=== PATIENT | male | born 1940 | race Caucasian/White ===

== ENCOUNTER 2019-09-20 13:20 | Outpatient (CLI) | payer MEDICARE, SELFPAY ==
--- NOTE | ~2019-09-20 | XR_ITS ---
EXAMINATION: XR shoulder LT min 2V DATE: 09/20/2019 13:58 INDICATION: Left shoulder pain. TECHNIQUE: 4 views of left shoulder were obtained. COMPARISON: Left shoulder radiographs 12/14/2017 FINDINGS: There is a reverse [id number] total left shoulder arthroplasty in near-anatomic alignm ent. No acute fracture. No periprosthetic lucency to suggest loosening or infection. 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 There are old healed left rib fractures. There a re chronic calcifications in left axilla. IMPRESSION: 1. Total left shoulder arthroplasty in near-anatomic alignment. 2. 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 Reviewed, dictated and finalized at location A.
== END 2019-09-20 13:21 | disposition home or self-care (01) ==
PROVIDERS: PCP Internal Medicine
DX: M25.512 Pain in left shoulder (principal)
CPT/HCPCS: 73030

== ENCOUNTER 2019-10-21 14:47 | Outpatient (CLI) | payer MEDICARE, SELFPAY ==
--- NOTE | ~2019-10-21 | XR_ITS ---
EXAMINATION: XR femur LT min 2V DATE: 10/21/2019 15:18 INDICATION: Left femur pain TECHNIQUE: Overlapping proximal and distal, AP and lateral views of the left femur were obtained. COMPARISON: None FINDINGS: Alignment is normal. No fracture. Prominent heterotopic ossification along the anterior facet of the left greater trochanter along the distal insertion of the left gluteus minimus tendon. This likely re presents sequela of chronic at least partial tear with mild asymmetric muscular atrophy of the left g luteus medius minimus relative to the right on prior CT dated 07/27/2017. Minimal osteoarthritis at th e left hip and knee. No left knee joint effusion. Bone island at the left femoral head. Extensive vas cular calcifications along the vessels in the left thigh and proximal calf. Multiple additional calci fications projecting over the perineum which on prior CT correspond to a combination of phleboliths, vascular calcifications and penile calcifications consistent with Peyronie's disease. Soft tissues ar e otherwise unremarkable. IMPRESSION: 1. Minimal left hip and knee osteoarthritis. No left knee joint effusion or acute osseous abnormality . 2. Prominent heterotopic constipation on the anterior margin of the left greater trochanter likely se quela of chronic at least partial tear of the left gluteus in this tendon. Reviewed, dictated and finalized at location A. IMPRESSION: 1. Minimal left hip and knee osteoarthritis. No left knee joint effusion or acu te osseous abnormality. 2. Prominent heterotopic constipation on the anterior margin of the left greate r trochanter likely sequela of chronic at least partial tear of the left gluteu s in this tendon.
== END 2019-10-21 14:48 | disposition home or self-care (01) ==
LOC: CHSIMG 14:49
PROVIDERS: PCP Internal Medicine; Visit Provider Internal Medicine
DX: M79.652 Pain in left thigh (principal); M25.552 Pain in left hip
CPT/HCPCS: 73552

== ENCOUNTER 2019-11-11 11:27 | Outpatient (CLI) | payer MEDICARE, SELFPAY ==
--- NOTE | ~2019-11-11 | XR_ITS ---
EXAMINATION: XR lumbar spine 2-3V DATE: 11/11/2019 11:48 INDICATION: Low back pain TECHNIQUE: Anteroposterior and lateral views of the lumbar spine, and cone-down lateral view of the l umbosacral junction were obtained. COMPARISON: 07/10/2017 FINDINGS: There are changes of interval posterior fusion and laminectomy from L3 through L5 and anter ior fusion at L4-5. There are 8 mm of stable retrolisthesis of L3 on L4 and 7 mm of stable anterolist hesis of L4 on L5. There is mild unchanged loss of intervertebral disc space height at L3-4 and L5-S1 . There is an age-indeterminate compression fracture of L1 with approximately 10% loss of anterior ve rtebral body height. Degenerative osteophytes project from the anterior endplates of multiple vertebr al bodies. Calcified atherosclerosis is noted. IMPRESSION: 1. Age-indeterminate L1 compression fracture with 10% loss of anterior vertebral body height, new sin ce the prior examination. 2. Changes of interval anterior and posterior fusion. Reviewed, dictated and finalized at location B. IMPRESSION: 1. Age-indeterminate L1 compression fracture with 10% loss of anterior vertebra l body height, new since the prior examination. 2. Changes of interval anterior and posterior fusion.
== END 2019-11-11 11:28 | disposition home or self-care (01) ==
LOC: CHSIMG 11:29
PROVIDERS: PCP Internal Medicine; Visit Provider Internal Medicine
DX: M54.5 Low back pain (principal)
CPT/HCPCS: 72100

== ENCOUNTER 2019-12-03 12:36 | Emergency (ER) | payer MEDICARE, SELFPAY ==
--- NOTE | ~2019-12-03 | CT_ITS ---
EXAMINATION: CT thoracic lumbar wo con, CT chest wo con DATE: 12/03/2019 16:12 ( INDICATION: Low back pain and bilateral lower limb weakness post fall. Chest CT obtained for soft tis kaylin gas in the chest wall seen on evaluation of the thoracic and lumbar spine CT. TECHNIQUE: 1. Computed tomography (CT) of the thoracic and lumbar spine was performed without intravenous contra st. Automated exposure control and iterative reconstruction technique were employed. The dose-length product was 2336.90 mGy-cm. 2. CT of the chest without contrast was obtained by reformatting the imaging obtained as part of the thoracic and lumbar spine CT. COMPARISON: None FINDINGS: Thoracic spine: Mild upper thoracic kyphosis. 3 mm anterolisthesis C7 on T1 and T2 on T3. Vertebral body heights are normal. No acute fracture. There are bridging osteophytes at multiple levels throughout the mid to lo wer thoracic spine consistent with diffuse idiopathic skeletal hyperostosis (DISH). Severe disc heigh t loss at C7-T1 through T2-T3, moderate disc height loss at T4-T5 through T7-T8 and at T10-T11 with m ild disc height loss at the remaining thoracic levels. There are disc osteophyte complexes resulting in mild central canal stenosis at C6-C7 and at multiple levels throughout the thoracic spine. Moderat e to severe bilateral facet osteoarthritis throughout the thoracic spine resulting in multilevel mild or moderate neural foraminal stenosis on both the left and right. Small posteriorly layering left pl eural effusion with associated passive atelectasis in the dependent left lower lobe. Lumbar spine: L3 and L4 laminectomies. Instrumented L3-L5 posterior spinal fusion with bilateral vertical una and p edicle screw fixation. There is also discectomy and anterior spinal fusion with interbody fusion caridad ce at L4-L5. 3-4 mm retrolisthesis L3 on L4 and L3-4 millimeters anterolisthesis L4 on L5. Relatively acute appearing L1 burst fracture with 20% mid to anterior vertebral body height loss and fracture l ine extending from the anterior to the posterior wall without associated retropulsion. There is howev er an associated oblique axial fracture extending across the spinous process of T12 suggesting a hype rflexion injury. Lesion with increased density within the central aspect of the L2 vertebral body lik mary representing changes of prior a vertebroplasty the differential would include indeterminate scler otic bone lesion. Correlate with surgical history. Mild disc height loss at L3-L4 and L5-S1. Disc bu lges and ligamentum flavum hypertrophy resulting in at least moderate central canal stenosis at L1-L2 and L2-L3. Evaluation of the central canal in the more caudal lumbar spine is limited by dense metal lic streak artifact from the posterior spinal fusion instrumentation. Hypertrophic change at the mid to lower lumbar facet joints resulting in moderate neural foraminal stenosis on the left at L4-5 and on the right at L3-L4 and L5-S1. Mild neural foraminal stenosis bilaterally at L1-L2 and L2-L3. There is some subcutaneous gas in the subcutaneous tissues posterior to the thoracic and upper lumbar spin e was of indeterminate etiology. Chest: Small posteriorly layering left pleural effusion with dependent passive atelectasis in the left lower lobe. Acute displaced fracture of the left seventh, eighth and ninth ribs. There is moderate amount of soft tissue gas along the lateral and posterior left chest wall suggesting air leak resulting from an associated otherwise indiscernible left lung injury. No pneumothorax. There are few old healed an terior left rib fractures. Right lung remains clear with no pneumothorax or pleural effusion. Mild ca rdiomegaly. Atherosclerotic coronary artery calcifications. Subtle fat attenuation along the ventricu lar septum consistent with chronic myocardial infarction. Thoracic aorta is normal in caliber with no evident ac
--- NOTE | ~2019-12-03 | CT_ITS ---
EXAMINATION: CT pelvis wo con EXAM DATE: 12/03/2019 13:28 INDICATION: Fall, pelvic pain. States legs give out. TECHNIQUE: Spiral CT pelvis wo con was performed without contrast. Axial, coronal and sagittal imag es were reviewed. The dose-length product (DLP) for this examination was 545.73 mGy-cm. The exposur e was tailored according to patient size (auto mA exposure control), and iterative reconstruction ( IR) was used as additional dose reduction technique. There is no prior study for comparison. FINDINGS: There are no acute fractures identified. Small left inguinal fat-containing hernia. Smal l umbilical fat-containing hernia. There is extensive sigmoid colonic diverticulosis. There is no ad jacent inflammatory change to suggest diverticulitis. Mild prostatomegaly. No pelvic lymphadenopathy . Sacrum, sacroiliac joints, sacral arcuate lines are intact. Lower lumbar fusion with imaged porti on of hardware intact. Interbody fusion L4-5 without solid bone bridging. Some lucency surrounding th e L5 screws. Rectal vault measures 7.5 cm. IMPRESSION: 1. No acute osseous findings. 2. Fecal impaction. 3. Colonic diverticulosis. 4. Lumbar surgical changes, incomplete bone bridging at L4-5 and some lucency surrounding the L5 ped icular screws could indicate loosening. Reviewed, dictated and finalized at location B. IMPRESSION: 1. No acute osseous findings. 2. Fecal impaction. 3. Colonic diverticulosis. 4. Lumbar surgical changes, incomplete bone bridging at L4-5 and some lucency surrounding the L5 pedicular screws could indicate loosening.
--- NOTE | 2019-12-03 12:47 | ED.WEAKNESS ---
HPI - Weakness General Chief complaint: Back Pain/Injury Stated complaint: ambulance Time Seen by Provider: 12/03/19 12:47 Source: patient Mode of arrival: ambulatory Limitations: no limitations History of Present Illness HPI Narrative: 79-year-old man comes in today complaining of weakness in his legs that caused a fall today. He states that his legs give out and when he fell today he felt pain in his low back, and bilateral posterior hips. He states the low back pain is back to its usual and he now only has some mild bilateral hip pain. Patient states that he has a history of prior back surgery, spinal canal stenosis at the lumbar level, and an L1 vertebral compression fracture that was recently diagnosed. He states that over the last few weeks he has gotten progressively weak in his lower extremities and complains of some decreased sensation in his left lower extremity. He denies any urine or stool symptoms and has had no difficulty urinating, dysuria, hematuria, nausea, vomiting, cough, cold symptoms, chest pain, headaches, lightheadedness or fever. He had an MRI on November 22, 2019 which revealed severe stenosis at L1-L2 and L2-L3, PLIF at L3 through L5, and the aforementioned L1 compression fracture. Patient states he was scheduled to follow-up with a surgeon regarding his symptoms and findings. In the last few weeks, patient and his state that he having a great deal of difficulty getting around because of the weakness in his legs. He is using adult diapers because he cannot get to the bathroom, and goes only from his bed to his recliner and back. MD Complaint: focal weakness, numbness and difficulty walking Onset (ago): week(s) (2-3) Duration: constant Location: LLE and RLE Migration: none Severity: moderate Quality: numbness (LLE) Relieving factors: none Exacerbating factors: none Related Data Home Medications Medication Instructions Recorded Confirmed aspirin 325 mg tablet 325 mg PO DAILY 05/15/19 12/03/19 cilostazol 50 mg tablet 50 mg PO BID 05/15/19 12/03/19 diltiazem HCl 240 mg 240 mg PO DAILY 05/15/19 12/03/19 capsule,extended release 24 hr donepezil 5 mg tablet 5 mg PO ONCE 05/15/19 12/03/19 insulin human U-100 NPH-regulr 1 sliding scale dose SUB-Q 05/15/19 12/03/19 70-30 mix 100 unit/mL subcutaneous USEASDIRECTD susp lisinopril 40 mg tablet 40 mg PO DAILY 05/15/19 12/03/19 lovastatin 10 mg tablet 10 mg PO DAILY 05/15/19 12/03/19 tramadol 50 mg tablet 50 mg PO Q6H PRN 05/15/19 12/03/19 acetaminophen 500 mg tablet 500 mg PO Q6H PRN 05/16/19 12/03/19 ascorbic acid (vitamin C) 500 mg 500 mg PO DAILY 05/16/19 12/03/19 capsule cetirizine 10 mg tablet 5 mg PO BID tablet 05/16/19 12/03/19 cholecalciferol (vitamin D3) 50 2,000 unit PO DAILY 05/16/19 12/03/19 mcg (2,000 unit) tablet coenzyme Q10 100 mg capsule 100 mg PO DAILY 05/16/19 12/03/19 cyanocobalamin (vitamin B-12) 1,000 mcg PO DAILY 05/16/19 12/03/19 1,000 mcg capsule loteprednol etabonate 0.5 % eye 1 drop EACH EYE ONCE ml 05/16/19 12/03/19 drops,suspension multivitamin 1 tablet PO DAILY 05/16/19 12/03/19 Allergies Allergy/AdvReac Type Severity Reaction Status Date / Time No Known Allergies Allergy Verified 11/11/19 14:15 Review of Systems Constitutional: Constitutional: Denies chills and Denies fever(s) Eyes: Eyes: Denies change in vision and Denies photophobia ENT: Denies dysphagia, Denies nasal congestion and Denies sore throat Cardiovascular: Cardiovascular: Denies chest pain and Denies radiating jaw, neck or arm pain Respiratory: Respiratory: Denies cough, Denies dyspnea and Denies wheezing Gastrointestinal: Gastrointestinal: Denies abdominal pain, Denies diarrhea, Denies nausea and Denies vomiting Genitourinary: Genitourinary: Denies hematuria, Denies dysuria and Denies urinary frequency Musculoskeletal: Musculoskeletal: Reports as per HPI, Reports back pain ( As per usual), Reports arthralgias ( at hips) and Denies
[2019-12-03 13:02] VITALS: BP 160/92; PULSE 69; RESP 17; TEMP 37; O2SAT 97
[2019-12-03 13:28] LABS: Basophils Absolute Auto 0.04 K/mm3 (0.00-0.10); Basophils Percent Auto 0.6 % (0.0-1.0); Eosinophils Absolute Auto 0.57 K/mm3 (0.02-0.50); Eosinophils Percent Auto 8.1 % (1.0-6.0); Hematocrit 38.3 % (37.0-46.0); Hemoglobin 12.5 g/dL (12.4-15.3); Immature Granulocyte Absolute 0.02 K/mm3 (0.00-0.00); Immature Granulocyte Percent A 0.3 % (0.0-0.0); Lymphocytes Percent Auto 15.6 % (18.0-42.0); Mean Corpuscular HGB Conc 32.6 g/dL (32.0-36.0); Mean Corpuscular Hemoglobin 30.5 pg (27.0-31.0); Mean Corpuscular Volume 93.4 fL (78.0-102.0); Mean Platelet Volume 9.7 fl (8.7-11.0); Monocytes Absolute Auto 0.49 K/mm3 (0.10-0.90); Neutrophils Absolute Auto 4.8 K/mm3 (1.7-7.2); Neutrophils Percent Auto 68.4 % (50.0-70.0); Platelet Count Result 266 K/mm3 (150-420); Red Cell Distribution Width 13.1 % (11.6-14.4)
[2019-12-03 13:41] LABS: Alanine Aminotransferase 18 U/L (16-63); Alkaline Phosphatase 105 U/L (46-116); Anion Gap 9 mmol/L (8-16); Aspartate Amino Transferase 16 U/L (15-37); Bilirubin,Total 0.4 mg/dL (0.00-1.00); Blood Urea Nitrogen 12 mg/dL (7-18); Calcium 8.9 mg/dL (8.5-10.1); Carbon Dioxide 25 mmol/L (21-32); Chloride 105 mmol/L (98-108); Estimated Glomerular Filt Rate > 60; Glucose 137 mg/dL (70-99); Osmolality Calculated 289 mOsm/kg (285-295); Sodium 139 mmol/L (136-145); Total Protein 6.9 g/dL (6.4-8.2)
[2019-12-03 14:30] VITALS: BP 147/83; PULSE 68; O2SAT 99
--- NOTE | 2019-12-03 15:18 | PC.NURSE ---
DR BORGES CALLED FOR CONSULT ON POSSIBLE TRANSFER
--- NOTE | 2019-12-03 15:47 | PC.NURSE ---
CONSULT WITH DR BORGES - PT TO BE SEEN IN ER AT [facility] BY DR GRIFFITHS
[2019-12-03 16:09] VITALS: BP 137/77; PULSE 61; RESP 16; O2SAT 99
[2019-12-04 13:03] LABS: Glucose Point of Care 125 (65-105)
== END 2019-12-03 16:20 | disposition short-term general hospital (02) ==
PROVIDERS: Emergency Provider Emergency Medicine; PCP Internal Medicine
DX: R53.1 Weakness (principal); S32.001A Stable burst fracture of unspecified lumbar vertebra, initial encounter for closed fracture; S22.49XA Multiple fractures of ribs, unspecified side, initial encounter for closed fracture; W19.XXXA Unspecified fall, initial encounter
CPT/HCPCS: 36415; 71250; 72128; 72131; 72192; 80053; 85025; 99285

== ENCOUNTER 2020-04-26 09:21 | Emergency (ER) | payer MEDICARE, SELFPAY ==
--- NOTE | ~2020-04-26 | XR_ITS ---
XR thoracic spine 3V 04/26/2020 11:25 Indication: Back pain. Procedure: 3 views thoracic spine Comparison: CT dated 12/03/2019 Findings: There is mild thoracic kyphosis. Moderate multilevel spondylosis. There is diffuse idiopath ic skeletal hyperostosis (DISH) of the thoracic spine. 10 there is loss of disc height at multiple le vels. No acute fracture or traumatic malalignment is identified. Evaluation of C7-T1 not well seen on the lateral view due to shoulder arthroplasty. Impression: 1: No acute fracture. Reviewed, dictated and finalized at location A. [facility] CL[employer] SPECIALIST Impression: 1: No acute fracture.
--- NOTE | ~2020-04-26 | XR_ITS ---
XR lumbar spine 2-3V 04/26/2020 11:25 Indication: Low back pain status post surgery Procedure: 6 views of the lumbar spine Comparison: CT dated 12/03/2019 and lumbar spine series dated 07/10/2017 Findings: There is posterior spinal fusion with pedicle screws at T12-L5. There is a superior endplat e compression fracture of L1 with ill-definition of the superior endplate. There is lateral bone mass graft at throughout the lumbar spine. There are prosthetic disc devices at L1-2 and L4-5. There is a n IVC filter favored. There is advanced multilevel facet hypertrophy. Laminectomy changes at multiple levels. There is grade 1 spondylolisthesis at L4-5. Impression: 1: Superior endplate compression fracture of L1 with ill-definition of the superior endplate. There a re pedicle screws at this level which appear to extend outside of the vertebral cortex. These finding s may all be posttraumatic/postsurgical, although infection is not excluded. 2: Spinal fusion at T12-L1 with advanced multilevel spondylosis. Reviewed, dictated and finalized at location A. [facility] SPECIALIST MEDICAL DEVICE Impression: 1: Superior endplate compression fracture of L1 with ill-definition of the supe rior endplate. There are pedicle screws at this level which appear to extend ou tside of the vertebral cortex. These findings may all be posttraumatic/postsurg ical, although infection is not excluded. 2: Spinal fusion at T12-L1 with advanced multilevel spondylosis.
[2020-04-26 09:25] VITALS: BP 191/97; PULSE 66; RESP 16; TEMP 36.6; O2SAT 99
--- NOTE | 2020-04-26 09:33 | ED.BACK ---
HPI - Back Pain/Injury General Chief Complaint: Back Pain/Injury Stated Complaint: Ambulance Time Seen by Provider: 04/26/20 09:33 Source: patient Mode of arrival: EMS Limitations: no limitations History of Present Illness HPI Narrative: 80-year-old man with a history of chronic low back pain and back surgery in December of last year brought in today with increased pain since yesterday. Patient states it is worse with movement, coughing and taking a deep breath. He denies any falls or injuries. He has had no incontinence, pain with urination, blood in his urine, fever, vomiting, abdominal pain or cough or cold symptoms. He is currently requiring full assistance at home between his and caretakers to use a lift to move him to a sitting position from the bed. He states he is not stood for many months. He recently was discharged 04/22/20) from intensive physical therapy after he was not coping well post surgery at home. MD elicited complaint: back pain Pertinent past history: prior back pain Onset (ago): day(s) (1) Timing: constant Severity: severe Quality: sharp and aching Location: lumbar spine and thoracic spine Radiation: none Exacerbating factors: movement and coughing/sneezing Relieving factors: immobilization Related Data Home Medications Medication Instructions Recorded Confirmed diltiazem HCl 240 mg 240 mg PO DAILY 05/15/19 04/26/20 capsule,extended release 24 hr donepezil 5 mg tablet 5 mg PO ONCE 05/15/19 04/26/20 lisinopril 40 mg tablet 40 mg PO DAILY 05/15/19 04/26/20 lovastatin 10 mg tablet 10 mg PO DAILY 05/15/19 04/26/20 tramadol 50 mg tablet 50 mg PO Q6H PRN 05/15/19 04/26/20 acetaminophen 500 mg tablet 500 mg PO Q6H PRN 05/16/19 04/26/20 cholecalciferol (vitamin D3) 50 2,000 unit PO DAILY 05/16/19 04/26/20 mcg (2,000 unit) tablet cyanocobalamin (vitamin B-12) 1,000 mcg PO DAILY 05/16/19 04/26/20 1,000 mcg capsule multivitamin 1 tablet PO DAILY 05/16/19 04/26/20 apixaban [Eliquis] 5 mg PO BID 04/26/20 04/26/20 baclofen 10 mg PO TID 04/26/20 04/26/20 bisacodyl 10 mg [place] DAILY 04/26/20 04/26/20 gabapentin 300 mg PO BID 04/26/20 04/26/20 hydralazine 15 mg PO TID PRN 04/26/20 04/26/20 insulin glargine 12 unit SUBCUT HS 04/26/20 04/26/20 insulin lispro 4 unit SUBCUT AC 04/26/20 04/26/20 lidocaine HCl 1 ea MUCOUS MEMBRANE DAILY 04/26/20 04/26/20 lorazepam 0.5 mg PO BID 04/26/20 04/26/20 potassium chloride 10 meq PO DAILY 04/26/20 04/26/20 Allergies Allergy/AdvReac Type Severity Reaction Status Date / Time No Known Allergies Allergy Verified 11/11/19 14:15 Review of Systems Constitutional: Constitutional: Denies chills, Denies fever(s) and Reports weakness ( Chronic lower extremity) Eyes: Eyes: Denies change in vision and Denies photophobia ENT: Denies dysphagia, Denies nasal congestion and Denies sore throat Cardiovascular: Cardiovascular: Denies chest pain Respiratory: Respiratory: Denies cough and Denies dyspnea Gastrointestinal: Gastrointestinal: Denies abdominal pain, Denies diarrhea, Denies nausea and Denies vomiting Genitourinary: Genitourinary: Denies hematuria, Denies dysuria and Denies urinary frequency Musculoskeletal: Musculoskeletal: Reports back pain, Denies arthralgias and Denies joint swelling Integumentary/Breasts: Skin/Breast: Denies pruritus, Denies erythema and Denies rash Neurologic: Denies vertigo, Denies dizziness and Denies syncope Hematologic/Lymphatic: Hematologic/Lymphatic: Denies easy bleeding and Denies easy bruising Allergic/Immunologic: Allergic/Immunologic: Denies lip swelling and Denies throat swelling PMFSH Past Medical History Medical History (Updated 04/26/20 @ 11:56 by Norman Bertrand MD) Alzheimers disease Anemia HTN (hypertension) Low back pain Male erectile disorder Mixed hyperlipidemia Type 2 diabetes mellitus Surgical History Surgical History History of cholecystectomy Histor
[2020-04-26] MEDS: ONDANSETRON INJ 4 MG/2 ML VIAL IV PUSH (09:52)
[2020-04-26] MEDS: HYDROmorphone HCL INJ (*CRX) 2 MG/ML VIAL 0.5 MG IV PUSH (09:52)
[2020-04-26 09:56] LABS: Basophils Absolute Auto 0.04 K/mm3 (0.00-0.10); Basophils Percent Auto 0.8 % (0.0-1.0); Eosinophils Absolute Auto 0.18 K/mm3 (0.02-0.50); Eosinophils Percent Auto 3.4 % (1.0-6.0); Hematocrit 37.9 % (37.0-46.0); Hemoglobin 11.8 g/dL (12.4-15.3); Immature Granulocyte Absolute 0.02 K/mm3 (0.00-0.00); Immature Granulocyte Percent A 0.4 % (0.0-0.0); Lymphocytes Absolute Auto 1.32 K/mm3 (1.10-4.50); Lymphocytes Percent Auto 24.9 % (18.0-42.0); Mean Corpuscular HGB Conc 31.1 g/dL (32.0-36.0); Mean Corpuscular Hemoglobin 27.8 pg (27.0-31.0); Mean Corpuscular Volume 89.2 fL (78.0-102.0); Mean Platelet Volume 10.2 fl (8.7-11.0); Monocytes Absolute Auto 0.51 K/mm3 (0.10-0.90); Monocytes Percent Auto 9.6 % (2.0-11.0); Neutrophils Absolute Auto 3.2 K/mm3 (1.7-7.2); Neutrophils Percent Auto 60.9 % (50.0-70.0); Platelet Count Result 227 K/mm3 (150-420); Red Blood Count 4.25 M/mm3 (4.70-6.10); Red Cell Distribution Width 16.4 % (11.6-14.4); White Blood Count 5.3 K/mm3 (4.8-10.8)
[2020-04-26 09:57] LABS: Add Urine Microscopic? YES; Appearance Urine Clear (Clear); Bilirubin Urine Negative (Negative); Blood Urine 2+ (Negative); Color Urine Straw (Yellow); Glucose Urine UA Negative (Negative); Ketones Urine Negative (Negative); Leukocyte Esterase Ur Trace (Negative); Nitrate Urine Negative (Negative); Protein Urine Negative (Negative); Specific Grav Ur 1.015 (1.010-1.020); Urobilinogen Urine 0.2 mg/dL (0.2-1.0); pH Urine 5.5 (5.0-8.0)
[2020-04-26 10:02] LABS: Bacteria Urine Trace /hpf; Squamous Epithelial Cell Urine Rare /hpf (Few); WBC Urine 0-3 /hpf (0-3)
[2020-04-26 10:09] LABS: Alanine Aminotransferase 13 U/L (16-63); Albumin Level 2.8 g/dL (3.4-5.0); Alkaline Phosphatase 88 U/L (46-116); Anion Gap 9 mmol/L (8-16); Aspartate Amino Transferase 16 U/L (15-37); Bilirubin,Total 0.3 mg/dL (0.00-1.00); Blood Urea Nitrogen 10 mg/dL (7-18); Carbon Dioxide 26 mmol/L (21-32); Chloride 103 mmol/L (98-108); Estimated Glomerular Filt Rate > 60; Glucose 120 mg/dL (70-99); Osmolality Calculated 286 mOsm/kg (285-295); Potassium 4.1 mmol/L (3.5-5.1); Sodium 138 mmol/L (136-145); Total Protein 6.5 g/dL (6.4-8.2)
[2020-04-26 12:10] VITALS: BP 140/93
== END 2020-04-26 12:35 | disposition home or self-care (01) ==
PROVIDERS: Emergency Provider Emergency Medicine; PCP Internal Medicine
DX: S32.001S Stable burst fracture of unspecified lumbar vertebra, sequela (principal); M54.6 Pain in thoracic spine; Z79.899 Other long term (current) drug therapy; I10 Essential (primary) hypertension; E78.2 Mixed hyperlipidemia; E11.9 Type 2 diabetes mellitus without complications
CPT/HCPCS: 36415; 51701; 72072; 72100; 80053; 81001; 85025; 87086; 96374; 96375; 99283; 99284; J1170; J2405

== ENCOUNTER 2020-09-28 10:16 | Outpatient (RCR) | payer MEDICARE, SELFPAY ==
[2020-09-28 10:10] VITALS: BMI 11.0
--- NOTE | 2020-09-28 17:02 | PTOPEVAL ---
Thank you for referring Kieran Key to [facility].? The patient is scheduled to be seen for therapy? __2__x/week for 8 visits. Please review, sign, date and return this plan of care SARA. I agree with and certify that the following plan of care is medically necessary. Referring Physician Date Admitting Provider: Attending Provider: Vicente Oswald MD Referring Provider: *PT Outpatient Evaluation Start: 09/28/20 10:22 Freq: Status: Active Protocol: Document 09/28/20 10:10 SALBADOR (Rec: 09/28/20 17:02 SALBADOR [email or web address]) Therapy Assessment Status Assessment Status Assessment Status Evaluation Outpatient Past Medical History Neurological History Hx Alzheimer's Disease Yes Cardiovascular History Hx Hypercholesterolemia Yes Hx Hypertension Yes Gastrointestinal History Hx Cholecystectomy Yes Musculoskeletal History Hx Arthritis Yes Hx Back Injury Yes Hx Back Pain Yes Hx Degenerative Disk Disease Yes Hx Orthopedic Surgery Yes: BACK, SHOULDER Hematological History Hx Anemia Yes Endocrine History Hx Diabetes Yes Evaluation Information Problem Diagnosis paraplegia Onset 04/17/20 Subjective Information Pt. reports that he underwent Query Text:As Reported By Patient/ 2 back surgeries last year. Family He states that following his second surgery he noted complete lose of the use of the l.e. He attempted rehab for several months. He reports that he is no confined to a power wheelchair. He states that his helps with all ADL's and they use a wilmer lift to transfer. He reports that he would like to participate in therapy in order to improve his strength and to be able to transfer. Prior Level of Function Activity Level (Last 3 Months) Occupation retired Hand Dominance Right Activity of Daily Living Ability Dependent Indoor/Home Mobility Dependent Community Mobility Dependent Stairs Ability Not-Applicable Functional Cognition (Planning, Shopping Dependent , Taking Medications) Cooking No Cleaning No Laundry No Shopping No Driving
--- NOTE | 2020-12-15 13:00 | PTOPEVAL ---
Thank you for referring Kieran Key to [facility] [place].? The patient is scheduled to be seen for therapy? __2__x/week for 6 visits. Please review, sign, date and return this plan of care SARA. I agree with and certify that the following plan of care is medically necessary. Referring Physician Date Admitting Provider: Attending Provider: Vicente Oswald MD Referring Provider: *PT Outpatient Evaluation Start: 09/28/20 10:22 Freq: Status: Active Protocol: Document 12/15/20 11:07 [facility] (Rec: 12/15/20 12:03 [facility] [id number]) Therapy Assessment Status Assessment Status Assessment Status Re-evaluation Outpatient Past Medical History Neurological History Hx Alzheimer's Disease Yes Cardiovascular History Hx Hypercholesterolemia Yes Hx Hypertension Yes Gastrointestinal History Hx Cholecystectomy Yes Musculoskeletal History Hx Arthritis Yes Hx Back Injury Yes Hx Back Pain Yes Hx Degenerative Disk Disease Yes Hx Orthopedic Surgery Yes: BACK, SHOULDER Hematological History Hx Anemia Yes Endocrine History Hx Diabetes Yes Evaluation Information Problem Diagnosis weakness of the u.e. Onset 04/17/20 Subjective Information Pt. reports that he was Query Text:As Reported By Patient/ undergoing treatment for an Family infection in his toe. he reports that is now cleared up . He reports that he has minimal pain currently and has been using time release pain patches that have really helped reduce pain. He states that he still requires a large amount of assist from his for transfers. He states that he would like to be able to participate better in regards to daily activities and would like to improve his upper body strength. Pain Assessment Pain Scale Pain Scale Used Numeric (1 - 10) Self Report Pain Assessment Right Shoulder(s) Reported Pain Level 2 Lower Back Reported Pain Level 0 Pain Score Pain Score 2,0: Self Report Interventions Used Interventions Used By Clinicians Exercise Upper Extremity Range of Motion General Upper Extremity Range of Motion Gross Upper Extremity Range of Motion -right shoulder flexion AROM Comments 60 degrees
== END 2021-01-06 18:00 | disposition still patient (30) ==
LOC: CHSPT 10:16
PROVIDERS: PCP Internal Medicine; Visit Provider Internal Medicine
DX: G82.20 Paraplegia, unspecified (principal); R53.1 Weakness
CPT/HCPCS: 97110; 97163; 97530

== ENCOUNTER 2020-12-11 12:21 | Outpatient (CLI) | payer MEDICARE, SELFPAY ==
--- NOTE | ~2020-12-11 | US_ITS ---
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 COMPARISON: None. FINDINGS: Right and left brachial artery pressures of 137 mm Hg and 124 mm Hg, respectively, are concordant (no rmal difference <= 30 mmHg). The right ankle-brachial index (STEPHEN) is 1.46 (normal >= 0.9-1.0). The right great toe-brachial index (TBI) is 0.57 (normal >= 0.65). Arterial Doppler waveforms demonstrate brisk systolic upstrokes at lissette th the right posterior tibial and dorsalis pedis arteries. The left STEPHEN is 1.46. The left TBI is 0.62. Arterial Doppler waveforms demonstrate brisk systolic ups trokes at both the left posterior tibial and dorsalis pedis arteries. IMPRESSION: 1. 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 Reviewed, dictated and finalized at location B.
== END 2020-12-11 12:22 | disposition home or self-care (01) ==
LOC: CHSIMG 12:22
PROVIDERS: PCP Internal Medicine; Visit Provider Internal Medicine
DX: I73.9 Peripheral vascular disease, unspecified (principal)
CPT/HCPCS: 93922

== ENCOUNTER 2021-01-11 18:05 | Outpatient (RCR) | payer MEDICARE, SELFPAY ==
[2021-01-11 18:03] VITALS: BMI 11.0
--- NOTE | 2021-01-12 07:32 | PTOPEVAL ---
Thank you for referring Kieran Key to [facility].? The patient is scheduled to be seen for therapy? ____x/week for ___ weeks. Please review, sign, date and return this plan of care SARA. I agree with and certify that the following plan of care is medically necessary. Referring Physician Date Admitting Provider: Attending Provider: Vicente Oswald MD Referring Provider: *PT Outpatient Evaluation Start: 01/12/21 07:04 Freq: Status: Active Protocol: Document 01/11/21 18:03 [facility] (Rec: 01/12/21 07:30 [facility] [id number]) Therapy Assessment Status Assessment Status Assessment Status Re-evaluation Outpatient Past Medical History Neurological History Hx Alzheimer's Disease Yes Cardiovascular History Hx Hypercholesterolemia Yes Hx Hypertension Yes Gastrointestinal History Hx Cholecystectomy Yes Musculoskeletal History Hx Arthritis Yes Hx Back Injury Yes Hx Back Pain Yes Hx Degenerative Disk Disease Yes Hx Orthopedic Surgery Yes: BACK, SHOULDER Hematological History Hx Anemia Yes Endocrine History Hx Diabetes Yes Evaluation Information Problem Diagnosis weakness of the UE's Onset 04/17/20 Subjective Information patient reports he would like Query Text:As Reported By Patient/ to continue skilled PT. he Family reports he feels he is stronger in his arms and core. he reports he has noticed changing positions in his chair has become a little easier. he reports he is wanting to be able to do more for himself at home. Pain Assessment Timing of Pain Assessment Timing of Pain Assessment Assessment Pain Scale Pain Scale Used Numeric (1 - 10) Self Report Pain Assessment Lower Back Reported Pain Level 2 Left Shoulder(s) Reported Pain Level 0 Right Shoulder(s) Reported Pain Level 2 Pain Score Pain Score 2,0,2: Self Report Interventions Used Interventions Used By Clinicians Activity or ADL's,Education, Exercise Upper Extremity Range of Motion General Upper Extremity Range of Motion Gross Upper Extremity Range of Motion functional bilateral reach to Comments the lower cervical spine Scapular/ Shoulder Range of Motion Left Shoulder Flexion - Active 110 Right Shoulder Flexion - Active 105 Upper Extremity Muscle Strength Testing General Upper Extremity Strength Gross Upper Extremity Strength Comments 38.8# R toth
--- NOTE | 2021-02-11 16:22 | PTOPEVAL ---
Thank you for referring Kieran Key to [facility].? The patient is scheduled to be seen for therapy? ____x/week for ___ weeks. Please review, sign, date and return this plan of care SARA. I agree with and certify that the following plan of care is medically necessary. Referring Physician Date Admitting Provider: Attending Provider: Vicente Oswald MD Referring Provider: *PT Outpatient Evaluation Start: 01/12/21 07:04 Freq: Status: Active Protocol: Document 02/11/21 15:00 [facility] (Rec: 02/11/21 16:22 [facility] [id number]) Therapy Assessment Status Assessment Status Assessment Status Discharge Outpatient Past Medical History Neurological History Hx Alzheimer's Disease Yes Cardiovascular History Hx Hypercholesterolemia Yes Hx Hypertension Yes Gastrointestinal History Hx Cholecystectomy Yes Musculoskeletal History Hx Arthritis Yes Hx Back Injury Yes Hx Back Pain Yes Hx Degenerative Disk Disease Yes Hx Orthopedic Surgery Yes: BACK, SHOULDER Hematological History Hx Anemia Yes Endocrine History Hx Diabetes Yes Evaluation Information Problem Diagnosis weakness of the UE's Onset 04/17/20 Subjective Information patient reports he feels Query Text:As Reported By Patient/ sleepy this date. he reports Family he has minimal pain in the back and shoulders. he reports he is getting help for LE exercises at home. Pain Assessment Timing of Pain Assessment Timing of Pain Assessment Assessment Pain Scale Pain Scale Used Numeric (1 - 10) Self Report Pain Assessment Right Hip(s) Reported Pain Level 3 Lower Back Reported Pain Level 3 Left Shoulder(s) Reported Pain Level 1 Right Shoulder(s) Reported Pain Level 1 Pain Score Pain Score 3,3,1,1: Self Report Interventions Used Interventions Used By Clinicians Activity or ADL's,Education, Exercise Upper Extremity Range of Motion Scapular/ Shoulder Range of Motion Left Shoulder Flexion - Active 115 Right Shoulder Flexion - Active 110 Upper Extremity Muscle Strength Testing Scapular/Shoulder Left Shoulder Flexion Strength 3+ Fair + Shoulder Medial Rotation Strength 4 Good Shoulder Lateral Rotation Strength 3 Fair Right Shoulder Flexion Strength 3+ Fair + Shoulder Medial Rotation Strength 4 Good Shoulder Lateral Rotation Strength 3 Fair Elbow/Forearm Bilateral Elbow Flexion Strength 4+ Good + Elbow Extension Strength
== END 2021-02-11 09:10 | disposition home or self-care (01) ==
LOC: CHSPT 18:05
PROVIDERS: PCP Internal Medicine; Visit Provider Internal Medicine
DX: G82.20 Paraplegia, unspecified (principal); R53.1 Weakness
CPT/HCPCS: 97110; 97530

== ENCOUNTER 2021-07-01 10:59 | Outpatient (CLI) | payer MEDICARE, SELFPAY ==
--- NOTE | ~2021-07-01 | XR_ITS ---
XR chest 2V 07/01/2021 11:22 Indication: Chronic cough Procedure: 2 views chest Comparison: 01/18/2016 Findings: Cardy. Bibasilar infiltrates may represent atelectasis, scarring or pneumonia. There is a l eft shoulder arthroplasty. No edema, pleural effusion or pneumothorax. There are surgical changes in the lower thoracic spine, partially visualized. There is a partially calcified nodule in the left axi lla, likely a lymph node. Impression: 1: Bibasilar infiltrates may represent atelectasis/scarring or pneumonia. Reviewed, dictated and finalized at location B. Impression: 1: Bibasilar infiltrates may represent atelectasis/scarring or pneumonia.
== END 2021-07-01 11:00 | disposition home or self-care (01) ==
LOC: CHSIMG 11:02
PROVIDERS: PCP Internal Medicine; Visit Provider Internal Medicine
DX: R05.3 Chronic cough (principal)
CPT/HCPCS: 71046

== ENCOUNTER 2021-07-07 13:32 | Outpatient (CLI) | payer MEDICARE, SELFPAY ==
--- NOTE | ~2021-07-07 | CT_ITS ---
EXAMINATION: CT diagnostic chest wo con EXAM DATE: 07/07/2021 14:15 INDICATION: SOB, Abnormal CXR. TECHNIQUE: Spiral CT of the chest without contrast. Axial, coronal and sagittal images of the chest were reviewed. Coronal maximum intensity pixel images of chest reviewed. The dose-length product ( DLP) for this examination was 589.31 mGy-cm. The exposure was tailored according to patient size (au to mA exposure control), and iterative reconstruction (ASIR) was used as additional dose reduction te chnique. Comparison is made to prior examination from 11/23/2019. FINDINGS: There is left lower lobe round atelectasis, wasn't present on CT from 2019 There are no p leural or pericardial effusions. Tracheobronchial tree is patent. There is no mediastinal, hilar or axillary lymphadenopathy. There is no pneumothorax. Small amount of left ventricular endocardi al fat from prior infarction. Mild cardiomegaly. There is extensive coronary arterial calcification, arterial sclerosis. Upper abdomen is unremarkable. Left shoulder replacement. Lucency surrounding the L1 screws likely indicating loosening. Diffuse idiopathic skeletal hyperostosis. Diffuse loss of thoracic vertebral body heights. Old rib fractures. IMPRESSION: 1. Lucency surrounding the bilateral L1 pedicular screws, probably indicating loosening. 2. Left lower lobe round atelectasis. 3. 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 Dense coronary artery calcifications, consider cardio logy evaluation if not recently evaluated. Reviewed, dictated and finalized at location . IMPRESSION: 1. Lucency surrounding the bilateral L1 pedicular screws, probably indicating loosening. 2. Left lower lobe round atelectasis. 3. 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 Dense coronary artery calcifica tions, consider cardiology evaluation if not recently evaluated.
--- NOTE | 2021-07-07 14:15 | ECHO_ITS ---
Patient Info Name: Kieran Key Age: 81 years : 1940 Gender: Male Ht: 72 in Wt: 225 lbs BSA: 2.30 m2 HR: 49 bpm BP: 120 / 63 mmHg Technical Quality: Fair Exam Date: 07/07/2021 1:56 PM Exam Location: [facility] Patient Status: Outpatient Admit Date: 07/07/2021 Staff Ordering Physician: Vicente Oswald MD Diversity Intern: Diandra Larsen Attending Provider: Vicente Oswald MD Referring Physician: Darek ARIAS; Exam Type: CA echo doppler color flow Study Info Indications R06.02 - Shortness of breath Complete two-dimensional, color flow and Doppler transthoracic echocardiogram is performed. Summary 1. Complete two-dimensional, color flow and Doppler transthoracic echocardiogram is performed. 2. Left ventricular chamber dimension is normal. 3. Left ventricular systolic function is normal, estimated at 65-70%. 4. There is mildly increased left ventricular wall thickness. 5. The left ventricular diastolic function is grade I diastolic dysfunction. 6. E/e' 14 is mildly elevated. 7. There is moderate aortic valve sclerosis. 8. There is mild aortic valve stenosis with a peak velocity of 279 cm/s, mean gradient of 15 mmHg, and aortic valve area of 1.8 cm2. 9. There is trace aortic valve regurgitation. 10. No pulmonary hypertension, estimated pulmonary arterial systolic pressure is 33 mmHg. Left Ventricle E/e' 14 is mildly elevated. Left ventricular chamber dimension is normal. Left ventricular systolic function is normal, estimated at 65-70%. There is mildly increased left ventricular wall thickness. The left ventricular diastolic function is grade I diastolic dysfunction. Right Ventricle Right ventricular systolic function is normal and with normal TAPSE 3.1 cm. Right ventricular chamber dimension is normal. Left Atria Left atrial chamber dimension is normal. Right Atria Right atrial chamber dimension is normal. Aortic Valve The aortic valve is trileaflet. There is moderate aortic valve sclerosis. There is mild aortic valve stenosis with a peak velocity of 279 cm/s, mean gradient of 15 mmHg, and aortic valve area of 1.8 cm2. There is trace aortic valve regurgitation. Pulmonic Valve There is no pulmonic regurgitation. Mitral Valve There is no mitral valve stenosis. There is no mitral valve regurgitation. Tricuspid Valve There is no tricuspid valve regurgitation. No pulmonary hypertension, estimated pulmonary arterial systolic pressure is 33 mmHg. Pericardium/Pleural There is no pericardial effusion. Inferior Vena Cava Normal inferior vena cava with >50% collapse upon inspiration consistent with normal right atrial pressure, 5 mmHg. Aorta The aortic root size at the sinus of Valsalva is normal. Left Ventricular Outflow Tract Name Value Normal LVOT 2D LVOT Diameter 2.0 cm LVOT Doppler LVOT Peak Velocity 115 cm/s LVOT Peak Gradient 5 mmHg LVOT Mean Gradient 4 mmHg LVOT VTI 28 cm LVOT VTI/AV VTI Ratio 0.6 LVOT Strok
== END 2021-07-07 13:33 | disposition home or self-care (01) ==
LOC: CHSIMG 13:33
PROVIDERS: PCP Internal Medicine; Visit Provider Internal Medicine
DX: R06.02 Shortness of breath (principal); R91.8 Other nonspecific abnormal finding of lung field
CPT/HCPCS: 71250; 93306

== ENCOUNTER 2021-09-10 09:32 | Outpatient (CLI) | payer MEDICARE, SELFPAY ==
--- NOTE | 2021-09-10 | EST_ITS ---
Patient Info Name: Kieran Key Age: 81 years : 1940 Gender: Male Ht: 72 in Wt: 225 lbs BSA: 2.30 m2 HR: 50 bpm BP: 134 / 78 mmHg Heart Rhythm: Bradycardia Exam Date: 09/10/2021 11:21 AM Exam Location: [facility] Stress Patient Status: Outpatient Admit Date: 09/10/2021 Staff Ordering Physician: Mike Calhoun MD Attending Provider: Mike Calhoun MD Exercise Technologist: Yamileth Acosta, CT Nurse: MORRO ASIF Exam Type: CA stress breezy w NM Study Info Indications I25.10 - Atherosclerotic heart disease of [place] coronary artery without angina pectoris A regadenoson stress test was performed. Summary 1. Normal sinus rhythm. 2. Right bundle branch block. 3. No ST or T-wave changes noted with Lexiscan injection. 4. Occasional PVC. 5. Clinically and electrocardiographically uneventful and unremarkable Lexiscan stress test. 6. Myocardial perfusion imaging exam to be dictated by the Radiology Department. Protocol: Lexiscan Stress ECG Details Stage: REST Duration (min): 1 min : 56 sec HR (bpm): 50 SBP (mmHg): 134 DBP (mmHg): 78 Stage: REST Duration (min): 9 min : 22 sec HR (bpm): 50 SBP (mmHg): 134 DBP (mmHg): 78 Stage: STAGE 1 Duration (min): 1 min : 0 sec HR (bpm): 50 SBP (mmHg): 163 DBP (mmHg): 84 Stage: RECOVERY Duration (min): 1 min : 0 sec HR (bpm): 68 SBP (mmHg): 163 DBP (mmHg): 84 Stage: RECOVERY Duration (min): 2 min : 0 sec HR (bpm): 65 SBP (mmHg): 163 DBP (mmHg): 84 Stage: RECOVERY Duration (min): 3 min : 0 sec HR (bpm): 66 SBP (mmHg): 132 DBP (mmHg): 77 Stage: RECOVERY Duration (min): 3 min : 9 sec HR (bpm): 69 SBP (mmHg): 132 DBP (mmHg): 77 Rest HR: 50 bpm Peak HR: 69 bpm Rest Sys BP: 134 mmHg Peak Sys BP: 163 mmHg Max Pred HR: 138 bpm % Max Pred HR: 50 % Target HR: 117 bpm Max RPP: 11,247 bpm*mmHg BP Response: Normal blood pressure response Termination Reason: Completed protocol Cardiac Symptoms: None Total Time: 1 min : 0 sec Rest Vaughan BP: 78 mmHg Peak Vaughan BP: 84 mmHg Total Dose: 0.4 mg Resting ECG Normal sinus rhythm. Right bundle branch block. Stress ECG No ST or T-wave changes noted with Lexiscan injection. Arrhythmias Occasional PVC. Report Signatures
--- NOTE | ~2021-09-10 | NM_ITS ---
EXAMINATION: NM breezy stress w perfusion DATE: 09/10/2021 13:54 INDICATION: Urinary artery calcifications TECHNIQUE: Rest images were obtained following intravenous administration of 9.7 mCi Tc99m tetrofosmi n (Myoview). The patient was infused intravenously with Lexiscan (Regadenoson). Then, 29.7 mCi Tc99m tetrofosmin (Myoview) was administered intravenously, and stress images were obtained. Data was recon structed into short axis and horizontal and vertical long axis SPECT images. Gated SPECT images were also obtained. COMPARISON: None. FINDINGS: There is no definite reversible or fixed perfusion abnormality to suggest ischemia or infar ction. There is normal left ventricular chamber size, wall motion and ejection fraction. Left ventr icular ejection fraction measures >70%. IMPRESSION: 1. Normal myocardial perfusion at rest and during stress. 2. Left ventricular ejection fraction measuring >70%. Reviewed, dictated and finalized at location B.
== END 2021-09-10 09:33 | disposition home or self-care (01) ==
PROVIDERS: PCP Internal Medicine; Visit Provider Internal Medicine Cardiovascular Disease
DX: I25.10 Atherosclerotic heart disease of native coronary artery without angina pectoris (principal)
CPT/HCPCS: 78452; 93017; A9502; J0280; J2785

== ENCOUNTER 2021-09-25 10:11 | Emergency (ER) | payer MEDICARE, SELFPAY ==
--- NOTE | ~2021-09-25 | XR_ITS ---
XR chest 1V portable 09/25/2021 11:36 Indication: Cough and congestion Procedure: AP portable chest Comparison: Comparison to multiple prior studies sequentially, with oldest reviewed study dated 06/2015. Findings: Patchy bilateral infiltrates of the right mid and left lower lung, suspicious for pneumonia . Significant interval change. There is amorphous calcification in the left axilla, possibly calcifie d lymph node. There is a left shoulder arthroplasty. There are surgical changes consistent with fusio n thoracolumbar junction. No pneumothorax or edema. Impression: 1: Stable patchy bilateral airspace disease, suspicious for pneumonia. Reviewed, dictated and finalized at location A. Impression: 1: Stable patchy bilateral airspace disease, suspicious for pneumonia.
[2021-09-25 10:35] VITALS: BP 112/42; PULSE 88; RESP 20; TEMP 37.5; O2SAT 96
--- NOTE | 2021-09-25 10:41 | PC.NURSE ---
Male pt came to ED in his own motorized wheel chair where he prefers to remain, due to a previous back surgery.
[2021-09-25 11:12] LABS: Add Urine Microscopic? YES; Appearance Urine Slightly Cloudy (Clear); Bilirubin Urine Negative (Negative); Blood Urine 1+ (Negative); Color Urine Yellow (Yellow); Glucose Urine UA Negative (Negative); Ketones Urine Negative (Negative); Leukocyte Esterase Ur 3+ LEU/UL (Negative); Nitrate Urine Positive (Negative); Protein Urine 1+ (Negative); Specific Grav Ur <= 1.005 (1.010-1.020); Urobilinogen Urine 0.2 mg/dL (0.2-1.0); pH Urine 5.5 (5.0-8.0)
--- NOTE | 2021-09-25 11:13 | ED.GENADULT ---
HPI - General Adult General Chief complaint: Urogenital-Male Stated complaint: cloudy urine, elevated temp, cough, congestion Time Seen by Provider: 09/25/21 11:14 History of Present Illness HPI narrative: The patient is an 81-year-old male with history of back surgery who is wheelchair-bound. He is vaccinated against COVID-19, 2 of 2 doses plus the booster. For the last 5 months, he has had a condom cath on, which is changed daily. The Staley leg bag to which it is attached: is cleansed twice daily and the bag itself is changed monthly. The patient recently had a urinary tract infection. He was placed on Augmentin which completed 3 days ago. A new urine sample was sent for analysis at that time. He now returns with a fever of 102.5? today, treated with Tylenol by the home health nurse. Upon arrival in the ER, temperature is 99.5?. He did have chills but no diaphoresis. He did have nasal congestion and a cough productive of phlegm, and rhinorrhea but no sore throat. No chest or abdominal pain or back pain. No hematuria or dysuria or urinary urgency. No nausea vomiting. No shortness of breath. Related Data Home Medications Medication Instructions Recorded Confirmed diltiazem HCl 240 mg 240 mg PO DAILY 05/15/19 09/25/21 capsule,extended release 24 hr donepezil 5 mg tablet 10 mg PO ONCE 05/15/19 09/25/21 lovastatin 10 mg tablet 5 mg PO DAILY 05/15/19 09/25/21 tramadol 50 mg tablet 50 mg PO Q6H PRN Pain 05/15/19 09/25/21 cholecalciferol (vitamin D3) 50 2,000 unit PO DAILY 05/16/19 09/25/21 mcg (2,000 unit) tablet multivitamin 1 tablet PO DAILY 05/16/19 09/25/21 apixaban 5 mg tablet (Eliquis) 5 mg PO BID 04/26/20 09/25/21 baclofen 10 mg tablet 10 mg PO TID 04/26/20 09/25/21 bisacodyl 10 mg rectal suppository 10 mg RECTAL DAILY 04/26/20 09/25/21 hydralazine 10 mg tablet 15 mg PO TID PRN Anxiety 04/26/20 09/25/21 insulin glargine 100 unit/mL 20 unit subcut HS 04/26/20 09/25/21 subcutaneous solution insulin lispro 100 unit/mL 5 unit subcut AC 04/26/20 09/25/21 subcutaneous pen lidocaine HCl 5 % mucosal ointment 1 ea mucous membrane DAILY 04/26/20 09/25/21 lorazepam 0.5 mg tablet 0.5 mg PO BID 04/26/20 09/25/21 acetaminophen 500 mg tablet 650 mg PO Q6H PRN Fever 06/15/20 09/25/21 (Tylenol Extra Strength) cetirizine 10 mg tablet (Zyrtec) 10 mg PO DAILY PRN allergies 06/15/20 09/25/21 fentanyl 25 mcg/hr transdermal 1 patch transdermal Q72H 09/21/21 09/25/21 patch fluticasone propionate 50 1 spray intranasal DAILY 09/21/21 09/25/21 mcg/actuation nasal spray,suspension (Flonase Allergy Relief) memantine 5 mg tablet 5 mg PO QAM 09/21/21 09/25/21 cholecalciferol (vitamin D3) 50 50 mcg PO DAILY 09/25/21 09/25/21 mcg (2,000 unit) capsule (Vitamin D3) cyanocobalamin (vitamin B-12) 1,000 mcg PO DAILY 09/25/21 09/25/21 1,000 mcg tablet (Vitamin B-12) polyethylene glycol 3350 17 gram 17 g PO DAILY 09/25/21 09/25/21 oral powder packet (Miralax) sennosides 8.6 mg-docusate sodium 1 tab-cap PO BID PRN Constipation 09/25/21 09/25/21 50 mg capsule (Senna Plus) Allergies Allergy/AdvReac Type Severity Reaction Status Date / Time No Known Allergies Allergy Verified 09/21/21 15:00 Review of Systems Review of Systems: All systems reviewed & are unremarkable except as noted in HPI and below Constitutional: Constitutional: Reports no additional constitutional complaints, Denies anorexia, Denies body ache(s), Reports chills, Denies excessive sweating, Denies fatigue, Reports fever(s), Denies frequent falls, Denies headache(s), Denies malaise and Denies poor appetite Comments: Wheelchair-bound Eyes: Eyes: Reports no additional eye complaints, Denies blurry vision, Denies change in vision, Denies irritation, Denies itchy eyes and Denies photophobia ENT: Reports system reviewed and no additional complaints, except as documented, Reports Normal hearing present, Denies change in voice, Denies dysphagia, Den
[2021-09-25 11:17] LABS: Bacteria Urine 1+ /hpf; Squamous Epithelial Cell Urine Rare /hpf (Few); WBC Urine >75 /hpf (0-3)
[2021-09-25 11:28] LABS: Basophils Absolute Auto 0.01 K/mm3 (0.00-0.10); Basophils Percent Auto 0.1 % (0.0-1.0); Eosinophils Absolute Auto 0.02 K/mm3 (0.02-0.50); Eosinophils Percent Auto 0.3 % (1.0-6.0); Hematocrit 34.8 % (37.0-46.0); Hemoglobin 11.2 g/dL (12.4-15.3); Immature Granulocyte Absolute 0.05 K/mm3 (0.00-0.00); Immature Granulocyte Percent A 0.7 % (0.0-0.0); Lymphocytes Absolute Auto 0.27 K/mm3 (1.10-4.50); Mean Corpuscular HGB Conc 32.2 g/dL (32.0-36.0); Mean Corpuscular Hemoglobin 29.9 pg (27.0-31.0); Monocytes Absolute Auto 0.47 K/mm3 (0.10-0.90); Neutrophils Absolute Auto 5.9 K/mm3 (1.7-7.2); Neutrophils Percent Auto 87.9 % (50.0-70.0); Platelet Count Result 214 K/mm3 (150-420); Red Blood Count 3.74 M/mm3 (4.70-6.10); Red Cell Distribution Width 13.2 % (11.6-14.4); White Blood Count 6.7 K/mm3 (4.8-10.8)
[2021-09-25 11:46] LABS: Alanine Aminotransferase 13 U/L (16-63); Albumin Level 2.9 g/dL (3.4-5.0); Alkaline Phosphatase 89 U/L (46-116); Anion Gap 6 mmol/L (8-16); Aspartate Amino Transferase < 10 U/L (15-37); Bilirubin,Total 0.4 mg/dL (0.00-1.00); Blood Urea Nitrogen 17 mg/dL (7-18); CRP 1.8 mg/dL (0.0-0.9); Calcium 8.4 mg/dL (8.5-10.1); Carbon Dioxide 27 mmol/L (21-32); Chloride 101 mmol/L (98-108); Estimated CRCL calculation 57 ml/min; Estimated Glomerular Filt Rate > 60; Glucose 287 mg/dL (70-99); Osmolality Calculated 289 mOsm/kg (285-295); Potassium 4.1 mmol/L (3.5-5.1); Sodium 134 mmol/L (136-145); Total Protein 6.4 g/dL (6.4-8.2)
[2021-09-25] MEDS: SODIUM CHLORIDE 0.9% IV 1,000 ML 999 ML IV CONT (11:46)
[2021-09-25 11:49] LABS: Lactic Acid Reflex 1.9 mmol/L (0.4-2.0)
[2021-09-25 11:57] LABS: Influenza A QL RT-PCR Negative (Negative); Influenza B QL RT-PCR Negative (Negative); SARS-CoV-2 RNA PCR Positive (Negative)
[2021-09-25 12:27] LABS: Erythrocyte Sedimentation Rate 44 mm/hr (0-20)
[2021-09-25 13:04] VITALS: BP 120/60; PULSE 85; RESP 18; O2SAT 98
== END 2021-09-25 13:15 | disposition home or self-care (01) ==
PROVIDERS: Emergency Provider Emergency Medicine; PCP Internal Medicine
DX: U07.1 COVID-19 (principal); T83.518A Infection and inflammatory reaction due to other urinary catheter, initial encounter; I10 Essential (primary) hypertension; E78.2 Mixed hyperlipidemia; E11.9 Type 2 diabetes mellitus without complications
CPT/HCPCS: 36415; 71045; 80053; 81001; 83605; 85025; 85652; 86140; 87040; 87077; 87086; 87088; 87186; 87502; 96365; 99284; C9803; J0696; J7030; U0003; U0005

== ENCOUNTER 2021-11-18 15:37 | Emergency (ER) | payer MEDICARE, SELFPAY ==
--- NOTE | ~2021-11-18 | XR_ITS ---
XR chest 1V portable DATE: 11/18/2021 16:47 INDICATION: Cough TECHNIQUE: Portable upright AP chest on 11/2021 at 1651 hours COMPARISON: 09/25/2021 portable AP chest 12/03/2019 CT chest FINDINGS: Cardiomegaly. Left lower lobe infiltrate or atelectasis is suspected. There may be minimal infiltrate or atelectasis of the right lung base. There is minimal if any pleural effusion. No pulmonary vascular congestion or pneumothorax. Reverse left glenohumeral joint replacement. Severe osteoarthritis at the right glenoid humeral joint and right rotator cuff atrophy. Osteopenia. Old left rib fractures. Degenerative change of the thora cic spine. IMPRESSION: Cardiomegaly Left lower lobe infiltrate or atelectasis in possible minimal infiltrate or atelectasis at the right lung base Reviewed, dictated and finalized at location B. IMPRESSION: Cardiomegaly Left lower lobe infiltrate or atelectasis in possible minimal infiltrate or ate lectasis at the right lung base
[2021-11-18 15:45] VITALS: BP 121/65; PULSE 63; RESP 16; TEMP 36.6; O2SAT 96
--- NOTE | 2021-11-18 15:59 | ED.WEAKNESS ---
HPI - Weakness General Chief complaint: Weakness Stated complaint: weakness Time Seen by Provider: 11/18/21 15:59 Source: patient History of Present Illness HPI Narrative: 81-year-old male with a history of hypertension, dyslipidemia, diabetes mellitus, anxiety, peripheral vascular disease, Alzheimer's, DVT left lower extremity, JACIEL, recurrent UTI, COVID diagnosed on 09/25/2021 was noted to have bilateral lung infiltrates. He received Paxlovid. He presents to the ER with of 4 day history of -- cough -- weakness -- fever 2 days ago -- symptoms of urinary tract infection. patient is a chronic condom catheter which drains into a left leg bag Complaint: generalized weakness Onset (ago): day(s) ( started 4 days ago) Duration: constant Location: generalized Migration: none Severity: moderate Relieving factors: none Exacerbating factors: none Associated symptoms: denies other symptoms Related Data Home Medications Medication Instructions Recorded Confirmed diltiazem HCl 240 mg 240 mg PO DAILY 05/15/19 11/18/21 capsule,extended release 24 hr donepezil 5 mg tablet 10 mg PO ONCE 05/15/19 11/18/21 lovastatin 10 mg tablet 5 mg PO DAILY 05/15/19 11/18/21 tramadol 50 mg tablet 50 mg PO Q6H PRN Pain 05/15/19 11/18/21 cholecalciferol (vitamin D3) 50 2,000 unit PO DAILY 05/16/19 11/18/21 mcg (2,000 unit) tablet multivitamin 1 tablet PO DAILY 05/16/19 11/18/21 apixaban 5 mg tablet (Eliquis) 5 mg PO BID 04/26/20 11/18/21 baclofen 10 mg tablet 10 mg PO TID 04/26/20 11/18/21 hydralazine 10 mg tablet 15 mg PO TID PRN Anxiety 04/26/20 11/18/21 insulin glargine 100 unit/mL 15 unit subcut HS 04/26/20 11/18/21 subcutaneous solution insulin lispro 100 unit/mL 5 unit subcut AC 04/26/20 11/18/21 subcutaneous pen lorazepam 0.5 mg tablet 0.5 mg PO BID 04/26/20 11/18/21 acetaminophen 500 mg tablet 650 mg PO Q4H PRN Fever 06/15/20 11/18/21 (Tylenol Extra Strength) cetirizine 10 mg tablet (Zyrtec) 10 mg PO DAILY PRN allergies 06/15/20 11/18/21 fentanyl 25 mcg/hr transdermal 1 patch transdermal Q72H 09/21/21 11/18/21 patch fluticasone propionate 50 1 spray intranasal DAILY 09/21/21 11/18/21 mcg/actuation nasal spray,suspension (Flonase Allergy Relief) memantine 5 mg tablet 5 mg PO QAM 09/21/21 11/18/21 cholecalciferol (vitamin D3) 50 50 mcg PO DAILY 09/25/21 11/18/21 mcg (2,000 unit) capsule (Vitamin D3) cyanocobalamin (vitamin B-12) 1,000 mcg PO DAILY 09/25/21 11/18/21 1,000 mcg tablet (Vitamin B-12) sennosides 8.6 mg-docusate sodium 1 tab-cap PO BID PRN Constipation 09/25/21 11/18/21 50 mg capsule (Senna Plus) Allergies Allergy/AdvReac Type Severity Reaction Status Date / Time No Known Allergies Allergy Verified 11/18/21 15:56 Review of Systems Review of Systems: All systems reviewed & are unremarkable except as noted in HPI and below Constitutional: Constitutional: Reports as per HPI and Reports no additional constitutional complaints Eyes: Eyes: Reports as per HPI and Reports no additional eye complaints ENT: Reports system reviewed and no additional complaints, except as documented and Reports as per HPI Cardiovascular: Cardiovascular: Reports as per HPI and Reports no additional cardiovascular complaints Respiratory: Respiratory: Reports as per HPI, Reports no additional respiratory complaints and Reports cough Gastrointestinal: Gastrointestinal: Reports as per HPI and Reports no additional gastrointestinal complaints Genitourinary: Genitourinary: Reports no additional male genitourinary complaints, Reports as per HPI and Reports urinary frequency Musculoskeletal: Musculoskeletal: Reports no additional musculoskeletal complaints and Reports as per HPI Integumentary/Breasts: Skin/Breast: Reports system reviewed and no additional complaints, except as docu and Reports as per HPI Neurologic: Reports system reviewed and no additional complaints, except as documented and Reports as per HPI Psych
--- NOTE | 2021-11-18 16:21 | ECG_ITS ---
Measurements Intervals [place] Rate: 61 P: 22 MS: 233 QRS: -45 QRSD: 153 T: 29 QT: 453 QTc: 458 Interpretive Statements SINUS RHYTHM WITH FIRST DEGREE AV BLOCK RIGHT BUNDLE BRANCH BLOCK LEFT ANTERIOR FASCICULAR BLOCK ABNORMAL ECG COMPARED TO ECG 04/11/2019 12:33:31 FIRST DEGREE AV BLOCK NOW PRESENT Electronically Signed On 11-19-2021 15:51:49 CDT by Nestor Amado M.D.
[2021-11-18 16:45] LABS: Add Urine Microscopic? YES; Basophils Absolute Auto 0.02 K/mm3 (0.00-0.10); Basophils Percent Auto 0.4 % (0.0-1.0); Bilirubin Urine Negative (Negative); Blood Urine Negative (Negative); Color Urine Light Yellow (Yellow); Eosinophils Absolute Auto 0.08 K/mm3 (0.02-0.50); Eosinophils Percent Auto 1.7 % (1.0-6.0); Glucose Urine UA Negative (Negative); Hematocrit 33.5 % (37.0-46.0); Hemoglobin 10.6 g/dL (12.4-15.3); Immature Granulocyte Absolute 0.01 K/mm3 (0.00-0.00); Immature Granulocyte Percent A 0.2 % (0.0-0.0); Ketones Urine Negative (Negative); Leukocyte Esterase Ur 3+ (Negative); Lymphocytes Absolute Auto 0.65 K/mm3 (1.10-4.50); Lymphocytes Percent Auto 13.6 % (18.0-42.0); Mean Corpuscular HGB Conc 31.6 g/dL (32.0-36.0); Mean Corpuscular Hemoglobin 29.9 pg (27.0-31.0); Mean Corpuscular Volume 94.4 fL (78.0-102.0); Mean Platelet Volume 9.6 fl (8.7-11.0); Monocytes Absolute Auto 0.65 K/mm3 (0.10-0.90); Monocytes Percent Auto 13.6 % (2.0-11.0); Neutrophils Absolute Auto 3.4 K/mm3 (1.7-7.2); Neutrophils Percent Auto 70.5 % (50.0-70.0); Nitrate Urine Negative (Negative); Platelet Count Result 197 K/mm3 (150-420); Protein Urine Negative (Negative); Red Blood Count 3.55 M/mm3 (4.70-6.10); Red Cell Distribution Width 13.9 % (11.6-14.4); Specific Grav Ur 1.015 (1.010-1.020); Urobilinogen Urine 0.2 mg/dL (0.2-1.0); White Blood Count 4.8 K/mm3 (4.8-10.8); pH Urine 5.5 (5.0-8.0)
[2021-11-18 16:52] LABS: Appearance Urine Slightly Cloudy (Clear); Bacteria Urine Trace /hpf; RBC Urine 0-2 /hpf (0-2); Squamous Epithelial Cell Urine Few /hpf (Few); WBC Urine 31-50 /hpf (0-3)
[2021-11-18 17:00] VITALS: BP 125/62; PULSE 74; RESP 16; TEMP 36.7; O2SAT 97
[2021-11-18 17:03] LABS: Alanine Aminotransferase 21 U/L (16-63); Albumin Level 2.4 g/dL (3.4-5.0); Alkaline Phosphatase 96 U/L (46-116); Anion Gap 9 mmol/L (8-16); Aspartate Amino Transferase 13 U/L (15-37); Bilirubin,Total 0.3 mg/dL (0.00-1.00); Blood Urea Nitrogen 25 mg/dL (7-18); Calcium 8.3 mg/dL (8.5-10.1); Carbon Dioxide 26 mmol/L (21-32); Chloride 103 mmol/L (98-108); Estimated CRCL calculation 66 ml/min; Estimated Glomerular Filt Rate > 60; Glucose 290 mg/dL (70-99); Osmolality Calculated 301 mOsm/kg (285-295); Sodium 138 mmol/L (136-145); Total Protein 6.1 g/dL (6.4-8.2); Troponin I 13.5 ng/L (0.00-60.4)
== END 2021-11-18 17:52 | disposition home or self-care (01) ==
PROVIDERS: Emergency Provider Internal Medicine Critical Care Medicine; PCP Internal Medicine
DX: E11.65 Type 2 diabetes mellitus with hyperglycemia (principal); R53.1 Weakness; I10 Essential (primary) hypertension; E78.2 Mixed hyperlipidemia
CPT/HCPCS: 36415; 71045; 80053; 81001; 83605; 84145; 84484; 85025; 93005; 99284

== ENCOUNTER 2022-01-13 12:50 | Outpatient (CLI) | payer MEDICARE, SELFPAY ==
--- NOTE | ~2022-01-13 | CT_ITS ---
EXAMINATION: CT diagnostic chest wo con DATE: 01/13/2022 14:10 INDICATION: abnormal CT study,FOLLOW UP TECHNIQUE: Computed tomography (CT) of the chest was performed without intravenous contrast. Addition al 3D reconstructions utilizing coronal maximum intensity projection (MIP) were performed. Automated exposure control and iterative reconstruction technique were employed. The dose-length product was 54 0.39 mGy-cm. COMPARISON: 07/07/2021 FINDINGS: Small left pleural effusion. Unchanged dependent atelectasis/scarring in the bilateral lower lobes, l eft greater than right. There is associated architectural distortion and volume loss in the left lowe r lobe. No pneumonia, pulmonary edema, pneumothorax or right pleural effusion. Cardiomegaly. Atherosc lerotic coronary artery calcifications. Aortic valve calcification. Thoracic aorta is normal in calib er. No pathologically enlarged thoracic lymphadenopathy. Reverse left total shoulder arthroplasty. Ad vanced right glenohumeral osteoarthritis. Solidly fused bridging osteophytes throughout much of the t horacic spine, consistent with diffuse idiopathic skeletal hyperostosis (DISH). Couple old left rib f ractures one of which remains nonunited. Cholecystectomy clips at the gallbladder fossa. IMPRESSION: 1. Persistent dependent atelectasis/scarring in bilateral lower lobes including unchanged round atele ctasis with associated architectural distortion and volume loss in the left lower lobe. 2. Very small left pleural effusion. 3. Cardiomegaly with coronary artery disease. Reviewed, dictated and finalized at location A. IMPRESSION: 1. Persistent dependent atelectasis/scarring in bilateral lower lobes including unchanged round atelectasis with associated architectural distortion and volum e loss in the left lower lobe. 2. Very small left pleural effusion. 3. Cardiomegaly with coronary artery disease.
== END 2022-01-13 12:51 | disposition home or self-care (01) ==
LOC: CHSIMG 12:53
PROVIDERS: PCP Internal Medicine; Visit Provider Internal Medicine Pulmonary Disease
DX: R93.89 Abnormal findings on diagnostic imaging of other specified body structures (principal)
CPT/HCPCS: 71250

== ENCOUNTER 2022-03-27 11:32 | Emergency (ER) | payer MEDICARE, SELFPAY ==
--- NOTE | 2022-03-27 11:33 | ED.FEMALEGU ---
HPI - Female Genitourinary General Stated complaint: ambulance Time Seen by Provider: 03/27/22 11:33 Related Data Home Medications Medication Instructions Recorded Confirmed diltiazem HCl 240 mg 240 mg PO DAILY 05/15/19 11/18/21 capsule,extended release 24 hr donepezil 5 mg tablet 10 mg PO ONCE 05/15/19 11/18/21 lovastatin 10 mg tablet 5 mg PO DAILY 05/15/19 11/18/21 tramadol 50 mg tablet 50 mg PO Q6H PRN Pain 05/15/19 11/18/21 cholecalciferol (vitamin D3) 50 2,000 unit PO DAILY 05/16/19 11/18/21 mcg (2,000 unit) tablet multivitamin 1 tablet PO DAILY 05/16/19 11/18/21 apixaban 5 mg tablet (Eliquis) 5 mg PO BID 04/26/20 11/18/21 baclofen 10 mg tablet 10 mg PO TID 04/26/20 11/18/21 hydralazine 10 mg tablet 15 mg PO TID PRN Anxiety 04/26/20 11/18/21 insulin glargine 100 unit/mL 15 unit subcut HS 04/26/20 11/18/21 subcutaneous solution insulin lispro 100 unit/mL 5 unit subcut AC 04/26/20 11/18/21 subcutaneous pen lorazepam 0.5 mg tablet 0.5 mg PO BID 04/26/20 11/18/21 acetaminophen 500 mg tablet 650 mg PO Q4H PRN Fever 06/15/20 11/18/21 (Tylenol Extra Strength) cetirizine 10 mg tablet (Zyrtec) 10 mg PO DAILY PRN allergies 06/15/20 11/18/21 fentanyl 25 mcg/hr transdermal 1 patch transdermal Q72H 09/21/21 11/18/21 patch fluticasone propionate 50 1 spray intranasal DAILY 09/21/21 11/18/21 mcg/actuation nasal spray,suspension (Flonase Allergy Relief) memantine 5 mg tablet 5 mg PO QAM 09/21/21 11/18/21 cholecalciferol (vitamin D3) 50 50 mcg PO DAILY 09/25/21 11/18/21 mcg (2,000 unit) capsule (Vitamin D3) cyanocobalamin (vitamin B-12) 1,000 mcg PO DAILY 09/25/21 11/18/21 1,000 mcg tablet (Vitamin B-12) sennosides 8.6 mg-docusate sodium 1 tab-cap PO BID PRN Constipation 09/25/21 11/18/21 50 mg capsule (Senna Plus) Allergies Allergy/AdvReac Type Severity Reaction Status Date / Time No Known Allergies Allergy Verified 11/18/21 15:56 [facility] Past Medical History Medical History (Updated 12/13/21 @ 16:11 by Rolando Yousif MD) Alzheimers disease Anemia HTN (hypertension) Low back pain Male erectile disorder Mixed hyperlipidemia Type 2 diabetes mellitus Surgical History Surgical History History of cholecystectomy History of lumbar laminectomy History of shoulder surgery Social History Social History Smoking status: Never smoker Discharge Plan Discharge Prescriptions: No Action hydralazine 10 mg tablet 15 mg PO TID PRN (Reason: Anxiety) insulin glargine 100 unit/mL Solution 15 unit SUBCUT HS lorazepam 0.5 mg tablet 0.5 mg PO BID baclofen 10 mg tablet 10 mg PO TID insulin lispro 100 unit/mL insulin pen 5 unit SUBCUT AC Eliquis 5 mg tablet 5 mg PO BID cyanocobalamin (vitamin B-12) [Vitamin B-12] 1,000 mcg Tablet 1,000 mcg PO DAILY cholecalciferol (vitamin D3) [Vitamin D3] 50 mcg (2,000 unit) Capsule 50 mcg PO DAILY Senna Plus 8.6-50 mg Capsule 1 tab-cap PO BID PRN (Reason: Constipation) lovastatin 10 mg tablet 5 mg PO DAILY Rx Instructions: take in evening diltiazem HCl 240 mg capsule,extended release 24hr 240 mg PO DAILY tramadol 50 mg tablet 50 mg PO Q6H PRN (Reason: Pain) donepezil 5 mg tablet 10 mg PO ONCE multivitamin Tablet 1 tablet PO DAILY cholecalciferol (vitamin D3) 2,000 unit tablet 2,000 unit PO DAILY acetaminophen [Tylenol Extra Strength] 500 mg tablet 650 mg PO Q4H PRN (Reason: Fever) cetirizine [Zyrtec] 10 mg tablet 10 mg PO DAILY PRN (Reason: allergies) fentanyl 25 mcg/hr patch 72 hour 1 patch transdermal Q72H memantine 5 mg tablet 5 mg PO QAM fluticasone propionate [Flonase Allergy Relief] 50 mcg/actuation spray,suspension 1 spray intranasal DAILY Rx Instructions: administer into each nos
[2022-03-27 11:37] VITALS: BP 112/66; PULSE 71; RESP 20; TEMP 36.9; O2SAT 95
--- NOTE | 2022-03-27 11:38 | ED.MALEGU ---
HPI - Male Genitourinary General Chief complaint: Urogenital-Male Stated complaint: ambulance Time Seen by Provider: 03/27/22 11:33 Source: patient, EMS and RN notes reviewed Mode of arrival: EMS Limitations: no limitations History of Present Illness HPI Narrative: patient states that at 4:00 a.m. this morning he had a fever 103. He has been using Tylenol and Motrin to control his fever and when he presents today he is currently afebrile. He has also been having some weakness and sweating from his fever. He denies any nausea vomiting. He has a history of recurrent UTIs due to an external condom catheter. MD Complaint: dysuria Onset (ago): hour(s) (7) Duration: constant Location: penis Severity: moderate Quality: burning Relieving factors: none Exacerbating factors: none Context: other ( Condom catheter) Associated symptoms: Reports fever Related Data Home Medications Medication Instructions Recorded Confirmed diltiazem HCl 240 mg 240 mg PO DAILY 05/15/19 03/27/22 capsule,extended release 24 hr donepezil 5 mg tablet 10 mg PO BID 05/15/19 03/27/22 lovastatin 10 mg tablet 5 mg PO DAILY 05/15/19 03/27/22 tramadol 50 mg tablet 50 mg PO Q6H PRN Pain 05/15/19 03/27/22 cholecalciferol (vitamin D3) 50 2,000 unit PO DAILY 05/16/19 03/27/22 mcg (2,000 unit) tablet multivitamin 1 tablet PO DAILY 05/16/19 03/27/22 apixaban 5 mg tablet (Eliquis) 5 mg PO BID 04/26/20 03/27/22 baclofen 10 mg tablet 10 mg PO TID 04/26/20 03/27/22 hydralazine 10 mg tablet 15 mg PO TID PRN Anxiety 04/26/20 03/27/22 insulin glargine 100 unit/mL 30 unit subcut HS 04/26/20 03/27/22 subcutaneous solution insulin lispro 100 unit/mL 10 unit subcut AC 04/26/20 03/27/22 subcutaneous pen lorazepam 0.5 mg tablet 0.5 mg PO BID 04/26/20 03/27/22 acetaminophen 500 mg tablet 650 mg PO Q4H PRN Fever 06/15/20 03/27/22 (Tylenol Extra Strength) cetirizine 10 mg tablet (Zyrtec) 10 mg PO DAILY PRN allergies 06/15/20 03/27/22 cyanocobalamin (vitamin B-12) 1,000 mcg PO DAILY 09/25/21 03/27/22 1,000 mcg tablet (Vitamin B-12) sennosides 8.6 mg-docusate sodium 1 tab-cap PO BID PRN Constipation 09/25/21 03/27/22 50 mg capsule (Senna Plus) ascorbic acid (vitamin C) 500 mg 500 mg PO DAILY 03/27/22 03/27/22 tablet diclofenac sodium 1 % topical gel 2 g topical QID 03/27/22 03/27/22 fentanyl 12 mcg/hr transdermal 1 patch topical Q3D 03/27/22 03/27/22 patch lidocaine 5 % topical patch 1 patch topical DAILY 03/27/22 03/27/22 polyethylene glycol 3350 17 gram 17 g PO DAILY 03/27/22 03/27/22 oral powder packet (Miralax) Allergies Allergy/AdvReac Type Severity Reaction Status Date / Time No Known Allergies Allergy Verified 03/27/22 11:44 Review of Systems Review of Systems: All systems reviewed & are unremarkable except as noted in HPI and below PMFSH Past Medical History Medical History (Updated 03/27/22 @ 13:00 by Grupo Fox MD) Alzheimers disease Anemia HTN (hypertension) Low back pain Male erectile disorder Mixed hyperlipidemia Type 2 diabetes mellitus Surgical History Surgical History History of cholecystectomy History of lumbar laminectomy History of shoulder surgery Social History Social History Smoking status: Never smoker Exam Const: General: no acute distress, alert and ill appearing chronically Nutritional Appearance: obese morbidly obese Limitations: no limitations HENMT: Head: normal to inspection Ears: hearing grossly normal bilaterally and external ears normal Eyes: Conjunctivae: conjunctivae normal Pupils: Equal, round and reactive pupils present EOM: EOMs intact bilaterally Neck: Neck: normal visual inspection Resp: Effort & Inspection: normal respiratory effort Auscultation: clear to auscultation bilaterally Cardio: Rate: regular rate Rhythm: regular rhythm GI: GI Palp: Yes Soft to palpation
[2022-03-27 12:16] LABS: Basophils Absolute Auto 0.03 K/mm3 (0.00-0.10); Basophils Percent Auto 0.3 % (0.0-1.0); Eosinophils Absolute Auto 0.01 K/mm3 (0.02-0.50); Eosinophils Percent Auto 0.1 % (1.0-6.0); Hematocrit 36.4 % (37.0-46.0); Hemoglobin 11.7 g/dL (12.4-15.3); Immature Granulocyte Absolute 0.02 K/mm3 (0.00-0.00); Immature Granulocyte Percent A 0.2 % (0.0-0.0); Lymphocytes Absolute Auto 0.75 K/mm3 (1.10-4.50); Lymphocytes Percent Auto 8.5 % (18.0-42.0); Mean Corpuscular HGB Conc 32.1 g/dL (32.0-36.0); Mean Corpuscular Hemoglobin 29.8 pg (27.0-31.0); Mean Corpuscular Volume 92.9 fL (78.0-102.0); Mean Platelet Volume 10.4 fl (8.7-11.0); Monocytes Absolute Auto 0.84 K/mm3 (0.10-0.90); Monocytes Percent Auto 9.6 % (2.0-11.0); Neutrophils Absolute Auto 7.1 K/mm3 (1.7-7.2); Neutrophils Percent Auto 81.3 % (50.0-70.0); Platelet Count Result 170 K/mm3 (150-420); Red Blood Count 3.92 M/mm3 (4.70-6.10); Red Cell Distribution Width 13.6 % (11.6-14.4); White Blood Count 8.8 K/mm3 (4.8-10.8)
[2022-03-27 12:38] LABS: Add Urine Microscopic? YES; Bilirubin Urine Negative (Negative); Blood Urine 2+ (Negative); Color Urine Yellow (Yellow); Glucose Urine UA Negative (Negative); Ketones Urine Negative (Negative); Leukocyte Esterase Ur 3+ LEU/UL (Negative); Nitrate Urine Positive (Negative); Protein Urine 1+ (Negative)
[2022-03-27 12:41] LABS: Lactic Acid Reflex 1.6 mmol/L (0.4-2.0)
[2022-03-27 12:44] LABS: Alanine Aminotransferase 21 U/L (16-63); Albumin Level 2.7 g/dL (3.4-5.0); Alkaline Phosphatase 94 U/L (46-116); Anion Gap 11 mmol/L (8-16); Aspartate Amino Transferase 22 U/L (15-37); Bilirubin,Total 0.6 mg/dL (0.00-1.00); Blood Urea Nitrogen 20 mg/dL (7-18); Calcium 8.3 mg/dL (8.5-10.1); Carbon Dioxide 25 mmol/L (21-32); Chloride 104 mmol/L (98-108); Estimated CRCL calculation 61 ml/min; Estimated Glomerular Filt Rate > 60; Glucose 197 mg/dL (70-99); Osmolality Calculated 297 mOsm/kg (285-295); Potassium 4.1 mmol/L (3.5-5.1); Sodium 140 mmol/L (136-145); Total Protein 6.7 g/dL (6.4-8.2)
[2022-03-27 12:45] LABS: Appearance Urine Turbid (Clear)
[2022-03-27 12:46] LABS: Bacteria Urine 4+ /hpf; RBC Urine 21-50 /hpf (0-2); WBC Urine >75 /hpf (0-3)
[2022-03-27 12:47] LABS: CRP 13.1 mg/dL (0.0-0.9)
[2022-03-27 13:09] LABS: Influenza A QL RT-PCR Negative (Negative); Influenza B QL RT-PCR Negative (Negative); SARS-CoV-2 RNA PCR Negative (Negative)
[2022-03-27 13:21] VITALS: BP 100/54; PULSE 63; RESP 20; TEMP 37.2; O2SAT 97
--- NOTE | 2022-03-31 01:02 | PC.NURSE ---
FINAL URINE CULTURE REPORTS: GREATER THAN 100,000 CFU/ML OF ENTEROBACTER CLOACAE COMPLEX. PT WAS GIVEN RX OF CEPHALEXIN. PER SENSITIVITIES AND DR PEREIRA, NO FURTHER ACTION IS NEEDED.
== END 2022-03-27 13:43 | disposition home or self-care (01) ==
PROVIDERS: Emergency Provider Emergency Medicine; PCP Internal Medicine
DX: N39.0 Urinary tract infection, site not specified (principal); Z20.822 Contact with and (suspected) exposure to COVID-19; I10 Essential (primary) hypertension; E78.2 Mixed hyperlipidemia; E11.9 Type 2 diabetes mellitus without complications
CPT/HCPCS: 36415; 80053; 81001; 83605; 85025; 86140; 87040; 87077; 87086; 87088; 87147; 87186; 87502; 99283; U0003; U0005

== ENCOUNTER 2022-10-06 23:13 | Inpatient (IN) | payer MEDICARE, SELFPAY ==
--- NOTE | ~2022-10-06 | XR_ITS ---
Portable chest x-ray Comparison: 11/18/2021 Clinical History: Weakness, fever Findings: There is hazy left lower lobe airspace disease. There is minimal right basilar haziness. N o pleural effusion or pneumothorax. Cardiomediastinal silhouette is stable. Bones and soft tissues a re unremarkable. Impression: Bibasilar hazy airspace disease, left worse than right. Correlate for pulmonary edema versus infectio n. Reviewed, dictated and finalized at location . Impression: Bibasilar hazy airspace disease, left worse than right. Correlate for pulmonary edema versus infection.
--- NOTE | 2022-10-06 23:15 | ECG_ITS ---
Measurements Intervals [place] Rate: 59 P: 31 DE: 226 QRS: -37 QRSD: 150 T: 15 QT: 470 QTc: 468 Interpretive Statements SINUS BRADYCARDIA WITH FIRST DEGREE AV BLOCK WITH OCCASIONAL VENTRICULAR PREMATURE COMPLEXES WITH OCCASIONAL SUPRAVENTRICULAR P LEFT AXIS DEVIATION [QRS AXIS < -30] RIGHT BUNDLE BRANCH BLOCK [120+ ms QRS DURATION, UPRIGHT V1, 40+ ms S IN I/aVL/V4/V5/V6] ABNORMAL ECG COMPARED TO ECG 11/18/2021 16:29:31 NO SIGNIFICANT CHANGE Electronically Signed On 10-07-2022 8:02:28 CDT by Kieran Chacko M.D.
[2022-10-06] MEDS: SODIUM CHLORIDE 0.9% IV 1,000 ML 999 ML IV CONT (23:34)
[2022-10-06 23:36] LABS: Basophils Absolute Auto 0.04 K/mm3 (0.00-0.10); Basophils Percent Auto 0.3 % (0.0-1.0); Eosinophils Absolute Auto 0.02 K/mm3 (0.02-0.50); Eosinophils Percent Auto 0.1 % (1.0-6.0); Hematocrit 36.6 % (37.0-46.0); Hemoglobin 11.9 g/dL (12.4-15.3); Immature Granulocyte Absolute 0.08 K/mm3 (0.00-0.00); Immature Granulocyte Percent A 0.5 % (0.0-0.0); Lymphocytes Absolute Auto 0.62 K/mm3 (1.10-4.50); Lymphocytes Percent Auto 3.9 % (18.0-42.0); Mean Corpuscular HGB Conc 32.5 g/dL (32.0-36.0); Mean Corpuscular Hemoglobin 30.1 pg (27.0-31.0); Mean Corpuscular Volume 92.7 fL (78.0-102.0); Mean Platelet Volume 9.4 fl (8.7-11.0); Monocytes Absolute Auto 1.55 K/mm3 (0.10-0.90); Monocytes Percent Auto 9.7 % (2.0-11.0); Neutrophils Absolute Auto 13.6 K/mm3 (1.7-7.2); Neutrophils Percent Auto 85.5 % (50.0-70.0); Platelet Count Result 204 K/mm3 (150-420); Red Blood Count 3.95 M/mm3 (4.70-6.10); White Blood Count 15.9 K/mm3 (4.8-10.8)
[2022-10-06 23:38] VITALS: PULSE 66; RESP 24; TEMP 39.3; O2SAT 93
[2022-10-06 23:46] LABS: Appearance Urine Slightly Cloudy (Clear); Bilirubin Urine Negative (Negative); Blood Urine 1+ (Negative); Color Urine Yellow (Yellow); Glucose Urine UA Negative (Negative); Ketones Urine Negative (Negative); Leukocyte Esterase Ur 3+ LEU/UL (Negative); Nitrate Urine Positive (Negative); Protein Urine Negative (Negative); Urobilinogen Urine 0.2 mg/dL (0.2-1.0)
[2022-10-06 23:51] LABS: Add Urine Microscopic? YES; WBC Urine >75 /hpf (0-3)
[2022-10-06 23:51] LABS: Partial Thromboplastin Time 30.2 SEC (23.90-30.70); Prothrombin Time 11.4 Seconds (9.50-12.10)
[2022-10-06 23:52] LABS: Bacteria Urine 2+ /hpf
[2022-10-06 23:56] LABS: Lactic Acid Reflex 0.7 mmol/L (0.4-2.0)
[2022-10-06 23:57] VITALS: TEMP 37.7
[2022-10-06 23:57] LABS: Alanine Aminotransferase 15 U/L (16-63); Alkaline Phosphatase 99 U/L (46-116); Anion Gap 11 mmol/L (8-16); Aspartate Amino Transferase < 10 U/L (15-37); Bilirubin,Total 0.6 mg/dL (0.00-1.00); Blood Urea Nitrogen 21 mg/dL (7-18); Calcium 8.7 mg/dL (8.5-10.1); Carbon Dioxide 26 mmol/L (21-32); Chloride 101 mmol/L (98-108); Estimated CRCL calculation 74 ml/min; Estimated Glomerular Filt Rate > 60; Glucose 122 mg/dL (70-99); NT Pro B Type Natriuretic Pept 429 pg/mL (0-450); Osmolality Calculated 290 mOsm/kg (285-295); Potassium 4.2 mmol/L (3.5-5.1); Sodium 138 mmol/L (136-145); Total Protein 7.3 g/dL (6.4-8.2)
[2022-10-07] VITALS (14 sets, daily range): BP systolic 90–151; BP diastolic 48–85; PULSE 59–78; RESP 17–20; TEMP 36.4–39.1; O2SAT 92–100; BMI 31.1
--- NOTE | 2022-10-07 00:37 | ED.FEVER ---
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 Related Data Home Medications Medication Instructions Recorded Confirmed diltiazem HCl 240 mg 240 mg PO DAILY 05/15/19 03/27/22 capsule,extended release 24 hr donepezil 5 mg tablet 10 mg PO BID 05/15/19 03/27/22 lovastatin 10 mg tablet 5 mg PO DAILY 05/15/19 03/27/22 tramadol 50 mg tablet 50 mg PO Q6H PRN Pain 05/15/19 03/27/22 cholecalciferol (vitamin D3) 50 2,000 unit PO DAILY 05/16/19 03/27/22 mcg (2,000 unit) tablet multivitamin 1 tablet PO DAILY 05/16/19 03/27/22 apixaban 5 mg tablet (Eliquis) 5 mg PO BID 04/26/20 03/27/22 baclofen 10 mg tablet 10 mg PO TID 04/26/20 03/27/22 hydralazine 10 mg tablet 15 mg PO TID PRN Anxiety 04/26/20 03/27/22 insulin glargine 100 unit/mL 30 unit subcut HS 04/26/20 03/27/22 subcutaneous solution insulin lispro 100 unit/mL 10 unit subcut AC 04/26/20 03/27/22 subcutaneous pen lorazepam 0.5 mg tablet 0.5 mg PO BID 04/26/20 03/27/22 acetaminophen 500 mg tablet 650 mg PO Q4H PRN Fever 06/15/20 03/27/22 (Tylenol Extra Strength) cetirizine 10 mg tablet (Zyrtec) 10 mg PO DAILY PRN allergies 06/15/20 03/27/22 cyanocobalamin (vitamin B-12) 1,000 mcg PO DAILY 09/25/21 03/27/22 1,000 mcg tablet (Vitamin B-12) sennosides 8.6 mg-docusate sodium 1 tab-cap PO BID PRN Constipation 09/25/21 03/27/22 50 mg capsule (Senna Plus) ascorbic acid (vitamin C) 500 mg 500 mg PO DAILY 03/27/22 03/27/22 tablet diclofenac sodium 1 % topical gel 2 g topical QID 03/27/22 03/27/22 fentanyl 12 mcg/hr transdermal 1 patch topical Q3D 03/27/22 03/27/22 patch lidocaine 5 % topical patch 1 patch topical DAILY 03/27/22 03/27/22 polyethylene glycol 3350 17 gram 17 g PO DAILY 03/27/22 03/27/22 oral powder packet (Miralax) Allergies Allergy/AdvReac Type Severity Reaction Status Date / Time No Known Allergies Allergy Verified 03/27/22 11:44 Review of Systems Review of Systems: All systems reviewed & are unremarkable except as noted in HPI and below PMFSH Past Medical History Medical History (Updated 10/07/22 @ 00:58 by Kieran Gasca MD) Alzheimers disease Anemia HTN (hypertension) Low back pain Male erectile disorder Mixed hyperlipidemia Type 2 diabetes mellitus Surgical History Surgical History History of cholecystectomy History of lumbar laminectomy History of shoulder surgery Social History Social History Smoking status: Never smoker Exam Const: General: no acute distress Nutritional Appearance: well nourished Orientation/consciousness: confusion Limitations: no limitations HENMT: Head: normal to inspection Eyes: Conjunctivae: conjunctivae normal Pupils: Equal, round and reactive pupils present EOM: EOMs intact bilaterally Neck: Neck: normal visual inspection Chest: Chest palpation & inspection: normal inspection of the chest Resp: Effort & Inspection: normal respiratory effort Auscultation: diminished lung sounds Cardio: Rate: regular rate Rhythm: regular rhythm Urinary Catheter: Urinary Catheter: patent and draining and urine cloudy Back/Spine/Pelvis: Back: no CVA tenderness Skin: General skin exam: normal color Rashes: no rashes Neuro: Cranial nerves: Yes Nystagmus not present Speech: normal speech Course Vital Signs Vital signs: Vital Signs Temperature
[2022-10-07] MEDS: AZITHROMYCIN 500 MG/NS 250 ML 500 MG/250 ML BAG 250 MG IVPB (01:04)
[2022-10-07] MEDS: SODIUM CHLORIDE 0.9% IV 1,000 ML 999 ML IV CONT (01:38)
--- NOTE | 2022-10-07 02:22 | ADMGEN ---
This patient, Kieran Key, was admitted to 2nd Floor Room 207-2. Patient/family oriented to hospital policies and general routines including ID bracelet, bed and alarms, visiting hours, pain management, procedures, bathroom and other care routines, personal items, smoking policy, room service/diet, and visiting hours. Information on how to activate the Rapid Response Team has been discussed. Patient/Family are encouraged to report perceived risks to care and to ask questions if they do not understand what they are told or what they should do.
[2022-10-07] MEDS: SODIUM CHLORIDE 0.9% IV 1,000 ML 100 ML IV CONT ×2 (03:39→13:14)
[2022-10-07 05:37] LABS: Basophils Absolute Auto 0.05 K/mm3 (0.00-0.10); Basophils Percent Auto 0.3 % (0.0-1.0); Hematocrit 33.8 % (37.0-46.0); Hemoglobin 10.7 g/dL (12.4-15.3); Immature Granulocyte Absolute 0.12 K/mm3 (0.00-0.00); Immature Granulocyte Percent A 0.6 % (0.0-0.0); Lymphocytes Absolute Auto 0.66 K/mm3 (1.10-4.50); Lymphocytes Percent Auto 3.4 % (18.0-42.0); Mean Corpuscular HGB Conc 31.7 g/dL (32.0-36.0); Mean Corpuscular Hemoglobin 30.2 pg (27.0-31.0); Mean Corpuscular Volume 95.5 fL (78.0-102.0); Mean Platelet Volume 10.1 fl (8.7-11.0); Monocytes Absolute Auto 1.85 K/mm3 (0.10-0.90); Monocytes Percent Auto 9.4 % (2.0-11.0); Neutrophils Percent Auto 86.3 % (50.0-70.0); Platelet Count Result 181 K/mm3 (150-420); Red Blood Count 3.54 M/mm3 (4.70-6.10); Red Cell Distribution Width 13.9 % (11.6-14.4); White Blood Count 19.7 K/mm3 (4.8-10.8)
[2022-10-07 05:53] LABS: Alanine Aminotransferase 15 U/L (16-63); Albumin Level 2.7 g/dL (3.4-5.0); Alkaline Phosphatase 90 U/L (46-116); Anion Gap 11 mmol/L (8-16); Aspartate Amino Transferase 12 U/L (15-37); Bilirubin,Total 0.5 mg/dL (0.00-1.00); Blood Urea Nitrogen 19 mg/dL (7-18); Calcium 8.1 mg/dL (8.5-10.1); Carbon Dioxide 25 mmol/L (21-32); Chloride 104 mmol/L (98-108); Estimated CRCL calculation 81 ml/min; Estimated Glomerular Filt Rate > 60; Glucose 152 mg/dL (70-99); Osmolality Calculated 295 mOsm/kg (285-295); Sodium 140 mmol/L (136-145); Total Protein 6.5 g/dL (6.4-8.2)
[2022-10-07] MEDS: LIDOCAINE 5% PATCH 1 PATCH TOPICAL (09:29)
[2022-10-07] MEDS: DONEPEZIL HCL 5 MG TABLET 10 MG PO ×2 (10:25→17:24)
[2022-10-07] MEDS: CHOLECALCIFEROL 1,000 UNITS TABLET 2000 UNITS PO (10:25)
[2022-10-07] MEDS: ASCORBIC ACID 500 MG TABLET PO (10:26)
[2022-10-07] MEDS: LOSARTAN POTASSIUM 50 MG TABLET 100 MG PO (10:26)
[2022-10-07] MEDS: CYANOCOBALAMIN 1,000 MCG TABLET 1000 MCG PO (10:26)
[2022-10-07] MEDS: BACLOFEN 10 MG TABLET PO ×3 (10:26→17:24)
[2022-10-07] MEDS: APIXABAN 2.5 MG TABLET 5 MG BY MOUTH ×2 (10:26→17:24)
[2022-10-07] MEDS: MULTIVITAMINS THERAPEUTIC TAB (*BKC) 1 TABLET PO (10:27)
[2022-10-07] MEDS: DICLOFENAC SODIUM 1% 100 GM GEL (*BKC) 1 APPLIC TOPICAL ×3 (10:27→21:15)
[2022-10-07] MEDS: FLUTICASONE PROPIONATE 0.05% NA SPR 16 GM BTL (*BKC) 1 SPRAY NASAL (10:27)
[2022-10-07] MEDS: IPRATROPIUM NASAL SPRAY 0.06% 15 ML BOTTLE 1 SPRAY NASAL (10:27)
[2022-10-07 11:43] LABS: Glucose Point of Care 270 mg/dl (65-105)
--- NOTE | 2022-10-07 12:26 | PM.IMHP ---
H&P: HPI History of Present Illness Date/Time: 10/07/22 12:26 Chief Complaint: lethargic, febrile Narrative: this is a 82-year-old male that presents to the hospital by ambulance as his called as he has been lethargic and been having a fever patient was found to have pneumonia as well as urinary tract infection and he was hypotension. Patient also has some weakness patient has a past medical history of spinal stenosis, he has a Staley catheter, he has flaccid does not ambulate he is generally an electric wheelchair his hypertension, diabetes, peripheral artery disease, peripheral no growth at the, dyslipidemia, left more DVT was noted after his surgery patient does not ambulate. At this time we have started patient on IV azithromycin and Rocephin due to the urinary tract infection and pneumonia he was receiving breathing treatments as well as oxygen at this time and some IV fluids. Patient has left great toe was moved by nail was removed by his primary care provider he just got off antibiotics for that to ensure no infection we will do daily dressing change we will continue to monitor at this time patient has remained afebrile with no nausea vomiting and/or diarrhea. ? Review of Systems Review of Systems: shortness of breath All systems reviewed & are unremarkable except as noted in HPI and below PMFSH Past Medical History Medical History Alzheimers disease Anemia HTN (hypertension) Low back pain Male erectile disorder Mixed hyperlipidemia Type 2 diabetes mellitus Surgical History Surgical History History of cholecystectomy History of lumbar laminectomy History of shoulder surgery Social History Social History Smoking status: Never smoker Alcohol intake: never Substance use: current Substance use type: opiates and prescription drug Lack of Transportation: No Lack of Food: Never True Current Housing: I Have Housing Concerned About Future Housing: No Difficulty Paying Gas/Electric Bills: No Difficulty Paying for Meds: No Currently Unemployed: No Education: High School Diploma/GED Difficulty w/ Childcare or Family Care: No Spiritual care concerns: Yes ([place]) Comments At time as signature, I have reviewed and agree with nursing past medical, social, surgical and family history. Please see nursing chart for further information. There is no relevant family history pertinent to the presenting complaint. Meds Home Medications and Allergies Home Medications Medication Instructions Recorded Confirmed Type diltiazem HCl 240 mg 240 mg PO DAILY 05/15/19 10/07/22 History capsule,extended release 24 hr donepezil 5 mg tablet 10 mg PO BID 05/15/19 10/07/22 History lovastatin 10 mg tablet 5 mg PO HS 05/15/19 10/07/22 History tramadol 50 mg tablet 50 mg PO Q6H PRN Pain 05/15/19 10/07/22 History cholecalciferol (vitamin D3) 50 2,000 unit PO DAILY 05/16/19 10/07/22 History mcg (2,000 unit) tablet multivitamin 1 tablet PO DAILY 05/16/19 10/07/22 History apixaban 5 mg tablet (Eliquis) 5 mg PO BID 04/26/20 10/07/22 History baclofen 10 mg tablet 10 mg PO TID 04/26/20 10/07/22 History hydralazine 10 mg tablet 15 mg PO TID PRN Anxiety 04/26/20 10/07/22 History insulin glargine 100 unit/mL 30 unit subcut HS 04/26/20 10/07/22 History subcutaneous solution insulin lispro 100 unit/mL 10 unit subcut AC 04/26/20 10/07/22 History subcutaneous pen lorazepam 0.5 mg tablet 0.5 mg PO BID PRN Anxiety 04/26/20 10/07/22 History acetaminophen 500 mg tablet 650 mg PO Q4H PRN Fever Or Pain 06/15/20 10/07/22 History (Tylenol Extra Strength) cetirizine 10 mg tablet (Zyrtec) 10 mg PO DAILY PRN allergies 06/15/20 10/07/22 History losartan 100 mg tablet 100 mg PO DAILY #30 tabs 06/23/21 10/07/22 Rx cyanocobalamin (vitamin B-12) 1,0
[2022-10-07] MEDS: INSULIN HUMAN LISPRO (*BKC) 1,000 UNITS/10 ML VIAL 10 UNITS SUB-Q ×2 (13:15→17:25)
[2022-10-07 17:15] LABS: Glucose Point of Care 255 mg/dl (65-105)
[2022-10-07] MEDS: ACETAMINOPHEN 325 MG TABLET 650 MG PO (17:25)
[2022-10-07] MEDS: IPRATROPIUM 0.5 MG/ALBUTEROL SULFATE 2.5 MG AMPUL.NEB 3 ML INHALATION (19:00)
[2022-10-07] MEDS: LOVASTATIN 10 MG TABLET 5 MG PO (21:16)
[2022-10-07 21:18] LABS: Glucose Point of Care 227 mg/dl (65-105)
[2022-10-07] MEDS: INSULIN GLARGINE (*BKC) 1,000 UNITS/10 ML VIAL 30 UNITS SUB-Q (21:28)
[2022-10-08] VITALS (14 sets, daily range): BP systolic 109–121; BP diastolic 56–75; PULSE 60–70; RESP 16–20; TEMP 36.4–36.6; O2SAT 92–95
[2022-10-08] MEDS: IPRATROPIUM 0.5 MG/ALBUTEROL SULFATE 2.5 MG AMPUL.NEB 3 ML INHALATION ×4 (00:12→18:20)
[2022-10-08] MEDS: AZITHROMYCIN 500 MG/NS 250 ML 500 MG/250 ML BAG 250 MG IVPB (06:41)
[2022-10-08 07:42] LABS: Glucose Point of Care 174 mg/dl (65-105)
[2022-10-08] MEDS: INSULIN HUMAN LISPRO (*BKC) 1,000 UNITS/10 ML VIAL 10 UNITS SUB-Q ×3 (08:30→17:06)
[2022-10-08] MEDS: CHOLECALCIFEROL 1,000 UNITS TABLET 2000 UNITS PO (08:31)
[2022-10-08] MEDS: LOSARTAN POTASSIUM 50 MG TABLET 100 MG PO (08:32)
[2022-10-08] MEDS: APIXABAN 2.5 MG TABLET 5 MG BY MOUTH ×2 (08:32→17:07)
[2022-10-08] MEDS: ASCORBIC ACID 500 MG TABLET PO (08:33)
[2022-10-08] MEDS: CYANOCOBALAMIN 1,000 MCG TABLET 1000 MCG PO (08:33)
[2022-10-08] MEDS: DONEPEZIL HCL 5 MG TABLET 10 MG PO ×2 (08:33→17:07)
[2022-10-08] MEDS: DICLOFENAC SODIUM 1% 100 GM GEL (*BKC) 1 APPLIC TOPICAL ×4 (08:34→20:48)
[2022-10-08] MEDS: BACLOFEN 10 MG TABLET PO ×3 (08:34→17:08)
[2022-10-08] MEDS: MULTIVITAMINS THERAPEUTIC TAB (*BKC) 1 TABLET PO (08:34)
[2022-10-08] MEDS: FLUTICASONE PROPIONATE 0.05% NA SPR 16 GM BTL (*BKC) 1 SPRAY NASAL (08:35)
[2022-10-08] MEDS: IPRATROPIUM NASAL SPRAY 0.06% 15 ML BOTTLE 1 SPRAY NASAL (08:35)
[2022-10-08] MEDS: LIDOCAINE 5% PATCH 1 PATCH TOPICAL (08:35)
[2022-10-08 09:15] LABS: Basophils Absolute Auto 0.02 K/mm3 (0.00-0.10); Basophils Percent Auto 0.2 % (0.0-1.0); Eosinophils Absolute Auto 0.01 K/mm3 (0.02-0.50); Eosinophils Percent Auto 0.1 % (1.0-6.0); Hematocrit 31.3 % (37.0-46.0); Immature Granulocyte Absolute 0.08 K/mm3 (0.00-0.00); Immature Granulocyte Percent A 0.6 % (0.0-0.0); Lymphocytes Absolute Auto 0.92 K/mm3 (1.10-4.50); Lymphocytes Percent Auto 6.9 % (18.0-42.0); Mean Corpuscular HGB Conc 31.9 g/dL (32.0-36.0); Mean Corpuscular Hemoglobin 30.6 pg (27.0-31.0); Mean Corpuscular Volume 95.7 fL (78.0-102.0); Monocytes Absolute Auto 1.05 K/mm3 (0.10-0.90); Monocytes Percent Auto 7.9 % (2.0-11.0); Neutrophils Absolute Auto 11.2 K/mm3 (1.7-7.2); Neutrophils Percent Auto 84.3 % (50.0-70.0); Platelet Count Result 170 K/mm3 (150-420); Red Blood Count 3.27 M/mm3 (4.70-6.10); Red Cell Distribution Width 14.2 % (11.6-14.4); White Blood Count 13.3 K/mm3 (4.8-10.8)
[2022-10-08 09:31] LABS: Alanine Aminotransferase 15 U/L (16-63); Albumin Level 2.3 g/dL (3.4-5.0); Alkaline Phosphatase 85 U/L (46-116); Anion Gap 9 mmol/L (8-16); Aspartate Amino Transferase 13 U/L (15-37); Bilirubin,Total 0.2 mg/dL (0.00-1.00); Blood Urea Nitrogen 17 mg/dL (7-18); Calcium 8.1 mg/dL (8.5-10.1); Carbon Dioxide 24 mmol/L (21-32); Chloride 105 mmol/L (98-108); Estimated CRCL calculation 81 ml/min; Estimated Glomerular Filt Rate > 60; Glucose 203 mg/dL (70-99); Osmolality Calculated 293 mOsm/kg (285-295); Potassium 3.5 mmol/L (3.5-5.1); Sodium 138 mmol/L (136-145); Total Protein 6.1 g/dL (6.4-8.2)
[2022-10-08] MEDS: BACITRACIN OINTMENT 15 GM TUBE 1 APPLIC TOPICAL (10:12)
--- NOTE | 2022-10-08 10:41 | PM.IMPN ---
Progress Note: A&P Assessment and Plan (1) Pneumonia: Qualifiers: Laterality: left Lung location: lower lobe of lung Pneumonia type: due to unspecified organism Qualified Code(s): J18.9 - Pneumonia, unspecified organism Code(s): J18.9 - Pneumonia, unspecified organism Status: Acute Assessment and Plan: - Continue IV abx of Rocephin and azithromycin - Continue nebulizer treatments - Monitor labs and VS. - Sputum culture pending. - Blood cultures pending. (2) Catheter-associated urinary tract infection: Code(s): T83.511A - Infection and inflammatory reaction due to indwelling urethral catheter, initial encounter; N39.0 - Urinary tract infection, site not specified Status: Acute Assessment and Plan: - Continue IV Rocephin - Continue to monitor labs and VS. - Urine culture pending. - Chronic indwelling catheter. (3) Open toe wound: Code(s): S91.109A - Unspecified open wound of unspecified toe(s) without damage to nail, initial encounter Status: Acute Assessment and Plan: - Left great toenail removed exposing nail bed. - Clean daily with sterile saline, apply Bacitracin to the nail bed and cover with non-adherent dressing and wrap with Coban. Time Spent With Patient Time with patient: 25 - 35 minutes Subjective Date/time seen: 10/08/22 0840 Interval history: This 82 year old male patient was examined in interval assessment at the bedside this AM. He denies any new complaints and no new symptoms. His labs show interval improvement. Review of Systems Review of Systems: All systems reviewed & are unremarkable except as noted in HPI and below Exam Const: General: uncomfortable (Pt. states generally uncomfortable from the hospital bed.) HENMT: Mouth: Yes moist mucous membranes Other: W[place] Eyes: General: appearance normal, both eyes and all related structures Neck: Neck: supple and no JVD Lymphatic: lymphadenopathy not noted Resp: Effort & Inspection: normal respiratory effort Auscultation: rales bilateral in the lower lung bermudez Cardio: Rate: regular rate Rhythm: regular rhythm Heart sounds: no gallops, no murmurs and no rubs GI: Inspection: non-distended GI Palp: Yes Soft to palpation and No Tenderness to palpation present (GI) Auscultation: normal bowel sounds : Other: Chronic indwelling urinary catheter present. Urinary Catheter: Urinary Catheter: patent and draining and urine dark Skin: General skin exam: normal color, no rashes or lesions noted and no erythema Lesions: no lesions noted Rashes: no rashes noted Wounds: wounds noted (Left great toe) Left great toe size (great toe nail removed exposing nail bed.), bed pale, drainage serous, margins well defined and without odor; not malodorous, not open, no sutures, no george and without any surrounding erythema Other: Dressing change orders ordered for left great toe wound. Neuro: Speech: normal speech Sensory Exam: normal sensation Other: PT wheelchair bound. States he does not walk. Extrem: General: normal to inspection, no edema and no pedal edema Psych: Mental Status: mental status grossly normal Affect: normal affect Objective Data Vital Signs Vital Signs: Vital Signs - 24 hr 10/07/22 17:25 10/07/22 17:15 10/07/22 18:00 Temperature 102.4 F H 102.4 F H 101.2 F H Pulse Rate 64 Respiratory Rate 18 Blood Pressure 122/85 Pulse Oximetry 98 Oxygen Delivery Nasal Cannula Oxygen Flow Rate 0.5 10/07/22 18:25 10/07/22 19:00 10/07/22 19:00 Temperature 101.2 F H Pulse Rate 59 L Respiratory Rate 20 Blood Pressure Pulse Oximetry 94 94 Oxygen Delivery Nasal Cannula Oxygen Flow Rate 0.5 0.5 10/07/22 19:10 10/08/22 00:15 10/08/22 00:15 Temperature Pulse Rate 64 62 Respiratory Rate 20 20 Blood Pressure Pulse Oximetry 93 93 Oxygen Delivery Room Air Oxygen Flow Rate 10/08/22 00:27 10/08/22 00:00
[2022-10-08 11:50] LABS: Glucose Point of Care 223 mg/dl (65-105)
--- NOTE | 2022-10-08 15:10 | PC.NURSE ---
Patient changed from observation status to inpatient to continue treatment with IV antibiotics for pneumonia and UTI.
[2022-10-08 16:58] LABS: Glucose Point of Care 219 mg/dl (65-105)
--- NOTE | 2022-10-08 19:30 | PC.NURSE ---
Pt lying in bed watching TV c at bedside. Pt changed of wet saturated diaper and new condom catheter applied. Pt is A&O x3 and able to give some assistance when turning. Pt has call lezama at side and voices no c/o at this time. Pts. legs readjusted for comfort.
[2022-10-08] MEDS: LOVASTATIN 10 MG TABLET 5 MG PO (20:47)
[2022-10-08 20:49] LABS: Glucose Point of Care 213 mg/dl (65-105)
[2022-10-08] MEDS: INSULIN GLARGINE (*BKC) 1,000 UNITS/10 ML VIAL 32 UNITS SUB-Q (20:53)
--- NOTE | 2022-10-08 22:00 | PC.NURSE ---
Condom cath removed at this time as it will not stay in place, pt changed of wet saturated diaper, he is tolerating fluids well. Call lezama remains at pt. side.
[2022-10-09] MEDS: IPRATROPIUM 0.5 MG/ALBUTEROL SULFATE 2.5 MG AMPUL.NEB 3 ML INHALATION ×2 (00:30→06:07)
[2022-10-09 00:32] VITALS: PULSE 62; RESP 20; O2SAT 93
[2022-10-09 00:41] VITALS: PULSE 67; RESP 20
[2022-10-09 05:37] LABS: Basophils Absolute Auto 0.03 K/mm3 (0.00-0.10); Basophils Percent Auto 0.4 % (0.0-1.0); Eosinophils Absolute Auto 0.12 K/mm3 (0.02-0.50); Eosinophils Percent Auto 1.4 % (1.0-6.0); Hematocrit 29.4 % (37.0-46.0); Hemoglobin 9.5 g/dL (12.4-15.3); Immature Granulocyte Absolute 0.05 K/mm3 (0.00-0.00); Immature Granulocyte Percent A 0.6 % (0.0-0.0); Lymphocytes Percent Auto 11.8 % (18.0-42.0); Mean Corpuscular HGB Conc 32.3 g/dL (32.0-36.0); Mean Corpuscular Hemoglobin 30.3 pg (27.0-31.0); Mean Corpuscular Volume 93.6 fL (78.0-102.0); Mean Platelet Volume 9.7 fl (8.7-11.0); Monocytes Absolute Auto 0.88 K/mm3 (0.10-0.90); Monocytes Percent Auto 10.4 % (2.0-11.0); Neutrophils Absolute Auto 6.4 K/mm3 (1.7-7.2); Neutrophils Percent Auto 75.4 % (50.0-70.0); Platelet Count Result 168 K/mm3 (150-420); Red Blood Count 3.14 M/mm3 (4.70-6.10); Red Cell Distribution Width 14.2 % (11.6-14.4); White Blood Count 8.5 K/mm3 (4.8-10.8)
[2022-10-09 05:48] LABS: Alanine Aminotransferase 14 U/L (16-63); Albumin Level 2.1 g/dL (3.4-5.0); Alkaline Phosphatase 80 U/L (46-116); Anion Gap 9 mmol/L (8-16); Aspartate Amino Transferase < 10 U/L (15-37); Bilirubin,Total 0.2 mg/dL (0.00-1.00); Blood Urea Nitrogen 16 mg/dL (7-18); Carbon Dioxide 24 mmol/L (21-32); Chloride 106 mmol/L (98-108); Estimated CRCL calculation 93 ml/min; Estimated Glomerular Filt Rate > 60; Glucose 147 mg/dL (70-99); Osmolality Calculated 292 mOsm/kg (285-295); Potassium 3.4 mmol/L (3.5-5.1); Sodium 139 mmol/L (136-145); Total Protein 5.9 g/dL (6.4-8.2)
[2022-10-09] MEDS: AZITHROMYCIN 500 MG/NS 250 ML 500 MG/250 ML BAG 250 MG IVPB (05:57)
[2022-10-09 06:11] VITALS: PULSE 59; RESP 12; O2SAT 91
[2022-10-09 06:18] VITALS: PULSE 56; RESP 20
[2022-10-09 07:34] LABS: Glucose Point of Care 155 mg/dl (65-105)
[2022-10-09 08:00] VITALS: BP 132/69; PULSE 63; RESP 16; TEMP 36.4; O2SAT 94
[2022-10-09] MEDS: INSULIN HUMAN LISPRO (*BKC) 1,000 UNITS/10 ML VIAL 10 UNITS SUB-Q (08:41)
[2022-10-09] MEDS: BACITRACIN OINTMENT 15 GM TUBE 1 APPLIC TOPICAL (08:43)
[2022-10-09] MEDS: LIDOCAINE 5% PATCH 1 PATCH TOPICAL (08:43)
[2022-10-09] MEDS: fentaNYL (*CRX) 12 MCG PATCH TRANSDERM (08:44)
[2022-10-09] MEDS: DICLOFENAC SODIUM 1% 100 GM GEL (*BKC) 1 APPLIC TOPICAL (08:46)
[2022-10-09] MEDS: FLUTICASONE PROPIONATE 0.05% NA SPR 16 GM BTL (*BKC) 1 SPRAY NASAL (08:48)
[2022-10-09] MEDS: IPRATROPIUM NASAL SPRAY 0.06% 15 ML BOTTLE 1 SPRAY NASAL (08:48)
[2022-10-09] MEDS: CHOLECALCIFEROL 1,000 UNITS TABLET 2000 UNITS PO (08:49)
[2022-10-09] MEDS: BACLOFEN 10 MG TABLET PO (08:49)
[2022-10-09] MEDS: LOSARTAN POTASSIUM 50 MG TABLET 100 MG PO (08:49)
[2022-10-09] MEDS: APIXABAN 2.5 MG TABLET 5 MG BY MOUTH (08:50)
[2022-10-09] MEDS: DONEPEZIL HCL 5 MG TABLET 10 MG PO (08:50)
[2022-10-09] MEDS: MULTIVITAMINS THERAPEUTIC TAB (*BKC) 1 TABLET PO (08:51)
[2022-10-09] MEDS: ASCORBIC ACID 500 MG TABLET PO (08:51)
[2022-10-09] MEDS: CYANOCOBALAMIN 1,000 MCG TABLET 1000 MCG PO (08:52)
--- NOTE | 2022-10-09 09:06 | PM.DS ---
DS: Admitting Diagnosis Discharge Date 10/09/2022 Admitting Diagnosis CAP, CAUTI DS: Discharge Diagnosis Discharge Diagnosis (1) Pneumonia: Qualifiers: Laterality: left Lung location: lower lobe of lung Pneumonia type: due to unspecified organism Qualified Code(s): J18.9 - Pneumonia, unspecified organism Code(s): J18.9 - Pneumonia, unspecified organism Status: Acute Assessment and Plan: - Will discharge to home today on Levaquin to cover CAP as well as CAUTI. - Levaquin was initial dosed prior to discharge from hospital as well as Guaifenesin. - Continue nebulizer treatments while in hospital, and home meds at home. - Monitor labs and VS. - Sputum culture pending. - Blood cultures preliminarily negative. (2) Catheter-associated urinary tract infection: Code(s): T83.511A - Infection and inflammatory reaction due to indwelling urethral catheter, initial encounter; N39.0 - Urinary tract infection, site not specified Status: Acute Assessment and Plan: - Urine culture grew out >100K colonies of Pseudomonas. - Historically pt has had Pseudomonas that is sensitive to Levaquin. He is initial dosed Levaquin prior to discharge from hospital for coverage of both CAP and CAUTI. - Continue to monitor labs and VS. - Condom catheter last changed this AM. (3) Open toe wound: Code(s): S91.109A - Unspecified open wound of unspecified toe(s) without damage to nail, initial encounter Status: Acute Assessment and Plan: - Left great toenail removed exposing nail bed. - Clean daily with sterile saline, apply Bacitracin to the nail bed and cover with non-adherent dressing and wrap with Coban. - Pt. will need to continue dressing changes at home. DS: Summary Hospital Course Reason for hospitalization: CAP, CAUTI Hospital Course: This 82 year old male patient with PMH of severe spinal stenosis causing him to be non-ambulatory with use of Condom catheter, HTN, DM, PAD, HLD, and DVT presented to the ER on 10/07/2022 after he had been febrile, having increased weakness, and was also found to be hypotensive upon arrival to ER. A workup was performed and it demonstrated CAP in the bibasilar airspaces with opacities present, L>R, and a UTI. He had a marked Leukocytosis, but did not meet Sepsis criteria upon admission. He was admitted and received IV abx of Rocephin and Azithromycin as well as nebulizer treatments. His respiratory status has improved to the point he is stable on room air and he has minimal symptoms of respiratory infection, with the remaining being difficulty expectorating. His urine grew out Pseudomonas, which is also a historical UTI for this patient that had sensitivity to the Fluoroquinolones, specifically Levaquin. Pt. is therefore being discharged home with a prescription for Levaquin to cover both his CAP and his UTI. He will need to follow up with Dr. Oswald as an outpatient this week. In addition, pt. had on presentation, a wound to the left great toe where the nail had been removed by Dr. Oswald. He received daily dressing changes here with sterile saline, application of Bacitracin, and telfa with coban wrapping over it. It did not demonstrate any signs of acute infection. Today on exam, the patient denies any distress, CP, dyspnea, N/V/D, headache, dizziness or lightheadedness. Blood cultures x2 today are negative preliminarily. During his hospitalization, his Lantus dose was increased from 30 units at HS to 32 units HS and we were able to achieve an improved morning FBG. Status at Discharge Cognitive/behavioral status at discharge: At baseline Functional status at discharge: wheelchair bound (This is patient's baseline.) Overall status at discharge: patient is back to baseline Time Spent with Patient Time attestation: Total time spent providing and/or coordinating discharge services: Time spent: Greater than 30 minutes Specific discharge activities: Discharge instructions, follow up i
[2022-10-09] MEDS: levoFLOXacin TAB 500 MG, levoFLOXacin TAB 250 MG 750 MG PO (09:16)
[2022-10-09] MEDS: guaiFENesin 12 HR 600 MG TABCR PO (09:18)
--- NOTE | 2022-10-09 11:30 | PC.NURSE ---
Discharge instructions given to patient and . Both verbalized understanding. Personal belongings gathered and sent home with patient. Patient left unit in his personal w/c and left hospital grounds in privately owned vehicle.
--- NOTE | 2022-10-12 14:05 | PC.NURSE ---
Unable to contact for discharge call back.
== END 2022-10-09 11:30 | disposition home or self-care (01) | DRG 698 ==
LOC: CHSED 10-07 00:46 → CHS2ND 10-07 01:49
PROVIDERS: Nurse Practitioner Adult Health; Admitting Provider Internal Medicine; Emergency Provider Emergency Medicine; PCP Internal Medicine; Visit Provider Internal Medicine
DX: T83.511A Infection and inflammatory reaction due to indwelling urethral catheter, initial encounter (principal); J18.9 Pneumonia, unspecified organism; N39.0 Urinary tract infection, site not specified; I10 Essential (primary) hypertension; E78.2 Mixed hyperlipidemia; E11.9 Type 2 diabetes mellitus without complications; M48.00 Spinal stenosis, site unspecified; G30.9 Alzheimer's disease, unspecified; F02.80 Dementia in other diseases classified elsewhere, unspecified severity, without behavioral disturbance, psychotic disturbance, mood disturbance, and anxiety; Z79.01 Long term (current) use of anticoagulants; Z79.4 Long term (current) use of insulin; Z99.3 Dependence on wheelchair
CPT/HCPCS: 36415; 71045; 80053; 81001; 82948; 83605; 83880; 85025; 85610; 85730; 86140; 87040; 87077; 87086; 87088; 87186; 93005; 94640; 96361; 96365; 96366; 99285; A9270; G0378; J0131; J0456; J0696; J1815; J7030

== ENCOUNTER 2022-11-10 17:14 | Outpatient (CLI) | payer MEDICARE, SELFPAY ==
--- NOTE | ~2022-11-10 | XR_ITS ---
XR chest 2V 11/10/2022 18:09 Indication: Chest congestion Procedure: 2 view chest Comparison: Comparison to multiple prior studies sequentially, with oldest reviewed study dated 07/01. Findings: Cardiomegaly. Mild interstitial edema. There is a left shoulder arthroplasty. No significan t effusion. No pneumothorax. Impression: 1: Cardiomegaly with mild interstitial edema. Reviewed, dictated and finalized at location A. Impression: 1: Cardiomegaly with mild interstitial edema.
[2022-11-10 17:38] LABS: Hematocrit 36.3 % (37.0-46.0); Hemoglobin 11.7 g/dL (12.4-15.3); Mean Corpuscular HGB Conc 32.2 g/dL (32.0-36.0); Mean Corpuscular Volume 93.1 fL (78.0-102.0); Mean Platelet Volume 9.6 fl (8.7-11.0); Platelet Count Result 256 K/mm3 (150-420); Red Cell Distribution Width 13.4 % (11.6-14.4); White Blood Count 4.2 K/mm3 (4.8-10.8)
[2022-11-10 18:42] LABS: Alanine Aminotransferase 14 U/L (16-63); Albumin Level 2.9 g/dL (3.4-5.0); Alkaline Phosphatase 103 U/L (46-116); Anion Gap 9 mmol/L (8-16); Aspartate Amino Transferase < 10 U/L (15-37); Bilirubin,Total 0.3 mg/dL (0.00-1.00); Blood Urea Nitrogen 16 mg/dL (7-18); Calcium 8.5 mg/dL (8.5-10.1); Carbon Dioxide 27 mmol/L (21-32); Chloride 105 mmol/L (98-108); Estimated Glomerular Filt Rate > 60; Ferritin 171 ng/mL (26-388); Glucose 112 mg/dL (70-99); Iron 32 ug/dL (65-175); NT Pro B Type Natriuretic Pept 291 pg/mL (0-450); Osmolality Calculated 294 mOsm/kg (285-295); Potassium 4.4 mmol/L (3.5-5.1); Sodium 141 mmol/L (136-145); Total Protein 6.3 g/dL (6.4-8.2); Vitamin B12 1509 pg/mL (193-986)
== END 2022-11-10 17:15 | disposition home or self-care (01) ==
PROVIDERS: PCP Internal Medicine; Visit Provider Internal Medicine
DX: R05.9 Cough, unspecified (principal); N39.0 Urinary tract infection, site not specified; D64.9 Anemia, unspecified; R06.00 Dyspnea, unspecified; I51.7 Cardiomegaly
CPT/HCPCS: 36415; 71046; 80053; 82607; 82728; 83540; 83880; 85027

== ENCOUNTER 2022-11-11 07:45 | Outpatient (CLI) | payer MEDICARE, SELFPAY ==
[2022-11-11 07:58] LABS: Bilirubin Urine Negative (Negative); Blood Urine 1+ (Negative); Color Urine Yellow (Yellow); Glucose Urine UA Negative (Negative); Ketones Urine Negative (Negative); Leukocyte Esterase Ur 3+ (Negative); Nitrate Urine Negative (Negative); Protein Urine 2+ (Negative); Urobilinogen Urine 0.2 mg/dL (0.2-1.0)
[2022-11-11 08:06] LABS: Add Urine Microscopic? YES; Appearance Urine Cloudy (Clear); WBC Urine >100 /hpf (0-3)
[2022-11-11 08:07] LABS: Bacteria Urine Trace /hpf
== END 2022-11-11 07:46 | disposition home or self-care (01) ==
LOC: CHSLAB 07:47
PROVIDERS: PCP Internal Medicine; Visit Provider Internal Medicine
DX: R05.9 Cough, unspecified (principal); N39.0 Urinary tract infection, site not specified; D64.9 Anemia, unspecified; R06.00 Dyspnea, unspecified
CPT/HCPCS: 81001; 87077; 87086; 87088; 87186

== ENCOUNTER 2022-11-27 00:01 | Emergency (ER) | payer MEDICARE, SELFPAY ==
--- NOTE | ~2022-11-27 | CT_ITS ---
EXAMINATION:CT diagnostic chest wo con DATE: 11/27/2022 01:12 INDICATION: Shortness of breath. TECHNIQUE: Computed tomography (CT) of the chest was performed without intravenous contrast. Automate d exposure control and iterative reconstruction technique were employed. The dose-length product (DLP ) was 709.67 mGy-cm. COMPARISON: Chest CT 01/13/2022 FINDINGS: Motion artifact is noted. There is mild atelectasis in the lungs, worst in left lower lobe. There is a trace left pleural effusion. Cardiomegaly is noted. There are coronary artery calcificati ons. No pericardial effusion. There are calcifications of aortic valve. The central pulmonary arterie s are enlarged, consistent with pulmonary arterial hypertension. There are changes of cholecystectomy . Calcifications in the liver and spleen are consistent with old granulomatous disease. There are old healed left rib fractures. There is a left shoulder arthroplasty. There are bridging endplate osteop hytes at multiple levels in the spine, consistent with diffuse idiopathic skeletal hyperostosis (DISH ). There is severe cervical and thoracic spondylosis. There is chronic widening of T9-T10 disc. IMPRESSION: 1. Mild atelectasis in the lungs, worst in left lower lobe. 2. Trace left pleural effusion. 3. Cardiomegaly. Reviewed, dictated and finalized at location E.
--- NOTE | ~2022-11-27 | XR_ITS ---
EXAMINATION: XR chest 1V portable DATE: 11/27/2022 00:31 INDICATION: Shortness of breath. TECHNIQUE: A single frontal view of the chest was obtained. COMPARISON: Chest 2 views 11/10/2022, chest CT 11/27/2022 FINDINGS: There is mild atelectasis in the lungs, worst in left lower lobe. No pleural effusion or pn eumothorax. Cardiomegaly is noted. There is a left shoulder arthroplasty. Surgical clips in the right upper quadrant are likely from cholecystectomy. IMPRESSION: 1. Mild atelectasis in the lungs, worst in left lower lobe. 2. Cardiomegaly. Reviewed, dictated and finalized at location E.
--- NOTE | 2022-11-27 00:03 | ECG_ITS ---
Measurements Intervals [place] Rate: 76 P: -35 AR: 214 QRS: -50 QRSD: 146 T: 9 QT: 381 QTc: 428 Interpretive Statements SINUS RHYTHM WITH FIRST DEGREE AV BLOCK RIGHT BUNDLE BRANCH BLOCK [120+ ms QRS DURATION, UPRIGHT V1, 40+ ms S IN I/aVL/V4/V5/V6] LEFT ANTERIOR FASCICULAR BLOCK [QRS AXIS <= -45, QR IN I, RS IN II] POSSIBLE ANTEROSEPTAL MYOCARDIAL INFARCTION , OF INDETERMINATE AGE [30 ms Q WAVE IN V1- V4] ABNORMAL ECG COMPARED TO ECG 10/06/2022 23:41:56 SINUS RHYTHM NOW PRESENT LEFT ANTERIOR FASCICULAR BLOCK NOW PRESENT Electronically Signed On 11-27-2022 9:59:29 CDT by Sadiq Griffith M.D.
[2022-11-27 00:04] VITALS: BP 136/90; PULSE 77; RESP 16; TEMP 38.6; O2SAT 94
--- NOTE | 2022-11-27 00:06 | ED.FEVER ---
HPI - Fever General Chief Complaint: Fever Stated Complaint: fever Time Seen by Provider: 11/27/22 00:03 Source: patient, family and EMS Mode of arrival: EMS Limitations: clinical condition History of Present Illness HPI Narrative: patient is an 82-year-old male who is paraplegic here with a fever and chills for the past day. Patient has a known condom catheter use and frequent UTI. He currently is under treatment of 3 doses of Bactrim for a UTI at this time. Ambulance was called for fever and chills. Patient is a poor historian. MD elicited complaint: fever, malaise and weakness Pertinent past history: diabetes Onset (ago): day(s) Context: recent antibiotic use Exacerbating factors: nothing Relieving factors: nothing Associated symptoms: chills and rigors Treatments prior to arrival fever: ibuprofen Related Data Home Medications Medication Instructions Recorded Confirmed diltiazem HCl 240 mg 240 mg PO DAILY 05/15/19 10/07/22 capsule,extended release 24 hr donepezil 5 mg tablet 10 mg PO BID 05/15/19 10/07/22 lovastatin 10 mg tablet 5 mg PO HS 05/15/19 10/07/22 tramadol 50 mg tablet 50 mg PO Q6H PRN Pain 05/15/19 10/07/22 cholecalciferol (vitamin D3) 50 2,000 unit PO DAILY 05/16/19 10/07/22 mcg (2,000 unit) tablet multivitamin 1 tablet PO DAILY 05/16/19 10/07/22 apixaban 5 mg tablet (Eliquis) 5 mg PO BID 04/26/20 10/07/22 baclofen 10 mg tablet 10 mg PO TID 04/26/20 10/07/22 hydralazine 10 mg tablet 15 mg PO TID PRN Anxiety 04/26/20 10/07/22 insulin lispro 100 unit/mL 10 unit subcut AC 04/26/20 10/07/22 subcutaneous pen lorazepam 0.5 mg tablet 0.5 mg PO BID PRN Anxiety 04/26/20 10/07/22 acetaminophen 500 mg tablet 650 mg PO Q4H PRN Fever Or Pain 06/15/20 10/07/22 (Tylenol Extra Strength) cetirizine 10 mg tablet (Zyrtec) 10 mg PO DAILY PRN allergies 06/15/20 10/07/22 cyanocobalamin (vitamin B-12) 1,000 mcg PO DAILY 09/25/21 10/07/22 1,000 mcg tablet (Vitamin B-12) sennosides 8.6 mg-docusate sodium 1 tab-cap PO BID PRN Constipation 09/25/21 10/07/22 50 mg capsule (Senna Plus) ascorbic acid (vitamin C) 500 mg 500 mg PO DAILY 03/27/22 10/07/22 tablet diclofenac sodium 1 % topical gel 2 g topical QID 03/27/22 10/07/22 fentanyl 12 mcg/hr transdermal 1 patch topical Q3D 03/27/22 10/07/22 patch lidocaine 5 % topical patch 1 patch topical DAILY 03/27/22 10/07/22 polyethylene glycol 3350 17 gram 17 g PO DAILY 03/27/22 10/07/22 oral powder packet (Miralax) fluticasone propionate 50 1 spray intranasal DAILY 10/07/22 10/07/22 mcg/actuation nasal spray,suspension ipratropium bromide 42 mcg (0.06 1 spray intranasal DAILY 10/07/22 10/07/22 %) nasal spray Allergies Allergy/AdvReac Type Severity Reaction Status Date / Time No Known Allergies Allergy Verified 11/27/22 00:03 Review of Systems Review of Systems: All systems reviewed & are unremarkable except as noted in HPI and below Constitutional: Constitutional: Reports no additional constitutional complaints Eyes: Eyes: Reports no additional eye complaints ENT: Reports system reviewed and no additional complaints, except as documented Cardiovascular: Cardiovascular: Reports no additional cardiovascular complaints Respiratory: Respiratory: Reports no additional respiratory complaints Gastrointestinal: Gastrointestinal: Reports no additional gastrointestinal complaints Genitourinary: Genitourinary: Reports no additional male genitourinary complaints Musculoskeletal: Musculoskeletal: Reports no additional musculoskeletal complaints Integumentary/Breasts: Skin/Breast: Reports system reviewed and no additional complaints, except as docu Neurologic: Reports system reviewed and no additional complaints, except as documented Psychiatric: Psychiatric: Reports no additional psychiatric complaints Endocrine: Endocrine: Reports no additional endocrine complaints Hematologic/Lymphatic: Hematologic/Lymphatic: Reports no additional hematologic/lym
[2022-11-27 00:55] LABS: Basophils Absolute Auto 0.04 K/mm3 (0.00-0.10); Basophils Percent Auto 0.3 % (0.0-1.0); Hematocrit 31.3 % (37.0-46.0); Hemoglobin 10.3 g/dL (12.4-15.3); Immature Granulocyte Absolute 0.25 K/mm3 (0.00-0.00); Immature Granulocyte Percent A 1.8 % (0.0-0.0); Lymphocytes Absolute Auto 0.28 K/mm3 (1.10-4.50); Mean Corpuscular HGB Conc 32.9 g/dL (32.0-36.0); Mean Corpuscular Hemoglobin 30.1 pg (27.0-31.0); Mean Corpuscular Volume 91.5 fL (78.0-102.0); Mean Platelet Volume 9.6 fl (8.7-11.0); Monocytes Absolute Auto 0.32 K/mm3 (0.10-0.90); Monocytes Percent Auto 2.3 % (2.0-11.0); Neutrophils Absolute Auto 12.9 K/mm3 (1.7-7.2); Neutrophils Percent Auto 93.6 % (50.0-70.0); Platelet Count Result 231 K/mm3 (150-420); Red Blood Count 3.42 M/mm3 (4.70-6.10); Red Cell Distribution Width 13.6 % (11.6-14.4); White Blood Count 13.8 K/mm3 (4.8-10.8)
[2022-11-27] MEDS: PIPERACILLN/TAZ 3.375GM/NS50ML 3.375 GM/50 ML BAG IVPB (01:05)
[2022-11-27] MEDS: SODIUM CHLORIDE 0.9% IV 1,000 ML 999 ML IV CONT (01:05)
[2022-11-27 01:14] LABS: Albumin Level 2.5 g/dL (3.4-5.0); Alkaline Phosphatase 101 U/L (46-116); Anion Gap 11 mmol/L (8-16); Aspartate Amino Transferase < 10 U/L (15-37); Bilirubin,Total 0.3 mg/dL (0.00-1.00); Blood Urea Nitrogen 36 mg/dL (7-18); Calcium 8.4 mg/dL (8.5-10.1); Carbon Dioxide 24 mmol/L (21-32); Chloride 98 mmol/L (98-108); Estimated Glomerular Filt Rate 41; Glucose 208 mg/dL (70-99); Magnesium 1.6 mg/dL (1.8-2.4); NT Pro B Type Natriuretic Pept 492 pg/mL (0-450); Osmolality Calculated 290 mOsm/kg (285-295); Potassium 5.2 mmol/L (3.5-5.1); Sodium 133 mmol/L (136-145); Total Protein 6.8 g/dL (6.4-8.2); Troponin I 13.2 ng/L (0.00-60.4)
[2022-11-27 01:20] LABS: Alanine Aminotransferase < 6 U/L (16-63); Lactic Acid Reflex 2.7 mmol/L (0.4-2.0)
[2022-11-27 01:30] LABS: Bilirubin Urine Negative (Negative); Blood Urine 3+ (Negative); Color Urine Yellow (Yellow); Glucose Urine UA Negative (Negative); Ketones Urine Negative (Negative); Leukocyte Esterase Ur 3+ LEU/UL (Negative); Nitrate Urine Negative (Negative); Protein Urine Trace (Negative); Urobilinogen Urine 0.2 mg/dL (0.2-1.0)
[2022-11-27 01:36] LABS: Add Urine Microscopic? YES; Appearance Urine Turbid (Clear); Bacteria Urine 4+ /hpf; RBC Urine >100 /hpf (0-2); WBC Clumps Urine Present /hpf; WBC Urine >100 /hpf (0-3)
[2022-11-27] MEDS: VANCOMYCIN 1,000 MG/NS 250 ML 1,000 MG/250 ML BAG 250 MG IVPB (01:38)
[2022-11-27] MEDS: FUROSEMIDE INJ 20 MG/2 ML VIAL IV PUSH (02:12)
[2022-11-27 03:31] VITALS: TEMP 36.4
[2022-11-27] MEDS: MAGNESIUM SULF 2 GM/WATER 50ML 2 GM/50 ML BAG IVPB (03:31)
[2022-11-27 03:50] LABS: Reflex Lactic Acid Yes or No Add Lactic
--- NOTE | 2022-11-27 04:53 | PC.NURSE ---
Patient's requesting that we call [facility] ambulance service for transport.
[2022-11-27 05:03] LABS: Lactic Acid 2.4 mmol/L (0.4-2.0)
--- NOTE | 2022-11-27 05:29 | PC.NURSE ---
Report called to Jovanna at [facility] ambulance service called at request to patient and family.
[2022-11-27 06:09] VITALS: BP 125/73; PULSE 65; RESP 16; TEMP 36.4; O2SAT 94
--- NOTE | 2022-11-30 13:16 | PC.NURSE ---
SPOKE WITH LUIS FERNANDO SHELBY AT [facility] TO NOTIFY OF FINAL URINE CULTURE RESULTS AND PRELIMINARY BLOOD CULTURE RESULTS ALL COMING BACK WITH KLEBSIELLA PNUEMONIAE.
== END 2022-11-27 06:10 | disposition short-term general hospital (02) ==
PROVIDERS: Emergency Provider Emergency Medicine; PCP Internal Medicine
DX: N39.0 Urinary tract infection, site not specified (principal); N17.9 Acute kidney failure, unspecified; J18.9 Pneumonia, unspecified organism; G30.9 Alzheimer's disease, unspecified; F02.80 Dementia in other diseases classified elsewhere, unspecified severity, without behavioral disturbance, psychotic disturbance, mood disturbance, and anxiety; I10 Essential (primary) hypertension; E78.2 Mixed hyperlipidemia; E11.9 Type 2 diabetes mellitus without complications; Z86.718 Personal history of other venous thrombosis and embolism
CPT/HCPCS: 36415; 71045; 71250; 80053; 81001; 83605; 83735; 83880; 84484; 85025; 87040; 87077; 87086; 87088; 87147; 87186; 93005; 96365; 96367; 96375; 99285; J1940; J2543; J3370; J3475; J7030

== ENCOUNTER 2022-11-27 08:23 | Inpatient (IN) | payer MEDICARE, SELFPAY ==
[2022-11-27] VITALS (11 sets, daily range): BP systolic 93–156; BP diastolic 51–72; PULSE 51–72; RESP 12–20; TEMP 36.1–36.6; O2SAT 95–98; BMI 33.0
--- NOTE | 2022-11-27 07:00 | PC.NURSE ---
This patient, Kieran Key, was admitted to IMU Room 231-01 from [facility] at 0655. Patient/family oriented to hospital policies and general routines including ID bracelet, bed and alarms, visiting hours, pain management, procedures, bathroom and other care routines, personal items, smoking policy, room service/diet, and visiting hours. Information on how to activate the Rapid Response Team has been discussed. Patient/Family are encouraged to report perceived risks to care and to ask questions if they do not understand what they are told or what they should do.
--- NOTE | 2022-11-27 08:02 | ADMGEN ---
This patient, Kieran Key, was admitted to IMU Room 231-01. Patient/family oriented to hospital policies and general routines including ID bracelet, bed and alarms, visiting hours, pain management, procedures, bathroom and other care routines, personal items, smoking policy, room service/diet, and visiting hours. Information on how to activate the Rapid Response Team has been discussed. Patient/Family are encouraged to report perceived risks to care and to ask questions if they do not understand what they are told or what they should do.
--- NOTE | 2022-11-27 11:12 | PM.IMHP ---
H&P: HPI History of Present Illness Date/Time: 11/27/22 11:12 Chief Complaint: ?patient is an 82-year-old male who is paraplegic here with a fever and chills for the past day.? Patient has a known condom catheter use and frequent UTI.? He currently is under treatment of 3 doses of Bactrim for a UTI at this time.? Ambulance was called for fever and chills.? Patient is a poor historian. MD elicited complaint: fever, malaise and weakness Review of Systems Review of Systems: 10 POINT REVIEW SYSTEMS NEGATIVE STATED IN HPI. [facility] Past Medical History Medical History (Updated 11/27/22 @ 11:16 by Kieran Zendejas MD) Alzheimers disease Anemia HTN (hypertension) Low back pain Male erectile disorder Mixed hyperlipidemia Open toe wound Type 2 diabetes mellitus Surgical History Surgical History History of cholecystectomy History of lumbar laminectomy History of shoulder surgery Social History Social History Smoking status: Never smoker Alcohol intake: never Substance use: never Substance use type: does not use Lack of Transportation: No Lack of Food: Never True Current Housing: I Have Housing Concerned About Future Housing: No Difficulty Paying Gas/Electric Bills: No Difficulty Paying for Meds: No Currently Unemployed: No Education: High School Diploma/GED Difficulty w/ Childcare or Family Care: No Spiritual care concerns: No Meds Home Medications and Allergies Home Medications Medication Instructions Recorded Confirmed Type diltiazem HCl 240 mg 240 mg PO DAILY 05/15/19 11/27/22 History capsule,extended release 24 hr lovastatin 10 mg tablet 5 mg PO HS 05/15/19 11/27/22 History cholecalciferol (vitamin D3) 50 2,000 unit PO DAILY 05/16/19 11/27/22 History mcg (2,000 unit) tablet multivitamin 1 tablet PO DAILY 05/16/19 11/27/22 History apixaban 5 mg tablet (Eliquis) 5 mg PO BID 04/26/20 11/27/22 History baclofen 10 mg tablet 10 mg PO TID 04/26/20 11/27/22 History hydralazine 10 mg tablet 15 mg PO TID 04/26/20 11/27/22 History insulin lispro 100 unit/mL 10 unit subcut AC 04/26/20 11/27/22 History subcutaneous pen lorazepam 0.5 mg tablet 0.5 - 1 mg PO DAILY PRN Anxiety 04/26/20 11/27/22 History acetaminophen 500 mg tablet 650 mg PO Q4H PRN Fever Or Pain 06/15/20 11/27/22 History (Tylenol Extra Strength) cetirizine 10 mg tablet (Zyrtec) 10 mg PO DAILY PRN allergies 06/15/20 11/27/22 History losartan 100 mg tablet 100 mg PO DAILY #30 tabs 06/23/21 11/27/22 Rx cyanocobalamin (vitamin B-12) 1,000 mcg PO DAILY 09/25/21 11/27/22 History 1,000 mcg tablet (Vitamin B-12) sennosides 8.6 mg-docusate sodium 1 tab-cap PO DAILY Constipation 09/25/21 11/27/22 History 50 mg capsule (Senna Plus) ascorbic acid (vitamin C) 500 mg 500 mg PO DAILY 03/27/22 11/27/22 History tablet diclofenac sodium 1 % topical gel 2 g topical QID 03/27/22 11/27/22 History fentanyl 12 mcg/hr transdermal 1 patch topical Q3D 03/27/22 11/27/22 History patch lidocaine 5 % topical patch 1 patch topical DAILY 03/27/22 11/27/22 History polyethylene glycol 3350 17 gram 17 g PO DAILY 03/27/22 11/27/22 History oral powder packet (Miralax) fluticasone propionate 50 1 spray intranasal DAILY 10/07/22 11/27/22 History mcg/actuation nasal spray,suspension ipratropium bromide 42 mcg (0.06 1 spray intranasal DAILY 10/07/22 11/27/22 History %) nasal spray insulin glargine 100 unit/mL 32 unit (0.32 mL) subcut HS #10 mL 10/09/22 11/27/22 Rx subcutaneous solution (Lantus U-100 Insulin) donepezil 23 mg tablet 23 mg PO DAILY 11/27/22 11/27/22 History lorazepam 0.5 mg tablet 0.25 mg PO HS 11/27/22 11/27/22 History Allergies Allergy/AdvReac Type Severity Reaction Status Date / Time No Known Allergies Allergy Verified 11/27/22 00:03 Vital Signs Vital Signs - 24 hr 11/27
[2022-11-27] MEDS: LIDOCAINE 5% PATCH 1 PATCH TOPICAL (11:29)
[2022-11-27] MEDS: CHOLECALCIFEROL 1,000 UNITS TABLET 2000 UNITS PO (11:30)
[2022-11-27] MEDS: MEROPENEM 1 GM/NS 100 ML 1 GM/100 ML BAG IVPB ×2 (12:34→21:34)
[2022-11-27] MEDS: hydrALAZINE 5 MG TABLET 15 MG PO ×2 (13:15→17:03)
[2022-11-27] MEDS: SALINE LOCK FLUSH 10 ML IV PUSH ×2 (13:15→21:36)
[2022-11-27] MEDS: DICLOFENAC SODIUM 1% 100 GM GEL (*BKC) 1 APPLIC TOPICAL ×3 (13:15→21:35)
[2022-11-27] MEDS: BACLOFEN 10 MG TABLET PO ×2 (13:15→17:01)
[2022-11-27] MEDS: APIXABAN 5 MG TABLET PO (17:02)
[2022-11-27 17:07] LABS: Glucose Point of Care 202 mg/dl (65-105)
[2022-11-27 20:25] LABS: Glucose Point of Care 195 mg/dl (65-105)
[2022-11-27 20:27] LABS: Anion Gap 5 mmol/L (8-16); Blood Urea Nitrogen 26 mg/dL (9-20); Calcium 8.5 mg/dL (8.4-10.2); Carbon Dioxide 25 mmol/L (22-30); Chloride 104 mmol/L (98-107); Estimated CRCL calculation 70 ml/min; Estimated Glomerular Filt Rate > 60; Glucose 175 mg/dL (65-110); Potassium 4.7 mmol/L (3.4-5.0); Sodium 134 mmol/L (137-145)
[2022-11-27] MEDS: LOVASTATIN 10 MG TABLET 5 MG PO (21:35)
[2022-11-27] MEDS: LORazepam (*CRX) 0.5 MG TABLET 0.25 MG PO (21:35)
[2022-11-27] MEDS: INSULIN GLARGINE (*BKC) 100 UNITS/ML 32 UNITS SUB-Q (21:36)
[2022-11-28] VITALS (11 sets, daily range): BP systolic 103–151; BP diastolic 54–62; PULSE 52–68; RESP 16–19; TEMP 36.2–36.9; O2SAT 95–98
[2022-11-28 04:37] LABS: Basophils Percent Auto 0.2 % (0.2-1.2); Eosinophils Absolute Auto 0.1 K/mm3 (0-0.3); Eosinophils Percent Auto 0.8 % (0-4.4); Hematocrit 29.4 % (42.0-52.0); Hemoglobin 9.4 g/dL (14.0-18.0); Immature Granulocyte Absolute 0.05 K/mm3 (0.00-0.031); Immature Granulocyte Percent A 0.3 % (0-0.5); Lymphocytes Absolute Auto 0.99 K/mm3 (0.9-3.2); Lymphocytes Percent Auto 6.2 % (18.3-44.2); Mean Corpuscular Hemoglobin 29.3 pg (26-34); Mean Corpuscular Volume 91.6 fl (80-100); Mean Platelet Volume 9.8 fl (7.4-10.4); Monocytes Absolute Auto 0.9 K/mm3 (0.1-0.6); Monocytes Percent Auto 5.7 % (2.6-8.5); Neutrophils Absolute Auto 13.9 K/mm3 (1.3-6.7); Neutrophils Percent Auto 86.8 % (45.5-73.1); Platelet Count Result 218 k/mm3 (150-375); Red Blood Count 3.21 M/mm3 (4.6-6.20); Red Cell Distribution Width 13.7 % (11.5-14.5); White Blood Count 16.1 K/mm3 (4.5-10.0)
[2022-11-28 04:56] LABS: Anion Gap 1 mmol/L (8-16); Blood Urea Nitrogen 21 mg/dL (9-20); Calcium 8.4 mg/dL (8.4-10.2); Carbon Dioxide 24 mmol/L (22-30); Chloride 107 mmol/L (98-107); Estimated CRCL calculation 78 ml/min; Estimated Glomerular Filt Rate > 60; Glucose 93 mg/dL (65-110); Sodium 132 mmol/L (137-145)
[2022-11-28] MEDS: MEROPENEM 1 GM/NS 100 ML 1 GM/100 ML BAG IVPB ×3 (05:14→21:30)
[2022-11-28] MEDS: SALINE LOCK FLUSH 10 ML IV PUSH ×3 (05:14→21:30)
[2022-11-28 07:43] LABS: Glucose Point of Care 80 mg/dl (65-105)
[2022-11-28] MEDS: APIXABAN 5 MG TABLET PO ×2 (09:39→18:32)
[2022-11-28] MEDS: BACLOFEN 10 MG TABLET PO ×3 (09:39→18:32)
[2022-11-28] MEDS: CHOLECALCIFEROL 1,000 UNITS TABLET 2000 UNITS PO (09:39)
[2022-11-28] MEDS: hydrALAZINE 5 MG TABLET 15 MG PO ×3 (09:40→18:33)
[2022-11-28] MEDS: DICLOFENAC SODIUM 1% 100 GM GEL (*BKC) 1 APPLIC TOPICAL ×4 (09:40→20:43)
[2022-11-28] MEDS: MULTIVITAMINS THERAPEUTIC TAB (*BKC) 1 TABLET PO (09:40)
[2022-11-28] MEDS: dilTIAZem HCL CD 240 MG CAP.24HR PO (09:40)
[2022-11-28] MEDS: LOSARTAN POTASSIUM 100 MG TABLET PO (09:40)
[2022-11-28] MEDS: FLUTICASONE PROPIONATE 0.05% NA SPR 16 GM BTL (*BKC) 1 SPRAY NASAL (09:45)
[2022-11-28] MEDS: IPRATROPIUM NASAL SPRAY 0.06% 15 ML BOTTLE 1 SPRAY NASAL (09:46)
[2022-11-28 11:42] LABS: Glucose Point of Care 178 mg/dl (65-105)
--- NOTE | 2022-11-28 12:57 | PM.IMPN ---
Progress Note: A&P Assessment and Plan (1) Acute UTI: Code(s): N39.0 - Urinary tract infection, site not specified Status: Inactive Assessment and Plan: WITH SEPSIS PRESENT ON ADMISSION. IV MEROPENEM Wait on cultures and sensitivity (2) SUNG (acute kidney injury): Code(s): N17.9 - Acute kidney failure, unspecified Status: Inactive Assessment and Plan: Kidney function has improved. At baseline. (3) Alzheimers disease: Code(s): G30.9 - Alzheimer's disease, unspecified; F02.80 - Dementia in other diseases classified elsewhere, unspecified severity, without behavioral disturbance, psychotic disturbance, mood disturbance, and anxiety Status: Acute Assessment and Plan: CHRONIC AND STABLE (4) Hyperlipidemia: Code(s): E78.5 - Hyperlipidemia, unspecified Status: Acute Assessment and Plan: CHRONIC (5) COPD (chronic obstructive pulmonary disease): Code(s): J44.9 - Chronic obstructive pulmonary disease, unspecified Status: Acute Assessment and Plan: STABLE (6) History of DVT (deep vein thrombosis): Code(s): Z86.718 - Personal history of other venous thrombosis and embolism Status: Acute Assessment and Plan: ON ELIQUIS Subjective Date/time seen: 11/28/22 12:57 Interval history: No new complaints. Exam Narrative: Psych: appropriate mood nad affect Eyes: PERRLA Neck: Trachea midline, no new lesions Skin: no changes Lungs: CTA Cardiac: Normal S1,S2, no MGR ABD: soft, nd, nt, nbs Ext: no new lesions, no cce Vasc: Pulses intact Objective Data Vital Signs Vital Signs: Vital Signs - 24 hr 11/27/22 14:00 11/27/22 16:00 11/27/22 16:00 Temperature 97.3 F L Pulse Rate 57 L 54 L 51 L Respiratory Rate 20 Blood Pressure 128/57 L Pulse Oximetry 98 Oxygen Delivery 11/27/22 16:00 11/27/22 18:00 11/27/22 21:04 Temperature 97.4 F L Pulse Rate 66 68 Respiratory Rate 18 Blood Pressure 156/72 H Pulse Oximetry 98 Oxygen Delivery Room Air 11/27/22 20:00 11/27/22 20:00 11/27/22 22:00 Temperature Pulse Rate 64 64 72 Respiratory Rate 18 Blood Pressure Pulse Oximetry 98 Oxygen Delivery Room Air 11/27/22 23:29 11/28/22 00:00 11/28/22 00:00 Temperature 97.4 F L Pulse Rate 60 67 64 Respiratory Rate 18 18 Blood Pressure 139/54 L Pulse Oximetry 97 97 Oxygen Delivery Room Air 11/28/22 03:49 11/28/22 02:00 11/28/22 03:50 Temperature 97.4 F L Pulse Rate 59 L 56 L 56 L Respiratory Rate 18 Blood Pressure 121/61 Pulse Oximetry 96 Oxygen Delivery 11/28/22 03:50 11/28/22 06:00 11/28/22 08:00 Temperature 97.2 F L Pulse Rate 56 L 58 L 52 L Respiratory Rate 18 17 Blood Pressure 139/62 Pulse Oximetry 96 95 Oxygen Delivery Room Air 11/28/22 08:00 11/28/22 08:00 11/28/22 10:00 Temperature Pulse Rate 52 L 61 57 L Respiratory Rate 17 Blood Pressure Pulse Oximetry 95 Oxygen Delivery Room Air 11/28/22 12:02 Temperature 97.6 F Pulse Rate 68 Respiratory Rate 19 Blood Pressure 119/60 Pulse Oximetry 96 Oxygen Delivery Intake/Output Intake/Output: Intake & Output 11/25/22 11/26/22 11/27/22 11/28/22 23:59 23:59 23:59 23:59 Intake Total 1000 980 Output Total 2650 2100 Balance -2870 -1120 Meds/Results Medications: Active Medications Generic Name Dose Route Start Last Admin Trade Name Freq PRN Reason Stop Dose Admin Acetaminophen 650 mg 11/27/22 09:09 Acetaminophen 325 Mg Tablet PO Q4H PRN Fever Or Pain Apixaban 5 mg 11/27/22 17:00 11/28/22 09:39 Apixaban 5 Mg Tablet PO 5 mg BID ELVIN Administration Baclofen 10 mg 11/27/22 13:00 11/28/22 09:39 Baclofen 10 Mg Tablet PO 10 mg TID ELVIN Administration Diclofenac Sodium 1 applic 11/27/22 13:00 11/28/22 09:40 Diclofenac Sodium 1% 100 Gm Gel (*Bkc) TOPICAL 1 applic QID [facility] Administrat
[2022-11-28 20:24] LABS: Glucose Point of Care 263 mg/dl (65-105)
[2022-11-28] MEDS: LOVASTATIN 10 MG TABLET 5 MG PO (20:42)
[2022-11-28] MEDS: LORazepam (*CRX) 0.5 MG TABLET 0.25 MG PO (20:42)
[2022-11-28] MEDS: LIDOCAINE 5% PATCH 1 PATCH TOPICAL (20:42)
[2022-11-28] MEDS: INSULIN GLARGINE (*BKC) 100 UNITS/ML 32 UNITS SUB-Q (20:43)
--- NOTE | 2022-11-28 21:24 | PC.NURSE ---
This patient, Kieran Key, was transferred to [[id number] ] on 11/28/22 at 2125. Personal belongings sent with patient. Report given to [Zarina montes ]. Appropriate documentation sent with patient.
[2022-11-29] MEDS: MEROPENEM 1 GM/NS 100 ML 1 GM/100 ML BAG IVPB ×3 (05:03→21:21)
[2022-11-29] MEDS: SALINE LOCK FLUSH 10 ML IV PUSH ×3 (05:03→21:21)
[2022-11-29 06:00] VITALS: BP 162/68; PULSE 50; RESP 16; TEMP 36.2; O2SAT 98
[2022-11-29 06:14] LABS: Basophils Percent Auto 0.4 % (0.2-1.2); Eosinophils Absolute Auto 0.2 K/mm3 (0-0.3); Eosinophils Percent Auto 2.7 % (0-4.4); Hematocrit 30.1 % (42.0-52.0); Hemoglobin 9.5 g/dL (14.0-18.0); Immature Granulocyte Absolute 0.04 K/mm3 (0.00-0.031); Immature Granulocyte Percent A 0.4 % (0-0.5); Lymphocytes Absolute Auto 0.86 K/mm3 (0.9-3.2); Lymphocytes Percent Auto 9.5 % (18.3-44.2); Mean Corpuscular HGB Conc 31.6 g/dl (32-36); Mean Corpuscular Hemoglobin 29.3 pg (26-34); Mean Corpuscular Volume 92.9 fl (80-100); Mean Platelet Volume 9.8 fl (7.4-10.4); Monocytes Absolute Auto 0.7 K/mm3 (0.1-0.6); Monocytes Percent Auto 8.2 % (2.6-8.5); Neutrophils Absolute Auto 7.1 K/mm3 (1.3-6.7); Neutrophils Percent Auto 78.8 % (45.5-73.1); Platelet Count Result 235 k/mm3 (150-375); Red Blood Count 3.24 M/mm3 (4.6-6.20); Red Cell Distribution Width 13.5 % (11.5-14.5); White Blood Count 9.1 K/mm3 (4.5-10.0)
[2022-11-29 06:24] LABS: Anion Gap 4 mmol/L (8-16); Blood Urea Nitrogen 17 mg/dL (9-20); Calcium 8.3 mg/dL (8.4-10.2); Carbon Dioxide 22 mmol/L (22-30); Chloride 107 mmol/L (98-107); Estimated CRCL calculation 88 ml/min; Estimated Glomerular Filt Rate > 60; Glucose 212 mg/dL (65-110); Potassium 4.4 mmol/L (3.4-5.0); Sodium 133 mmol/L (137-145)
[2022-11-29 08:07] LABS: Glucose Point of Care 191 mg/dl (65-105)
[2022-11-29] MEDS: SENNA/DOCUSATE SODIUM TABLET 1 TAB PO (08:30)
[2022-11-29] MEDS: hydrALAZINE 5 MG TABLET 15 MG PO ×3 (08:30→21:18)
[2022-11-29] MEDS: DICLOFENAC SODIUM 1% 100 GM GEL (*BKC) 1 APPLIC TOPICAL ×4 (08:30→21:18)
[2022-11-29] MEDS: dilTIAZem HCL CD 240 MG CAP.24HR PO (08:30)
[2022-11-29] MEDS: BACLOFEN 10 MG TABLET PO ×3 (08:30→17:08)
[2022-11-29] MEDS: FLUTICASONE PROPIONATE 0.05% NA SPR 16 GM BTL (*BKC) 1 SPRAY NASAL (08:31)
[2022-11-29] MEDS: CHOLECALCIFEROL 1,000 UNITS TABLET 2000 UNITS PO (08:31)
[2022-11-29] MEDS: APIXABAN 5 MG TABLET PO ×2 (08:31→17:08)
[2022-11-29] MEDS: LOSARTAN POTASSIUM 100 MG TABLET PO (08:32)
[2022-11-29] MEDS: IPRATROPIUM NASAL SPRAY 0.06% 15 ML BOTTLE 1 SPRAY NASAL (08:32)
[2022-11-29] MEDS: MULTIVITAMINS THERAPEUTIC TAB (*BKC) 1 TABLET PO (08:33)
[2022-11-29] MEDS: fentaNYL (*CRX) 12 MCG PATCH TRANSDERM (11:10)
--- NOTE | 2022-11-29 11:12 | PM.IMPN ---
Progress Note: A&P Assessment and Plan (1) Acute UTI: Code(s): N39.0 - Urinary tract infection, site not specified Status: Inactive Assessment and Plan: WITH SEPSIS PRESENT ON ADMISSION. IV MEROPENEM Wait on cultures and sensitivity Blood cultures noted (2) SUNG (acute kidney injury): Code(s): N17.9 - Acute kidney failure, unspecified Status: Inactive Assessment and Plan: Kidney function has improved. At baseline. (3) Alzheimers disease: Code(s): G30.9 - Alzheimer's disease, unspecified; F02.80 - Dementia in other diseases classified elsewhere, unspecified severity, without behavioral disturbance, psychotic disturbance, mood disturbance, and anxiety Status: Acute Assessment and Plan: CHRONIC AND STABLE (4) Hyperlipidemia: Code(s): E78.5 - Hyperlipidemia, unspecified Status: Acute Assessment and Plan: CHRONIC (5) COPD (chronic obstructive pulmonary disease): Code(s): J44.9 - Chronic obstructive pulmonary disease, unspecified Status: Acute Assessment and Plan: STABLE (6) History of DVT (deep vein thrombosis): Code(s): Z86.718 - Personal history of other venous thrombosis and embolism Status: Acute Assessment and Plan: ON ELIQUIS Subjective Date/time seen: 11/29/22 11:12 Interval history: No new complaints Exam Narrative: Psych: appropriate mood nad affect Eyes: PERRLA Neck: Trachea midline, no new lesions Skin: no changes Lungs: CTA Cardiac: Normal S1,S2, no MGR ABD: soft, nd, nt, nbs Ext: no new lesions, no cce Vasc: Pulses intact Objective Data Vital Signs Vital Signs: Vital Signs - 24 hr 11/28/22 12:02 11/28/22 16:00 11/28/22 20:00 Temperature 97.6 F 97.5 F L Pulse Rate 68 55 L 64 Respiratory Rate 19 16 16 Blood Pressure 119/60 103/54 L Pulse Oximetry 96 97 97 Oxygen Delivery Room Air 11/28/22 21:44 11/29/22 06:00 Temperature 98.5 F 97.1 F L Pulse Rate 56 L 50 L Respiratory Rate 18 16 Blood Pressure 151/59 H 162/68 H Pulse Oximetry 98 98 Oxygen Delivery Intake/Output Intake/Output: Intake & Output 11/26/22 11/27/22 11/28/22 11/29/22 23:59 23:59 23:59 23:59 Intake Total 1000 2140 300 Output Total 2650 2500 1700 Balance -1942 -360 -1400 Meds/Results Medications: Active Medications Generic Name Dose Route Start Last Admin Trade Name Freq PRN Reason Stop Dose Admin Acetaminophen 650 mg 11/27/22 09:09 Acetaminophen 325 Mg Tablet PO Q4H PRN Fever Or Pain Apixaban 5 mg 11/27/22 17:00 11/29/22 08:31 Apixaban 5 Mg Tablet PO 5 mg BID ELVIN Administration Baclofen 10 mg 11/27/22 13:00 11/29/22 08:30 Baclofen 10 Mg Tablet PO 10 mg TID ELVIN Administration Diclofenac Sodium 1 applic 11/27/22 13:00 11/29/22 08:30 Diclofenac Sodium 1% 100 Gm Gel (*Bkc) TOPICAL 1 applic QID ELVIN Administration Diltiazem HCl 240 mg 11/27/22 10:00 11/29/22 08:30 Diltiazem Hcl Cd 240 Mg Cap.24hr PO 240 mg DAILY ELVIN Administration Fentanyl 12 mcg 11/29/22 09:00 11/29/22 11:10 Fentanyl (*Crx) 12 Mcg Patch TRANSDERM 12 mcg Q72H ELVIN Administration Fluticasone Propionate 1 spray 11/28/22 09:00 11/29/22 08:31 Fluticasone Propionate 0.05% Na Spr 16 Gm Btl (*Bkc) NASAL 1 spray DAILY ELVIN Administration Hydralazine HCl 15 mg 11/27/22 13:00 11/29/22 08:30 Hydralazine 5 Mg Tablet PO 15 mg TID ELVIN Administration Meropenem 1 gm in 100 mls @ 200 mls/hr 11/27/22 12:00 11/29/22 05:03 IVPB 200 mls/hr Q8HR ELVIN Administration Insulin Glargine 32 units 11/27/22 21:00 11/28/22 20:43 Insulin Glargine (*Bkc) 100 Units/Ml SUB-Q 32 units HS ELVIN Administration Ipratropium [place] 1 spray 11/28/22 09:00 11/29/22 08:32 Ipratropium Nasal [place] 0.06% 15 Ml Bottle NASAL 1 spray DAILY ELVIN Administration Lidocaine 1 patch 11/28/22 21:00 11/28/22 20:42 Lidocaine
[2022-11-29 11:51] LABS: Glucose Point of Care 257 mg/dl (65-105)
[2022-11-29 14:25] VITALS: BP 136/69; PULSE 49; RESP 16; TEMP 35.8; O2SAT 97
[2022-11-29 16:56] LABS: Glucose Point of Care 261 mg/dl (65-105)
[2022-11-29] MEDS: INSULIN ASPART (*BKC) 100 UNITS/ML 10 UNITS SUB-Q (17:05)
[2022-11-29 20:19] LABS: Glucose Point of Care 235 mg/dl (65-105)
[2022-11-29 20:56] VITALS: BP 138/66; PULSE 57; RESP 16; TEMP 36.4; O2SAT 97
[2022-11-29] MEDS: LOVASTATIN 10 MG TABLET 5 MG PO (21:19)
[2022-11-29] MEDS: INSULIN GLARGINE (*BKC) 100 UNITS/ML 32 UNITS SUB-Q (21:20)
[2022-11-29] MEDS: LIDOCAINE 5% PATCH 1 PATCH TOPICAL (21:20)
[2022-11-29] MEDS: LORazepam (*CRX) 0.5 MG TABLET 0.25 MG PO (21:20)
[2022-11-30 04:15] VITALS: BP 169/66; PULSE 56; RESP 16; TEMP 36.1; O2SAT 98
[2022-11-30] MEDS: MEROPENEM 1 GM/NS 100 ML 1 GM/100 ML BAG IVPB ×3 (05:25→21:46)
[2022-11-30] MEDS: SALINE LOCK FLUSH 10 ML IV PUSH ×3 (05:25→21:46)
[2022-11-30 06:05] LABS: Glucose Point of Care 155 mg/dl (65-105)
[2022-11-30] MEDS: INSULIN ASPART (*BKC) 100 UNITS/ML 10 UNITS SUB-Q ×2 (07:13→12:38)
[2022-11-30 07:53] LABS: Glucose Point of Care 160 mg/dl (65-105)
[2022-11-30] MEDS: polyethylene glycoL 3350 17 GM POWD.PACK PO (09:40)
[2022-11-30] MEDS: hydrALAZINE 5 MG TABLET 15 MG PO (09:41)
[2022-11-30] MEDS: BACLOFEN 10 MG TABLET PO ×3 (09:42→17:23)
[2022-11-30] MEDS: CHOLECALCIFEROL 1,000 UNITS TABLET 2000 UNITS PO (09:42)
[2022-11-30] MEDS: LORATADINE 10 MG TABLET PO (09:43)
[2022-11-30] MEDS: MULTIVITAMINS THERAPEUTIC TAB (*BKC) 1 TABLET PO (09:43)
[2022-11-30] MEDS: APIXABAN 5 MG TABLET PO ×2 (09:43→17:23)
[2022-11-30] MEDS: SENNA/DOCUSATE SODIUM TABLET 1 TAB PO (09:45)
[2022-11-30] MEDS: dilTIAZem HCL CD 240 MG CAP.24HR PO (09:45)
[2022-11-30] MEDS: LOSARTAN POTASSIUM 100 MG TABLET PO (09:45)
[2022-11-30] MEDS: FLUTICASONE PROPIONATE 0.05% NA SPR 16 GM BTL (*BKC) 1 SPRAY NASAL (09:47)
[2022-11-30] MEDS: IPRATROPIUM NASAL SPRAY 0.06% 15 ML BOTTLE 1 SPRAY NASAL (09:47)
[2022-11-30] MEDS: DICLOFENAC SODIUM 1% 100 GM GEL (*BKC) 1 APPLIC TOPICAL ×4 (09:48→22:02)
[2022-11-30 11:33] LABS: Glucose Point of Care 182 mg/dl (65-105)
--- NOTE | 2022-11-30 12:48 | PM.IMPN ---
Progress Note: A&P Assessment and Plan (1) Sepsis: Code(s): A41.9 - Sepsis, unspecified organism Status: Acute Assessment and Plan: Patient presents with fever and found to have SUNG, leukocytosis and elevated lactic acid level consistent with sepsis. Urinalysis consistent with UTI. Urine culture and blood cultures growing Klebsiella. Sensitivities still pending on blood cultures. Currently on meropenem. White count has normalized. No fevers. Follow up on final culture results. (2) Acute UTI: Code(s): N39.0 - Urinary tract infection, site not specified Status: Inactive Assessment and Plan: UA noted. Cultures as mentioned above. Continue IV antibiotics (3) SUNG (acute kidney injury): Code(s): N17.9 - Acute kidney failure, unspecified Status: Inactive Assessment and Plan: Patient has normal baseline renal function. Creatinine was 1.6 on admission but quickly trended down to normal with IV fluids. Acute kidney injury has resolved. (4) Alzheimers disease: Code(s): G30.9 - Alzheimer's disease, unspecified; F02.80 - Dementia in other diseases classified elsewhere, unspecified severity, without behavioral disturbance, psychotic disturbance, mood disturbance, and anxiety Status: Acute Assessment and Plan: Stable. Continue Aricept. (5) Hyperlipidemia: Code(s): E78.5 - Hyperlipidemia, unspecified Status: Acute Assessment and Plan: Chronic and stable. Continue lovastatin. (6) COPD (chronic obstructive pulmonary disease): Code(s): J44.9 - Chronic obstructive pulmonary disease, unspecified Status: Acute Assessment and Plan: No wheezing. Lungs are clear. No O2 requirement. Continue to monitor. (7) History of DVT (deep vein thrombosis): Code(s): Z86.718 - Personal history of other venous thrombosis and embolism Status: Acute Assessment and Plan: Patient Eliquis chronically. Continue the same. (8) Type 2 diabetes mellitus: Code(s): E11.9 - Type 2 diabetes mellitus without complications Status: Acute Assessment and Plan: The patient's blood glucose was reviewed on 11/30 Glucose elevated at times. Continue AccuCheks covering with sliding scale. Hypoglycemia protocol available as needed. Continue to monitor Subjective Date/time seen: 11/30/22 12:48 Interval history: 82yo male with paraplegia, dementia, DM and HTN here for fevers and chills. Assuming care. Chart reviewed. He feels tired. no CP or SOB. No n/v. Exam Narrative: AF 97.0 169/66 56 16 98% ra Gen - NARD lying semi-recumbentin bed Chest - CTA bilaterally, nml RR CV - RRR S1/S2 with 2/6 systolic murmur t/o but loudest Rt USB without radiation Abd - Soft, obese, NT Ext - trace pedal edema Psych - Nml mood and affect Skin - Warm and dry Objective Data Vital Signs Vital Signs: Vital Signs - 24 hr 11/29/22 14:25 11/29/22 20:56 11/29/22 20:00 Temperature 96.4 F L 97.5 F L Pulse Rate 49 L 57 L Respiratory Rate 16 16 Blood Pressure 136/69 138/66 Pulse Oximetry 97 97 Oxygen Delivery Room Air 11/30/22 04:15 11/30/22 09:40 Temperature 97 F L Pulse Rate 56 L Respiratory Rate 16 Blood Pressure 169/66 H Pulse Oximetry 98 Oxygen Delivery Room Air Intake/Output Intake/Output: Intake & Output 11/27/22 11/28/22 11/29/22 11/30/22 23:59 23:59 23:59 23:59 Intake Total 1000 2140 1340 960 Output Total 2650 2500 2375 1500 Balance -1650 -360 -1035 -540 Meds/Results Medications: Active Medications Generic Name Dose Route Start Last Admin Trade Name Freq PRN Reason Stop Dose Admin Acetaminophen 650 mg 11/27/22 09:09 Acetaminophen 325 Mg Tablet PO Q4H PRN Fever Or Pain Apixaban 5 mg 11/27/22 17:00 11/30/22 09:43 Apixaban 5 Mg Tablet PO 5 mg BID ELVIN Administration Baclofen 10 mg 11/27/22 13:00 11/30/22
[2022-11-30] MEDS: LORazepam (*CRX) 0.5 MG TABLET PO (13:33)
[2022-11-30 14:00] VITALS: BP 145/67; PULSE 62; RESP 18; TEMP 37.3; O2SAT 98
--- NOTE | 2022-11-30 14:21 | PHAR ---
HOME MED VERIFIED Donepezil 23 mg tablet 1 TABLET QPM
[2022-11-30] MEDS: hydrALAZINE 10 MG TABLET 15 MG PO ×2 (14:46→17:23)
[2022-11-30 16:54] LABS: Glucose Point of Care 195 mg/dl (65-105)
--- NOTE | 2022-11-30 19:17 | PC.NURSE ---
On 11/30/22, the WORK MEASUREMENT ENGINEER, Dalia Cole, provided care and completed [facility] documentation on this patient. I have reviewed the WORK MEASUREMENT ENGINEER's documentation and agree with the findings.
[2022-11-30 20:24] VITALS: BP 154/82; PULSE 60; RESP 16; TEMP 36.4; O2SAT 97
[2022-11-30 20:54] LABS: Glucose Point of Care 215 mg/dl (65-105)
[2022-11-30] MEDS: INSULIN GLARGINE (*BKC) 100 UNITS/ML 32 UNITS SUB-Q (21:42)
[2022-11-30] MEDS: LORazepam (*CRX) 0.5 MG TABLET 0.25 MG PO (21:43)
[2022-11-30] MEDS: LOVASTATIN 10 MG TABLET 5 MG PO (21:43)
[2022-11-30] MEDS: LIDOCAINE 5% PATCH 1 PATCH TOPICAL (21:46)
[2022-12-01 04:20] VITALS: BP 176/88; PULSE 57; RESP 18; TEMP 36.4; O2SAT 96
[2022-12-01] MEDS: INSULIN ASPART (*BKC) 100 UNITS/ML 10 UNITS SUB-Q ×2 (05:52→12:03)
[2022-12-01] MEDS: MEROPENEM 1 GM/NS 100 ML 1 GM/100 ML BAG IVPB (05:53)
[2022-12-01] MEDS: SALINE LOCK FLUSH 10 ML IV PUSH (05:59)
[2022-12-01 06:02] LABS: Glucose Point of Care 211 mg/dl (65-105)
[2022-12-01 07:52] LABS: Glucose Point of Care 172 mg/dl (65-105)
[2022-12-01] MEDS: APIXABAN 5 MG TABLET PO (09:25)
[2022-12-01] MEDS: BACLOFEN 10 MG TABLET PO ×2 (09:25→14:04)
[2022-12-01] MEDS: CHOLECALCIFEROL 1,000 UNITS TABLET 2000 UNITS PO (09:25)
[2022-12-01] MEDS: LOSARTAN POTASSIUM 100 MG TABLET PO (09:26)
[2022-12-01] MEDS: dilTIAZem HCL CD 240 MG CAP.24HR PO (09:26)
[2022-12-01] MEDS: MULTIVITAMINS THERAPEUTIC TAB (*BKC) 1 TABLET PO (09:26)
[2022-12-01] MEDS: SENNA/DOCUSATE SODIUM TABLET 1 TAB PO (09:26)
[2022-12-01] MEDS: hydrALAZINE 10 MG TABLET 15 MG PO ×2 (09:26→14:01)
[2022-12-01] MEDS: FLUTICASONE PROPIONATE 0.05% NA SPR 16 GM BTL (*BKC) 1 SPRAY NASAL (09:27)
[2022-12-01] MEDS: polyethylene glycoL 3350 17 GM POWD.PACK PO (09:28)
[2022-12-01] MEDS: IPRATROPIUM NASAL SPRAY 0.06% 15 ML BOTTLE 1 SPRAY NASAL (09:28)
[2022-12-01] MEDS: DICLOFENAC SODIUM 1% 100 GM GEL (*BKC) 1 APPLIC TOPICAL ×2 (09:28→14:01)
--- NOTE | 2022-12-01 11:27 | PM.DS ---
DS: Admitting Diagnosis Discharge Date 12/01/22 Admitting Diagnosis Fevers and chills DS: Discharge Diagnosis Discharge Diagnosis (1) Sepsis: Code(s): A41.9 - Sepsis, unspecified organism Status: Acute (2) Acute UTI: Code(s): N39.0 - Urinary tract infection, site not specified Status: Inactive (3) SUNG (acute kidney injury): Code(s): N17.9 - Acute kidney failure, unspecified Status: Inactive (4) Alzheimers disease: Code(s): G30.9 - Alzheimer's disease, unspecified; F02.80 - Dementia in other diseases classified elsewhere, unspecified severity, without behavioral disturbance, psychotic disturbance, mood disturbance, and anxiety Status: Acute (5) Hyperlipidemia: Code(s): E78.5 - Hyperlipidemia, unspecified Status: Acute (6) COPD (chronic obstructive pulmonary disease): Code(s): J44.9 - Chronic obstructive pulmonary disease, unspecified Status: Acute (7) History of DVT (deep vein thrombosis): Code(s): Z86.718 - Personal history of other venous thrombosis and embolism Status: Acute (8) Type 2 diabetes mellitus: Code(s): E11.9 - Type 2 diabetes mellitus without complications Status: Acute DS: Summary Hospital Course Reason for hospitalization: 82yo male with paraplegia, dementia, DM and HTN here for fevers and chills. Please see H&P for details. Hospital Course: Patient presents with fever and found to have SUNG, leukocytosis and elevated lactic acid level consistent with sepsis.? Urinalysis consistent with UTI.? Urine culture and blood cultures growing Klebsiella that were relatively calderón-sensitive.? Treated with meropenem.? White count has normalized.? No fevers.? Patient has normal baseline renal function.? Creatinine was 1.6 on admission but quickly trended down to normal with IV fluids.? Acute kidney injury has resolved. He completed 4 days of IV Meropenem and defervesced quickly. Plan for home with [facility] to complete a 10 day course of antibiotics. EKG showing QTc 428. He had clinical improvement and was able to be discharged on 12/01/22. Status at Discharge Cognitive/behavioral status at discharge: stable Time Spent with Patient Time attestation: Total time spent providing and/or coordinating discharge services: 40 minutes Time spent: Greater than 30 minutes Exam Narrative: AF 97.6 176/88 57 18 96% ra Gen - NARD Chest - CTA bilaterally, nml RR CV - RRR S1/S2 Abd - Soft, obese, NT Ext - trace pedal edema Psych - Nml mood and affect Skin - Warm and dry DS: Data Data Completed and Pending Labs on day of discharge: Labs from last 24 hours 12/01/22 12/01/22 11/30/22 07:48 05:52 20:26 POC Capillary Glucose 172 H 211 H 215 H 11/30/22 11/30/22 16:39 11:28 POC Capillary Glucose 195 H 182 H Discharge Plan Discharge Attending physician on discharge: Corwin Del Rio Discharging Clinician: Corwin Del Rio Anticipated Discharge Date/Time: 12/01/22 11:32 Patient Disposition: Home, Self-Care Activity: as tolerated Diet: regular Discharge Instructions: Please check glucose before meals and before bed. Record and bring into your doctor for review. Check blood pressure 1 to 2 times a day. Record and bring into your doctor for review. Call your doctor if your blood pressure is greater than 180/110. Please complete your antibiotic course even if you are starting to feel well. Take precautions to avoid falls. Contact your doctor or call 911 and come to the Emergency Room if you have fevers or other worrisome symptoms. Avoid NSAIDs (ibuprofen, naproxen, Aleve). Tylenol is safe to take. Follow-up with your primary care provider in 1-2 weeks. Please call for appointment. Thank you for using [facility] for your health care needs. Patient Instructions: Antibiotic Form, Apixaban (By mouth) Stand Alone Forms: General Discharge Inform
[2022-12-01 11:49] LABS: Glucose Point of Care 167 mg/dl (65-105)
[2022-12-01] MEDS: NEOMYCIN/POLYMYXIN/BACITRACIN OINTMENT PACKET 1 PACKET (13:33)
--- NOTE | 2022-12-01 13:48 | PC.NURSE ---
On 12/01/22, the GEODETIC ADVISOR, Dalia Cole, provided care and completed [facility] [employer] documentation on this patient. I have reviewed the GEODETIC ADVISOR's documentation and agree with the findings.
--- NOTE | 2022-12-01 14:20 | PC.NURSE ---
Pt Home meds Donepezil returned to pt during discharge.
== END 2022-12-01 14:20 | disposition home or self-care (01) | DRG 872 ==
LOC: ANHIMU 11-28 16:07 → ANH3MEDSUR 11-28 21:23
PROVIDERS: Chiropractor; Admitting Provider Internal Medicine; PCP Internal Medicine; Visit Provider Internal Medicine
DX: A41.9 Sepsis, unspecified organism (principal); N39.0 Urinary tract infection, site not specified; G82.20 Paraplegia, unspecified; N17.9 Acute kidney failure, unspecified; B96.1 Klebsiella pneumoniae [K. pneumoniae] as the cause of diseases classified elsewhere; E11.9 Type 2 diabetes mellitus without complications; E78.5 Hyperlipidemia, unspecified; F02.80 Dementia in other diseases classified elsewhere, unspecified severity, without behavioral disturbance, psychotic disturbance, mood disturbance, and anxiety; G30.9 Alzheimer's disease, unspecified; I10 Essential (primary) hypertension; J44.9 Chronic obstructive pulmonary disease, unspecified; Z90.49 Acquired absence of other specified parts of digestive tract; Z79.4 Long term (current) use of insulin; Z79.01 Long term (current) use of anticoagulants; Z86.718 Personal history of other venous thrombosis and embolism
CPT/HCPCS: 36415; 36569; 80048; 82948; 85025; 96365; 96366; A9270; C1751; G0378; J1815; J2185

== ENCOUNTER 2022-12-28 13:36 | Outpatient (CLI) | payer MEDICARE, SELFPAY ==
--- NOTE | ~2022-12-28 | CT_ITS ---
EXAMINATION: CT abdomen pelvis wo con DATE: 12/28/2022 14:30 INDICATION: Chronic urinary tract infection TECHNIQUE: Computed tomography (CT) of the abdomen and pelvis was performed without intravenous contr ast. The dose-length product (DLP) was 1453.50 mGy-cm. Automated exposure control and iterative recon struction technique were employed. COMPARISON: 12/03/2019, 11/27/2022 FINDINGS: There is atelectasis of the visualized lung bases, left greater than right. Cardiomegaly is noted. Surgical changes of cholecystectomy are noted. The spleen, pancreas, and adrenal glands are n ormal. There is mild atrophy of the kidneys. There is mild left hydroureter continuing to a transitio n point in the distal ureter. The bladder is mildly distended and multiple diverticula, several which demonstrate mild wall thickening. No pathologically enlarged abdominal or pelvic lymph nodes are lorene ntified. No free intraperitoneal gas or evidence of bowel obstruction. An IVC filter is noted. There are bilateral inguinal hernias containing fat. Colonic diverticulosis is present without evidence of diverticulitis. Surgical changes are noted in the prostate. There is severe thoracic and lumbar spond ylosis with changes of anterior and posterior fusion as well as laminectomy changes at multiple level s in the lumbar spine. There is a fat-containing umbilical hernia. A large volume of stool is noted i n the rectum. IMPRESSION: 1. Mildly distended urinary bladder with multiple diverticula and mild wall thickening, possibly air sealing technician barbara cystitis. 2. Mild left hydroureter continuing to transition point in the distal ureter, possibly short segment stricture. Reviewed, dictated and finalized at location F. IMPRESSION: 1. Mildly distended urinary bladder with multiple diverticula and mild wall thi ckening, possibly chronic cystitis. 2. Mild left hydroureter continuing to transition point in the distal ureter, p ossibly short segment stricture.
--- NOTE | ~2022-12-28 | XR_ITS ---
EXAMINATION: XR abdomen/kub 1V DATE: 12/28/2022 14:24 INDICATION: Chronic urinary tract infection. TECHNIQUE: A supine view of the abdomen on 2 radiographs was obtained. COMPARISON: CT abdomen and pelvis 12/28/2022 FINDINGS: There are no dilated loops of bowel. There are phleboliths in the pelvis. There are changes of anterior and posterior fusion procedures in the spine. Surgical clips in the right upper quadrant are likely from cholecystectomy. There is a filter in the inferior vena cava. IMPRESSION: 1. No urolithiasis. Reviewed, dictated and finalized at location A. IMPRESSION: 1. No urolithiasis.
== END 2022-12-28 13:37 | disposition home or self-care (01) ==
LOC: ANHIMG 13:39
PROVIDERS: PCP Internal Medicine; Visit Provider Nurse Practitioner Adult Health
DX: N39.0 Urinary tract infection, site not specified (principal)
CPT/HCPCS: 74018; 74176

== ENCOUNTER 2022-12-30 08:02 | Outpatient (CLI) | payer MEDICARE, SELFPAY | END 2022-12-30 08:03 | disposition home or self-care (01) | LOC: CHSLAB 08:04 | PROVIDERS: PCP Internal Medicine; Visit Provider Urology | DX: Z01.818 Encounter for other preprocedural examination (principal); N39.0 Urinary tract infection, site not specified | CPT/HCPCS: 87077; 87086; 87088 ==

== ENCOUNTER 2023-01-03 04:32 | Day surgery (SDC) | payer MEDICARE, SELFPAY ==
--- NOTE | 2022-12-28 15:15 | PC.NURSE ---
Report to the Outpatient Waiting Room, entrance under the green pavilion located off [facility], at time ___1PM____ on date . Planned Procedure Time: ___2PM . Time changes happen often and if your time is changed the preop area will call you the afternoon before. - You and your visitor will be asked to self-screen and do not enter if you have any COVID symptoms. - A mask is optional within the hospital at this time. -MAY HAVE LIGHT BREAKFAST/LUNCH Take the following medications with a SIP of water the morning of surgery: REGULAR HOME MEDS DO NOT STOP ANY OF YOUR OTHER PRESCRIPTION MEDICATIONS PRIOR TO SURGERY ?EXCEPT THE FOLLOWING Medications to discontinue per physician ____KATIUSKAIS PER DR. CARRASCO'S INSTRUCTIONS Date to take last dose Please no make-up, nail telugu, hairspray, perfume, deodorant, or body powder the day of surgery. No jewelry (including any body piercings) or valuables the day of surgery, leave them at home. Please take a shower or bath the night before, or the morning of, surgery with an antibacterial soap. Wear comfortable, loose fitting clothing. Children are encouraged to wear pajamas. - Jewelry must be removed prior to entering the operating room. Rings and piercings that are not removed may be cut off. - The hospital will not accept responsibility for valuables. - Please leave all valuables, including medications, at home the day of surgery. If you are going home after surgery, a licensed van cdl driver must drive you home. - NO public transportation without another adult if you receive anesthesia. - We recommend that an adult stay with you for 24 hours following discharge. - We also recommend that you do not drive, make important decision, drink alcoholic beverages, or take any drugs that were not prescribed by your health care provider for at least 24 hours after your discharge time. For Pediatric surgeries, we recommend two adults accompany the child home. Follow any additional instructions given to you from your surgeon. If you or anyone in your household have experienced Covid symptoms in the past week, please notify your surgeon or the nurse liaison at the phone number below for possible testing. Telephone instructions given to __PT'S SPOUSE (HANANE)___and asked if any additional questions and then verbalized understanding. Patient advised to call surgeon office or pre surgery nurse liaison [phone] if any additional questions.
[2022-12-28 15:20] VITALS: BMI 30.5
--- NOTE | 2023-01-03 13:20 | WPDHPUPDATE1 ---
History and Physical Update Update Date/Time: 01/03/23 13:20 History and Physical has been reviewed, including an updated exam of the patient. There are NO changes in the patient's condition. Risks, benefits, and alternatives have been discussed and questions answered. Patient agrees to proceed with procedure. Proceed with cystoscopy
[2023-01-03 13:43] VITALS: BP 112/51; PULSE 59; RESP 20; TEMP 36.2; O2SAT 98
[2023-01-03 14:03] VITALS: BP 113/57; PULSE 58; RESP 16; O2SAT 95
[2023-01-03 14:08] VITALS: BP 113/61; PULSE 55; RESP 16; O2SAT 94
[2023-01-03] MEDS: LIDOCAINE HCL 2% GEL UROJET 10 ML PKG MUCOUS MEM (14:10)
[2023-01-03 14:19] VITALS: BP 117/60; PULSE 58; RESP 20
--- NOTE | 2023-01-03 14:48 | W.PM.PROC2 ---
Procedure Note - Detailed Date of Procedure 01/03/23 Pre-op Diagnosis chronic UTI Post-op Diagnosis Same Procedure Performed Flexible cystoscopy Surgeon Kenyon Burrell MD Anesthesia Local Description of Procedure patient is taken the operative suite correctly identified. His prior condom catheter was removed was prepped and draped usual sterile fashion. Sixteen Marshallese flexible scope was inserted into the urethra. There is no urethral strictures noted. The prostate Has some mild lateral lobe hypertrophy.. Upon entering the bladder he does have some market trabeculation present with cellule formation. There are no tumors noted. Scope was removed. 2% viscous lidocaine was inserted into the urethra. Patient is taken back to his postoperative room. This completes dictation. please send a copy of this operative note to my office Estimated Blood Loss 0 Drains No Packing No Pathology None sent Complications No immediate complications Condition Stable Disposition PACU
== END 2023-01-03 15:00 | disposition home or self-care (01) ==
PROVIDERS: PCP Internal Medicine; Visit Provider Urology
PROC: 0TJB8ZZ Inspection of Bladder, Via Natural or Artificial Opening Endoscopic (ICD-10-PCS; CPT 52000; principal; 2023-01-03 14:00)
DX: N39.0 Urinary tract infection, site not specified (principal); N32.89 Other specified disorders of bladder; B96.1 Klebsiella pneumoniae [K. pneumoniae] as the cause of diseases classified elsewhere; N39.41 Urge incontinence; I10 Essential (primary) hypertension; E11.9 Type 2 diabetes mellitus without complications; E78.00 Pure hypercholesterolemia, unspecified; R53.1 Weakness; Z86.718 Personal history of other venous thrombosis and embolism; Z98.1 Arthrodesis status; Z79.01 Long term (current) use of anticoagulants; Z79.891 Long term (current) use of opiate analgesic; Z79.4 Long term (current) use of insulin; Z99.3 Dependence on wheelchair
CPT/HCPCS: 52000; J7030

== ENCOUNTER 2023-01-18 12:31 | Outpatient (CLI) | payer MEDICARE, SELFPAY ==
--- NOTE | ~2023-01-18 | NM_ITS ---
EXAMINATION: NORM mejía renal scan DATE: 01/18/2023 14:45 INDICATION: Left hydroureter TECHNIQUE: 8 mCi Tc-99m MAG3 was administered IV. 40 mg furosemide was administered IV immediately a fterward. The patient was scanned in the supine position. A posterior abdominal radionuclide angiogra m was obtained. A subsequent time course of static images of the kidneys, ureters, and bladder was ob tained. COMPARISON: None FINDINGS: The posterior abdominal radionuclide angiogram and sequential static images show normal size, positio n, and morphology of the kidneys. Peak renal parenchymal uptake was 15.4 min in left kidney and 4.4 m in in right kidney (normal peak 3-5 minutes). The relative early renal uptake was 49% on the left an d 51% on the right (<40% is abnormal). The delayed scintigrams suggest mild bilateral hydroureter. T1/2 for clearance of activity from the left kidney and proximal collecting system was >30 minutes. T1/2 for clearance of activity from the right kidney and proximal collecting system was 28 minutes. Notes on interpretation: T1/2 <10 minutes is normal, 10-15 minutes is low grade obstruction of questi onable clinical significance, 15-20 minutes is partial obstruction that is likely clinically signific ant, >20 minutes is high grade obstruction. Note that false positives may be seen with supine positio araseli, dehydration, severely dilated nonobstructed kidney, atonic collecting system, poor renal functi on, and chronic furosemide use. IMPRESSION: 1. Symmetric kidney function. 2. Significant delayed activity clearance from both kidneys which could be seen with high-grade obst ruction with bilaterality suggesting this occurs at the level of the bladder/bladder outlet. Severity of obstruction could be exaggerated by either lower renal function, supine positioning, dehydration or atonic collecting system. Reviewed, dictated and finalized at location A. IMPRESSION: 1. Symmetric kidney function. 2. Significant delayed activity clearance from both kidneys which could be see n with high-grade obstruction with bilaterality suggesting this occurs at the l evel of the bladder/bladder outlet. Severity of obstruction could be exaggerate d by either lower renal function, supine positioning, dehydration or atonic col lecting system.
== END 2023-01-18 12:32 | disposition home or self-care (01) ==
PROVIDERS: PCP Internal Medicine; Visit Provider Nurse Practitioner Adult Health
DX: N13.4 Hydroureter (principal)
CPT/HCPCS: 78708; A9562; J1940

== ENCOUNTER 2023-02-04 17:33 | Inpatient (IN) | payer MEDICARE, SELFPAY ==
[2023-02-04] VITALS (10 sets, daily range): BP systolic 90–159; BP diastolic 53–88; PULSE 62–83; RESP 16–20; TEMP 37.2–37.7; O2SAT 89–96; BMI 32.7
--- NOTE | ~2023-02-04 | CT_ITS ---
EXAMINATION: CT brain wo con DATE: 02/04/2023 19:10 INDICATION: Weakness . TECHNIQUE: Computed tomography (CT) of the head was performed without intravenous contrast. The mA wa s adjusted according to patient size. Iterative reconstruction technique was employed. The dose-lengt h product was 681.00 mGy-cm. COMPARISON: None. FINDINGS: Motion limited images of the vertex. No acute intracranial hemorrhage or extra-axial fluid collection. No hydrocephalus, mass, or herniation. No acute ischemic infarct. Unremarkable dural venous sinus attenuation. No acute osseous abnormality. Ethmoid mucosal thickening, air-fluid levels in the bilateral maxillary and sphenoid sinuses, the rem aining aerated spaces are clear. Moderate atrophy and chronic white matter change. Atherosclerotic intracranial calcification. Bilater al lens replacements. IMPRESSION: Motion limited examination. No acute intracranial process. Paranasal sinus findings may represent acute sinusitis in the appropriate clinical context. Reviewed, dictated and finalized at location K. IMPRESSION: Motion limited examination. No acute intracranial process. Paranasal sinus findings may represent acute sinusitis in the appropriate clini quintin context.
--- NOTE | ~2023-02-04 | XR_ITS ---
EXAMINATION: XR chest 1V portable Exam Date/Time: 02/04/2023 18:40 CDT HISTORY: increased weakness, cough, sob, fever today Comparison: 11/27/2022. RESULT: Lines, tubes, and devices: Partially visualized left shoulder arthroplasty hardware. Calcified left axillary lymph node. Lungs and pleura: Subsegmental left basilar airspace disease. Low volumes with crowding. Cardiomediastinal silhouette: Stable. Other: No acute osseous or upper abdominal finding. IMPRESSION: Subsegmental left basilar atelectasis/consolidation. Reviewed, dictated and finalized at location K.
--- NOTE | 2023-02-04 17:36 | ED.GENADULT ---
HPI - General Adult General Chief complaint: Weakness Stated complaint: amb Time Seen by Provider: 02/04/23 17:35 Source: patient Mode of arrival: ambulatory Limitations: altered mental status History of Present Illness HPI narrative: 83-year-old male with dementia, paraplegia, recurrent urinary tract infection with chronic cystitis and Bladder outlet obstruction with condom catheter, hypertension, diabetes mellitus, dyslipidemia, DVT on Eliquis, recent fall with left lower rib fracture presents to the ER with a 1 day history of -- fever with a T-max of 100. -- cough which is nonproductive -- worsening weakness. the patient has generalized weakness without any focal deficit. The patient had a recent exposure to COVID. Blood sugar was noted to be greater than 200. Onset (ago): day(s) ( Symptoms started 1 day ago.) Severity: moderate Associated symptoms: cough and weakness Related Data Home Medications Medication Instructions Recorded Confirmed diltiazem HCl 240 mg 240 mg PO DAILY 05/15/19 02/04/23 capsule,extended release 24 hr lovastatin 10 mg tablet 5 mg PO HS 05/15/19 02/04/23 cholecalciferol (vitamin D3) 50 2,000 unit PO DAILY 05/16/19 02/04/23 mcg (2,000 unit) tablet multivitamin 1 tablet PO DAILY 05/16/19 02/04/23 apixaban 5 mg tablet (Eliquis) 5 mg PO BID 04/26/20 02/04/23 baclofen 10 mg tablet 10 mg PO TID 04/26/20 02/04/23 hydralazine 10 mg tablet 15 mg PO TID 04/26/20 02/04/23 insulin lispro 100 unit/mL 10 unit subcut AC 04/26/20 02/04/23 subcutaneous pen lorazepam 0.5 mg tablet 0.5 - 1 mg PO DAILY PRN Anxiety 04/26/20 02/04/23 acetaminophen 500 mg tablet 650 mg PO Q4H PRN Fever Or Pain 06/15/20 02/04/23 (Tylenol Extra Strength) cetirizine 10 mg tablet (Zyrtec) 10 mg PO DAILY PRN allergies 06/15/20 02/04/23 cyanocobalamin (vitamin B-12) 1,000 mcg PO DAILY 09/25/21 02/04/23 1,000 mcg tablet (Vitamin B-12) sennosides 8.6 mg-docusate sodium 1 tab-cap PO DAILY Constipation 09/25/21 02/04/23 50 mg capsule (Senna Plus) ascorbic acid (vitamin C) 500 mg 500 mg PO DAILY 03/27/22 02/04/23 tablet diclofenac sodium 1 % topical gel 2 g topical QID 03/27/22 02/04/23 fentanyl 12 mcg/hr transdermal 1 patch topical Q3D 03/27/22 02/04/23 patch lidocaine 5 % topical patch 1 patch topical DAILY 03/27/22 02/04/23 polyethylene glycol 3350 17 gram 17 g PO DAILY 03/27/22 02/04/23 oral powder packet (Miralax) fluticasone propionate 50 1 spray intranasal DAILY 10/07/22 02/04/23 mcg/actuation nasal spray,suspension ipratropium bromide 42 mcg (0.06 1 spray intranasal DAILY 10/07/22 02/04/23 %) nasal spray donepezil 23 mg tablet 23 mg PO DAILY 11/27/22 02/04/23 lorazepam 0.5 mg tablet 0.25 mg PO HS 11/27/22 02/04/23 ferrous sulfate 325 mg (65 mg 325 mg PO DAILY 01/04/23 02/04/23 iron) tablet (Tasneem-Time) Allergies Allergy/AdvReac Type Severity Reaction Status Date / Time No Known Allergies Allergy Verified 02/04/23 18:00 Review of Systems Constitutional: Constitutional: Reports as per HPI, Reports fever(s) and Reports weakness Eyes: Eyes: Reports as per HPI and Reports no additional eye complaints ENT: Reports system reviewed and no additional complaints, except as documented and Reports as per HPI Cardiovascular: Cardiovascular: Reports as per HPI and Reports no additional cardiovascular complaints Respiratory: Respiratory: Reports as per HPI, Reports no additional respiratory complaints and Reports cough Gastrointestinal: Gastrointestinal: Reports as per HPI and Reports no additional gastrointestinal complaints Genitourinary: Genitourinary: Reports no additional male genitourinary complaints, Reports as per HPI and Reports urinary incontinence Comments: condom catheter Musculoskeletal: Musculoskeletal: Reports no additional musculoskeletal complaints and Reports as per HPI Integumentary/Breasts: Skin/Breast: Reports system reviewed and no additional complaints, except as doc
--- NOTE | 2023-02-04 18:07 | ECG_ITS ---
Measurements Intervals Panther Rate: 62 P: 30 HI: 231 QRS: -35 QRSD: 147 T: 0 QT: 382 QTc: 389 Interpretive Statements SINUS RHYTHM WITH SINUS ARRHYTHMIA WITH FIRST DEGREE AV BLOCK LEFT AXIS DEVIATION [QRS AXIS < -30] RIGHT BUNDLE BRANCH BLOCK [120+ ms QRS DURATION, UPRIGHT V1, 40+ ms S IN I/aVL/V4/V5/V6] ABNORMAL ECG COMPARED TO ECG 11/27/2022 00:17:08 NO SIGNIFICANT DIFFERENCE Electronically Signed On 02-05-2023 8:32:55 CDT by Kieran Chacko M.D.
--- NOTE | 2023-02-04 18:35 | PC.NURSE ---
Guille asked to take pt off oxygen to check %O2 -> after doing so, it was 90% on room air
[2023-02-04 20:08] LABS: Base Excess ABG -0.4 mmol/L (0-2); HCO3 ABG 22.1 mmol/L (23-29); Oxygen Content ABG 15.6 %vol (16.0-22.0); Oxygen Saturation ABG 91.6 % (95-97); Oxyhemoglobin 90.9 % (94-100); PCO2 ABG 29.7 mmHg (35-45); Total Hemoglobin 12.2 g/dL (12.0-18.0); pH ABG 7.49 (7.35-7.45)
[2023-02-04 20:10] LABS: Device NASAL CANNULA; Site Drawn RIGHT FEMORAL
[2023-02-04 20:21] LABS: Basophils Absolute Auto 0.02 K/mm3 (0.00-0.10); Basophils Percent Auto 0.1 % (0.0-1.0); Eosinophils Absolute Auto 0.01 K/mm3 (0.02-0.50); Eosinophils Percent Auto 0.1 % (1.0-6.0); Hematocrit 33.7 % (37.0-46.0); Immature Granulocyte Absolute 0.18 K/mm3 (0.00-0.00); Immature Granulocyte Percent A 0.9 % (0.0-0.0); Lymphocytes Absolute Auto 0.53 K/mm3 (1.10-4.50); Lymphocytes Percent Auto 2.7 % (18.0-42.0); Mean Corpuscular HGB Conc 32.6 g/dL (32.0-36.0); Mean Corpuscular Volume 91.8 fL (78.0-102.0); Mean Platelet Volume 10.3 fl (8.7-11.0); Monocytes Absolute Auto 1.65 K/mm3 (0.10-0.90); Monocytes Percent Auto 8.3 % (2.0-11.0); Neutrophils Absolute Auto 17.6 K/mm3 (1.7-7.2); Neutrophils Percent Auto 87.9 % (50.0-70.0); Platelet Count Result 196 K/mm3 (150-420); Red Blood Count 3.67 M/mm3 (4.70-6.10); Red Cell Distribution Width 15.6 % (11.6-14.4)
[2023-02-04 20:26] LABS: Influenza A QL RT-PCR Negative (Negative); Influenza B QL RT-PCR Negative (Negative); RSV RNA, RT-PCR Negative (Negative); SARS-CoV-2 RNA PCR Negative (Negative)
--- NOTE | 2023-02-04 20:35 | PC.NURSE ---
Pt cleaned of small amt BM, urine sent to lab p straight cathed, Pt repositioned for comfort, awaiting lab reports.
[2023-02-04 20:38] LABS: INR 1.1; Partial Thromboplastin Time 23.6 SEC (23.90-30.70); Prothrombin Time 11.7 Seconds (9.50-12.10)
[2023-02-04 20:39] LABS: Alanine Aminotransferase 11 U/L (16-63); Albumin Level 2.8 g/dL (3.4-5.0); Alkaline Phosphatase 81 U/L (46-116); Anion Gap 12 mmol/L (8-16); Aspartate Amino Transferase 14 U/L (15-37); Bilirubin,Total 0.6 mg/dL (0.00-1.00); Blood Urea Nitrogen 22 mg/dL (7-18); Calcium 8.9 mg/dL (8.5-10.1); Carbon Dioxide 24 mmol/L (21-32); Chloride 104 mmol/L (98-108); Estimated CRCL calculation 77 ml/min; Estimated Glomerular Filt Rate > 60; Glucose 194 mg/dL (70-99); Lipase 10 U/L (16-77); NT Pro B Type Natriuretic Pept 2298 pg/mL (0-450); Osmolality Calculated 298 mOsm/kg (285-295); Potassium 4.2 mmol/L (3.5-5.1); Sodium 140 mmol/L (136-145); Total Protein 6.8 g/dL (6.4-8.2); Troponin I 32.4 ng/L (0.00-60.4)
[2023-02-04 20:40] LABS: Bilirubin Urine Negative (Negative); Blood Urine 1+ (Negative); Color Urine Yellow (Yellow); Glucose Urine UA Negative (Negative); Ketones Urine Negative (Negative); Leukocyte Esterase Ur 3+ LEU/UL (Negative); Nitrate Urine Negative (Negative); Protein Urine Negative (Negative); Specific Grav Ur 1.015 (1.010-1.020); Urobilinogen Urine 0.2 mg/dL (0.2-1.0)
[2023-02-04] MEDS: LACTATED RINGERS 1,000 ML 999 ML IV CONT (20:44)
[2023-02-04 20:46] LABS: Add Urine Microscopic? YES; Amorphous Sediment Urine Heavy; Appearance Urine Turbid (Clear); Bacteria Urine 4+ /hpf; WBC Clumps Urine Present /hpf; WBC Urine >75 /hpf (0-3)
[2023-02-04] MEDS: levoFLOXacin 500 MG/D5W 100 ML 500 MG/100 ML BAG 100 MG IVPB (20:54)
[2023-02-04] MEDS: IPRATROPIUM 0.5 MG/ALBUTEROL SULFATE 2.5 MG AMPUL.NEB 3 ML INHALATION (20:56)
--- NOTE | 2023-02-04 21:30 | PC.NURSE ---
ERP discussed POC c pt and , they want admit to hospital for tinight. Bladder scanner revealed approx 500ml of urine retained in bladder, then second scan showed 424 ml urine. pt is unable to void completely. Order for indwelling catheter placed per ERP.
--- NOTE | 2023-02-04 23:06 | ADMGEN ---
This patient, Kieran Key, was admitted to 2nd Floor Room 226-2. Patient/family oriented to hospital policies and general routines including ID bracelet, bed and alarms, visiting hours, pain management, procedures, bathroom and other care routines, personal items, smoking policy, room service/diet, and visiting hours. Information on how to activate the Rapid Response Team has been discussed. Patient/Family are encouraged to report perceived risks to care and to ask questions if they do not understand what they are told or what they should do.
[2023-02-04] MEDS: LORazepam (*CRX) 0.5 MG TABLET 0.25 MG PO (23:36)
[2023-02-04] MEDS: APIXABAN 2.5 MG TABLET 5 MG PO (23:36)
[2023-02-05] VITALS (7 sets, daily range): BP systolic 111–135; BP diastolic 56–69; PULSE 58–74; RESP 14–18; TEMP 36.4–37.2; O2SAT 91–93
[2023-02-05] MEDS: LOVASTATIN 20 MG TABLET PO (00:11)
[2023-02-05 08:04] LABS: Glucose Point of Care 186 mg/dl (65-105)
[2023-02-05] MEDS: hydrALAZINE 5 MG TABLET 15 MG PO ×3 (09:00→17:32)
[2023-02-05] MEDS: INSULIN HUMAN LISPRO (*BKC) 1,000 UNITS/10 ML VIAL 10 UNITS SUB-Q ×3 (09:10→17:31)
[2023-02-05] MEDS: FLUTICASONE PROPIONATE 0.05% NA SPR 16 GM BTL (*BKC) 1 SPRAY NASAL (09:51)
[2023-02-05] MEDS: DICLOFENAC SODIUM 1% 100 GM GEL (*BKC) TOPICAL ×3 (09:51→17:31)
[2023-02-05] MEDS: APIXABAN 2.5 MG TABLET 5 MG PO ×2 (09:52→21:39)
[2023-02-05] MEDS: polyethylene glycoL 3350 17 GM POWD.PACK PO (09:52)
[2023-02-05] MEDS: CHOLECALCIFEROL 1,000 UNITS TABLET 2000 UNITS PO (09:52)
[2023-02-05] MEDS: LOSARTAN POTASSIUM 50 MG TABLET 100 MG PO (09:53)
[2023-02-05] MEDS: ASCORBIC ACID 500 MG TABLET PO (09:53)
[2023-02-05] MEDS: FERROUS SULFATE 325 MG TABLET DR PO (09:54)
[2023-02-05] MEDS: CYANOCOBALAMIN 1,000 MCG TABLET 1000 MCG PO (09:54)
[2023-02-05] MEDS: SENNA/DOCUSATE SODIUM TABLET 1 TAB PO ×2 (09:54→17:31)
[2023-02-05] MEDS: BACLOFEN 10 MG TABLET PO ×3 (09:54→17:31)
[2023-02-05] MEDS: dilTIAZem HCL CD 240 MG CAP.24HR PO (09:54)
[2023-02-05] MEDS: MULTIVITAMINS THERAPEUTIC TAB (*BKC) 1 TABLET PO (09:54)
[2023-02-05] MEDS: hydrALAZINE 10 MG TABLET 20 MG (11:07)
[2023-02-05] MEDS: INSULIN HUMAN LISPRO (*BKC) 1,000 UNITS/10 ML VIAL SUB-Q (12:00)
[2023-02-05 12:21] LABS: Basophils Absolute Auto 0.02 K/mm3 (0.00-0.10); Basophils Percent Auto 0.1 % (0.0-1.0); Hematocrit 32.2 % (37.0-46.0); Hemoglobin 10.3 g/dL (12.4-15.3); Immature Granulocyte Absolute 0.05 K/mm3 (0.00-0.00); Immature Granulocyte Percent A 0.4 % (0.0-0.0); Lymphocytes Absolute Auto 0.57 K/mm3 (1.10-4.50); Lymphocytes Percent Auto 4.1 % (18.0-42.0); Mean Corpuscular Hemoglobin 29.6 pg (27.0-31.0); Mean Corpuscular Volume 92.5 fL (78.0-102.0); Mean Platelet Volume 9.9 fl (8.7-11.0); Monocytes Absolute Auto 0.87 K/mm3 (0.10-0.90); Monocytes Percent Auto 6.3 % (2.0-11.0); Neutrophils Absolute Auto 12.4 K/mm3 (1.7-7.2); Neutrophils Percent Auto 89.1 % (50.0-70.0); Platelet Count Result 168 K/mm3 (150-420); Red Blood Count 3.48 M/mm3 (4.70-6.10); Red Cell Distribution Width 15.7 % (11.6-14.4); White Blood Count 13.9 K/mm3 (4.8-10.8)
[2023-02-05 12:36] LABS: Alanine Aminotransferase 11 U/L (16-63); Albumin Level 2.5 g/dL (3.4-5.0); Alkaline Phosphatase 80 U/L (46-116); Anion Gap 11 mmol/L (8-16); Aspartate Amino Transferase < 10 U/L (15-37); Bilirubin,Total 0.5 mg/dL (0.00-1.00); Blood Urea Nitrogen 25 mg/dL (7-18); Calcium 8.6 mg/dL (8.5-10.1); Carbon Dioxide 24 mmol/L (21-32); Chloride 102 mmol/L (98-108); Estimated CRCL calculation 60 ml/min; Estimated Glomerular Filt Rate > 60; Glucose 246 mg/dL (70-99); Osmolality Calculated 296 mOsm/kg (285-295); Potassium 4.1 mmol/L (3.5-5.1); Sodium 137 mmol/L (136-145); Total Protein 6.4 g/dL (6.4-8.2)
[2023-02-05 12:49] LABS: CRP 12.5 mg/dL (0.0-0.9)
--- NOTE | 2023-02-05 13:09 | PM.IMHP ---
H&P: HPI History of Present Illness Date/Time: 02/05/23 13:09 Chief Complaint: lethargy Narrative: This is an 83 year old gentleman with a PMH of iron deficient anemia, HTN, HLD, DM2, early Alzheimer's, chronic back pain, and paraplegia after a failed laminectomy in 2019. He presented to the ED after his called EMS to have him evaluated in the ED. She states that he was lethargic and not participating in his care like usual. The patient reports prior to yesterday he had been feeling fine with no complaints. In the ED labs were significant for a leukocytosis of 20.0, CRP 12.5, and U/A concerning for UTI. His chest x-ray showed subsegmental left basilar atelectasis/consolidation and his CT head was negative. He was started on Levaquin and admitted for further workup and care. 02/05 Today he is alert and orientated x4. He denies headache, dizziness, sore throat, chest pain, shortness of breath. He says that he does have a runny nose but he has allergies and usually takes flonase. He also reports vomiting once last night. His urine has been dark but clear per his 's reports. No fever or chills. Review of Systems Review of Systems: All systems reviewed & are unremarkable except as noted in HPI and below PMFSH Past Medical History Medical History (Updated 02/05/23 @ 13:56 by Brittney Dotson APRN) Afib Alzheimers disease Anemia HTN (hypertension) Low back pain Male erectile disorder Mixed hyperlipidemia Open toe wound Paraplegia Type 2 diabetes mellitus Surgical History Surgical History History of cholecystectomy History of lumbar laminectomy History of shoulder surgery Family History Family History Other Unknown family medical history Social History Social History Smoking status: Never smoker Second hand tobacco smoke exposure: No Alcohol intake: former Substance use: never Substance use type: does not use Lack of Transportation: No Lack of Food: Never True Current Housing: I Have Housing Concerned About Future Housing: No Difficulty Paying Gas/Electric Bills: No Difficulty Paying for Meds: No Currently Unemployed: No Education: High School Diploma/GED Difficulty w/ Childcare or Family Care: No Living arrangements: with family Spiritual care concerns: No Comments Patient lives at home with his , Daniel. He has a caregiver that comes in to bathe him and provide care and his also provides assistance with turning and positioning. 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 They live in [place]. Meds Home Medications and Allergies Home Medications Medication Instructions Recorded Confirmed Type diltiazem HCl 240 mg 240 mg PO DAILY 05/15/19 02/04/23 History capsule,extended release 24 hr lovastatin 10 mg tablet 5 mg PO HS 05/15/19 02/04/23 History cholecalciferol (vitamin D3) 50 2,000 unit PO DAILY 05/16/19 02/04/23 History mcg (2,000 unit) tablet multivitamin 1 tablet PO DAILY 05/16/19 02/04/23 History apixaban 5 mg tablet (Eliquis) 5 mg PO BID 04/26/20 02/04/23 History baclofen 10 mg tablet 10 mg PO TID 04/26/20 02/04/23 History hydralazine 10 mg tablet 15 mg PO TID 04/26/20 02/04/23 History insulin lispro 100 unit/mL 10 unit subcut AC 04/26/20 02/04/23 History subcutaneous pen lorazepam 0.5 mg tablet 0.5 - 1 mg PO DAILY PRN Anxiety 04/26/20 02/04/23 History acetaminophen 500 mg tablet 650 mg PO Q4H PRN Fever Or Pain 06/15/20 02/04/23 History (Tylenol Extra Strength) cetirizine 10 mg tablet (Zyrtec) 10 mg PO DAILY PRN allergies 06/15/20 02/04/23 History losartan 100 mg tablet 100 mg PO DAILY #30 tabs 06/23/21 02/04/23 Rx cyanocobalamin (vitamin B-12) 1,000 mcg PO DAILY 09/25/21 02/04/23 History 1,000 mcg tablet (Vitamin B-12) sennosides 8.6 mg-docusate sodium 1 tab-cap PO DAILY Constipation
[2023-02-05 16:53] LABS: Glucose Point of Care 176 mg/dl (65-105)
[2023-02-05 16:53] LABS: Glucose Point of Care 230 mg/dl (65-105)
[2023-02-05] MEDS: LIDOCAINE 5% PATCH 1 PATCH TOPICAL (21:38)
[2023-02-05] MEDS: levoFLOXacin 500 MG/D5W 100 ML 500 MG/100 ML BAG 100 MG IVPB (21:38)
[2023-02-05] MEDS: LORazepam (*CRX) 0.5 MG TABLET 0.25 MG PO (21:39)
[2023-02-05] MEDS: guaiFENesin 12 HR 600 MG TABCR PO (21:40)
[2023-02-05] MEDS: LOVASTATIN 20 MG TABLET 5 MG PO (21:40)
[2023-02-05] MEDS: INSULIN GLARGINE (*BKC) 1,000 UNITS/10 ML VIAL 32 UNITS SUB-Q (21:50)
[2023-02-05 22:09] LABS: Glucose Point of Care 112 mg/dl (65-105)
[2023-02-06 04:00] VITALS: BP 113/68; PULSE 68; RESP 16; TEMP 36.6; O2SAT 94
[2023-02-06 05:30] LABS: Basophils Absolute Auto 0.02 K/mm3 (0.00-0.10); Basophils Percent Auto 0.2 % (0.0-1.0); Eosinophils Absolute Auto 0.06 K/mm3 (0.02-0.50); Eosinophils Percent Auto 0.6 % (1.0-6.0); Hematocrit 30.3 % (37.0-46.0); Hemoglobin 9.7 g/dL (12.4-15.3); Immature Granulocyte Absolute 0.06 K/mm3 (0.00-0.00); Immature Granulocyte Percent A 0.6 % (0.0-0.0); Lymphocytes Absolute Auto 0.85 K/mm3 (1.10-4.50); Lymphocytes Percent Auto 8.5 % (18.0-42.0); Mean Corpuscular Hemoglobin 29.6 pg (27.0-31.0); Mean Corpuscular Volume 92.4 fL (78.0-102.0); Mean Platelet Volume 10.1 fl (8.7-11.0); Monocytes Absolute Auto 0.92 K/mm3 (0.10-0.90); Monocytes Percent Auto 9.2 % (2.0-11.0); Neutrophils Absolute Auto 8.1 K/mm3 (1.7-7.2); Neutrophils Percent Auto 80.9 % (50.0-70.0); Platelet Count Result 140 K/mm3 (150-420); Red Blood Count 3.28 M/mm3 (4.70-6.10); Red Cell Distribution Width 15.5 % (11.6-14.4)
[2023-02-06 05:45] LABS: Alanine Aminotransferase 11 U/L (16-63); Albumin Level 2.2 g/dL (3.4-5.0); Alkaline Phosphatase 67 U/L (46-116); Anion Gap 10 mmol/L (8-16); Aspartate Amino Transferase 11 U/L (15-37); Bilirubin,Total 0.5 mg/dL (0.00-1.00); Blood Urea Nitrogen 26 mg/dL (7-18); CRP 9.9 mg/dL (0.0-0.9); Calcium 8.4 mg/dL (8.5-10.1); Carbon Dioxide 25 mmol/L (21-32); Chloride 103 mmol/L (98-108); Estimated CRCL calculation 70 ml/min; Estimated Glomerular Filt Rate > 60; Glucose 111 mg/dL (70-99); Magnesium 1.8 mg/dL (1.8-2.4); Osmolality Calculated 291 mOsm/kg (285-295); Potassium 3.7 mmol/L (3.5-5.1); Sodium 138 mmol/L (136-145); Total Protein 5.8 g/dL (6.4-8.2)
[2023-02-06 05:50] LABS: Hemoglobin A1C 7.4 % (<5.7)
--- NOTE | 2023-02-06 07:13 | P.PNIM_ITS ---
Progress Note: A&P Assessment and Plan (1) Acute UTI: Code(s): N39.0 - Urinary tract infection, site not specified Status: Acute Assessment and Plan: U/A on admission wtih >75 WBC, WBC in clumps, heavy amorphous sediment, and +4 bacteria. * uses condom cath at home but has a problem with retention * Retention noted in the ED and he had 500 ml present post void. * Indwelling aleman catheter was placed * Urine culture is pending * Follow with Comfort Pena, COUNSELLORS with [facility] at [place]. mentioned that Comfort had said he may need an indwelling catheter should he continue to retention and UTIs. I will touch base with her tomorrow about leaving the aleman cathter and moving up his follow up in the office. * Will need home health at d/c for catheter exchanges. * Lactic normal on presentation. * WBC 20,000-->13-->10 after Levaquin * CRP 12.5--9.9 (2) Pneumonia: Qualifiers: Laterality: unspecified laterality Lung location: unspecified part of lung Pneumonia type: due to unspecified organism Qualified Code(s): J18.9 - Pneumonia, unspecified organism Code(s): J18.9 - Pneumonia, unspecified organism Status: Acute Assessment and Plan: Questionable pneumonia. Chest x-ray shows subsegmental left basilar atelectasis/consolidation. * mentions that his gas fitter, Dr Pulliam at [facility], has mentioned before this haziness in the LLL is not pneumonia. * Patient denies SOB, CP. He does have an intermittent productive cough but he is unsure of the color. * Will obtain sputum sample if able * He was placed on levaquin for the UTI so this will provide coverage should this be a concerning consolidation. * Add mucinex * No oxygen requirements at this time. * Fluticasone nasal spray daily * Ipratropium bromide daily (3) Paraplegia: Code(s): G82.20 - Paraplegia, unspecified Status: Acute Assessment and Plan: Suffered after a failed laminectomy in 2019. * lives at home with his and has a caregiver come daily * He has some movement to his legs and full sensation * Requires bowel regimen with miralax and senna daily (4) Chronic retention of urine: Code(s): R33.9 - Retention of urine, unspecified Status: Acute Assessment and Plan: 500 ml of urine retention on admission, uses condom cath at home. * Aleman catheter placed * Placed on Keflex by his PCP for UTI prophylaxis. (5) Type 2 diabetes mellitus: Qualifiers: Diabetes mellitus complication status: without complication Diabetes mellitus correction insulin use: with terminal system operator use Qualified Code(s): E11.9 - Type 2 diabetes mellitus without complications; Z79.4 - intermediate manager (current) use of insulin Code(s): E11.9 - Type 2 diabetes mellitus without complications Status: Acute Assessment and Plan: On Lantus 32 units at HS, 10 units of lispro with meals at home. * accu checks ac/hs * hypoglycemia protocol * add on A1C for the morning---7.4% (6) Hyperlipidemia: Code(s): E78.5 - Hyperlipidemia, unspecified Status: Acute Assessment and Plan: Stable on lovastatin (7) Afib: Code(s): I48.91 - Unspecified atrial fibrillation Status: Acute Assessment and Plan: * Rate controlled on Diltiazem * Eliquis for anticoagulation * EKG sinus rhythm with 1st degree block Plan awaiting urine culture and sensitivities prior to d/c Subjective Date/time seen: 02/06/23 07:13 Interval history: This is an 83 year old ge
--- NOTE | 2023-02-06 07:13 | PM.IMPN ---
Progress Note: A&P Assessment and Plan (1) Acute UTI: Code(s): N39.0 - Urinary tract infection, site not specified Status: Acute Assessment and Plan: U/A on admission wtih >75 WBC, WBC in clumps, heavy amorphous sediment, and +4 bacteria. uses condom cath at home but has a problem with retention Retention noted in the ED and he had 500 ml present post void. Indwelling aleman catheter was placed Urine culture is pending Follow with Comfort Pena, INDUSTRIAL HYGIENE ENGINEER with [facility] at [place]. mentioned that Comfort had said he may need an indwelling catheter should he continue to retention and UTIs. I will touch base with her tomorrow about leaving the aleman cathter and moving up his follow up in the office. Will need home health at d/c for catheter exchanges. Lactic normal on presentation. WBC 20,000-->13-->10 after Levaquin CRP 12.5--9.9 (2) Pneumonia: Qualifiers: Laterality: unspecified laterality Lung location: unspecified part of lung Pneumonia type: due to unspecified organism Qualified Code(s): J18.9 - Pneumonia, unspecified organism Code(s): J18.9 - Pneumonia, unspecified organism Status: Acute Assessment and Plan: Questionable pneumonia. Chest x-ray shows subsegmental left basilar atelectasis/consolidation. mentions that his assembler filters, Dr Pulliam at [place], has mentioned before this haziness in the LLL is not pneumonia. Patient denies SOB, CP. He does have an intermittent productive cough but he is unsure of the color. Will obtain sputum sample if able He was placed on levaquin for the UTI so this will provide coverage should this be a concerning consolidation. Add mucinex No oxygen requirements at this time. Fluticasone nasal spray daily Ipratropium bromide daily (3) Paraplegia: Code(s): G82.20 - Paraplegia, unspecified Status: Acute Assessment and Plan: Suffered after a failed laminectomy in 2019. lives at home with his and has a caregiver come daily He has some movement to his legs and full sensation Requires bowel regimen with miralax and senna daily (4) Chronic retention of urine: Code(s): R33.9 - Retention of urine, unspecified Status: Acute Assessment and Plan: 500 ml of urine retention on admission, uses condom cath at home. Aleman catheter placed Placed on Keflex by his PCP for UTI prophylaxis. (5) Type 2 diabetes mellitus: Qualifiers: Diabetes mellitus complication status: without complication Diabetes mellitus skilled nursing insulin use: with watermaster use Qualified Code(s): E11.9 - Type 2 diabetes mellitus without complications; Z79.4 - intermediate frame tender (current) use of insulin Code(s): E11.9 - Type 2 diabetes mellitus without complications Status: Acute Assessment and Plan: On Lantus 32 units at HS, 10 units of lispro with meals at home. accu checks ac/hs hypoglycemia protocol add on A1C for the morning---7.4% (6) Hyperlipidemia: Code(s): E78.5 - Hyperlipidemia, unspecified Status: Acute Assessment and Plan: Stable on lovastatin (7) Afib: Code(s): I48.91 - Unspecified atrial fibrillation Status: Acute Assessment and Plan: Rate controlled on Diltiazem Eliquis for anticoagulation EKG sinus rhythm with 1st degree block Plan awaiting urine culture and sensitivities prior to d/c Subjective Date/time seen: 02/06/23 07:13 Interval history: This is an 83 year old gentleman with a PMH of iron deficient anemia, HTN, HLD, DM2, early Alzheimer's, chronic back pain, and paraplegia after a failed laminectomy in 2019. He presented to the ED after his called EMS to have him evaluated in the ED. She states that he was lethargic and not participating in his care like usual. The patient reports prior to yesterday he had been feeling fine with no complaints. In the ED labs were significant for a leuk
[2023-02-06 07:51] LABS: Glucose Point of Care 125 mg/dl (65-105)
[2023-02-06 08:00] VITALS: BP 126/61; PULSE 58; PULSE 63; RESP 14; TEMP 36.6; O2SAT 91
[2023-02-06] MEDS: INSULIN HUMAN LISPRO (*BKC) 1,000 UNITS/10 ML VIAL 10 UNITS SUB-Q ×3 (08:11→16:45)
[2023-02-06] MEDS: CHOLECALCIFEROL 1,000 UNITS TABLET 2000 UNITS PO (08:59)
[2023-02-06] MEDS: LOSARTAN POTASSIUM 50 MG TABLET 100 MG PO (08:59)
[2023-02-06] MEDS: BACLOFEN 10 MG TABLET PO ×3 (09:00→16:40)
[2023-02-06] MEDS: CYANOCOBALAMIN 1,000 MCG TABLET 1000 MCG PO (09:00)
[2023-02-06] MEDS: FERROUS SULFATE 325 MG TABLET DR PO (09:00)
[2023-02-06] MEDS: dilTIAZem HCL CD 240 MG CAP.24HR PO (09:00)
[2023-02-06] MEDS: guaiFENesin 12 HR 600 MG TABCR PO ×2 (09:00→21:15)
[2023-02-06] MEDS: ASCORBIC ACID 500 MG TABLET PO (09:00)
[2023-02-06] MEDS: APIXABAN 2.5 MG TABLET 5 MG PO ×2 (09:00→21:15)
[2023-02-06] MEDS: MULTIVITAMINS THERAPEUTIC TAB (*BKC) 1 TABLET PO (09:01)
[2023-02-06] MEDS: DICLOFENAC SODIUM 1% 100 GM GEL (*BKC) 1 APPLIC TOPICAL ×4 (09:01→21:14)
[2023-02-06] MEDS: FLUTICASONE PROPIONATE 0.05% NA SPR 16 GM BTL (*BKC) 1 SPRAY NASAL (09:02)
[2023-02-06] MEDS: hydrALAZINE 5 MG TABLET 15 MG PO ×3 (09:02→16:39)
[2023-02-06] MEDS: IPRATROPIUM NASAL SPRAY 0.06% 15 ML BOTTLE 1 SPRAY NASAL (09:06)
[2023-02-06 11:43] LABS: Glucose Point of Care 255 mg/dl (65-105)
[2023-02-06 12:00] VITALS: BP 132/68; PULSE 62; RESP 14; TEMP 36.6; O2SAT 96
[2023-02-06] MEDS: INSULIN HUMAN LISPRO (*BKC) 1,000 UNITS/10 ML VIAL SUB-Q (12:28)
[2023-02-06 15:53] VITALS: PULSE 61
[2023-02-06 15:55] VITALS: BP 101/56; PULSE 61; TEMP 36.8; O2SAT 93
[2023-02-06 16:38] LABS: Glucose Point of Care 183 mg/dl (65-105)
[2023-02-06] MEDS: SENNA/DOCUSATE SODIUM TABLET 1 TAB PO (17:43)
[2023-02-06 18:24] LABS: Procalcitonin 0.2 ng/mL
[2023-02-06 20:00] VITALS: BP 118/61; PULSE 57; PULSE 63; RESP 16; TEMP 37.2; O2SAT 93
[2023-02-06] MEDS: INSULIN GLARGINE (*BKC) 1,000 UNITS/10 ML VIAL 32 UNITS SUB-Q (21:15)
[2023-02-06] MEDS: levoFLOXacin 500 MG/D5W 100 ML 500 MG/100 ML BAG 100 MG IVPB (21:16)
[2023-02-06] MEDS: LORazepam (*CRX) 0.5 MG TABLET 0.25 MG PO (21:17)
[2023-02-06] MEDS: LIDOCAINE 5% PATCH 1 PATCH TOPICAL (21:17)
[2023-02-06] MEDS: LOVASTATIN 20 MG TABLET 5 MG PO (21:18)
[2023-02-06 21:40] LABS: Glucose Point of Care 137 mg/dl (65-105)
[2023-02-07] VITALS: BP 115/57; PULSE 57; PULSE 64; RESP 16; TEMP 36.5; O2SAT 94
[2023-02-07 04:00] VITALS: BP 129/67; PULSE 58; PULSE 63; RESP 16; TEMP 36.6; O2SAT 92
--- NOTE | 2023-02-07 07:25 | P.PNIM_ITS ---
Progress Note: A&P Assessment and Plan (1) Acute UTI: Code(s): N39.0 - Urinary tract infection, site not specified Status: Acute Assessment and Plan: U/A on admission wtih >75 WBC, WBC in clumps, heavy amorphous sediment, and +4 bacteria. * uses condom cath at home but has a problem with retention * Retention noted in the ED and he had 500 ml present post void. * Indwelling aleman catheter was placed * Urine culture is pending -----gram negative bacili noted * Follow with Comfort Pena, MEDICAL OFFICE TECHNICIAN with [facility] at [place]. mentioned that Comfort had said he may need an indwelling catheter should he continue to retention and UTIs. I will touch base with her tomorrow about leaving the aleman catheter and moving up his follow up in the office. * Will need home health at d/c for catheter exchanges. * Lactic normal on presentation. * WBC 20,000-->13-->10-->4.9 after Levaquin * CRP 12.5--9.9 (2) Pneumonia: Qualifiers: Laterality: unspecified laterality Lung location: unspecified part of lung Pneumonia type: due to unspecified organism Qualified Code(s): J18.9 - Pneumonia, unspecified organism Code(s): J18.9 - Pneumonia, unspecified organism Status: Acute Assessment and Plan: Questionable pneumonia. Chest x-ray shows subsegmental left basilar atelectasis/consolidation. * mentions that his fruit picker, Dr Pulliam at [place], has mentioned before this haziness in the LLL is not pneumonia. * Patient denies SOB, CP. He does have an intermittent productive cough but he is unsure of the color. * Will obtain sputum sample if able * He was placed on levaquin for the UTI so this will provide coverage should this be a concerning consolidation. * Add mucinex * No oxygen requirements at this time. * Fluticasone nasal spray daily * Ipratropium bromide daily (3) Paraplegia: Code(s): G82.20 - Paraplegia, unspecified Status: Acute Assessment and Plan: Suffered after a failed laminectomy in 2019. * lives at home with his and has a caregiver come daily * He has some movement to his legs and full sensation * Requires bowel regimen with miralax and senna daily (4) Chronic retention of urine: Code(s): R33.9 - Retention of urine, unspecified Status: Acute Assessment and Plan: 500 ml of urine retention on admission, uses condom cath at home. * Aleman catheter placed * Placed on Keflex by his PCP for UTI prophylaxis. (5) Type 2 diabetes mellitus: Qualifiers: Diabetes mellitus complication status: without complication Diabetes mellitus continuous churn buttermaker insulin use: with continuous churn buttermaker use Qualified Code(s): E11.9 - Type 2 diabetes mellitus without complications; Z79.4 - FDC (current) use of insulin Code(s): E11.9 - Type 2 diabetes mellitus without complications Status: Acute Assessment and Plan: On Lantus 32 units at HS, 10 units of lispro with meals at home. * accu checks ac/hs * hypoglycemia protocol * add on A1C for the morning---7.4% (6) Hyperlipidemia: Code(s): E78.5 - Hyperlipidemia, unspecified Status: Acute Assessment and Plan: Stable on lovastatin (7) Afib: Code(s): I48.91 - Unspecified atrial fibrillation Status: Acute Assessment and Plan: * Rate controlled on Diltiazem * Eliquis for anticoagulation * EKG sinus rhythm with 1st degree block Plan awaiting urine culture and sensitivities prior to d/c Gram negative bacilli isolated Subjective Date/time seen:
--- NOTE | 2023-02-07 07:25 | PM.IMPN ---
Progress Note: A&P Assessment and Plan (1) Acute UTI: Code(s): N39.0 - Urinary tract infection, site not specified Status: Acute Assessment and Plan: U/A on admission wtih >75 WBC, WBC in clumps, heavy amorphous sediment, and +4 bacteria. uses condom cath at home but has a problem with retention Retention noted in the ED and he had 500 ml present post void. Indwelling aleman catheter was placed Urine culture is pending -----gram negative bacili noted Follow with Comfort Pena, DIAMOND SAW OPERATOR with [facility] at [place]. mentioned that Comfort had said he may need an indwelling catheter should he continue to retention and UTIs. I will touch base with her tomorrow about leaving the aleman catheter and moving up his follow up in the office. Will need home health at d/c for catheter exchanges. Lactic normal on presentation. WBC 20,000-->13-->10-->4.9 after Levaquin CRP 12.5--9.9 (2) Pneumonia: Qualifiers: Laterality: unspecified laterality Lung location: unspecified part of lung Pneumonia type: due to unspecified organism Qualified Code(s): J18.9 - Pneumonia, unspecified organism Code(s): J18.9 - Pneumonia, unspecified organism Status: Acute Assessment and Plan: Questionable pneumonia. Chest x-ray shows subsegmental left basilar atelectasis/consolidation. mentions that his package line relief operator, Dr Pulliam at [place], has mentioned before this haziness in the LLL is not pneumonia. Patient denies SOB, CP. He does have an intermittent productive cough but he is unsure of the color. Will obtain sputum sample if able He was placed on levaquin for the UTI so this will provide coverage should this be a concerning consolidation. Add mucinex No oxygen requirements at this time. Fluticasone nasal spray daily Ipratropium bromide daily (3) Paraplegia: Code(s): G82.20 - Paraplegia, unspecified Status: Acute Assessment and Plan: Suffered after a failed laminectomy in 2019. lives at home with his and has a caregiver come daily He has some movement to his legs and full sensation Requires bowel regimen with miralax and senna daily (4) Chronic retention of urine: Code(s): R33.9 - Retention of urine, unspecified Status: Acute Assessment and Plan: 500 ml of urine retention on admission, uses condom cath at home. Aleman catheter placed Placed on Keflex by his PCP for UTI prophylaxis. (5) Type 2 diabetes mellitus: Qualifiers: Diabetes mellitus complication status: without complication Diabetes mellitus prison insulin use: with prison use Qualified Code(s): E11.9 - Type 2 diabetes mellitus without complications; Z79.4 - intermission coordinator (current) use of insulin Code(s): E11.9 - Type 2 diabetes mellitus without complications Status: Acute Assessment and Plan: On Lantus 32 units at HS, 10 units of lispro with meals at home. accu checks ac/hs hypoglycemia protocol add on A1C for the morning---7.4% (6) Hyperlipidemia: Code(s): E78.5 - Hyperlipidemia, unspecified Status: Acute Assessment and Plan: Stable on lovastatin (7) Afib: Code(s): I48.91 - Unspecified atrial fibrillation Status: Acute Assessment and Plan: Rate controlled on Diltiazem Eliquis for anticoagulation EKG sinus rhythm with 1st degree block Plan awaiting urine culture and sensitivities prior to d/c Gram negative bacilli isolated Subjective Date/time seen: 02/07/23 07:25 Interval history: This is an 83 year old gentleman with a PMH of iron deficient anemia, HTN, HLD, DM2, early Alzheimer's, chronic back pain, and paraplegia after a failed laminectomy in 2019. He presented to the ED after his called EMS to have him evaluated in the ED. She states that he was lethargic and not participating in his care like usual. The patient reports prior to yesterday he had been fee
[2023-02-07 08:00] VITALS: BP 130/70; PULSE 74; RESP 18; TEMP 36.6; O2SAT 95
[2023-02-07 08:19] LABS: Basophils Absolute Auto 0.01 K/mm3 (0.00-0.10); Basophils Percent Auto 0.2 % (0.0-1.0); Hematocrit 30.9 % (37.0-46.0); Hemoglobin 9.9 g/dL (12.4-15.3); Immature Granulocyte Absolute 0.01 K/mm3 (0.00-0.00); Immature Granulocyte Percent A 0.2 % (0.0-0.0); Lymphocytes Absolute Auto 0.58 K/mm3 (1.10-4.50); Lymphocytes Percent Auto 11.8 % (18.0-42.0); Mean Corpuscular Hemoglobin 29.8 pg (27.0-31.0); Mean Corpuscular Volume 93.1 fL (78.0-102.0); Mean Platelet Volume 10.2 fl (8.7-11.0); Monocytes Absolute Auto 0.74 K/mm3 (0.10-0.90); Neutrophils Absolute Auto 3.5 K/mm3 (1.7-7.2); Neutrophils Percent Auto 70.8 % (50.0-70.0); Platelet Count Result 155 K/mm3 (150-420); Red Blood Count 3.32 M/mm3 (4.70-6.10); Red Cell Distribution Width 15.2 % (11.6-14.4); White Blood Count 4.9 K/mm3 (4.8-10.8)
[2023-02-07 08:20] LABS: Glucose Point of Care 134 mg/dl (65-105)
[2023-02-07 08:38] LABS: Alanine Aminotransferase 11 U/L (16-63); Albumin Level 2.2 g/dL (3.4-5.0); Alkaline Phosphatase 69 U/L (46-116); Anion Gap 11 mmol/L (8-16); Aspartate Amino Transferase 23 U/L (15-37); Bilirubin,Total 0.3 mg/dL (0.00-1.00); Blood Urea Nitrogen 23 mg/dL (7-18); Calcium 8.5 mg/dL (8.5-10.1); Carbon Dioxide 25 mmol/L (21-32); Chloride 104 mmol/L (98-108); Estimated CRCL calculation 79 ml/min; Estimated Glomerular Filt Rate > 60; Glucose 130 mg/dL (70-99); Magnesium 1.9 mg/dL (1.8-2.4); Osmolality Calculated 295 mOsm/kg (285-295); Potassium 3.6 mmol/L (3.5-5.1); Sodium 140 mmol/L (136-145)
[2023-02-07] MEDS: INSULIN HUMAN LISPRO (*BKC) 1,000 UNITS/10 ML VIAL 10 UNITS SUB-Q ×2 (09:03→11:45)
[2023-02-07] MEDS: fentaNYL (*CRX) 12 MCG PATCH TRANSDERM (09:08)
[2023-02-07] MEDS: FLUTICASONE PROPIONATE 0.05% NA SPR 16 GM BTL (*BKC) 1 SPRAY NASAL (09:10)
[2023-02-07] MEDS: DICLOFENAC SODIUM 1% 100 GM GEL (*BKC) 1 APPLIC TOPICAL ×2 (09:10→13:01)
[2023-02-07] MEDS: IPRATROPIUM NASAL SPRAY 0.06% 15 ML BOTTLE 1 SPRAY NASAL (09:10)
[2023-02-07] MEDS: ASCORBIC ACID 500 MG TABLET PO (09:11)
[2023-02-07] MEDS: MULTIVITAMINS THERAPEUTIC TAB (*BKC) 1 TABLET PO (09:11)
[2023-02-07] MEDS: hydrALAZINE 5 MG TABLET 15 MG PO ×2 (09:11→12:57)
[2023-02-07] MEDS: CHOLECALCIFEROL 1,000 UNITS TABLET 2000 UNITS PO (09:11)
[2023-02-07] MEDS: LOSARTAN POTASSIUM 50 MG TABLET 100 MG PO (09:12)
[2023-02-07] MEDS: dilTIAZem HCL CD 240 MG CAP.24HR PO (09:12)
[2023-02-07] MEDS: BACLOFEN 10 MG TABLET PO (09:12)
[2023-02-07] MEDS: APIXABAN 2.5 MG TABLET 5 MG PO (09:13)
[2023-02-07] MEDS: FERROUS SULFATE 325 MG TABLET DR PO (09:13)
[2023-02-07] MEDS: guaiFENesin 12 HR 600 MG TABCR PO (09:13)
[2023-02-07] MEDS: CYANOCOBALAMIN 1,000 MCG TABLET 1000 MCG PO (09:13)
[2023-02-07 11:40] LABS: Glucose Point of Care 202 mg/dl (65-105)
[2023-02-07] MEDS: guaiFENesin/DEXTROMETHORPHAN 5 ML UDC PO (11:45)
[2023-02-07] MEDS: INSULIN HUMAN LISPRO (*BKC) 1,000 UNITS/10 ML VIAL SUB-Q (11:46)
[2023-02-07 12:00] VITALS: BP 110/70; PULSE 64; PULSE 68; RESP 16; TEMP 36.6; O2SAT 96
[2023-02-07] MEDS: levoFLOXacin 500 MG TABLET PO (12:58)
[2023-02-07] MEDS: BENZONATATE 100 MG CAPSULE 200 MG PO (12:58)
--- NOTE | 2023-02-07 13:21 | P.DS_ITS ---
DS: Admitting Diagnosis Discharge Date 02/07 Admitting Diagnosis UTI DS: Discharge Diagnosis Discharge Diagnosis (1) Acute UTI: Code(s): N39.0 - Urinary tract infection, site not specified Status: Acute Assessment and Plan: U/A on admission wtih >75 WBC, WBC in clumps, heavy amorphous sediment, and +4 bacteria. * uses condom cath at home but has a problem with retention * Retention noted in the ED and he had 500 ml present post void. * Indwelling aleman catheter was placed * Urine culture is pending -----gram negative bacili noted * Follow with Comfort Pena NP with [facility] at [place]. mentioned that Comfort had said he may need an indwelling catheter should he continue to retention and UTIs. I will touch base with her tomorrow about leaving the aleman catheter and moving up his follow up in the office. * Will need home health at d/c for catheter exchanges. * Lactic normal on presentation. * WBC 20,000-->13-->10-->4.9 after Levaquin * CRP 12.5--9.9 (2) Pneumonia: Qualifiers: Laterality: unspecified laterality Lung location: unspecified part of lung Pneumonia type: due to unspecified organism Qualified Code(s): J18.9 - Pneumonia, unspecified organism Code(s): J18.9 - Pneumonia, unspecified organism Status: Acute Assessment and Plan: Questionable pneumonia. Chest x-ray shows subsegmental left basilar atelectasis/consolidation. * mentions that his machine hoop maker, Dr Pulliam at [place], has mentioned before this haziness in the LLL is not pneumonia. * Patient denies SOB, CP. He does have an intermittent productive cough but he is unsure of the color. * Will obtain sputum sample if able * He was placed on levaquin for the UTI so this will provide coverage should this be a concerning consolidation. * Add mucinex * No oxygen requirements at this time. * Fluticasone nasal spray daily * Ipratropium bromide daily (3) Paraplegia: Code(s): G82.20 - Paraplegia, unspecified Status: Acute Assessment and Plan: Suffered after a failed laminectomy in 2019. * lives at home with his and has a caregiver come daily * He has some movement to his legs and full sensation * Requires bowel regimen with miralax and senna daily (4) Chronic retention of urine: Code(s): R33.9 - Retention of urine, unspecified Status: Acute Assessment and Plan: 500 ml of urine retention on admission, uses condom cath at home. * Aleman catheter placed * Placed on Keflex by his PCP for UTI prophylaxis. (5) Type 2 diabetes mellitus: Qualifiers: Diabetes mellitus complication status: without complication Diabetes mellitus shelter insulin use: with shelter use Qualified Code(s): E11.9 - Type 2 diabetes mellitus without complications; Z79.4 - rodent exterminator (current) use of insulin Code(s): E11.9 - Type 2 diabetes mellitus without complications Status: Acute Assessment and Plan: On Lantus 32 units at HS, 10 units of lispro with meals at home. * accu checks ac/hs * hypoglycemia protocol * add on A1C for the morning---7.4% (6) Hyperlipidemia: Code(s): E78.5 - Hyperlipidemia, unspecified Status: Acute Assessment and Plan: Stable on lovastatin (7) Afib: Code(s): I48.91 - Unspecified atrial fibrillation Status: Acute Assessment and Plan: * Rate controlled on Diltiazem * Eliquis for anticoagulation * EKG sinus rhythm with 1st degree block Plan awaiting urine culture and sensitiv
--- NOTE | 2023-02-07 13:21 | PM.DS ---
DS: Admitting Diagnosis Discharge Date 02/07 Admitting Diagnosis UTI DS: Discharge Diagnosis Discharge Diagnosis (1) Acute UTI: Code(s): N39.0 - Urinary tract infection, site not specified Status: Acute Assessment and Plan: U/A on admission wtih >75 WBC, WBC in clumps, heavy amorphous sediment, and +4 bacteria. uses condom cath at home but has a problem with retention Retention noted in the ED and he had 500 ml present post void. Indwelling aleman catheter was placed Urine culture is pending -----gram negative bacili noted Follow with Comfort Pena, SHIPPING ORDER CLERK with [facility] at [place]. mentioned that Comfort had said he may need an indwelling catheter should he continue to retention and UTIs. I will touch base with her tomorrow about leaving the aleman catheter and moving up his follow up in the office. Will need home health at d/c for catheter exchanges. Lactic normal on presentation. WBC 20,000-->13-->10-->4.9 after Levaquin CRP 12.5--9.9 (2) Pneumonia: Qualifiers: Laterality: unspecified laterality Lung location: unspecified part of lung Pneumonia type: due to unspecified organism Qualified Code(s): J18.9 - Pneumonia, unspecified organism Code(s): J18.9 - Pneumonia, unspecified organism Status: Acute Assessment and Plan: Questionable pneumonia. Chest x-ray shows subsegmental left basilar atelectasis/consolidation. mentions that his animal warden, Dr Pulliam at [place], has mentioned before this haziness in the LLL is not pneumonia. Patient denies SOB, CP. He does have an intermittent productive cough but he is unsure of the color. Will obtain sputum sample if able He was placed on levaquin for the UTI so this will provide coverage should this be a concerning consolidation. Add mucinex No oxygen requirements at this time. Fluticasone nasal spray daily Ipratropium bromide daily (3) Paraplegia: Code(s): G82.20 - Paraplegia, unspecified Status: Acute Assessment and Plan: Suffered after a failed laminectomy in 2019. lives at home with his and has a caregiver come daily He has some movement to his legs and full sensation Requires bowel regimen with miralax and senna daily (4) Chronic retention of urine: Code(s): R33.9 - Retention of urine, unspecified Status: Acute Assessment and Plan: 500 ml of urine retention on admission, uses condom cath at home. Aleman catheter placed Placed on Keflex by his PCP for UTI prophylaxis. (5) Type 2 diabetes mellitus: Qualifiers: Diabetes mellitus complication status: without complication Diabetes mellitus shelter insulin use: with salvage determiner use Qualified Code(s): E11.9 - Type 2 diabetes mellitus without complications; Z79.4 - salvage determiner (current) use of insulin Code(s): E11.9 - Type 2 diabetes mellitus without complications Status: Acute Assessment and Plan: On Lantus 32 units at HS, 10 units of lispro with meals at home. accu checks ac/hs hypoglycemia protocol add on A1C for the morning---7.4% (6) Hyperlipidemia: Code(s): E78.5 - Hyperlipidemia, unspecified Status: Acute Assessment and Plan: Stable on lovastatin (7) Afib: Code(s): I48.91 - Unspecified atrial fibrillation Status: Acute Assessment and Plan: Rate controlled on Diltiazem Eliquis for anticoagulation EKG sinus rhythm with 1st degree block Plan awaiting urine culture and sensitivities prior to d/c Gram negative bacilli isolated DS: Summary Hospital Course Hospital Course: Interval history: This is an 83 year old gentleman with a PMH of iron deficient anemia, HTN, HLD, DM2, early Alzheimer's, chronic back pain, and paraplegia after a failed laminectomy in 2019. He presented to the ED after his called EMS to have him evaluated in the ED. She states that he was lethargic and not participati
--- NOTE | 2023-02-07 17:02 | PC.NURSE ---
1505 patient dc to 's van. dc instructions went over. aleman cath care discussed and shown. both patient and verbalize an understanding. up per wilmer to motorized wc. flu shot given in l upper arm.
--- NOTE | 2023-02-09 08:50 | PC.NURSE ---
discharge call back completed, concerned about appearance of catheter yesterday, looks better today, home health to visit today, encouraged to call for questions, did receive dc instructions and nurse did review them with them.
== END 2023-02-07 15:05 | disposition home health service (06) | DRG 689 ==
LOC: CHSED 21:36 → CHS2ND 21:56
PROVIDERS: Nurse Practitioner Acute Care; Admitting Provider Internal Medicine; Emergency Provider Internal Medicine Critical Care Medicine; PCP Internal Medicine; Visit Provider Internal Medicine
DX: N39.0 Urinary tract infection, site not specified (principal); J18.9 Pneumonia, unspecified organism; G82.20 Paraplegia, unspecified; I48.20 Chronic atrial fibrillation, unspecified; R33.9 Retention of urine, unspecified; I10 Essential (primary) hypertension; E11.9 Type 2 diabetes mellitus without complications; E78.5 Hyperlipidemia, unspecified; B96.20 Unspecified Escherichia coli [E. coli] as the cause of diseases classified elsewhere; M54.9 Dorsalgia, unspecified; G89.29 Other chronic pain; G30.9 Alzheimer's disease, unspecified; F02.80 Dementia in other diseases classified elsewhere, unspecified severity, without behavioral disturbance, psychotic disturbance, mood disturbance, and anxiety; Z23 Encounter for immunization
CPT/HCPCS: 36415; 36600; 70450; 71045; 80053; 81001; 82805; 82948; 83036; 83605; 83690; 83735; 83880; 84145; 84484; 85025; 85610; 85730; 86140; 87070; 87077; 87086; 87088; 87186; 87205; 87637; 90471; 90694; 93005; 94640; 96365; 96366; 99285; A9270; G0008; G0378; J1815; J1956; J7120

== ENCOUNTER 2023-03-21 15:37 | Outpatient (CLI) | payer MEDICARE, SELFPAY ==
[2023-03-21 16:01] LABS: Basophils Percent Auto 0.7 % (0.2-1.2); Eosinophils Absolute Auto 0.1 K/mm3 (0-0.3); Eosinophils Percent Auto 2.3 % (0-4.4); Hematocrit 37.2 % (42.0-52.0); Hemoglobin 11.8 g/dL (14.0-18.0); Immature Granulocyte Absolute 0.02 K/mm3 (0.00-0.031); Immature Granulocyte Percent A 0.3 % (0-0.5); Lymphocytes Percent Auto 15.1 % (18.3-44.2); Mean Corpuscular HGB Conc 31.7 g/dl (32-36); Mean Corpuscular Hemoglobin 29.3 pg (26-34); Mean Corpuscular Volume 92.3 fl (80-100); Monocytes Absolute Auto 0.5 K/mm3 (0.1-0.6); Monocytes Percent Auto 7.7 % (2.6-8.5); Neutrophils Absolute Auto 4.4 K/mm3 (1.3-6.7); Neutrophils Percent Auto 73.9 % (45.5-73.1); Platelet Count Result 207 k/mm3 (150-375); Red Blood Count 4.03 M/mm3 (4.6-6.20); Red Cell Distribution Width 14.7 % (11.5-14.5)
[2023-03-21 16:52] LABS: Iron 55 ug/dL (49-181)
[2023-03-21 16:56] LABS: Alanine Aminotransferase 13 U/L (6-50); Albumin Level 3.9 g/dL (3.5-5.1); Alkaline Phosphatase 81 U/L (38-126); Anion Gap 10 mmol/L (8-16); Aspartate Amino Transferase 18 U/L (17-59); Bilirubin,Total 0.5 mg/dL (0.2-1.3); Blood Urea Nitrogen 15 mg/dL (9-20); Calcium 9.2 mg/dL (8.4-10.2); Carbon Dioxide 24 mmol/L (22-30); Chloride 101 mmol/L (98-107); Estimated Glomerular Filt Rate > 60; Glucose 253 mg/dL (65-110); Lactate Dehydrogenase 132 U/L (120-246); Potassium 4.4 mmol/L (3.4-5.0); Sodium 135 mmol/L (137-145)
[2023-03-21 17:06] LABS: Percent Iron Saturation 18 % (20-50)
[2023-03-21 18:08] LABS: Folic Acid > 20.0 ng/mL (2.76->20)
[2023-03-24 07:35] LABS: Methylmalonic Acid 109 nmol/L (87-318)
[2023-03-24 18:06] LABS: Soluble Transferrin Receptor 1.29 mg/L (0.76-1.76)
== END 2023-03-21 15:38 | disposition home or self-care (01) ==
LOC: ANHLAB 15:39
PROVIDERS: PCP Internal Medicine; Visit Provider Internal Medicine Hematology & Oncology
DX: D64.9 Anemia, unspecified (principal)
CPT/HCPCS: 36415; 80053; 82607; 82728; 82746; 83540; 83550; 83615; 83921; 84238; 85025

== ENCOUNTER 2023-05-04 10:59 | Outpatient (CLI) | payer MEDICARE, SELFPAY ==
--- NOTE | ~2023-05-04 | XR_ITS ---
XR chest 2V DATE: 05/04/2023 12:07 INDICATION: Cough. Congestive heart failure. TECHNIQUE: AP and lateral views COMPARISON: 02/04/2023 portable AP chest 01/13/2022 CT chest 11/2021 portable AP chest FINDINGS: Cardiomegaly. Aortic calcification. There is suggestion of left lower lobe infiltrate and/or atelectasis. The lung bermudez otherwise appea r clear. No pleural effusion or pulmonary vascular congestion or pneumothorax. Reverse [id number] left glenohumeral joint replacement. 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 Lumbar spine fusion hardware is noted at the lower aspect of the images.. IMPRESSION: Left lower lobe infiltrate and/atelectasis Cardiomegaly Reviewed, dictated and finalized at location L. MAIN AND LINE FITTER
[2023-05-04 12:57] LABS: NT Pro B Type Natriuretic Pept 196 pg/mL (0-450)
== END 2023-05-04 11:00 | disposition home or self-care (01) ==
PROVIDERS: PCP Internal Medicine; Visit Provider Internal Medicine
DX: R05.9 Cough, unspecified (principal); I50.9 Heart failure, unspecified; R91.8 Other nonspecific abnormal finding of lung field; I51.7 Cardiomegaly
CPT/HCPCS: 36415; 71046; 83880

== ENCOUNTER 2023-06-24 16:07 | Emergency (ER) | payer MEDICARE, SELFPAY ==
[2023-06-24 16:07] VITALS: BP 136/57; PULSE 50; RESP 18; TEMP 37.2; O2SAT 96
[2023-06-24 16:30] VITALS: O2SAT 96
[2023-06-24 17:12] LABS: SARS-CoV-2 RNA PCR Negative (Negative)
[2023-06-24 17:13] LABS: Influenza A QL RT-PCR Negative (Negative); Influenza B QL RT-PCR Negative (Negative); RSV RNA, RT-PCR Negative (Negative)
--- NOTE | 2023-06-24 17:14 | ED.URI ---
HPI - URI/Sore Throat General Chief Complaint: Upper Respiratory Infection Stated Complaint: cough Time Seen by Provider: 06/24/23 16:20 Source: patient and family Mode of arrival: wheelchair Limitations: no limitations History of Present Illness HPI Narrative: this is an 83-year-old male paraplegic presents with a 10 day history of sinus congestion and drainage no shortness of breath no cough no fever chills no nausea vomiting no abdominal pain or chest pain. MD elicited complaint: rhinorrhea, nasal congestion and sinus pain Onset (ago): day(s) Consistency: constant Severity: mild Related Data Home Medications Medication Instructions Recorded Confirmed diltiazem HCl 240 mg 240 mg PO DAILY 05/15/19 06/24/23 capsule,extended release 24 hr lovastatin 10 mg tablet 5 mg PO HS 05/15/19 06/24/23 cholecalciferol (vitamin D3) 50 2,000 unit PO DAILY 05/16/19 06/24/23 mcg (2,000 unit) tablet multivitamin 1 tablet PO DAILY 05/16/19 06/24/23 apixaban 5 mg tablet (Eliquis) 5 mg PO BID 04/26/20 06/24/23 baclofen 10 mg tablet 10 mg PO TID 04/26/20 06/24/23 hydralazine 10 mg tablet 15 mg PO TID 04/26/20 06/24/23 insulin lispro 100 unit/mL 10 unit subcut AC 04/26/20 06/24/23 subcutaneous pen lorazepam 0.5 mg tablet 0.5 - 1 mg PO DAILY PRN Anxiety 04/26/20 06/24/23 acetaminophen 500 mg tablet 650 mg PO Q4H PRN Fever Or Pain 06/15/20 06/24/23 (Tylenol Extra Strength) cetirizine 10 mg tablet (Zyrtec) 10 mg PO DAILY PRN allergies 06/15/20 06/24/23 cyanocobalamin (vitamin B-12) 1,000 mcg PO DAILY 09/25/21 06/24/23 1,000 mcg tablet (Vitamin B-12) sennosides 8.6 mg-docusate sodium 1 tab-cap PO DAILY Constipation 09/25/21 06/24/23 50 mg capsule (Senna Plus) ascorbic acid (vitamin C) 500 mg 1,000 mg PO DAILY 03/27/22 06/24/23 tablet diclofenac sodium 1 % topical gel 2 g topical QID 03/27/22 06/24/23 fentanyl 12 mcg/hr transdermal 1 patch topical Q3D 03/27/22 06/24/23 patch lidocaine 5 % topical patch 1 patch topical DAILY 03/27/22 06/24/23 polyethylene glycol 3350 17 gram 17 g PO DAILY 03/27/22 06/24/23 oral powder packet (Miralax) fluticasone propionate 50 1 spray intranasal DAILY 10/07/22 06/24/23 mcg/actuation nasal spray,suspension ipratropium bromide 42 mcg (0.06 1 spray intranasal DAILY 10/07/22 06/24/23 %) nasal spray donepezil 23 mg tablet 23 mg PO DAILY 11/27/22 06/24/23 ferrous sulfate 325 mg (65 mg 65 mg PO DAILY 01/04/23 06/24/23 iron) tablet (Tasneem-Time) cephalexin 250 mg capsule 250 mg PO QHS 06/24/23 06/24/23 tramadol 50 mg tablet 50 mg PO TID PRN Pain 06/24/23 06/24/23 Allergies Allergy/AdvReac Type Severity Reaction Status Date / Time No Known Allergies Allergy Verified 06/24/23 16:21 Review of Systems Review of Systems: All systems reviewed & are unremarkable except as noted in HPI and below PMFSH Past Medical History Medical History Afib Alzheimers disease Anemia HTN (hypertension) Low back pain Male erectile disorder Mixed hyperlipidemia Open toe wound Paraplegia Type 2 diabetes mellitus Surgical History Surgical History History of cholecystectomy History of lumbar laminectomy History of shoulder surgery Family History Family History Other Unknown family medical history Social History Social History Smoking status: Never smoker Second hand tobacco smoke exposure: No Alcohol intake: former Substance use: never Substance use type: does not use Lack of Transportation: No Lack of Food: Never True Current Housing: I Have Housing Concerned About Future Housing: No Difficulty Paying Gas/Electric Bills: No Difficulty Paying for Meds: No Currently Unemployed: No Education: High School Diploma/GED Difficulty w/ Childcare or Family
[2023-06-24 17:27] VITALS: BP 132/57; PULSE 49; RESP 18; TEMP 37.2; O2SAT 97
[2023-06-24] MEDS: AZITHROMYCIN 250 MG TABLET 500 MG PO (17:27)
== END 2023-06-24 17:30 | disposition home or self-care (01) ==
PROVIDERS: Emergency Provider Emergency Medicine; PCP Internal Medicine
DX: J01.10 Acute frontal sinusitis, unspecified (principal); G30.9 Alzheimer's disease, unspecified; F02.80 Dementia in other diseases classified elsewhere, unspecified severity, without behavioral disturbance, psychotic disturbance, mood disturbance, and anxiety; I10 Essential (primary) hypertension; E78.2 Mixed hyperlipidemia; E11.9 Type 2 diabetes mellitus without complications; Z20.822 Contact with and (suspected) exposure to COVID-19; Z79.899 Other long term (current) drug therapy; Z79.4 Long term (current) use of insulin
CPT/HCPCS: 87637; 99283; A9270

== ENCOUNTER 2023-09-29 14:59 | Outpatient (CLI) | payer MEDICARE, SELFPAY ==
[2023-09-29 16:02] LABS: Hematocrit 37.7 % (37.0-46.0); Hemoglobin 12.2 g/dL (12.4-15.3); Mean Corpuscular HGB Conc 32.4 g/dL (32-36); Mean Corpuscular Hemoglobin 30.3 pg (27.0-31.0); Mean Corpuscular Volume 93.5 fL (78.0-102.0); Mean Platelet Volume 9.9 fl (8.7-11.0); Platelet Count Result 193 K/mm3 (150-420); Red Blood Count 4.03 M/mm3 (4.70-6.10); Red Cell Distribution Width 13.7 % (11.6-14.4); White Blood Count 7.5 K/mm3 (4.8-10.8)
[2023-09-29 16:35] LABS: Anion Gap 10 mmol/L (4-12); Blood Urea Nitrogen 15 mg/dL (7-18); Calcium 8.6 mg/dL (8.5-10.1); Carbon Dioxide 27 mmol/L (21-32); Chloride 103 mmol/L (98-108); Estimated Glomerular Filt Rate > 60; Ferritin 197 ng/mL (26-388); Glucose 127 mg/dL (70-99); Iron 60 ug/dL (65-175); Osmolality Calculated 292 mOsm/kg (285-295); Percent Iron Saturation 22 % (12-57); Potassium 4.1 mmol/L (3.5-5.1); Sodium 140 mmol/L (136-145)
[2023-10-02 09:28] LABS: Vitamin B12 1620 pg/mL (193-986)
[2023-10-02 09:29] LABS: Folic Acid > 20.0 ng/mL (8.6->20)
== END 2023-09-29 15:00 | disposition home or self-care (01) ==
LOC: CHSLAB 15:05
PROVIDERS: PCP Internal Medicine; Visit Provider Internal Medicine Hematology & Oncology
DX: D64.9 Anemia, unspecified (principal)
CPT/HCPCS: 36415; 80048; 82607; 82728; 82746; 83540; 83550; 85027

== ENCOUNTER 2023-10-04 10:50 | Outpatient (CLI) | payer MEDICARE, SELFPAY ==
--- NOTE | ~2023-10-04 | XR_ITS ---
XR chest 2V Ordering provider: Radhika Preciado, CUSTOMER EXPERIENCE PROFESSIONAL History: 83 years Male with . productive cough . Comparison: May 04, 2023 FINDINGS: MEDIASTINUM: The cardiac silhouette is slightly enlarged. Slightly prominent mason. LUNGS: No infiltrates, effusions or pneumothorax. Prominent markings with minimal opacification the l eft lung base. OTHER: No free air under the diaphragm. Degenerative changes of the spine. Left shoulder arthroplasty . Postoperative changes in the upper lumbar area and lower thoracic area of the spine. IMPRESSION: Left basilar atelectasis versus pneumonia. Reviewed, dictated and finalized at location A.
== END 2023-10-04 10:51 | disposition home or self-care (01) ==
LOC: CHSIMG 10:51
PROVIDERS: PCP Internal Medicine; Visit Provider Nurse Practitioner Family
DX: R05.8 Other specified cough (principal); R91.8 Other nonspecific abnormal finding of lung field
CPT/HCPCS: 71046

== ENCOUNTER 2023-12-07 13:01 | Outpatient (CLI) | payer MEDICARE, SELFPAY ==
--- NOTE | ~2023-12-07 | CT_ITS ---
EXAMINATION: CT sinus wo con DATE: 12/07/2023 13:41 INDICATION: Chronic sinusitis TECHNIQUE: Computed tomography (CT) of the paranasal sinuses was performed without intravenous contra st. The dose-length product was 304.88 mGy-cm. Automated exposure control and iterative reconstructio n technique were employed. COMPARISON: CT dated 02/04/2023 FINDINGS: There is minimal mucosal thickening of the maxillary sinuses. There is mild mucoperiosteal reaction in the maxillary sinuses. No air-fluid levels. Leftward nasal septal deviation. Ostiomeatal units are patent. Mastoids are pneumatized. IMPRESSION: 1. Minimal mucosal thickening of the maxillary sinuses. Reviewed, dictated and finalized at location B.
== END 2023-12-07 13:02 | disposition home or self-care (01) ==
LOC: ANHIMG 13:07
PROVIDERS: PCP Internal Medicine; Visit Provider Otolaryngology
DX: J32.9 Chronic sinusitis, unspecified (principal)
CPT/HCPCS: 70486

== ENCOUNTER 2023-12-29 13:02 | Outpatient (NON) | payer MEDICARE, SELFPAY ==
[2023-12-29 13:36] LABS: Appearance Urine Clear (Clear); Bilirubin Urine Negative (Negative); Blood Urine Negative (Negative); Color Urine Light Yellow (Yellow); Glucose Urine UA Negative (Negative); Ketones Urine Negative (Negative); Nitrate Urine Negative (Negative); Protein Urine Negative (Negative); Specific Grav Ur 1.015 (1.010-1.020); Urobilinogen Urine 0.2 mg/dL (0.2-1.0)
[2023-12-29 13:45] LABS: Add Urine Microscopic? YES; Leukocyte Esterase Ur Trace LEU/UL (Negative)
[2023-12-29 13:46] LABS: Bacteria Urine Trace /hpf; RBC Urine None seen /hpf (0-2); Squamous Epithelial Cell Urine Rare /hpf (Few); WBC Urine None seen /hpf (0-3)
== END 2023-12-29 13:03 | disposition home or self-care (01) ==
LOC: CHSLAB 13:04
PROVIDERS: Visit Provider Internal Medicine
DX: N39.0 Urinary tract infection, site not specified (principal)
CPT/HCPCS: 81001

== ENCOUNTER 2024-01-09 13:51 | Outpatient (CLI) | payer MEDICARE, SELFPAY ==
[2024-01-09 15:20] LABS: NT Pro B Type Natriuretic Pept 283 pg/mL (0-450)
== END 2024-01-09 13:52 | disposition home or self-care (01) ==
LOC: CHSLAB 13:53
PROVIDERS: PCP Internal Medicine; Visit Provider Internal Medicine
DX: I50.9 Heart failure, unspecified (principal)
CPT/HCPCS: 36415; 83880

== ENCOUNTER 2024-01-25 16:04 | Outpatient (CLI) | payer MEDICARE, SELFPAY ==
--- NOTE | 2024-01-25 16:09 | ECHO_ITS ---
Patient Info Name: Kieran Key Age: 84 years : 1940 Gender: Male Ht: 72 in Wt: 325 lbs BSA: 2.81 m2 HR: 72 bpm BP: 175 / 91 mmHg Heart Rhythm: Sinus Rhythm Technical Quality: Poor Exam Date: 01/25/2024 4:28 PM Exam Location: Echo Lab Patient Status: Outpatient Admit Date: 01/25/2024 Staff Ordering Physician: Vicente Oswald MD Fast Food Shift Supervisor: Destinee Arndt RDCS Attending Provider: Vicente Oswald MD Referring Physician: Darek ARIAS; Exam Type: CA echo doppler color flow Study Info Indications - chf Complete two-dimensional, color flow and Doppler transthoracic echocardiogram is performed. Reason for Poor Study: poor echocardiographic windows Summary 1. Complete two-dimensional, color flow and Doppler transthoracic echocardiogram is performed. 2. Left ventricular chamber dimension is normal. 3. Left ventricular systolic function is normal, estimated at 65-70%. 4. There is moderate concentric increased left ventricular wall thickness. 5. The left ventricular diastolic function is grade I diastolic dysfunction. 6. E/e' 14 is mildly elevated. 7. The aortic valve is not well visualized. Cannot determine number of aortic valve leaflets. 8. There is mild aortic valve sclerosis. 9. The mitral valve has mildly calcified annulus. 10. There is trace mitral valve regurgitation. 11. No pulmonary hypertension, estimated pulmonary arterial systolic pressure is 14 mmHg. 12. There is trivial pericardial effusion. Left Ventricle E/e' 14 is mildly elevated. Left ventricular chamber dimension is normal. Left ventricular systolic function is normal, estimated at 65-70%. There is moderate concentric increased left ventricular wall thickness. The left ventricular diastolic function is grade I diastolic dysfunction. Right Ventricle Right ventricular systolic function is normal and with normal TAPSE 2.2 cm. Right ventricular chamber dimension is normal. Left Atria Left atrial chamber dimension is normal. Right Atria Right atrial chamber dimension is normal. Aortic Valve The aortic valve is not well visualized. Cannot determine number of aortic valve leaflets. There is no aortic valve stenosis based on valve area and gradients. There is mild aortic valve sclerosis. There is no aortic valve regurgitation. Pulmonic Valve There is no pulmonic regurgitation. Mitral Valve The mitral valve has mildly calcified annulus. There is no mitral valve stenosis. There is trace mitral valve regurgitation. Tricuspid Valve There is no tricuspid valve regurgitation. No pulmonary hypertension, estimated pulmonary arterial systolic pressure is 14 mmHg. Pericardium/Pleural There is trivial pericardial effusion. Inferior Vena Cava Normal inferior vena cava with >50% collapse upon inspiration consistent with normal right atrial pressure, 5 mmHg. Aorta The aortic root size at the sinus of Valsalva is normal. Left Ventricular Outflow Tract Name Value Normal LVOT 2D LVOT Diameter 2.2 cm LVOT Doppler LVOT Peak Velocity 94 cm/s LVOT Peak Gradient 4 mmHg LVOT Mean Gradient 2 mmHg LVOT VTI
== END 2024-01-25 16:05 | disposition home or self-care (01) ==
LOC: CHSIMG 16:05
PROVIDERS: PCP Internal Medicine; Visit Provider Internal Medicine
DX: I50.9 Heart failure, unspecified (principal); I35.8 Other nonrheumatic aortic valve disorders
CPT/HCPCS: 93306

== ENCOUNTER 2024-02-04 03:24 | Emergency (ER) | payer MEDICARE, SELFPAY ==
[2024-02-04 03:45] VITALS: BP 181/77; PULSE 80; RESP 20; TEMP 36.8; O2SAT 94
[2024-02-04 03:58] VITALS: BP 181/77; PULSE 71; RESP 18; TEMP 37.3; O2SAT 91
--- NOTE | 2024-02-04 04:21 | ED.GENADULT ---
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 patient's is with him and she reports these evidently prone to night terrors. he also evidently has some daytime hallucinations where he sees people and animals or there. The heard a commotion in the patient's room today and went to find him thrashing in bed having pulled out the Aleman catheter without the balloon being deflated. He is noted to have some bleeding from tip of his penis. Patient does not remember what happened. He does endorse having vivid dreams at times. Patient has been in his usual state of health. Denies fever, chills, rigors, nausea, vomiting, diarrhea.? Related Data Home Medications Medication Instructions Recorded Confirmed diltiazem HCl 240 mg 240 mg PO DAILY 05/15/19 06/24/23 capsule,extended release 24 hr lovastatin 10 mg tablet 5 mg PO HS 05/15/19 06/24/23 cholecalciferol (vitamin D3) 50 2,000 unit PO DAILY 05/16/19 06/24/23 mcg (2,000 unit) tablet multivitamin 1 tablet PO DAILY 05/16/19 06/24/23 apixaban 5 mg tablet (Eliquis) 5 mg PO BID 04/26/20 06/24/23 baclofen 10 mg tablet 10 mg PO TID 04/26/20 06/24/23 hydralazine 10 mg tablet 15 mg PO TID 04/26/20 06/24/23 insulin lispro 100 unit/mL 10 unit subcut AC 04/26/20 06/24/23 subcutaneous pen lorazepam 0.5 mg tablet 0.5 - 1 mg PO DAILY PRN Anxiety 04/26/20 06/24/23 acetaminophen 500 mg tablet 650 mg PO Q4H PRN Fever Or Pain 06/15/20 06/24/23 (Tylenol Extra Strength) cetirizine 10 mg tablet (Zyrtec) 10 mg PO DAILY PRN allergies 06/15/20 06/24/23 cyanocobalamin (vitamin B-12) 1,000 mcg PO DAILY 09/25/21 06/24/23 1,000 mcg tablet (Vitamin B-12) sennosides 8.6 mg-docusate sodium 1 tab-cap PO DAILY Constipation 09/25/21 06/24/23 50 mg capsule (Senna Plus) ascorbic acid (vitamin C) 500 mg 1,000 mg PO DAILY 03/27/22 06/24/23 tablet diclofenac sodium 1 % topical gel 2 g topical QID 03/27/22 06/24/23 fentanyl 12 mcg/hr transdermal 1 patch topical Q3D 03/27/22 06/24/23 patch lidocaine 5 % topical patch 1 patch topical DAILY 03/27/22 06/24/23 polyethylene glycol 3350 17 gram 17 g PO DAILY 03/27/22 06/24/23 oral powder packet (Miralax) ipratropium bromide 42 mcg (0.06 1 spray intranasal DAILY 10/07/22 06/24/23 %) nasal spray donepezil 23 mg tablet 23 mg PO DAILY 11/27/22 06/24/23 ferrous sulfate 325 mg (65 mg 65 mg PO DAILY 01/04/23 06/24/23 iron) tablet (Tasneem-Time) cephalexin 250 mg capsule 250 mg PO QHS 06/24/23 06/24/23 tramadol 50 mg tablet 50 mg PO TID PRN Pain 06/24/23 06/24/23 Allergies Allergy/AdvReac Type Severity Reaction Status Date / Time No Known Allergies Allergy Verified 06/24/23 16:21 [facility] Past Medical History Medical History Afib Alzheimers disease Anemia HTN (hypertension) Low back pain Male erectile disorder Mixed hyperlipidemia Open toe wound Paraplegia Type 2 diabetes mellitus Surgical History Surgical History History of cholecystectomy History of lumbar laminectomy History of shoulder surgery Family History Family History Other Unknown family medical history Social History Social History Smoking status: Never smoker Second hand tobacco smoke exposure: No Alcohol intake: former Substance use: never Substance use type: does not use Lack of Transportation: No Lack of Food: Never True Current Housing: I Have Housing Loren
[2024-02-04 05:07] LABS: Hematocrit 40.6 % (37.0-46.0); Hemoglobin 12.8 g/dL (12.4-15.3); Mean Corpuscular HGB Conc 31.5 g/dL (32-36); Mean Corpuscular Hemoglobin 30.4 pg (27.0-31.0); Mean Corpuscular Volume 96.4 fL (78.0-102.0); Mean Platelet Volume 10.1 fl (8.7-11.0); Platelet Count Result 180 K/mm3 (150-420); Red Blood Count 4.21 M/mm3 (4.70-6.10); White Blood Count 8.3 K/mm3 (4.8-10.8)
[2024-02-04 05:20] LABS: Anion Gap 10 mmol/L (4-12); Blood Urea Nitrogen 13 mg/dL (7-18); Calcium 9.2 mg/dL (8.5-10.1); Carbon Dioxide 28 mmol/L (21-32); Chloride 101 mmol/L (98-108); Estimated CRCL calculation 62 ml/min; Estimated Glomerular Filt Rate > 60; Glucose 171 mg/dL (70-99); Osmolality Calculated 292 mOsm/kg (285-295); Potassium 4.2 mmol/L (3.5-5.1); Sodium 139 mmol/L (136-145)
--- NOTE | 2024-02-04 05:25 | PC.NURSE ---
Pt cleaned of large BM, repositioned in bed w/ assist. Pt is unable to help move himself as he is bedridden and uses wilmer lift at home.
[2024-02-04 05:38] VITALS: BP 160/70; PULSE 88; RESP 20; O2SAT 94
--- NOTE | 2024-02-04 06:00 | PC.NURSE ---
Noted continued small amt bleeding from end of penis after aleman cath. Gauze 4x4's placed at end of penis to help compress bleeding. Pt tolerated well.
--- NOTE | 2024-02-04 06:10 | PC.NURSE ---
POC discussed w/ pt and spouse to return home and f/u w/ PCP tomorrow. Pt will return home via [employer] Call placed and paged to [employer] for pt transfer home.
[2024-02-04 06:34] VITALS: BP 135/62; PULSE 85; RESP 20; TEMP 36.6; O2SAT 95
--- NOTE | 2024-02-04 06:34 | PC.NURSE ---
Report given to [facility] for pt return home. Assisted in moving to EMS cot w/o difficulty.
== END 2024-02-04 06:34 | disposition home or self-care (01) ==
PROVIDERS: Emergency Provider Family Medicine
DX: S37.39XA Other injury of urethra, initial encounter (principal); Z43.6 Encounter for attention to other artificial openings of urinary tract; I10 Essential (primary) hypertension; I48.91 Unspecified atrial fibrillation; G30.9 Alzheimer's disease, unspecified; F02.80 Dementia in other diseases classified elsewhere, unspecified severity, without behavioral disturbance, psychotic disturbance, mood disturbance, and anxiety; E11.9 Type 2 diabetes mellitus without complications; E78.2 Mixed hyperlipidemia; X58.XXXA Exposure to other specified factors, initial encounter
CPT/HCPCS: 36415; 80048; 85027; 99283

== ENCOUNTER 2024-02-14 18:39 | Observation (INO) | payer MEDICARE, SELFPAY ==
[2024-02-14] VITALS (12 sets, daily range): BP systolic 123–170; BP diastolic 70–107; PULSE 57–66; RESP 17–24; TEMP 36.4; O2SAT 92–97
--- NOTE | 2024-02-14 19:04 | ED.MALEGU ---
HPI - Male Genitourinary General Chief complaint: Urogenital-Male Stated complaint: hematuria Time Seen by Provider: 02/14/24 18:54 History of Present Illness HPI Narrative: Pt presents with gross hematuria. Pt denies pain but has some blood at meatus aleman appears in place. Pt is on blood thinners. Related Data Home Medications Medication Instructions Recorded Confirmed diltiazem HCl 240 mg 240 mg PO DAILY 05/15/19 06/24/23 capsule,extended release 24 hr lovastatin 10 mg tablet 5 mg PO HS 05/15/19 06/24/23 cholecalciferol (vitamin D3) 50 2,000 unit PO DAILY 05/16/19 06/24/23 mcg (2,000 unit) tablet multivitamin 1 tablet PO DAILY 05/16/19 06/24/23 apixaban 5 mg tablet (Eliquis) 5 mg PO BID 04/26/20 06/24/23 baclofen 10 mg tablet 10 mg PO TID 04/26/20 06/24/23 hydralazine 10 mg tablet 15 mg PO TID 04/26/20 06/24/23 insulin lispro 100 unit/mL 10 unit subcut AC 04/26/20 06/24/23 subcutaneous pen lorazepam 0.5 mg tablet 0.5 - 1 mg PO DAILY PRN Anxiety 04/26/20 06/24/23 acetaminophen 500 mg tablet 650 mg PO Q4H PRN Fever Or Pain 06/15/20 06/24/23 (Tylenol Extra Strength) cetirizine 10 mg tablet (Zyrtec) 10 mg PO DAILY PRN allergies 06/15/20 06/24/23 cyanocobalamin (vitamin B-12) 1,000 mcg PO DAILY 09/25/21 06/24/23 1,000 mcg tablet (Vitamin B-12) sennosides 8.6 mg-docusate sodium 1 tab-cap PO DAILY Constipation 09/25/21 06/24/23 50 mg capsule (Senna Plus) ascorbic acid (vitamin C) 500 mg 1,000 mg PO DAILY 03/27/22 06/24/23 tablet diclofenac sodium 1 % topical gel 2 g topical QID 03/27/22 06/24/23 fentanyl 12 mcg/hr transdermal 1 patch topical Q3D 03/27/22 06/24/23 patch lidocaine 5 % topical patch 1 patch topical DAILY 03/27/22 06/24/23 polyethylene glycol 3350 17 gram 17 g PO DAILY 03/27/22 06/24/23 oral powder packet (Miralax) ipratropium bromide 42 mcg (0.06 1 spray intranasal DAILY 10/07/22 06/24/23 %) nasal spray donepezil 23 mg tablet 23 mg PO DAILY 11/27/22 06/24/23 ferrous sulfate 325 mg (65 mg 65 mg PO DAILY 01/04/23 06/24/23 iron) tablet (Tasneem-Time) cephalexin 250 mg capsule 250 mg PO QHS 06/24/23 06/24/23 tramadol 50 mg tablet 50 mg PO TID PRN Pain 06/24/23 06/24/23 Allergies Allergy/AdvReac Type Severity Reaction Status Date / Time No Known Allergies Allergy Verified 06/24/23 16:21 Review of Systems Review of Systems: All systems reviewed & are unremarkable except as noted in HPI and below PMFSH Past Medical History Medical History Afib Alzheimers disease Anemia HTN (hypertension) Low back pain Male erectile disorder Mixed hyperlipidemia Open toe wound Paraplegia Type 2 diabetes mellitus Surgical History Surgical History History of cholecystectomy History of lumbar laminectomy History of shoulder surgery Family History Family History Other Unknown family medical history Social History Social History Smoking status: Never smoker Second hand tobacco smoke exposure: No Alcohol intake: former Substance use: never Substance use type: does not use Lack of Transportation: No Lack of Food: Never True Current Housing: I Have Housing Concerned About Future Housing: No Difficulty Paying Gas/Electric Bills: No Difficulty Paying for Meds: No Currently Unemployed: No Education: High School Diploma/GED Difficulty w/ Childcare or Family Care: No Living arrangements: with family Spiritual care concerns: No Exam Const: General: cooperative and healthy appearing Neck: Neck: normal visual inspection Resp: Effort & Inspection: normal respiratory effort Auscultation: clear to auscultation bilaterally Cardio: Rate: regular rate Rhythm: regular rhythm GI: GI Palp: No abdominal tenderness Percussion: Yes normal to percussion Auscultation: normal bowel sounds : Meatus: Blood at meatus present Course Vital Signs Vital signs: Vital Signs Temperature 97.6 F 02/14/24 18:50 Pulse Rate 58 L 02/14/24 18:50 Respiratory Rate 18 02/14/24 18:50 Blood Pressure 146/91 H 02/14/24 18:50 Pulse Oximetry 96 02/14/24 18:50 Oxygen Delivery Room Air 02/14/24 18:50 Temperature 97.6 F 02/14/24 18:50 Pulse Rate 58 L 02/14/24 21:30 Respiratory Rate 23 H 02/14/24 21:30 Blood Pressure 170/92 H 02/14/24 21:30 Pulse Oximetry 94 02/14/24 21:30 Oxygen Delivery Room Air 02/14/24 18:50 MDM - Male Genitourinary MDM Narrative Medical decision making narrative: Pt presents with blood in aleman bag. Pt denies fever or abdominal pain. Pt on eliquis. Will get UA and labs. Pt has UTI with hematuria, likely due to eliquis. will start on levaqin as pt grew pseudomonas on recent culture. Will discuss with dr marie about admission. dr marie agrees to admit. Lab Data 02/14/24 20:09 02/14/24 20:09 Labs: Lab Results 02/14/24 02/14/24 Range/Units 20:09 20:13 WBC 9.4 (4.5-10.0) K/mm3 RBC 3.69 L (4.6-6.20) M/mm3 Hgb 11.3 L (14.0-18.0) g/dL Hct 34.7 L (42.0-52.0) % MCV 94.0 (80-100) fl MCH 30.6 (26-34) pg MCHC 32.6 (32-36) g/dl RDW 13.8 (11.5-14.5) % Plt Count 238 (150-375) k/mm3 MPV 9.6 (7.4-10.4) fl Immature Gran % (Auto) 0.5 (0-0.5) % Neut % (Auto) 76.5 H (45.5-73.1) % Lymph % (Auto) 12.7 L (18.3-44.2) % [place] % (Auto) 8.1 (2.6-8.5) % Eos % (Auto) 1.7 (0-4.4) % Baso % (Auto) 0.5 (0.2-1.2) % Lymph # (Auto) 1.19 (0.9-3.2) K/mm3 [place] # (Auto) 0.8 H (0.1-0.6) K/mm3 Eos # (Auto) 0.2 (0-0.3) K/mm3 Baso # (Auto) 0.1 (0.0-0.1) K/mm3 Abs Immat Gran (auto) 0.05 H (0.00-0.031) K/mm3 Absolute Neuts (auto) 7.2 H (1.3-6.7) K/mm3 Absolute Nucleated RBC 0.000 (0.0-0.012) K/mm3 Nucleated RBC % 0.0 (0.0-0.2) % PT 17.4 H (11.1-14.7) Seconds INR 1.4 APTT 28.6 (22.3-36.8) Seconds Sodium 137 (137-145) mmol/L Potassium 3.9 (3.4-5.0) mmol/L Chloride 102 (98-107) mmol/L Carbon Dioxide 29 (22-30) mmol/L Anion Gap 6 (4-12) mmol/L BUN 16 (9-20) mg/dL Creatinine 0.80 (0.7-1.3) mg/dL Estim Creat Clear Calc 77 ml/min Estimated GFR > 60 (59 - ) Glucose 191 H (65-110) mg/dL Calcium 8.6 (8.4-10.2) mg/dL Total Bilirubin 0.4 (0.2-1.3) mg/dL AST 17 (17-59) U/L ALT 12 (6-50) U/L Alkaline Phosphatase 82 (38-126) U/L Total Protein 7.0 (6.3-8.2) g/dL Albumin 3.5 (3.5-5.1) g/dL Urine Color Red H (Yellow) Urine Appearance Cloudy H (Clear) Urine pH 5.0 (5.0-9.0) Ur Specific [place] 1.013 (1.001-1.035) Urine Protein 2+ H (Negative) mg/dL Urine Glucose (UA) Negative (Negative) mg/dL Urine Ketones Negative (Negative) mg/dL Ur Blood (Man) 2+ H (Negative) Urine Nitrate Positive H (Negative) Urine Bilirubin 2+ H (Negative) Urine Urobilinogen 0.2 (<2.0) mg/dL Add Ur Microanalysis Reviewed Leukocyte Esterase Rfl 3+ H (Negative) MILAGROS/UL Urine RBC >100 H (0-2) /hpf Urine WBC >100 H (0-3) /hpf Ur Squamous Epith Cells Occasional (Few) /hpf Urine Bacteria 4+ H /hpf Urine Casts >20 Discharge Plan Discharge Clinical Impression: Acute UTI, Hematuria Patient Disposition: Still a Patient Condition: Stable Prescriptions: No Action hydralazine 10 mg tablet 15 mg PO TID lorazepam 0.5 mg tablet 0.5 - 1 mg PO DAILY PRN (Reason: Anxiety) baclofen 10 mg tablet 10 mg PO TID insulin lispro 100 unit/mL insulin pen 10 unit SUBCUT AC Eliquis 5 mg tablet 5 mg PO BID ascorbic acid (vitamin C) 500 mg Tablet 1,000 mg PO DAILY fentanyl 12 mcg/hr patch 72 hour 1 patch topical Q3D Patient Comments: Left chest polyethylene glycol 3350 [Miralax] 17 gram Powder In Packet 17 g PO DAILY lidocaine 5 % adhesive patch,medicated 1 patch topical DAILY diclofenac sodium 1 % Gel 2 g TOPICAL QID Rx Instructions: apply to single elbow, wrist or hand; for hand includes palm/fingers/back of hand ipratropium bromide 42 mcg (0.06 %) spray,non-aerosol 1 spray INTRANASAL DAILY insulin glargine [Lantus U-100 Insulin] 100 unit/mL Solution 32 unit subcut HS Qty: 10 0RF cephalexin 250 mg capsule 250 mg PO QHS tramadol 50 mg tablet 50 mg PO TID PRN (Reason: Pain) azithromycin [Zithromax Z-Moahmud] 250 mg tablet See Rx Instructions .ROUTE .COMPLEX Qty: 6 0RF Rx Instructions: For 250 mg dose pack: take 500 mg today (day 1), then 250 mg for 4 days (days 2-5) azithromycin [Zithromax Z-Mohamud] 250 mg tablet See Rx Instructions .ROUTE .COMPLEX Qty: 6 0RF Rx Instructions: For 250 mg dose pack: take 500 mg today (day 1), then 250 mg for 4 days (days 2-5) azithromycin [Zithromax Z-Mohamud] 250 mg tablet See Rx Instructions .ROUTE .COMPLEX Qty: 6 0RF Rx Instructions: For 250 mg dose pack: take 500 mg today (day 1), then 250 mg for 4 days (days 2-5) cyanocobalamin (vitamin B-12) [Vitamin B-12] 1,000 mcg Tablet 1,000 mcg PO DAILY Senna Plus 8.6-50 mg Capsule 1 tab-cap PO DAILY lovastatin 10 mg tablet 5 mg PO HS Rx Instructions: take in evening diltiazem HCl 240 mg capsule,extended release 24hr 240 mg PO DAILY multivitamin Tablet 1 tablet PO DAILY cholecalciferol (vitamin D3) 2,000 unit tablet 2,000 unit PO DAILY acetaminophen [Tylenol Extra Strength] 500 mg tablet 650 mg PO Q4H PRN (Reason: Fever Or Pain) cetirizine [Zyrtec] 10 mg tablet 10 mg PO DAILY PRN (Reason: allergies) ferrous sulfate [Tasneem-Time] 325 mg (65 mg iron) tablet 65 mg PO DAILY donepezil 23 mg tablet 23 mg PO DAILY losartan 100 mg tablet 100 mg PO DAILY Qty: 30 5RF fluticasone propionate 50 mcg/actuation spray,suspension 1 spray INTRANASAL BID Qty: 16 1RF azelastine 137 mcg (0.1 %) spray,non-aerosol See Rx Instructions .ROUTE .COMPLEX Qty: 30 0RF Dose Instruction: 1 SPRAY INTRANASALLY EVERY 12 HOURS; ADMINISTER INTO EACH NOSTRIL Rx Instructions: 1 SPRAY INTRANASALLY EVERY 12 HOURS; ADMINISTER INTO EACH NOSTRIL benzonatate 100 mg capsule 200 mg PO TID Qty: 240 0RF Follow-up/Referrals: UNKNOWN,DOCTOR [Primary Care Provider] -
[2024-02-14 20:17] LABS: Basophils Absolute Auto 0.1 K/mm3 (0.0-0.1); Basophils Percent Auto 0.5 % (0.2-1.2); Eosinophils Absolute Auto 0.2 K/mm3 (0-0.3); Eosinophils Percent Auto 1.7 % (0-4.4); Hematocrit 34.7 % (42.0-52.0); Hemoglobin 11.3 g/dL (14.0-18.0); Immature Granulocyte Absolute 0.05 K/mm3 (0.00-0.031); Immature Granulocyte Percent A 0.5 % (0-0.5); Lymphocytes Absolute Auto 1.19 K/mm3 (0.9-3.2); Lymphocytes Percent Auto 12.7 % (18.3-44.2); Mean Corpuscular HGB Conc 32.6 g/dl (32-36); Mean Corpuscular Hemoglobin 30.6 pg (26-34); Mean Platelet Volume 9.6 fl (7.4-10.4); Monocytes Absolute Auto 0.8 K/mm3 (0.1-0.6); Monocytes Percent Auto 8.1 % (2.6-8.5); Neutrophils Absolute Auto 7.2 K/mm3 (1.3-6.7); Neutrophils Percent Auto 76.5 % (45.5-73.1); Platelet Count Result 238 k/mm3 (150-375); Red Blood Count 3.69 M/mm3 (4.6-6.20); Red Cell Distribution Width 13.8 % (11.5-14.5); White Blood Count 9.4 K/mm3 (4.5-10.0)
--- NOTE | 2024-02-14 20:20 | PC.NURSE ---
pt states he has had very bloody urine in his chronic catheter bag. Pt states other than bloody urine he has no other symptoms. pt A&O x 4
[2024-02-14 20:26] LABS: Alanine Aminotransferase 12 U/L (6-50); Albumin Level 3.5 g/dL (3.5-5.1); Alkaline Phosphatase 82 U/L (38-126); Anion Gap 6 mmol/L (4-12); Aspartate Amino Transferase 17 U/L (17-59); Bilirubin,Total 0.4 mg/dL (0.2-1.3); Blood Urea Nitrogen 16 mg/dL (9-20); Calcium 8.6 mg/dL (8.4-10.2); Carbon Dioxide 29 mmol/L (22-30); Chloride 102 mmol/L (98-107); Estimated CRCL calculation 77 ml/min; Estimated Glomerular Filt Rate > 60; Glucose 191 mg/dL (65-110); Potassium 3.9 mmol/L (3.4-5.0); Sodium 137 mmol/L (137-145)
[2024-02-14 20:28] LABS: INR 1.4; Partial Thromboplastin Time 28.6 Seconds (22.3-36.8); Prothrombin Time 17.4 Seconds (11.1-14.7)
[2024-02-14 20:42] LABS: Bacteria Urine 4+ /hpf; Need Manual Microscopic Reviewed; Non Pathogenic Casts >20; RBC Urine >100 /hpf (0-2); Squamous Epithelial Cell Urine Occasional /hpf (Few); WBC Urine >100 /hpf (0-3)
[2024-02-14 20:43] LABS: Add Urine Microscopic? YES; Appearance Urine Cloudy (Clear); Bilirubin Urine 2+ (Negative); Blood Urine 2+ (Negative); Color Urine Red (Yellow); Glucose Urine UA Negative (Negative); Ketones Urine Negative (Negative); Leukocyte Esterase Ur 3+ LEU/UL (Negative); Nitrate Urine Positive (Negative); Protein Urine 2+ mg/dL (Negative); Specific Grav Ur 1.013 (1.001-1.035); Urobilinogen Urine 0.2 mg/dL (<2.0)
[2024-02-14] MEDS: levoFLOXacin 750 MG/D5W 150 ML 750 MG/150 ML BAG 100 MG IVPB (22:23)
--- NOTE | 2024-02-14 22:45 | PC.NURSE ---
pt states he has a chronic catheter because about 1 year ago he started getting frequent UTIs, he states this is his first UTI since the catheter has been put in
--- NOTE | 2024-02-14 23:55 | PC.NURSE ---
Patient called nursing staff into room and states he has a sensation that he feels like he is not draining. Upon inspection patient was not draining and had a clot on his meatus. Spoke with EDP Dr. Rose who advised to remove old catheter and place a three way catheter. Once three way catheter was placed patient passed five clots about dime size. Patient currently being irrigated with normal saline and urine is getting clearer. Notified provider Dr. Ortiz of the catheter change and clots.
[2024-02-15 00:02] VITALS: BP 130/84; PULSE 62; RESP 18; O2SAT 97
[2024-02-15 00:44] VITALS: BP 142/83; PULSE 60; RESP 16; TEMP 36.7; O2SAT 97
[2024-02-15] MEDS: WATER FOR IRRIGATION, STERILE 1,000 ML BOTTLE 1000 ML (02:00)
[2024-02-15 04:57] VITALS: BP 148/81; PULSE 63; RESP 16; TEMP 36.7; O2SAT 95
--- NOTE | 2024-02-15 07:49 | P.PNIM_ITS ---
Progress Note: A&P Assessment and Plan (1) Acute UTI: Code(s): N39.0 - Urinary tract infection, site not specified Status: Acute Assessment and Plan: Patient has gross hematuria from a acute Aleman catheter associated UTI. Patient been placed on empiric antibiotic therapy. Patient's reports a traumatic Aleman removal approximately 2 weeks ago. * UA grossly abnormal and culture pending * Past urine cultures reviewed and patient was started on Levaquin * Urinary catheter was exchanged in the emergency room. Patient has a chronic urinary catheter for retention. (2) Hematuria: Code(s): R31.9 - Hematuria, unspecified Status: Acute Assessment and Plan: Onset of gross hematuria in the last 24 hours. Recent traumatic Aleman removal. He had one episode of some hematuria after the aleman removal but it resolved on its own. * Eliquis on hold until CBI is removed and Urology is okay with resuming Subjective Date/time seen: 02/15/24 07:49 Interval history: No acute events overnight. CBI continues. Urine in Aleman tubing is light pink tinged. Overall he has been and his normal state of health. I did speak with his at the bedside who reports he had a traumatic Aleman removal approximately 2 weeks ago where he pulled the catheter out while he was sleeping with the bulb inflated. Exam Narrative: General: appears comfortable, in no acute distress Respiratory: breathing is unlabored with even chest rise/fall, lungs are clear without wheezing, rhonchi, and crackles Cardiovascular: Rate and rhythm regular, normal s1s2, no murmur Abdomen: Soft, round, non-tender, active bowel sounds Extremities: No cyanosis, +3 edema to bilateral feet, clubbing. Pulses 2/2 Neuro: A&O x 4 Skin: Warm, dry, intact Objective Data Vital Signs Vital Signs: Vital Signs - 24 hr 02/14/24 18:50 02/14/24 20:18 02/14/24 19:30 Temperature 97.6 F Pulse Rate 58 L 57 L Respiratory Rate 18 18 21 H Blood Pressure 146/91 H 143/107 H Pulse Oximetry 96 97 94 Oxygen Delivery Room Air 02/14/24 21:30 02/15/24 00:02 02/14/24 22:24 Temperature Pulse Rate 58 L 62 61 Respiratory Rate 23 H 18 21 H Blood Pressure 170/92 H 130/84 123/70 Pulse Oximetry 94 97 94 Oxygen Delivery 02/14/24 22:31 02/14/24 22:45 02/14/24 23:10 Temperature Pulse Rate 63 64 60 Respiratory Rate 21 H 20 21 H Blood Pressure 145/77 H Pulse Oximetry 92 96 94 Oxygen Delivery 02/14/24 23:15 02/14/24 23:30 02/14/24 23:32 Temperature Pulse Rate 62 66 64 Respiratory Rate 22 H 17 20 Blood Pressure 148/91 H Pulse Oximetry 94 96 95 Oxygen Delivery 02/14/24 23:45 02/15/24 00:40 02/15/24 00:44 Temperature 98.1 F Pulse Rate 61 60 Respiratory Rate 24 H 16 Blood Pressure 142/83 H Pulse Oximetry 93 97 Oxygen Delivery Room Air 02/15/24 04:57 Temperature 98.1 F Pulse Rate 63 Respiratory Rate 16 Blood Pressure 148/81 H Pulse Oximetry 95 Oxygen Delivery Intake/Output Intake/Output: Intake & Output 02/12/24 02/13/24 02/14/24 02/15/24 23:59 23:59 23:59 23:59 Intake Total 150 6100 Output Total 6600 Balance 150 -500 Meds/Results Medications: Active Medications Generic Name Dose Route Start Last Admin Trade Name Freq PRN Reason Stop Dose Admin Levofloxacin/Dextrose 750 mg in 150 mls @ 100 mls/hr 02/15/24 22:00 Levaquin 750 Mg/D5w 150 Ml IVPB Q24H ELVIN Labs Labs: Laboratory Results - last 24 hr 02/14/24 02/14/24 20:09 20:13 WBC 9.4 RBC 3.69 L Hgb 11.3 L Hct 34.7 L MCV 94.0 MCH 30.6 MCHC 32.6 RDW 13.8 Plt Count 238 MPV 9.6 Immature Gran % (Auto) 0.5 Neut % (Auto) 76.5 H Lymph % (Auto) 12.7 L [place] % (Auto) 8.1 Eos % (Auto) 1.7 Baso % (Auto) 0.5 Lymph # (Auto) 1.19 [place] # (Auto) 0.8 H Eos # (Auto) 0.2 Baso # (Auto) 0.1 Abs Immat Gran (auto) 0.05 H Absolute Neuts (auto) 7.2 H Absolute Nucleated RBC 0.000 Nucleated RBC % 0.0 PT 17.4 H INR 1.4 APTT 28.6 Sodium 137 Potassium 3.9 Chloride 102 Carbon Dioxide 29 Anion Gap 6 BUN 16 Creatinine 0.80 Estim Creat Clear Calc 77 Estimated GFR > 60 Glucose 191 H Calcium 8.6 Total Bilirubin 0.4 AST 17 ALT 12 Alkaline Phosphatase 82 Total Protein 7.0 Albumin 3.5 Urine Color Red H Urine Appearance Cloudy H Urine pH 5.0 Ur Specific [place] 1.013 Urine Protein 2+ H Urine Glucose (UA) Negative Urine Ketones Negative Ur Blood (Man) 2+ H Urine Nitrate Positive H Urine Bilirubin 2+ H Urine Urobilinogen 0.2 Add Ur Microanalysis Reviewed Leukocyte Esterase Rfl 3+ H Urine RBC >100 H Urine WBC >100 H Ur Squamous Epith Cells Occasional Urine Bacteria 4+ H Urine Casts >20 Quality VTE Prophylaxis VTE prophylaxis: mechanical ordered
--- NOTE | 2024-02-15 07:49 | PM.IMHP ---
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 The patient had been evaluated in the ER the week before after having dislodged his Staley catheter off flailing about in the bed. He reported to the provider that he has vivid dreams and he thinks that he may have pulled out the catheter when he was having a dream. The patient at the time my evaluation states that he will unconscious sleep pull at the catheter if he has the sensation of fullness. Patient seems somewhat vague in his responses regarding his catheter in if he has had any trauma. He is alert oriented and oriented x4 but does seem to have a little bit of difficulty with recalling events from the prior visit. ER note stated that the patient had removed his catheter with the balloon intact. He had some bleeding noted at that time. His Staley catheter was replaced and he was discharged back home. He reported that he went to his doctor's visit for PFTs today. After he and his returned from the visit is noted he had some blood at his meatus and had gross hematuria. He denied having any fevers, chills, nausea, vomiting or other concerning symptoms. He is on chronic suppressive therapy with Keflex 250 mg at HS. He is on Eliquis due to his history of DVTs. UA performed in the ER was suggestive of UTI. The most part the patient's prior urine cultures resulted in organisms that seemed to be pretty pansensitive. He has grown-up both Pseudomonas and Klebsiella within the last 2 years. Initially the patient's urine was still draining in the Staley bag. However prior to being transferred to the medical floor the patient did start having sensation of bladder fullness. Nursing staff did place at 3 way catheter at that time and evacuated several large clots from the patient's bladder. Since that clots have passed the patient's urine has cleared. Patient's white count and hemoglobin AR were stable compared to his baseline. Review of Systems Review of Systems: 12 systems were reviewed with pertinent positives and negatives per HPI. Except as documented in the HPI, all other systems were reviewed and are negative. [facility] Past Medical History Medical History (Updated 02/15/24 @ 08:49 by Laney Ortiz DO) Afib Alzheimers disease Anemia HTN (hypertension) Low back pain Male erectile disorder Mixed hyperlipidemia Neurogenic bladder Open toe wound Paraplegia Secondary to complications from spinal surgery Type 2 diabetes mellitus Surgical History Surgical History History of cholecystectomy History of lumbar laminectomy History of shoulder surgery Family History Family History Other Unknown family medical history Social History Social History (Updated 02/15/24 @ 08:47 by Laney Ortiz DO) Social History: The patient reports that he is and he and his had a daughter and a son. They have many grandchildren and great grandchildren now. 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 Code status: Full code Healthcare power of civil rights attorney: Smoking status: Never smoker Second hand tobacco smoke exposure: No Alcohol intake: never Substance use: never Substance use type: does not use Do You Feel Safe in your Home?: Yes Lack of Transportation: No Lack of Food: Never True Current Housing: I Have Housing Concerned About Future Housing: No Difficulty Paying Gas/Electric Bills: No Difficulty Paying for Meds: No Currently Unemployed: No Education: High School Diploma/GED Difficulty w/ Childcare or Family Care: No Living arrangements: with family Spiritual care concerns: No Meds Home Medications and Allergies Home Medications Medication Instructions Recorded Confirmed Type diltiazem HCl 240 mg 240 mg PO DAILY 05/15/19 02/15/24 History capsule,extended release 24 hr lovastatin 10 mg tablet 5 mg PO HS 05/15/19 02/15/24 History cholecalciferol (vitamin D3) 50 2,000 unit PO DAILY 05/16/19 02/15/24 History mcg (2,000 unit) tablet multivitamin 1 tablet PO DAILY 05/16/19 02/15/24 History apixaban 5 mg tablet (Eliquis) 5 mg PO BID 04/26/20 02/15/24 History baclofen 10 mg tablet 10 mg PO TID 04/26/20 02/15/24 History hydralazine 10 mg tablet 15 mg PO TID 04/26/20 02/15/24 History insulin lispro 100 unit/mL 10 unit subcut AC 04/26/20 02/15/24 History subcutaneous pen lorazepam 0.5 mg tablet 0.5 - 1 mg PO DAILY PRN Anxiety 04/26/20 02/15/24 History acetaminophen 500 mg tablet 650 mg PO Q4H PRN Fever Or Pain 06/15/20 02/15/24 History (Tylenol Extra Strength) cetirizine 10 mg tablet (Zyrtec) 10 mg PO DAILY PRN allergies 06/15/20 02/15/24 History losartan 100 mg tablet 100 mg PO DAILY #30 tabs 06/23/21 02/15/24 Rx cyanocobalamin (vitamin B-12) 1,000 mcg PO DAILY 09/25/21 02/15/24 History 1,000 mcg tablet (Vitamin B-12) sennosides 8.6 mg-docusate sodium 1 tab-cap PO DAILY Constipation 09/25/21 02/15/24 History 50 mg capsule (Senna Plus) ascorbic acid (vitamin C) 500 mg 1,000 mg PO DAILY 03/27/22 02/15/24 History tablet diclofenac sodium 1 % topical gel 2 g topical QID 03/27/22 02/15/24 History lidocaine 5 % topical patch 1 patch topical DAILY 03/27/22 02/15/24 History polyethylene glycol 3350 17 gram 17 g PO DAILY 03/27/22 02/15/24 History oral powder packet (Miralax) ipratropium bromide 42 mcg (0.06 1 spray intranasal DAILY 10/07/22 02/15/24 History %) nasal spray insulin glargine 100 unit/mL 32 unit (0.32 mL) subcut HS #10 mL 10/09/22 02/15/24 Rx subcutaneous solution (Lantus U-100 Insulin) donepezil 23 mg tablet 23 mg PO DAILY 11/27/22 02/15/24 History ferrous sulfate 325 mg (65 mg 65 mg PO DAILY 01/04/23 02/15/24 History iron) tablet (Tasneem-Time) cephalexin 250 mg capsule 250 mg PO QHS 06/24/23 02/15/24 History fluticasone propionate 50 1 spray intranasal BID #16 grams 07/11/23 02/15/24 Rx mcg/actuation nasal spray,suspension azelastine 137 mcg (0.1 %) nasal See Rx Instructions .Route 11/16/23 02/15/24 Rx spray .COMPLEX #30 mL benzonatate 100 mg capsule 200 mg PO TID PRN prn cough 02/15/24 02/15/24 History montelukast 10 mg tablet 10 mg PO DAILY 02/15/24 02/15/24 History Allergies Allergy/AdvReac Type Severity Reaction Status Date / Time No Known Allergies Allergy Verified 06/24/23 16:21 Vital Signs Vital Signs - 24 hr 02/14/24 18:50 02/14/24 20:18 02/14/24 19:30 Temperature 97.6 F Pulse Rate 58 L 57 L Respiratory Rate 18 18 21 H Blood Pressure 146/91 H 143/107 H Pulse Oximetry 96 97 94 Oxygen Delivery Room Air 02/14/24 21:30 02/15/24 00:02 02/14/24 22:24 Temperature Pulse Rate 58 L 62 61 Respiratory Rate 23 H 18 21 H Blood Pressure 170/92 H 130/84 123/70 Pulse Oximetry 94 97 94 Oxygen Delivery 02/14/24 22:31 02/14/24 22:45 02/14/24 23:10 Temperature Pulse Rate 63 64 60 Respiratory Rate 21 H 20 21 H Blood Pressure 145/77 H Pulse Oximetry 92 96 94 Oxygen Delivery 02/14/24 23:15 02/14/24 23:30 02/14/24 23:32 Temperature Pulse Rate 62 66 64 Respiratory Rate 22 H 17 20 Blood Pressure 148/91 H Pulse Oximetry 94 96 95 Oxygen Delivery 02/14/24 23:45 02/15/24 00:40 02/15/24 00:44 Temperature 98.1 F Pulse Rate 61 60 Respiratory Rate 24 H 16 Blood Pressure 142/83 H Pulse Oximetry 93 97 Oxygen Delivery Room Air 02/15/24 04:57 Temperature 98.1 F Pulse Rate 63 Respiratory Rate 16 Blood Pressure 148/81 H Pulse Oximetry 95 Oxygen Delivery Exam Narrative: Weight 116.5 kg BMI 34.8 Const: Other: Obese, no acute distress, sitting up in bed with head of bed at 60?, D condition HENMT: Other: Head is normocephalic atraumatic, mucous membranes are tacky, no oral pharyngeal erythema, edentulous Eyes: Other: Pupils are equal and reactive, lens replacements bilateral, no scleral icterus, mild conjunctival pallor Neck: Other: No JVD, supple soft, large neck circumference Resp: Other: Decreased breath sounds at the bases, no increased work of breathing, Cardio: Other: Heart rate is regular, feels as if patient is in a regular rhythm, 2+ bilateral radial and pedal pulses GI: Other: Distended, nontender, positive bowel sounds, soft : Other: 3 way Staley catheter in place with dark yellow/dhaval urine in the catheter bag, urine does not appear cloudy, no evidence of blood in catheter tubing Skin: Other: Generalized pallor, non jaundice Neuro: Other: Patient is alert oriented x3, patient is a fair historian but some recall of more minute details is limited, speech is clear, patient is paraplegic of lower extremities with extremities seeming flaccid, moves the bilateral upper extremities equally Extrem: Other: Patient has 3+ pitting edema bilateral lower extremities, chronic lymphedema, feet somewhat plantar flexed Psych: Other: Appropriate mood and affect, pleasant and cooperative H&P: Results Labs Labs: Laboratory Tests 02/14/24 20:09 02/14/24 20:09 02/14/24 02/14/24 20:09 20:13 WBC 9.4 RBC 3.69 L Hgb 11.3 L Hct 34.7 L MCV 94.0 MCH 30.6 MCHC 32.6 RDW 13.8 Plt Count 238 MPV 9.6 Immature Gran % (Auto) 0.5 Neut % (Auto) 76.5 H Lymph % (Auto) 12.7 L [place] % (Auto) 8.1 Eos % (Auto) 1.7 Baso % (Auto) 0.5 Lymph # (Auto) 1.19 [place] # (Auto) 0.8 H Eos # (Auto) 0.2 Baso # (Auto) 0.1 Abs Immat Gran (auto) 0.05 H Absolute Neuts (auto) 7.2 H Absolute Nucleated RBC 0.000 Nucleated RBC % 0.0 PT 17.4 H INR 1.4 APTT 28.6 Sodium 137 Potassium 3.9 Chloride 102 Carbon Dioxide 29 Anion Gap 6 BUN 16 Creatinine 0.80 Estim Creat Clear Calc 77 Estimated GFR > 60 Glucose 191 H Calcium 8.6 Total Bilirubin 0.4 AST 17 ALT 12 Alkaline Phosphatase 82 Total Protein 7.0 Albumin 3.5 Urine Color Red H Urine Appearance Cloudy H Urine pH 5.0 Ur Specific [place] 1.013 Urine Protein 2+ H Urine Glucose (UA) Negative Urine Ketones Negative Ur Blood (Man) 2+ H Urine Nitrate Positive H Urine Bilirubin 2+ H Urine Urobilinogen 0.2 Add Ur Microanalysis Reviewed Leukocyte Esterase Rfl 3+ H Urine RBC >100 H Urine WBC >100 H Ur Squamous Epith Cells Occasional Urine Bacteria 4+ H Urine Casts >20 Assessment and Plan Assessment and plan (1) Catheter-associated urinary tract infection: Qualifiers: Encounter type: initial encounter Indwelling urinary catheter type: indwelling urethral catheter Qualified Code(s): T83.511A - Infection and inflammatory reaction due to indwelling urethral catheter, initial encounter; N39.0 - Urinary tract infection, site not specified Code(s): T83.511A - Infection and inflammatory reaction due to indwelling urethral catheter, initial encounter; N39.0 - Urinary tract infection, site not specified Status: Acute (2) Hematuria: Qualifiers: Hematuria type: gross Qualified Code(s): R31.0 - Gross hematuria Code(s): R31.9 - Hematuria, unspecified Status: Acute (3) Type 2 diabetes mellitus with hyperglycemia, with long-term current use of insulin: Code(s): E11.65 - Type 2 diabetes mellitus with hyperglycemia; Z79.4 - [facility] (current) use of insulin Status: Acute (4) Chronic anticoagulation: Code(s): Z79.01 - technician terminal and repeater (current) use of anticoagulants Status: Acute Plan Patient has gross hematuria from a acute Staley catheter associated UTI. Patient been placed on empiric antibiotic therapy. Since the patient's hematuria has CB clear will resume patient's home Eliquis. Will consult Urology as the patient's states that they were supposed to follow-up with Urology as outpatient in she would like to see them to see the patient while he is in the hospital. Will repeat CBC and electrolyte to monitor renal function. Monitor strict I&O's. Patient does have diabetes. He is mildly hyperglycemic. Given that he will be hospitalized and diet will change from his home amount will decrease patient's home Lantus by 10%. Will place patient on mealtime bolus insulin and will add moderate dose sliding scale correction for a.c. and HS. Hypoglycemia protocol will be provided. Patient does have a history of dementia but seems relatively oriented at the time of my evaluation. Will continue patient's home dementia medications and will avoid any sedating or opiate medications that could cause increased confusion. Otherwise will review and resume home medications as appropriate. Patient has been admitted as observation status. Quality VTE Prophylaxis VTE prophylaxis: pharmacologic ordered (Hu) Hospitalist [facility] Advance Care Plan I have confirmed that the patient's Advanced Care Plan is present, code status is documented, or surrogate decision maker is listed in patient medical record.: Yes Medication Reconciliation I have utilized all available resources to obtain, update and review the patients current medications (includes all prescriptions, OTC, herbals, cannabis, and nutritional supplements).: Yes
[2024-02-15 08:28] LABS: Basophils Absolute Auto 0.1 K/mm3 (0.0-0.1); Basophils Percent Auto 0.7 % (0.2-1.2); Eosinophils Absolute Auto 0.1 K/mm3 (0-0.3); Eosinophils Percent Auto 1.8 % (0-4.4); Hematocrit 37.1 % (42.0-52.0); Hemoglobin 11.9 g/dL (14.0-18.0); Immature Granulocyte Absolute 0.04 K/mm3 (0.00-0.031); Immature Granulocyte Percent A 0.5 % (0-0.5); Lymphocytes Absolute Auto 0.73 K/mm3 (0.9-3.2); Mean Corpuscular HGB Conc 32.1 g/dl (32-36); Mean Corpuscular Hemoglobin 30.7 pg (26-34); Mean Corpuscular Volume 95.9 fl (80-100); Monocytes Absolute Auto 0.6 K/mm3 (0.1-0.6); Neutrophils Absolute Auto 5.8 K/mm3 (1.3-6.7); Platelet Count Result 249 k/mm3 (150-375); Red Blood Count 3.87 M/mm3 (4.6-6.20); White Blood Count 7.3 K/mm3 (4.5-10.0)
[2024-02-15 09:22] LABS: Anion Gap 9 mmol/L (4-12); Blood Urea Nitrogen 13 mg/dL (9-20); Calcium 8.7 mg/dL (8.4-10.2); Carbon Dioxide 28 mmol/L (22-30); Chloride 102 mmol/L (98-107); Estimated CRCL calculation 88 ml/min; Estimated Glomerular Filt Rate > 60; Glucose 239 mg/dL (65-110); Potassium 4.2 mmol/L (3.4-5.0); Sodium 139 mmol/L (137-145)
[2024-02-15] MEDS: DICLOFENAC SODIUM 1% 100 GM GEL (*BKC) 1 APPLIC TOPICAL (09:25)
[2024-02-15] MEDS: polyethylene glycoL 3350 17 GM POWD.PACK PO (09:25)
[2024-02-15] MEDS: hydrALAZINE 5 MG TABLET PO ×3 (09:25→16:43)
[2024-02-15] MEDS: FERROUS SULFATE 325 MG TABLET DR BY MOUTH (09:26)
[2024-02-15] MEDS: CYANOCOBALAMIN 1,000 MCG TABLET 1000 MCG PO (09:26)
[2024-02-15] MEDS: ASCORBIC ACID 500 MG TABLET 1000 MG PO (09:26)
[2024-02-15] MEDS: CHOLECALCIFEROL 1,000 UNITS TABLET 2000 UNITS PO (09:26)
[2024-02-15] MEDS: MONTELUKAST SODIUM 10 MG TABLET PO (09:26)
[2024-02-15] MEDS: BACLOFEN 10 MG TABLET PO ×3 (09:27→16:43)
[2024-02-15] MEDS: SENNA/DOCUSATE SODIUM TABLET 1 TAB PO (09:27)
[2024-02-15] MEDS: MULTIVITAMINS THERAPEUTIC TAB (*BKC) 1 TABLET PO (09:27)
[2024-02-15] MEDS: hydrALAZINE 10 MG TABLET PO ×3 (09:27→16:43)
[2024-02-15] MEDS: LOSARTAN POTASSIUM 100 MG TABLET PO (09:27)
[2024-02-15] MEDS: APIXABAN 5 MG TABLET PO (09:27)
[2024-02-15] MEDS: IPRATROPIUM NASAL SPRAY 0.06% 15 ML BOTTLE 1 SPRAY NASAL (09:27)
[2024-02-15] MEDS: dilTIAZem HCL CD 240 MG CAP.24HR PO (09:27)
[2024-02-15] MEDS: AZELASTINE HCL NASAL 0.1% 137 MCG/SPR 30 ML BTL 1 SPRAY NASAL ×2 (09:27→21:11)
[2024-02-15 12:52] LABS: Glucose Point of Care 271 mg/dl (65-105)
[2024-02-15] MEDS: INSULIN ASPART (*BKC) 100 UNITS/ML SUB-Q ×2 (13:31→17:59)
[2024-02-15 14:00] VITALS: BP 114/64; PULSE 60; RESP 16; TEMP 36.8; O2SAT 95
[2024-02-15 16:55] LABS: Glucose Point of Care 164 mg/dl (65-105)
[2024-02-15 17:39] LABS: NT Pro B Type Natriuretic Pept 257 pg/mL (19.9-100)
--- NOTE | 2024-02-15 18:00 | P.CONUR_ITS ---
Assessment and Plan Assessment and plan (1) Hematuria: Qualifiers: Hematuria type: gross Qualified Code(s): R31.0 - Gross hematuria Code(s): R31.9 - Hematuria, unspecified Status: Acute (2) Paraplegia: Code(s): G82.20 - Paraplegia, unspecified Status: Acute Assessment and Plan: * Transient gross hematuria secondary to traumatic extraction of a Staley catheter. As expected, the hematuria has resolved with catheter replacement. * If urine remains clear overnight he can probably be discharged, from our standpoint, with a current indwelling catheter and resumption of plans to change it monthly Urology Consult Note HPI Date Seen: 02/15/24 Requesting Physician: Brittney Dotson APRN Primary Care Provider: Vicente Oswald MD Consult Narrative Narrative: Kieran Key is a 84 year old male who is known to Dr. Burrell and our nurse practitioners with a history of recurrent urinary tract infection 1st evaluated in early 2022. At that time CT imaging demonstrated incomplete bladder emptying with bilateral hydronephrosis. After a period of time decision was made to manage this with a chronic indwelling catheter. He has done relatively well with this with monthly catheter changes at home. Yesterday, however, he fell out of bed and dramatically ripped catheter out. It has been replaced and started on a CBI with prompt clearing. At the bedside catheter irrigates freely without clots in his urinary reflux now is perfectly clear. His recurrent UTIs are managed with suppressive cephalexin 250 mg per day, vigorous hydration, U-PAC in cranberry supplements Review of Systems Review of Systems: All systems reviewed & are unremarkable except as noted in HPI and below PMFSH Past Medical History Medical History (Updated 02/15/24 @ 08:49 by Laney Ortiz DO) Afib Alzheimers disease Anemia HTN (hypertension) Low back pain Male erectile disorder Mixed hyperlipidemia Neurogenic bladder Open toe wound Paraplegia Secondary to complications from spinal surgery Type 2 diabetes mellitus Surgical History Surgical History History of cholecystectomy History of lumbar laminectomy History of shoulder surgery Family History Family History Other Unknown family medical history Social History Social History (Updated 02/15/24 @ 08:47 by Laney Ortiz DO) Social History: The patient reports that he is and he and his had a daughter and a son. They have many grandchildren and great grandchildren now. 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 Code status: Full code Healthcare power of slope runner: Smoking status: Never smoker Second hand tobacco smoke exposure: No Alcohol intake: never Substance use: never Substance use type: does not use Do You Feel Safe in your Home?: Yes Lack of Transportation: No Lack of Food: Never True Current Housing: I Have Housing Concerned About Future Housing: No Difficulty Paying Gas/Electric Bills: No Difficulty Paying for Meds: No Currently Unemployed: No Education: High School Diploma/GED Difficulty w/ Childcare or Family Care: No Living arrangements: with family Spiritual care concerns: No Meds Home Medications and Allergies Home Medications Medication Instructions Recorded Confirmed Type diltiazem HCl 240 mg 240 mg PO DAILY 05/15/19 02/15/24 History capsule,extended release 24 hr lovastatin 10 mg tablet 5 mg PO HS 05/15/19 02/15/24 History cholecalciferol (vitamin D3) 50 2,000 unit PO DAILY 05/16/19 02/15/24 History mcg (2,000 unit) tablet multivitamin 1 tablet PO DAILY 05/16/19 02/15/24 History apixaban 5 mg tablet (Eliquis) 5 mg PO BID 04/26/20 02/15/24 History baclofen 10 mg tablet 10 mg PO TID 04/26/20 02/15/24 History hydralazine 10 mg tablet 15 mg PO TID 04/26/20 02/15/24 History insulin lispro 100 unit/mL 10 unit subcut AC 04/26/20 02/15/24 History subcutaneous pen lorazepam 0.5 mg tablet 0.5 - 1 mg PO DAILY PRN Anxiety 04/26/20 02/15/24 History acetaminophen 500 mg tablet 650 mg PO Q4H PRN Fever Or Pain 06/15/20 02/15/24 History (Tylenol Extra Strength) cetirizine 10 mg tablet (Zyrtec) 10 mg PO DAILY PRN allergies 06/15/20 02/15/24 History losartan 100 mg tablet 100 mg PO DAILY #30 tabs 06/23/21 02/15/24 Rx cyanocobalamin (vitamin B-12) 1,000 mcg PO DAILY 09/25/21 02/15/24 History 1,000 mcg tablet (Vitamin B-12) sennosides 8.6 mg-docusate sodium 1 tab-cap PO DAILY Constipation 09/25/21 02/15/24 History 50 mg capsule (Senna Plus) ascorbic acid (vitamin C) 500 mg 1,000 mg PO DAILY 03/27/22 02/15/24 History tablet diclofenac sodium 1 % topical gel 2 g topical QID 03/27/22 02/15/24 History lidocaine 5 % topical patch 1 patch topical DAILY 03/27/22 02/15/24 History polyethylene glycol 3350 17 gram 17 g PO DAILY 03/27/22 02/15/24 History oral powder packet (Miralax) ipratropium bromide 42 mcg (0.06 1 spray intranasal DAILY 10/07/22 02/15/24 History %) nasal spray insulin glargine 100 unit/mL 32 unit (0.32 mL) subcut HS #10 mL 10/09/22 02/15/24 Rx subcutaneous solution (Lantus U-100 Insulin) donepezil 23 mg tablet 23 mg PO DAILY 11/27/22 02/15/24 History ferrous sulfate 325 mg (65 mg 65 mg PO DAILY 01/04/23 02/15/24 History iron) tablet (Tasneem-Time) cephalexin 250 mg capsule 250 mg PO QHS 06/24/23 02/15/24 History fluticasone propionate 50 1 spray intranasal BID #16 grams 07/11/23 02/15/24 Rx mcg/actuation nasal spray,suspension azelastine 137 mcg (0.1 %) nasal See Rx Instructions .Route 11/16/23 02/15/24 Rx spray .COMPLEX #30 mL benzonatate 100 mg capsule 200 mg PO TID PRN prn cough 02/15/24 02/15/24 History montelukast 10 mg tablet 10 mg PO DAILY 02/15/24 02/15/24 History Allergies Allergy/AdvReac Type Severity Reaction Status Date / Time No Known Allergies Allergy Verified 06/24/23 16:21 Vital Signs Vital Signs - 24 hr 02/14/24 18:50 02/14/24 20:18 02/14/24 19:30 Temperature 97.6 F Pulse Rate 58 L 57 L Respiratory Rate 18 18 21 H Blood Pressure 146/91 H 143/107 H Pulse Oximetry 96 97 94 Oxygen Delivery Room Air 02/14/24 21:30 02/15/24 00:02 02/14/24 22:24 Temperature Pulse Rate 58 L 62 61 Respiratory Rate 23 H 18 21 H Blood Pressure 170/92 H 130/84 123/70 Pulse Oximetry 94 97 94 Oxygen Delivery 02/14/24 22:31 02/14/24 22:45 02/14/24 23:10 Temperature Pulse Rate 63 64 60 Respiratory Rate 21 H 20 21 H Blood Pressure 145/77 H Pulse Oximetry 92 96 94 Oxygen Delivery 02/14/24 23:15 02/14/24 23:30 02/14/24 23:32 Temperature Pulse Rate 62 66 64 Respiratory Rate 22 H 17 20 Blood Pressure 148/91 H Pulse Oximetry 94 96 95 Oxygen Delivery 02/14/24 23:45 02/15/24 00:40 02/15/24 00:44 Temperature 98.1 F Pulse Rate 61 60 Respiratory Rate 24 H 16 Blood Pressure 142/83 H Pulse Oximetry 93 97 Oxygen Delivery Room Air 02/15/24 04:57 02/15/24 08:00 02/15/24 14:00 Temperature 98.1 F 98.3 F Pulse Rate 63 60 Respiratory Rate 16 16 Blood Pressure 148/81 H 114/64 Pulse Oximetry 95 95 Oxygen Delivery Room Air Exam Const: General: no acute distress Resp: Effort & Inspection: normal respiratory effort GI: Inspection: non-distended GI Palp: No abdominal tenderness and No Guarding due to palpation present (GI) Auscultation: normal bowel sounds Urinary Catheter: Urinary Catheter: patent and draining and urine clear Results Labs 02/15/24 08:07 02/15/24 09:03 Labs: Short CBC 02/14/24 02/15/24 Range/Units 20:09 08:07 WBC 9.4 7.3 (4.5-10.0) K/mm3 Hgb 11.3 L 11.9 L (14.0-18.0) g/dL Hct 34.7 L 37.1 L (42.0-52.0) % Plt Count 238 249 (150-375) k/mm3 BMP 02/14/24 02/15/24 20:09 09:03 Sodium 137 139 Potassium 3.9 4.2 Chloride 102 102 Carbon Dioxide 29 28 BUN 16 13 Creatinine 0.80 0.70 Glucose 191 H 239 H Calcium 8.6 8.7 Liver Function 02/14/24 Range/Units 20:09 Total Bilirubin 0.4 (0.2-1.3) mg/dL AST 17 (17-59) U/L ALT 12 (6-50) U/L Alkaline Phosphatase 82 (38-126) U/L Albumin 3.5 (3.5-5.1) g/dL Urine 02/14/24 Range/Units 20:13 Urine Color Red H (Yellow) Urine Appearance Cloudy H (Clear) Urine pH 5.0 (5.0-9.0) Ur Specific [place] 1.013 (1.001-1.035) Urine Protein 2+ H (Negative) mg/dL Urine Glucose (UA) Negative (Negative) mg/dL
[2024-02-15 19:26] LABS: Glucose Point of Care 193 mg/dl (65-105)
[2024-02-15] MEDS: CEPHALEXIN 250 MG CAPSULE PO (21:11)
[2024-02-15] MEDS: levoFLOXacin 750 MG/D5W 150 ML 750 MG/150 ML BAG 100 MG IVPB (21:12)
[2024-02-15] MEDS: INSULIN GLARGINE (*BKC) 100 UNITS/ML 28 UNITS SUB-Q (21:12)
[2024-02-15 21:26] VITALS: BP 146/87; PULSE 65; RESP 18; TEMP 36.8; O2SAT 95
[2024-02-16 06:00] VITALS: BP 154/69; PULSE 59; RESP 14; TEMP 36.8; O2SAT 93
--- NOTE | 2024-02-16 06:58 | P.PNUR_ITS ---
Subjective Subjective Date/Time Seen: 02/16/24 06:58 Interval history: Comfortable, no complaints. Urine remains clear and patient anxious for discharge Review of Systems Cardiovascular: Cardiovascular: Denies chest pain, Denies lightheadedness, Denies palpitations and Denies dyspnea Respiratory: Respiratory: Denies dyspnea Gastrointestinal: Gastrointestinal: Denies diarrhea, Denies nausea and Denies vomiting Genitourinary: Genitourinary: Denies hematuria and Denies dysuria Endocrine: Endocrine: Denies palpitations Exam Const: General: no acute distress Resp: Effort & Inspection: normal respiratory effort GI: Inspection: non-distended GI Palp: No abdominal tenderness and No Guarding due to palpation present (GI) Auscultation: normal bowel sounds Urinary Catheter: Urinary Catheter: patent and draining and urine clear Objective Data Vital Signs Vital Signs: Vital Signs - 24 hr 02/15/24 08:00 02/15/24 14:00 02/15/24 21:26 Temperature 98.3 F 98.2 F Pulse Rate 60 65 Respiratory Rate 16 18 Blood Pressure 114/64 146/87 H Pulse Oximetry 95 95 Oxygen Delivery Room Air 02/16/24 06:00 Temperature 98.2 F Pulse Rate 59 L Respiratory Rate 14 Blood Pressure 154/69 H Pulse Oximetry 93 Oxygen Delivery Intake/Output Intake/Output: Intake & Output 02/13/24 02/14/24 02/15/24 02/16/24 23:59 23:59 23:59 23:59 Intake Total 150 6698 300 Output Total 5750 Balance 150 948 300 Meds/Results Medications: Active Medications Generic Name Dose Route Start Last Admin Trade Name Freq PRN Reason Stop Dose Admin Acetaminophen 650 mg 02/15/24 07:52 Acetaminophen 325 Mg Tablet PO Q4H PRN Fever Or Pain 1-3 Apixaban 5 mg 02/15/24 09:00 02/15/24 09:27 Apixaban 5 Mg Tablet PO 5 mg BID ELVIN Administration Ascorbic Acid 1,000 mg 02/15/24 09:00 02/15/24 09:26 Ascorbic Acid 500 Mg Tablet PO 1,000 mg DAILY ELVIN Administration Azelastine HCl 1 spray 02/15/24 09:00 02/15/24 21:11 Azelastine Hcl Nasal 0.1% 137 Mcg/Spr 30 Ml Btl NASAL 1 spray Q12HR ELVIN Administration Baclofen 10 mg 02/15/24 09:00 02/15/24 16:43 Baclofen 10 Mg Tablet PO 10 mg TID ELVIN Administration Benzonatate 200 mg 02/15/24 07:52 Benzonatate 100 Mg Capsule PO TID PRN prn cough Cephalexin HCl 250 mg 02/15/24 21:00 02/15/24 21:11 Cephalexin 250 Mg Capsule PO 250 mg QHS ELVIN Administration Cyanocobalamin 1,000 mcg 02/15/24 09:00 02/15/24 09:26 Cyanocobalamin 1,000 Mcg Tablet PO 1,000 mcg DAILY ELVIN Administration Dextrose 12.5 gm 02/15/24 07:57 Dextrose 50% 25 Gm/50 Ml Syringe IV PUSH PRN PRN Hypoglycemia Protocol Diclofenac Sodium 1 applic 02/15/24 07:52 02/15/24 09:25 Diclofenac Sodium 1% 100 Gm Gel (*Bkc) TOPICAL 1 applic QID PRN Administration Joint pain Diltiazem HCl 240 mg 02/15/24 09:00 02/15/24 09:27 Diltiazem Hcl Cd 240 Mg Cap.24hr PO 240 mg DAILY ELVIN Administration Ferrous Sulfate 325 mg 02/15/24 09:00 02/15/24 09:26 Ferrous Sulfate [address] BY MOUTH 325 mg DAILY ELVIN Administration Glucagon 1 mg 02/15/24 07:57 Glucagon For Inj 1 Mg Vial IM PRN PRN Hypoglycemia Protocol Glucose 15 gm 02/15/24 07:57 Glucose Oral Gel 15 Gm Of Glucse In 37.5 Gm Tube PO PRN PRN Hypoglycemia Protocol Hydralazine HCl 5 mg 02/15/24 09:00 02/15/24 16:43 Hydralazine 5 Mg Tablet PO 5 mg TID ELVIN Administration Hydralazine HCl 10 mg 02/15/24 09:00 02/15/24 16:43 Hydralazine 10 Mg Tablet PO 10 mg TID ELVIN Administration Levofloxacin/Dextrose 750 mg in 150 mls @ 100 mls/hr 02/15/24 22:00 02/15/24 21:12 Levaquin 750 Mg/D5w 150 Ml IVPB 100 mls/hr Q24H ELVIN Administration Dextrose 1,000 mls @ 100 mls/hr 02/15/24 07:57 Dextrose 5% 1,000 Ml IVPB PRN PRN Hypoglycemia Protocol Insulin Aspart 3 - 6 units 02/15/24 08:00 02/15/24 18:25 Insulin Aspart (*Bkc) 100 Units/Ml SUB-Q Not Given TIDWM [facility] Protocol Insulin Aspart 1 - 3 units 02/15/24 21:00 02/15/24 21:11 Insulin Aspart (*Bkc) 100 Units/Ml SUB-Q Not Given HS [facility] Protocol Insulin Aspart 5 units 02/15/24 12:40 02/15/24 17:59 Insulin Aspart (*Bkc) 100 Units/Ml SUB-Q 5 units TIDWM [facility] Administration Insulin Glargine 28 units 02/15/24 21:00 02/15/24 21:12 Insulin Glargine (*Bkc) 100 Units/Ml SUB-Q 28 units HS [facility] Administration Ipratropium [place] 1 spray 02/15/24 09:00 02/15/24 09:27 Ipratropium Nasal [place] 0.06% 15 Ml Bottle NASAL 1 spray DAILY [facility] Administration Lidocaine 1 patch 02/15/24 14:05 02/15/24 18:27 Lidocaine 5% Patch TOPICAL Not Given DAILY [facility] Lorazepam 0.5 mg 02/15/24 07:52 Lorazepam (*Crx) 0.5 Mg Tablet PO DAILY PRN Anxiety Losartan Potassium 100 mg 02/15/24 09:00 02/15/24 09:27 Losartan Potassium 100 Mg Tablet PO 100 mg DAILY [facility] Administration Lovastatin 5 mg 02/15/24 21:00 02/16/24 05:51 Lovastatin 10 Mg Tablet PO Not Given HS [facility] Miscellaneous Information 0 each 02/15/24 00:01 Donepezil 23 Mg Is Nonformulary - Can Patient Use From Home? Order Something From Formular XX 03/16/24 00:00 CLARIFY [facility] Montelukast Sodium 10 mg 02/15/24 09:00 02/15/24 09:26 Montelukast Sodium 10 Mg Tablet PO 10 mg DAILY [facility] Administration Multivitamins Therapeutic 1 tablet 02/15/24 09:00 02/15/24 09:27 Multivitamins Therapeutic Tab (*Bkc) PO 1 tablet DAILY [facility] Administration Non-Formulary Medication 23 mg 02/15/24 09:00 Donepezil PO 03/16/24 08:59 DAILY [facility] Polyethylene Glycol 17 gm 02/15/24 09:00 02/15/24 09:25 Polyethylene Glycol 3350 17 Gm Powd.Pack PO 17 gm DAILY ELVIN Administration Senna/Docusate Sodium 1 tab 02/15/24 09:00 02/15/24 09:27 Senna/Docusate Sodium Tablet PO 1 tab DAILY ELVIN Administration Vitamin D 2,000 units 02/15/24 09:00 02/15/24 09:26 Cholecalciferol 1,000 Units Tablet PO 2,000 units DAILY ELVIN Administration Labs Labs: Laboratory Results - last 24 hr 02/15/24 02/15/24 02/15/24 08:07 08:52 09:03 WBC 7.3 RBC 3.87 L Hgb 11.9 L Hct 37.1 L MCV 95.9 MCH 30.7 MCHC 32.1 RDW 14.0 Plt Count 249 MPV 10.0 Immature Gran % (Auto) 0.5 Neut % (Auto) 79.0 H Lymph % (Auto) 10.0 L [place] % (Auto) 8.0 Eos % (Auto) 1.8 Baso % (Auto) 0.7 Lymph # (Auto) 0.73 L [place] # (Auto) 0.6 Eos # (Auto) 0.1 Baso # (Auto) 0.1 Abs Immat Gran (auto) 0.04 H Absolute Neuts (auto) 5.8 Absolute Nucleated RBC 0.000 Nucleated RBC % 0.0 Sodium 139 Potassium 4.2 Chloride 102 Carbon Dioxide 28 Anion Gap 9 BUN 13 Creatinine 0.70 Estim Creat Clear Calc 88 Estimated GFR > 60 Glucose 239 H POC Capillary Glucose Calcium 8.7 NT-Pro-B Natriuret Pep 257 H 02/15/24 02/15/24 02/15/24 12:49 16:46 19:09 WBC RBC Hgb Hct MCV MCH MCHC RDW Plt Count MPV Immature Gran % (Auto) Neut % (Auto) Lymph % (Auto) [place] % (Auto) Eos % (Auto) Baso % (Auto) Lymph # (Auto) [place] # (Auto) Eos # (Auto) Baso # (Auto) Abs Immat Gran (auto) Absolute Neuts (auto) Absolute Nucleated RBC Nucleated RBC % Sodium Potassium Chloride Carbon Dioxide Anion Gap BUN Creatinine Estim Creat Clear Calc Estimated GFR Glucose POC Capillary Glucose 271 H 164 H 193 H Calcium NT-Pro-B Natriuret Pep
--- NOTE | 2024-02-16 07:00 | WPDUROPN2 ---
Progress Note: A&P Assessment and Plan (1) Chronic anticoagulation: Code(s): Z79.01 - long-term (current) use of anticoagulants Status: Acute (2) Acute UTI: Code(s): N39.0 - Urinary tract infection, site not specified Status: Acute Assessment and Plan: Transient hematuria following traumatic extraction of catheter Urine has remained clear overnight. Patient can be discharged with indwelling catheter as before with resumption of monthly catheter changes at home Follow-up with Dr. Burrell as previously arranged Subjective Subjective Date/Time Seen: 02/16/24 07:00 Interval history: Comfortable, urine remained clear. Patient anxious for discharge Review of Systems Cardiovascular: Cardiovascular: Denies chest pain, Denies lightheadedness, Denies palpitations and Denies dyspnea Respiratory: Respiratory: Denies dyspnea Gastrointestinal: Gastrointestinal: Denies diarrhea, Denies nausea and Denies vomiting Genitourinary: Genitourinary: Denies hematuria and Denies dysuria Endocrine: Endocrine: Denies palpitations Exam Const: General: no acute distress Resp: Effort & Inspection: normal respiratory effort GI: Inspection: non-distended GI Palp: No abdominal tenderness and No Guarding due to palpation present (GI) Auscultation: normal bowel sounds Urinary Catheter: Urinary Catheter: patent and draining and urine clear Objective Data Vital Signs Vital Signs: Vital Signs - 24 hr 02/15/24 08:00 02/15/24 14:00 02/15/24 21:26 Temperature 98.3 F 98.2 F Pulse Rate 60 65 Respiratory Rate 16 18 Blood Pressure 114/64 146/87 H Pulse Oximetry 95 95 Oxygen Delivery Room Air 02/16/24 06:00 Temperature 98.2 F Pulse Rate 59 L Respiratory Rate 14 Blood Pressure 154/69 H Pulse Oximetry 93 Oxygen Delivery Intake/Output Intake/Output: Intake & Output 02/13/24 02/14/24 02/15/24 02/16/24 23:59 23:59 23:59 23:59 Intake Total 150 6698 300 Output Total 5750 Balance 150 948 300 Meds/Results Medications: Active Medications Generic Name Dose Route Start Last Admin Trade Name Freq PRN Reason Stop Dose Admin Acetaminophen 650 mg 02/15/24 07:52 Acetaminophen 325 Mg Tablet PO Q4H PRN Fever Or Pain 1-3 Apixaban 5 mg 02/15/24 09:00 02/15/24 09:27 Apixaban 5 Mg Tablet PO 5 mg BID ELVIN Administration Ascorbic Acid 1,000 mg 02/15/24 09:00 02/15/24 09:26 Ascorbic Acid 500 Mg Tablet PO 1,000 mg DAILY ELVIN Administration Azelastine HCl 1 spray 02/15/24 09:00 02/15/24 21:11 Azelastine Hcl Nasal 0.1% 137 Mcg/Spr 30 Ml Btl NASAL 1 spray Q12HR ELVIN Administration Baclofen 10 mg 02/15/24 09:00 02/15/24 16:43 Baclofen 10 Mg Tablet PO 10 mg TID ELVIN Administration Benzonatate 200 mg 02/15/24 07:52 Benzonatate 100 Mg Capsule PO TID PRN prn cough Cephalexin HCl 250 mg 02/15/24 21:00 02/15/24 21:11 Cephalexin 250 Mg Capsule PO 250 mg QHS ELVIN Administration Cyanocobalamin 1,000 mcg 02/15/24 09:00 02/15/24 09:26 Cyanocobalamin 1,000 Mcg Tablet PO 1,000 mcg DAILY ELVIN Administration Dextrose 12.5 gm 02/15/24 07:57 Dextrose 50% 25 Gm/50 Ml Syringe IV PUSH PRN PRN Hypoglycemia Protocol Diclofenac Sodium 1 applic 02/15/24 07:52 02/15/24 09:25 Diclofenac Sodium 1% 100 Gm Gel (*[facility]) TOPICAL 1 applic QID PRN Administration Joint pain Diltiazem HCl 240 mg 02/15/24 09:00 02/15/24 09:27 Diltiazem Hcl Cd 240 Mg Cap.24hr PO 240 mg DAILY ELVIN Administration Ferrous Sulfate 325 mg 02/15/24 09:00 02/15/24 09:26 Ferrous Sulfate [address] BY MOUTH 325 mg DAILY ELVIN Administration Glucagon 1 mg 02/15/24 07:57 Glucagon For Inj 1 Mg Vial IM PRN PRN Hypoglycemia Protocol Glucose 15 gm 02/15/24 07:57 Glucose Oral Gel 15 Gm Of Glucse In 37.5 Gm Tube PO PRN PRN Hypoglycemia Protocol Hydralazine HCl 5 mg 02/15/24 09:00 02/15/24 16:43 Hydralazine 5 Mg Tablet PO 5 mg TID ELVIN Administration Hydralazine HCl 10 mg 02/15/24 09:00 02/15/24 16:43 Hydralazine 10 Mg Tablet PO 10 mg TID ELVIN Administration Levofloxacin/Dextrose 750 mg in 150 mls @ 100 mls/hr 02/15/24 22:00 02/15/24 21:12 Levaquin 750 Mg/D5w 150 Ml IVPB 100 mls/hr Q24H ELVIN Administration Dextrose 1,000 mls @ 100 mls/hr 02/15/24 07:57 Dextrose 5% 1,000 Ml IVPB PRN PRN Hypoglycemia Protocol Insulin Aspart 3 - 6 units 02/15/24 08:00 02/15/24 18:25 Insulin Aspart (*Bkc) 100 Units/Ml SUB-Q Not Given TIDWM [facility] Protocol Insulin Aspart 1 - 3 units 02/15/24 21:00 02/15/24 21:11 Insulin Aspart (*Bkc) 100 Units/Ml SUB-Q Not Given HS [facility] Protocol Insulin Aspart 5 units 02/15/24 12:40 02/15/24 17:59 Insulin Aspart (*Bkc) 100 Units/Ml SUB-Q 5 units TIDWM ELVIN Administration Insulin Glargine 28 units 02/15/24 21:00 02/15/24 21:12 Insulin Glargine (*Bkc) 100 Units/Ml SUB-Q 28 units HS [facility] Administration Ipratropium [place] 1 spray 02/15/24 09:00 02/15/24 09:27 Ipratropium Nasal [place] 0.06% 15 Ml Bottle NASAL 1 spray DAILY [facility] Administration Lidocaine 1 patch 02/15/24 14:05 02/15/24 18:27 Lidocaine 5% Patch TOPICAL Not Given DAILY [facility] Lorazepam 0.5 mg 02/15/24 07:52 Lorazepam (*Crx) 0.5 Mg Tablet PO DAILY PRN Anxiety Losartan Potassium 100 mg 02/15/24 09:00 02/15/24 09:27 Losartan Potassium 100 Mg Tablet PO 100 mg DAILY [facility] Administration Lovastatin 5 mg 02/15/24 21:00 02/16/24 05:51 Lovastatin 10 Mg Tablet PO Not Given [facility] Miscellaneous Information 0 each 02/15/24 00:01 Donepezil 23 Mg Is Nonformulary - Can Patient Use From Home? Order Something From Formular XX 03/16/24 00:00 CLARIFY [facility] Montelukast Sodium 10 mg 02/15/24 09:00 02/15/24 09:26 Montelukast Sodium 10 Mg Tablet PO 10 mg DAILY ELVIN Administration Multivitamins Therapeutic 1 tablet 02/15/24 09:00 02/15/24 09:27 Multivitamins Therapeutic Tab (*Bkc) PO 1 tablet DAILY ELVIN Administration Non-Formulary Medication 23 mg 02/15/24 09:00 Donepezil PO 03/16/24 08:59 DAILY ELVIN Polyethylene Glycol 17 gm 02/15/24 09:00 02/15/24 09:25 Polyethylene Glycol 3350 17 Gm Powd.Pack PO 17 gm DAILY ELVIN Administration Senna/Docusate Sodium 1 tab 02/15/24 09:00 02/15/24 09:27 Senna/Docusate Sodium Tablet PO 1 tab DAILY ELVIN Administration Vitamin D 2,000 units 02/15/24 09:00 02/15/24 09:26 Cholecalciferol 1,000 Units Tablet PO 2,000 units DAILY ELVIN Administration Labs Labs: Laboratory Results - last 24 hr 02/15/24 02/15/24 02/15/24 08:07 08:52 09:03 WBC 7.3 RBC 3.87 L Hgb 11.9 L Hct 37.1 L MCV 95.9 MCH 30.7 MCHC 32.1 RDW 14.0 Plt Count 249 MPV 10.0 Immature Gran % (Auto) 0.5 Neut % (Auto) 79.0 H Lymph % (Auto) 10.0 L [place] % (Auto) 8.0 Eos % (Auto) 1.8 Baso % (Auto) 0.7 Lymph # (Auto) 0.73 L [place] # (Auto) 0.6 Eos # (Auto) 0.1 Baso # (Auto) 0.1 Abs Immat Gran (auto) 0.04 H Absolute Neuts (auto) 5.8 Absolute Nucleated RBC 0.000 Nucleated RBC % 0.0 Sodium 139 Potassium 4.2 Chloride 102 Carbon Dioxide 28 Anion Gap 9 BUN 13 Creatinine 0.70 Estim Creat Clear Calc 88 Estimated GFR > 60 Glucose 239 H POC Capillary Glucose Calcium 8.7 NT-Pro-B Natriuret Pep 257 H 02/15/24 02/15/24 02/15/24 12:49 16:46 19:09 WBC RBC Hgb Hct MCV MCH MCHC RDW Plt Count MPV Immature Gran % (Auto) Neut % (Auto) Lymph % (Auto) [place] % (Auto) Eos % (Auto) Baso % (Auto) Lymph # (Auto) [place] # (Auto) Eos # (Auto) Baso # (Auto) Abs Immat Gran (auto) Absolute Neuts (auto) Absolute Nucleated RBC Nucleated RBC % Sodium Potassium Chloride Carbon Dioxide Anion Gap BUN Creatinine Estim Creat Clear Calc Estimated GFR Glucose POC Capillary Glucose 271 H 164 H 193 H Calcium NT-Pro-B Natriuret Pep
[2024-02-16 07:23] LABS: Basophils Percent Auto 0.4 % (0.2-1.2); Eosinophils Absolute Auto 0.2 K/mm3 (0-0.3); Eosinophils Percent Auto 2.9 % (0-4.4); Hematocrit 36.2 % (42.0-52.0); Hemoglobin 11.5 g/dL (14.0-18.0); Immature Granulocyte Absolute 0.04 K/mm3 (0.00-0.031); Immature Granulocyte Percent A 0.5 % (0-0.5); Immature Platelet Fraction Pct 2.6 % (0.9-11.2); Lymphocytes Percent Auto 11.7 % (18.3-44.2); Mean Corpuscular HGB Conc 31.8 g/dl (32-36); Mean Corpuscular Hemoglobin 31.2 pg (26-34); Mean Corpuscular Volume 98.1 fl (80-100); Mean Platelet Volume 10.1 fl (7.4-10.4); Monocytes Absolute Auto 0.7 K/mm3 (0.1-0.6); Monocytes Percent Auto 8.5 % (2.6-8.5); Neutrophils Absolute Auto 5.9 K/mm3 (1.3-6.7); Platelet Count Result 242 k/mm3 (150-375); Red Blood Count 3.69 M/mm3 (4.6-6.20); Red Cell Distribution Width 13.7 % (11.5-14.5); White Blood Count 7.7 K/mm3 (4.5-10.0)
[2024-02-16 08:01] LABS: Glucose Point of Care 159 mg/dl (65-105)
[2024-02-16 08:02] LABS: Alanine Aminotransferase 11 U/L (6-50); Albumin Level 3.3 g/dL (3.5-5.1); Alkaline Phosphatase 67 U/L (38-126); Anion Gap 6 mmol/L (4-12); Aspartate Amino Transferase 21 U/L (17-59); Bilirubin,Total 0.5 mg/dL (0.2-1.3); Blood Urea Nitrogen 12 mg/dL (9-20); CRP 1.4 mg/dL (<1.0); Calcium 8.7 mg/dL (8.4-10.2); Carbon Dioxide 30 mmol/L (22-30); Chloride 102 mmol/L (98-107); Estimated CRCL calculation 88 ml/min; Estimated Glomerular Filt Rate > 60; Glucose 143 mg/dL (65-110); Potassium 4.5 mmol/L (3.4-5.0); Sodium 138 mmol/L (137-145)
[2024-02-16 09:16] LABS: Platelet Estimate Adequate (Adequate)
[2024-02-16 09:17] LABS: Anisocytosis 1+; Schistocytes Rare
[2024-02-16] MEDS: LOSARTAN POTASSIUM 100 MG TABLET PO (09:34)
[2024-02-16] MEDS: BACLOFEN 10 MG TABLET PO ×2 (09:34→12:24)
[2024-02-16] MEDS: ASCORBIC ACID 500 MG TABLET 1000 MG PO (09:34)
[2024-02-16] MEDS: CYANOCOBALAMIN 1,000 MCG TABLET 1000 MCG PO (09:34)
[2024-02-16] MEDS: MULTIVITAMINS THERAPEUTIC TAB (*BKC) 1 TABLET PO (09:34)
[2024-02-16] MEDS: FERROUS SULFATE 325 MG TABLET DR BY MOUTH (09:34)
[2024-02-16] MEDS: dilTIAZem HCL CD 240 MG CAP.24HR PO (09:35)
[2024-02-16] MEDS: APIXABAN 5 MG TABLET PO (09:35)
[2024-02-16] MEDS: MONTELUKAST SODIUM 10 MG TABLET PO (09:35)
[2024-02-16] MEDS: hydrALAZINE 5 MG TABLET PO ×2 (09:35→12:24)
[2024-02-16] MEDS: hydrALAZINE 10 MG TABLET PO ×2 (09:35→12:24)
[2024-02-16] MEDS: polyethylene glycoL 3350 17 GM POWD.PACK PO (09:35)
[2024-02-16] MEDS: CHOLECALCIFEROL 1,000 UNITS TABLET 2000 UNITS PO (09:35)
[2024-02-16] MEDS: SENNA/DOCUSATE SODIUM TABLET 1 TAB PO (09:35)
[2024-02-16] MEDS: AZELASTINE HCL NASAL 0.1% 137 MCG/SPR 30 ML BTL 1 SPRAY NASAL (09:36)
[2024-02-16] MEDS: INSULIN ASPART (*BKC) 100 UNITS/ML SUB-Q ×3 (09:37→12:25)
[2024-02-16] MEDS: IPRATROPIUM NASAL SPRAY 0.06% 15 ML BOTTLE 1 SPRAY NASAL (09:37)
[2024-02-16 11:51] LABS: Glucose Point of Care 203 mg/dl (65-105)
--- NOTE | 2024-02-16 12:29 | P.DS_ITS ---
DS: Admitting Diagnosis Discharge Date 02/15 Admitting Diagnosis Hematuria DS: Discharge Diagnosis Discharge Diagnosis (1) Acute UTI: Code(s): N39.0 - Urinary tract infection, site not specified Status: Acute Assessment and Plan: Patient has gross hematuria from a acute Aleman catheter associated UTI. Patient been placed on empiric antibiotic therapy. Patient's reports a traumatic Aleman removal approximately 2 weeks ago. * UA grossly abnormal and culture pending * Past urine cultures reviewed and patient was started on Levaquin * Urinary catheter was exchanged in the emergency room. Patient has a chronic urinary catheter for retention. (2) Hematuria: Qualifiers: Hematuria type: gross Qualified Code(s): R31.0 - Gross hematuria Code(s): R31.9 - Hematuria, unspecified Status: Acute Assessment and Plan: Onset of gross hematuria in the last 24 hours. Recent traumatic Aleman removal. He had one episode of some hematuria after the aleman removal but it resolved on its own. * Eliquis on hold until CBI is removed and Urology is okay with resuming DS: Summary Hospital Course Reason for hospitalization: Hematuria, urinary tract infection secondary to presence of urinary catheter. 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 The patient had been evaluated in the ER the week before after having dislodged his Aleman catheter off flailing about in the bed. He reported to the provider that he has vivid dreams and he thinks that he may have pulled out the catheter when he was having a dream. The patient at the time my evaluation states that he will unconscious sleep pull at the catheter if he has the sensation of fullness. Patient seems somewhat vague in his responses regarding his catheter in if he has had any trauma. He is alert oriented and oriented x4 but does seem to have a little bit of difficulty with recalling events from the prior visit. ER note stated that the patient had removed his catheter with the balloon intact. He had some bleeding noted at that time. His Aleman catheter was replaced and he was discharged back home. He reported that he went to his doctor's visit for PFTs today. After he and his returned from the visit is noted he had some blood at his meatus and had gross hematuria. He denied having any fevers, chills, nausea, vomiting or other concerning symptoms. He is on chronic suppressive therapy with Keflex 250 mg at HS. He is on Eliquis due to his history of DVTs. UA performed in the ER was suggestive of UTI. The most part the patient's prior urine cultures resulted in organisms that seemed to be pretty pansensitive. He has grown-up both Pseudomonas and Klebsiella within the last 2 years. Initially the patient's urine was still draining in the Aleman bag. However prior to being transferred to the medical floor the patient did start having sensation of bladder fullness. Nursing staff did place at 3 way catheter at that time and evacuated several large clots from the patient's bladder. Since that clots have passed the patient's urine has cleared. Patient's white count and hemoglobin AR were stable compared to his baseline. The patient was admitted with Urology consult and started on a continuous bladder irrigation. Urinary catheter was exchanged in the ER. Bleeding resolved after CBI. Urology was okay with resuming Eliquis and discharging with his chronic Aleman catheter and continue monthly exchanges. UA was concerning for an infection however there is the chance of colonization. Urine culture did not grow any specific bacteria. He was started on Levaquin based off of previous urine cultures. He had nonspecific signs of urinary tract infection including lower suprapubic tenderness and increased bladder spasm. This could be related to bladder distension from hematuria and presence of clots. Given his age and history of traumatic Aleman removal a couple weeks ago I will continue with 5 more days of oral Levaquin to treat a presumed bladder infection secondary to chronic urinary catheter. Overall the patient did well and was discharged home in stable condition via EMS and care of his and paid caregivers. He will continue with home health at discharge for monthly Aleman exchanges. Time Spent with Patient Time attestation: Total time spent providing and/or coordinating discharge services:75 Exam Narrative: General: appears comfortable, in no acute distress Respiratory: breathing is unlabored with even chest rise/fall, lungs are clear without wheezing, rhonchi, and crackles Cardiovascular: Rate and rhythm regular, normal s1s2, no murmur Abdomen: Soft, round, non-tender, active bowel sounds Extremities: No cyanosis, +3 edema to bilateral feet, clubbing. Pulses 2/2 Neuro: A&O x 4 Skin: Warm, dry, intact DS: Data Data Completed and Pending Labs on day of discharge: Labs from last 24 hours 02/16/24 02/16/24 02/16/24 11:42 07:30 06:45 WBC 7.7 RBC 3.69 L Hgb 11.5 L Hct 36.2 L MCV 98.1 MCH 31.2 MCHC 31.8 L RDW 13.7 Plt Count 242 MPV 10.1 Immature Gran % (Auto) 0.5 Neut % (Auto) 76.0 H Lymph % (Auto) 11.7 L [place] % (Auto) 8.5 Eos % (Auto) 2.9 Baso % (Auto) 0.4 Lymph # (Auto) 0.90 [place] # (Auto) 0.7 H Eos # (Auto) 0.2 Baso # (Auto) 0.0 Abs Immat Gran (auto) 0.04 H Absolute Neuts (auto) 5.9 Absolute Nucleated RBC 0.000 Nucleated RBC % 0.0 Platelet Estimate Adequate % Immature Plt Fraction 2.6 Anisocytosis 1+ Schistocytes Rare Sodium 138 Potassium 4.5 Chloride 102 Carbon Dioxide 30 Anion Gap 6 BUN 12 Creatinine 0.70 Estim Creat Clear Calc 88 Estimated GFR > 60 Glucose 143 H POC Capillary Glucose 203 H 159 H Calcium 8.7 Total Bilirubin 0.5 AST 21 ALT 11 Alkaline Phosphatase 67 C-Reactive Protein 1.4 H NT-Pro-B Natriuret Pep Total Protein 6.0 L Albumin 3.3 L 02/15/24 02/15/24 02/15/24 19:09 16:46 12:49 WBC RBC Hgb Hct MCV MCH MCHC RDW Plt Count MPV Immature Gran % (Auto) Neut % (Auto) Lymph % (Auto) [place] % (Auto) Eos % (Auto) Baso % (Auto) Lymph # (Auto) [place] # (Auto) Eos # (Auto) Baso # (Auto) Abs Immat Gran (auto) Absolute Neuts (auto) Absolute Nucleated RBC Nucleated RBC % Platelet Estimate % Immature Plt Fraction Anisocytosis Schistocytes Sodium Potassium Chloride Carbon Dioxide Anion Gap BUN Creatinine Estim Creat Clear Calc Estimated GFR Glucose POC Capillary Glucose 193 H 164 H 271 H Calcium Total Bilirubin AST ALT Alkaline Phosphatase C-Reactive Protein NT-Pro-B Natriuret Pep Total Protein Albumin 02/15/24 08:52 WBC RBC Hgb Hct MCV MCH MCHC RDW Plt Count MPV Immature Gran % (Auto) Neut % (Auto) Lymph % (Auto) [place] % (Auto) Eos % (Auto) Baso % (Auto) Lymph # (Auto) [place] # (Auto) Eos # (Auto) Baso # (Auto) Abs Immat Gran (auto) Absolute Neuts (auto) Absolute Nucleated RBC Nucleated RBC % Platelet Estimate % Immature Plt Fraction Anisocytosis Schistocytes Sodium Potassium Chloride Carbon Dioxide Anion Gap BUN Creatinine Estim Creat Clear Calc Estimated GFR Glucose POC Capillary Glucose Calcium Total Bilirubin AST ALT Alkaline Phosphatase C-Reactive Protein NT-Pro-B Natriuret Pep 257 H Total Protein Albumin Discharge Plan Discharge Attending physician on discharge: Nallely Wilkins Consulting providers: Chirag Steve Discharging Clinician: Brittney Dotson Anticipated Discharge Date/Time: 02/16/24 12:22 Patient Disposition: Home Health Service Activity: may shower Diet: diabetic Discharge Instructions: Per Care Coordination Patient is current with [facility] services for RN for monthly aleman catheter change. Please resume HH at discharge. [phone] RN please fax completed discharge instructions to [phone] Your admitted after coming in with blood in your catheter. Here urinary catheter was exchanged in the emergency room. Your urinalysis was concerning for a possible urinary tract infection. Your started on a continuous bladder irrigation and admitted with a urology consult. Your bleeding has stopped and your urine is clear. It would be okay to resume your Eliquis now. The bleeding is likely a combination from prior trauma after accidental Aleman removal, concurrent Eliquis, and possibility of bladder infection. Your urine culture did not grow anything specific. I will go ahead and continue with Levaquin for total of 7 days. It is not uncommon frayed experience bladder spasms especially after bladder distension from the blood clots. The should resolve but if you find that you were experiencing more frequent bladder spasms or the spasm is uncontrollable you can take oxybutynin as needed. Please monitor for generalized weakness, fever, chills, flank pain, lower abdominal pain, increased muscle spasm, or recurrence of bleeding. Should you experience any of the following should report back to the emergency room at [facility] for evaluation. You should contact your urologist to follow-up after this hospitalization. Event also recommend following up with your primary care provider given this hospitalization. Patient Instructions: Antibiotic Form, Levofloxacin (By mouth), Aleman Catheter Placement and Care (DC), Catheter-associated Urinary Tract Infection (DC) Stand Alone Forms: General Discharge Information Follow-up/Referrals: Vicente Oswald MD [Primary Care Provider] - Chirag Steve MD [Physician] - Discharge Medications: New oxybutynin chloride 5 mg Tablet 5 mg PO TID PRN (Reason: bladder spasm) Qty: 30 0RF levofloxacin 750 mg tablet 750 mg PO DAILY Qty: 5 0RF Continued hydralazine 10 mg tablet 15 mg PO TID lorazepam 0.5 mg tablet 0.5 - 1 mg PO DAILY PRN (Reason: Anxiety) baclofen 10 mg tablet 10 mg PO TID insulin lispro 100 unit/mL insulin pen 10 unit SUBCUT AC Eliquis 5 mg tablet 5 mg PO BID ascorbic acid (vitamin C) 500 mg Tablet 1,000 mg PO DAILY polyethylene glycol 3350 [Miralax] 17 gram Powder In Packet 17 g PO DAILY lidocaine 5 % adhesive patch,medicated 1 patch topical DAILY diclofenac sodium 1 % Gel 2 g TOPICAL QID Rx Instructions: apply to single elbow, wrist or hand; for hand includes palm/fingers/back of hand ipratropium bromide 42 mcg (0.06 %) spray,non-aerosol 1 spray INTRANASAL DAILY insulin glargine [Lantus U-100 Insulin] 100 unit/mL Solution 32 unit subcut HS Qty: 10 0RF cephalexin 250 mg capsule 250 mg PO QHS cyanocobalamin (vitamin B-12) [Vitamin B-12] 1,000 mcg Tablet 1,000 mcg PO DAILY Senna Plus 8.6-50 mg Capsule 1 tab-cap PO DAILY lovastatin 10 mg tablet 5 mg PO HS Rx Instructions: take in evening diltiazem HCl 240 mg capsule,extended release 24hr 240 mg PO DAILY multivitamin Tablet 1 tablet PO DAILY cholecalciferol (vitamin D3) 2,000 unit tablet 2,000 unit PO DAILY acetaminophen [Tylenol Extra Strength] 500 mg tablet 650 mg PO Q4H PRN (Reason: Fever Or Pain) cetirizine [Zyrtec] 10 mg tablet 10 mg PO DAILY PRN (Reason: allergies) ferrous sulfate [Tasneem-Time] 325 mg (65 mg iron) tablet 65 mg PO DAILY donepezil 23 mg tablet 23 mg PO DAILY benzonatate 100 mg capsule 200 mg PO TID PRN (Reason: prn cough) montelukast 10 mg tablet 10 mg PO DAILY losartan 100 mg tablet 100 mg PO DAILY Qty: 30 5RF fluticasone propionate 50 mcg/actuation spray,suspension 1 spray INTRANASAL BID Qty: 16 1RF azelastine 137 mcg (0.1 %) spray,non-aerosol See Rx Instructions .ROUTE .COMPLEX Qty: 30 0RF Dose Instruction: 1 SPRAY INTRANASALLY EVERY 12 HOURS; ADMINISTER INTO EACH NOSTRIL Rx Instructions: 1 SPRAY INTRANASALLY EVERY 12 HOURS; ADMINISTER INTO EACH NOSTRIL Date of admission: 02/14/24 22:38 Primary Care Provider: Vicente Oswald Admitting Provider: Laney Ortiz Attending physician on admission: Brittney Dotson Condition: Improved Quality VTE Prophylaxis VTE prophylaxis: mechanical ordered
== END 2024-02-16 14:43 | disposition home health service (06) ==
LOC: ANHED 22:37 → ANH3MEDSUR 23:59
PROVIDERS: Admitting Provider Internal Medicine; Emergency Provider Emergency Medicine; PCP Internal Medicine; Visit Provider Nurse Practitioner Acute Care
DX: T83.511A Infection and inflammatory reaction due to indwelling urethral catheter, initial encounter (principal); N39.0 Urinary tract infection, site not specified; R31.0 Gross hematuria; Y84.6 Urinary catheterization as the cause of abnormal reaction of the patient, or of later complication, without mention of misadventure at the time of the procedure; G97.82 Other postprocedural complications and disorders of nervous system; G82.20 Paraplegia, unspecified; N99.89 Other postprocedural complications and disorders of genitourinary system; N31.8 Other neuromuscular dysfunction of bladder; R33.8 Other retention of urine; E11.65 Type 2 diabetes mellitus with hyperglycemia; G30.9 Alzheimer's disease, unspecified; F02.80 Dementia in other diseases classified elsewhere, unspecified severity, without behavioral disturbance, psychotic disturbance, mood disturbance, and anxiety; N52.9 Male erectile dysfunction, unspecified; E66.9 Obesity, unspecified; Z68.34 Body mass index [BMI] 34.0-34.9, adult; D64.9 Anemia, unspecified; I10 Essential (primary) hypertension; E78.2 Mixed hyperlipidemia; I48.0 Paroxysmal atrial fibrillation; Z86.718 Personal history of other venous thrombosis and embolism; Z79.01 Long term (current) use of anticoagulants; Z79.2 Long term (current) use of antibiotics; Z79.4 Long term (current) use of insulin; Z79.899 Other long term (current) drug therapy; Z98.890 Other specified postprocedural states; Z87.440 Personal history of urinary (tract) infections; Z87.828 Personal history of other (healed) physical injury and trauma
CPT/HCPCS: 36415; 80048; 80053; 81001; 82948; 83880; 85025; 85055; 85610; 85730; 86140; 87086; 96365; 96375; 99285; A9270; G0378; J1815; J1956

== ENCOUNTER 2024-05-01 11:03 | Outpatient (NON) | payer MEDICARE, SELFPAY ==
[2024-05-01 11:18] LABS: Add Urine Microscopic? YES; Appearance Urine Clear (Clear); Bilirubin Urine Negative (Negative); Blood Urine 3+ (Negative); Color Urine Light Yellow (Yellow); Glucose Urine UA Negative (Negative); Ketones Urine Negative (Negative); Leukocyte Esterase Ur 2+ LEU/UL (Negative); Nitrate Urine Negative (Negative); Protein Urine 2+ (Negative); Specific Grav Ur 1.025 (1.010-1.020); Urobilinogen Urine 0.2 mg/dL (0.2-1.0)
[2024-05-01 11:24] LABS: RBC Urine 21-50 /hpf (0-2)
[2024-05-01 11:25] LABS: Bacteria Urine Trace /hpf; WBC Urine 21-30 /hpf (0-3)
== END 2024-05-01 11:04 | disposition home or self-care (01) ==
LOC: CHSLAB 11:05
PROVIDERS: PCP Internal Medicine; Visit Provider Internal Medicine
DX: R30.9 Painful micturition, unspecified (principal)
CPT/HCPCS: 81001; 87086; 87186

== ENCOUNTER 2024-07-30 01:40 | Day surgery (SDC) | payer MEDICARE, SELFPAY ==
[2024-06-12 14:16] VITALS: BMI 31.7
[2024-07-25 11:05] VITALS: BMI 30.6
--- NOTE | 2024-07-25 11:10 | SUR.PREOP ---
Spoke with patient and Jair and they verbalized understanding that last dose of Eliquis is to be taken on 07/26/[address] Barnett will let them know when to resume.
--- OUTSIDE RECORDS SUMMARY | 2024-07-30 01:44 | XMS_ITS ---
Author Organization Unknown Address [address] [place] [phone] Phone Care Team Providers Care Circulation Assistant Name Role Phone NUVIA MORALEZ Attending Unavailab armando ROTH Primary Unavailable Immunization Immunization Date Status Additional Notes Code Code System influenza, unspecified formulation 02/04/2006 Completed 88 CVX Tdap 07/14/2023 Completed 115 CVX Pneumococcal conjugate PCV 13 07/27/2015 Completed 133 CVX Influenza, high-dose, trivalent, PF 04/01/2013 Completed 135 CVX Influenza, split virus, trivalent, PF 12/26/2014 Completed 140 CVX Influenza, split virus, trivalent, preservative 03/18/2014 Completed 141 CVX Influenza, split virus, trivalent, preservative 12/30/2016 Completed 141 CVX Influenza, split virus, quadrivalent, PF 02/28/2018 Completed 150 CVX Influenza, split virus, quadrivalent, PF 12/27/2018 Completed 150 CVX Influenza, split virus, quadrivalent, PF 12/07/2020 Completed 150 CVX Influenza, split virus, quadrivalent, preservative 02/08/2016 Completed 158 C VX zoster recombinant 10/17/2019 Completed 187 CVX Influenza, adjuvanted, quadrivalent, PF 02/07/2023 Completed 205 CVX COVID-19, mRNA, LNP-S, PF, 3 0 mcg/0.3 mL dose 05/19/2020 Completed 208 CVX COVID-19, mRNA, LNP-S, PF, 3 0 mcg/0.3 mL dose 06/09/2020 Completed 208 CVX COVID-19, mRNA, LNP-S, PF, 3 0 mcg/0.3 mL dose 02/23/2021 Completed 208 CVX COVID-19, mRNA, LNP-S, PF, 3 0 mcg/0.3 mL dose, steven-sucrose 11/05/2021 Completed 217 CVX COVID-19, mRNA, LNP-S, bivalent, PF, 30 mcg/0.3 mL dose 02/15/2022 Completed 300 CVX COVID-19, mRNA, LNP-S, PF, steven-sucrose, 30 mcg/0.3 mL 03/13/2023 Completed 309 CVX Results URINALYSIS w/Microscopy/C&S if indicated - Collect Date/Time: 10/02/2023 14:20 [facility] ID: [id number] [place], [place], [id number] LOINC: 00325-3 Test Value Unit Reference Range Code Code System Flag UR SOURCE MCCABE CATH 98140-9 LOINC COLOR LT YELLOW YELLOW 5778-6 LOINC CLARITY SL TURBID CLEAR 25014-2 LOINC A SPEC GRAVITY 1.020 1.000-1.030 5811-5 LOINC PH 6.0 5.0 - 6.5 5803-2 LOINC LEUK EST 2+ NEGATIVE 5799-2 LOINC A NITRATE NEGATIVE NEGATIVE PROTEIN NEGATIVE NEGATIVE 5804-0 LOINC GLUCOSE NEGATIVE NEGATIVE 02731-9 LOINC KETONES NEGATIVE NEGATIVE 71299-9 LOINC UROBILINOGEN 0.2 NEGATIVE 5818-0 LOINC BILIRUBIN NEGATIVE NEGATIVE 26681-3 LOINC BLOOD NEGATIVE NEGATIVE 45239-8 LOINC WBC >50 0 - 2 46589-4 LOINC A RBC 0-2 0 - 2 20528-2 LOINC EPITHELIAL OCCASIONA RARE-FEW 17465-8 LOINC BACTERIA 1+ NONE SEEN 67528-0 LOINC MUCUS NONE SEEN NONE SEEN 8247-9 LOINC YEAST NOT PRESENT NOT PRESENT 32386-5 LOINC CASTS SEE BELOW 50767-9 LOINC CRYSTALS NONE SEEN 24161-6 LOINC CULTURE? YES 8251-1 LOINC DIAGNOSIS ABN LAB RESU Social History Type Status Start Date End Date Code Code Syst em Smoking History Unknown if ever smoked [id number] Sex Male Hospital Discharge Instructions Should you have any questions prior to discharge, please contact a member of your healthcare team. If you have left the hospital and have any questions, please contact your primary care physician. Reason For Referral No Data Found Plan of Treatment No Data Found Encounters Encounter Diagnosis Start Date Code Code Sys tem Urinary tract infectious disease 10/02/2023 [id number] SNOMED-CT Personal Care Team Section Performer Name Performer Role Active Date Inactive IRA Wright PCP - Primary care physician 2023-10-02
--- OUTSIDE RECORDS SUMMARY | 2024-07-30 01:44 | XMS_ITS | Data Portability ---
Author Organization [employer], Main Office Address [address] [place] [address] Care Team Providers Care Eyelet Riveter Name Role Phone IRA RUELAS Referring Provider CHRISTINA WADE Psychological Tests Sales Agent Assessment No assessment recorded. Plan of Treatment Reminders Order Date Submit Date Provider Last Modified By Organization Details Last Modified Time Details Appointments None record ed. Lab None record ed. Referral None record ed. Procedures None record ed. Surgeries None record ed. Imaging None record ed. Medication Orders None record ed. Patient TargetsNo targets recorded. Patient InstructionsNo instructions recorded. Reason for Referral None Reported. Results Created Date Observation Date Name Description Value Unit Range Abnormal Flag Note LastModifiedBy Organization Detail LastModifiedTime 12/06/19 XR, chest , 2 view No observ ation record ed. [email or web address] Not Available 2023 11:24:08 12/11/19 24 12/07/2023 CT, sinus es, w/o contr ast No observ ation record ed. [email or web address] [facility] [address], [place], [address], 12/11/2023 08:48:27 12/19/19 24 12/19/2023 CT, sinus es, w/o contr ast No observ ation record ed. [facility] [address], [place], [address], 12/19/2023 11:47:30 Result Notes None recorded. Problems Name Problem SNOMED Code Status Onset Date Resolution Date Notes Provider Name and Address Organization Details Recorded Time Chronic sinusitis 06526756 Active 024 Radha Kim RN null, [employer] 16:38:38 Chronic cough 05218299 Active 024 Radha Kim RN null, [facility] [employer] 11:14:34 Problem Notes None recorded. Procedures Surgical History None recorded. Imaging Results Imaging Date Name Status LastModified by Organiz ation Details LastModified Time 12/06/2023 XR, chest, 2 view completed [email or web address] Information not available 12/06/2023 11:24:08 12/07/2023 CT, sinuses, w/o contrast completed [address], [place], [address], 12/11/2023 08:48:27 12/19/2023 CT, sinuses, w/o contrast completed [facility] [address], [place], [address], 12/19/2023 11:47:30 Procedure Notes None recorded. Medical Equipment None Reported. Allergies Allergen ID Allergen Name Allergen Category Reaction Reaction Severity Criticality Documentation Date Start Date Code Code System Note Provider Name and Address Organization Details Recorded Time 40081 mold extract environme nt Not available Not available Not available 10/30/2023 51289 8 RxNorm CHIDI Farley null, [facility] [employer] 4 11:58:55 No known drug allergies Medications Name Sig Start Date Stop Date Status Note LastModified by Organization Details LastModified Time hydralazine 10 mg tablet Take 1.5 tablets every 8 hours by oral route. active Not Available Not Available No t Available acetaminoph en 325 mg tablet Take 2 tablets every 4 hours by oral route as needed. active Not Available Not Available No t Available Diltiazem HCl CR 240 mg/24hr capsule, extended release Take 1 capsule every day by oral route. active Not Available Not Available No t Available Vitamin C 500 mg tablet Take by oral route. active Not Available Not Available No t Available Iron (ferrous sulfate) 325 mg (65 mg iron) tablet Take 1 tablet every day by oral route. active Not Available Not Available No t Available azithromyci n 250 mg tablet TAKE 2 TABLETS BY MOUTH ON DAY 1, AND THEN TAKE 1 TABLET BY MOUTH ONCE A DAY ON DAY 2 THROUGH DAY 5 active Not Available Not Available No t Available benzonatate 200 mg capsule active Not Available Not Available Not Available cephalexin 250 mg capsule active Not Available Not Available Not Available diltiazem CD 240 mg capsule,ext ended release 24 hr active Not Available Not Available Not Available prednisone 20 mg tablet active Not Available Not Available Not Available sulfamethox azole 800 mg-trimetho prim 160 mg tablet active Not Available Not Available Not Available lovastatin 10 mg tablet Take 1 tablet every day by oral route. active Not Available Not Available No t Available tramadol 50 mg tablet active Not Available Not Available No t Available lorazepam 0.5 mg tablet Take 1 tablet twice a day by oral route. active Not Available Not Available No t Available baclofen 10 mg tablet Take 1 tablet 3 times a day by oral route as needed. active Not Available Not Available No t Available benzonatate 100 mg capsule active Not Available Not Available Not Available lidocaine 5 % topical patch APPLY 1 PATCH BY TOPICAL ROUTE ONCE DAILY (MAY WEAR UP TO 12HOURS.) active Not Available Not Available No t Available montelukast 10 mg tablet Take 1 tablet every day by oral route. active Not Available Not Available No t Available azelastine 137 mcg (0.1 %) nasal spray [place] 1 spray twice a day by intranasa l route. active Not Available Not Available No t Available ipratropium bromide 42 mcg (0.06 %) nasal spray [place] 2 sprays 3 times a day by intranasa l route. active Not Available Not Available No t Available losartan 100 mg tablet Take 1 tablet every day by oral route. active Not Available Not Available No t Available fluticasone propionate 50 mcg/actuati on nasal spray,suspe nsion [place] 1 spray twice a day by intranasa l route. active Not Available Not Available No t Available amoxicillin 875 mg-potassiu m clavulanate 125 mg tablet 11/29 completed Not Available Not Available Not Available Benadryl 25 mg capsule Take 1 capsule every day by oral route. active Not Available Not Available No t Available insulin lispro (U-100) 100 unit/mL subcutaneou s pen Inject 10 units by subcutane ous route before meal(s). active Not Available Not Available No t Available Aspercreme 1- 4 times per day, prn active Not Available Not Available No t Available sulfamethox azole-trime thoprim 800-180 mg, one tablet q 12 hours active Not Available Not Available No t Available Tylenol active Not Available Not Avail able Not Available Vitamin D3 active Not Available Not Av ailable Not Available multivitami n active Not Available Not Available Not Available Senna Plus 8.5/50, Tale one tablet BID active Not Available Not Available No t Available Vitamin B12 active Not Available Not A vailable Not Available Lantus Solostar U-100 Insulin 100 unit/mL (3 mL) subcutaneou s pen Inject 40 units by subcutane ous route at bedtime. active Not Available Not Available No t Available Zyrtec 10 mg capsule Take by oral route. active Not Available Not Available No t Available B12 1000 mcg tablet daily active Not Available Not Available No t Available donepezil 23 mg tablet Take 1 tablet every day by oral route. active Not Available Not Available No t Available UltiCare Pen Needle 32 gauge x active Not Available Not Available Not Available Eliquis 5 mg tablet Take 1 tablet twice a day by oral route. active Not Available Not Available No t Available Easy Touch Insulin Safety Syr 0.5 mL 31 gauge x 5/16' [Use one syringe BID] active Not Available Not Available No t Available True Metrix Glucose Test Strip Check blood glucose TID active Not Available Not Available No t Available cranberry extract 500 mg tablet Take by oral route. active Not Available Not Available No t Available UltiCare Insulin Syringe active Not Available Not Available Not Available TRUEplus Pen Needle 31 gauge x 1/4 active Not Available Not Available Not Available Voltaren Arthritis Pain active Not Available Not Available Not Available Vitals Date Recorded Body weight Body mass index (BMI) Body height Body temperature Provider Name and Address Organization Details Last Updated DateTime 11/30/2023 296192.28 g 30.5 kg/m2 182.88 cm 97.6 [degF] CHIDI Farley [facility] [employer] 11/30/2023 16:26:01 Social History Question Answer Notes LastModified by Organizat ion Details LastModified Time Tobacco Smoking Status Never Smoker CHIDI Farley [facility] [employer] 10/30/2023 11:26:42 What Is Your Level Of Alcohol Consumption? None [email or web address] Information not available 10/30/2023 Sex: Unknown Functional Status None recorded. Mental Status None recorded. Family History Relationship Description Onset Age of this Age Resolved Age Notes LastModified by Organization Details LastModified Time Unspecified Relation Asthma grands on, childh ood asthma ftrotter Not available 10/30/2023 11:33:31 Notes:NO ENT Medical History Condition Response DIABETES, TYPE Y ENT Y SEASONAL ALLERGIES Y LUNG DISEASE/DISORDER Y HIGH CHOLESTEROL / HYPERLIPIDEMIA Y BLOOD DISEASES Y HEART DISEASE/HEART PROBLEMS Y HYPERTENSION Y Past Encounters Encounter ID Performer Location Encounter Start Date Encounter Closed Date Diagnosis/Indication Diagnosis SNOMED-CT Code Diagnosis ICD10 Code Diagnosis Note [id number] Alfredo Montilla MD [facility] [address] [place] [address] 11/30/2023 15:43:30 11/30/2023 17:03:23 Chronic sinusitis 21112752 J32.9 Health Concerns Section Related Observation LastModified by Organization Detai ls LastModified Time None Recorded Concern Status LastModified by Organization Details LastModified Time None Recorded Advance Directives Directive None Recorded Payers Encounter Date Sequence Insurance Name Policy Number Policy Trinidad Covered Member ID Trinidad Member ID Guarantor Name 11/30/2023 1 [employer] (MEDICARE REPLACEMENT PPO) [id number] Kieran Key [id number] Kieran Key Notes Date Note Type Note Provider Name and Address Organization Details Recorded Time 11/30/2023 text/html this patient has a chronic cough. His reports that he has been wheezing as well. Evidently a chest x-ray showed a left lower lobe shadow which is unspecified and he has been on nasal sprays including Astelin Flonase Atrovent and Zyrtec. These do help to a degree. He has not had any pulmonary function studies or lung CT Alfredo Montilla MD [address] [place] [address] [address], [place], [address], [facility] [employer] 11/30/2023 16:41:18
--- OUTSIDE RECORDS SUMMARY | 2024-07-30 01:44 | XMS_ITS | Referral Summary ---
Author Organization [facility] al Address [address] [place] [address] Care Team Providers Care Plastic Surgery Technician Name Role Phone Vicente Oswald MD Primary Care Provider [phone] Allergies Active Allergy Reactions Criticality Noted Date Comments Lisinopril Cough Low 09/01/2021 Other Hallucinations Medium 01/09/2018 All OPioids Medications diltiazem (TIAZAC) 240 mg 24 hr capsuleIndicati ons:hypertensio n Take 1 capsule (240 mg total) by mouth every morning 7 Active LOTEMAX 0.5 % ophthalmic suspension Administer 1 drop into both eyes daily. 7 Active insulin NPH-insulin regular (HumuLIN 70/30,NovoLIN 70/30) 100 unit/mL (70-30) injectionIndica tions:type 2 diabetes mellitus,40 units in the morning and 35 units in the evening Inject 45 Units under the skin 2 (two) times a day Active multivitamin tabletIndicatio ns:Vitamin Deficiency Prevention Take 1 tablet by mouth daily Active cyanocobalamin/ folic acid (VITAMIN N52-PZPWJ ACID) 1,000-400 mcg lozenge Take 1,000 mcg by mouth daily. Active loratadine (CLARITIN) 10 mg tablet Take 10 mg by mouth daily as needed. Active cholecalciferol (VITAMIN D-3) 1,000 unit capsule Take 1 capsule (1,000 Units total) by mouth daily 8 Active lovastatin (MEVACOR) 10 mg tablet Take 0.5 tablets (5 mg total) by mouth nightly 8 Active insulin syringe-needle U-100 0.5 mL 31 gauge x 16 syringe 9 Active TRUE METRIX GLUCOSE TEST STRIP strip 0 9 Active donepezil (ARICEPT) 5 mg tablet Take 1 tablet (5 mg total) by mouth nightly Active apixaban (ELIQUIS) 5 mg tabletIndicatio ns:Venous Thrombosis Take 2 tablets (10 mg total) by mouth every 12 (twelve) hours for 4 doses 8 tablet 0 Active baclofen (LIORESAL) 10 mg tablet 1 Active hydrALAZINE (APRESOLINE) 10 mg tablet 1.5 tablet tid 1 Active LANTUS 100 unit/mL (3 mL) pen for injection 1 Active insulin lispro (HumaLOG, ADMELOG) 100 unit/mL pen for injection 1 Active lidocaine (LIDODERM) 5 % 1 Active LORazepam (ATIVAN) 0.5 mg tablet 1 Active Pen Needle 32 gauge x 32 needle 1 Active traMADoL (ULTRAM) 50 mg tablet 1 Active acetaminophen 325 mg capsule Take by mouth A ctive trolamine salicylate (ASPERCREME) 10 % cream Apply topically as needed Active ascorbic acid (VITAMIN C) 500 mg tablet,chewable Acti ve losartan (COZAAR) 100 mg tablet 2 Active senna-docusate (PERICOLACE) 8.6-50 mg Take 1 tablet by mouth daily Active fentaNYL (DURAGESIC) 25 mcg/hr 2 Active memantine (NAMENDA) 5 mg tablet 2 Active levoFLOXacin (LEVAQUIN) 500 mg tablet Take 500 mg by mouth daily Active aspirin 81 mg enteric coated tablet Take 81 mg by mouth daily Active montelukast (SINGULAIR) 10 mg tablet Take 1 tablet (10 mg total) by mouth nightly 4 Active diphenhydrAMINE 25 mg capsule Take 1 tablet/capsule (25 mg total) by mouth daily Active diclofenac sodium (VOLTAREN) 1 % gel Apply 2 g topically 4 (four) times a day Active azelastine (ASTELIN) 137 mcg (0.1 %) nasal spray Administer 2 sprays into each nostril 2 (two) times a day 4 Active fluticasone propionate (FLONASE) 50 mcg/actuation nasal spray Administer 2 sprays into each nostril daily 4 Active ipratropium (ATROVENT) 42 mcg (0.06 %) nasal spray Administer 2 sprays into each nostril 4 (four) times a day 4 Active Active Problems Problem Noted Date Diagnosed Date Nonrheumatic aortic valve stenosis 05/09/2022 Deep vein blood clot of left lower extremity 12/2019 Assessment & Plan (12/29/2019 3:34 PM CDT): -Agree with current apixiban. Rec 10mg BID x 7 days, then reduce to 5mg BID for 3-6 months for provoked DVT (immobility) -Should have IVC filter removed as outpatient, f/u with vascular surgery to discuss Cervical spondylosis with myelopathy 12/17/2019 Overview (12/17/2019): Added automatically from request for surgery [id number] Closed unstable burst fracture of first lumbar v ertebra 12/17/2019 Overview (12/18/2019): Added automatically from request for surgery [id number] Spinal stenosis of lumbar re gion with neurogenic claudication 12/17/2019 Overview (12/18/2019): Added automatically from request for surgery [id number] Compression fracture of L1 lumbar vertebra 12/04 Acute pain due to trauma 12/05/2019 HLD (hyperlipidemia) 12/05/2019 PAD (peripheral artery disease) 12/05/2019 Hypertension 01/30/2018 Spondylolisthesis of lumbar region 12/15/2017 Overview (12/15/2017): Added automatically from request for surgery [id number] Spinal stenosis, lumbar andrew on, with neurogenic claudication 12/15/2017 Overview (12/15/2017): Added automatically from request for surgery [id number] HX: anticoagulation 12/15/2017 Overview (12/15/2017): Added automatically from request for surgery [id number] Type II or unspecified type diabetes mellitus with neurological manifestations, not stated as uncontrolled(250.60) 12/15/2017 Overview (12/15/2017): Added automatically from request for surgery [id number] Assessment & Plan (12/29/2019 3:35 PM CDT): -BG stable on lantus 24u QHS and LD SSI Coronary artery calcification seen on CAT scan 0 12/15/2017 Overview (12/15/2017): Added automatically from request for surgery [id number] Pain in both lower extremities 09/12/2017 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/07/2017 Neck pain 08/14/2017 Occipital neuralgia of right side 03/27/2017 Pain in shoulder 06/03/2016 Heterotopic ossification 02/12/2016 Social History Tobacco Use Types Packs/Day Years Used Date Smoking Tobacco: Never Smokeless Tobacco: Never Tobacco Cessation:Counseling Given: Not Answered Alcohol Use Standard Drinks/Week Comments No 0 (1 standard drink = 0.6 oz pur e alcohol) Sex and Gender Information Value Date Recorded Sex Assigned at Not on file 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 Gender Identity Not on file Sexual Orientation Not on file Last Filed Vital Signs Vital Sign Reading Time Taken Comments Blood Pressure 140/70 01/29/2024 1:46 PM CDT Pulse 60 01/29/2024 1:46 PM CDT Temperature 36 C (96.8 F) 01/29/2024 1:46 PM CDT Respiratory Rate 16 01/29/2024 1:46 PM CDT Oxygen Saturation 94% 01/29/2024 1:46 PM CDT Inhaled Oxygen Concentration - - Weight 102.1 kg (225 lb) 01/29/2024 1:46 PM CDT Height 182.9 cm (6') 01/29/2024 1:46 PM CDT Body Mass Index 30.52 01/29/2024 1:46 PM CDT Plan of Treatment Not on file Medical Devices Implanted Type Area Food Service Steward Device Identifier Shelf Expiration Date Model / Serial / Lot [employer] [id number] Tissue Bone Void Filler Acupac Plus 50cc - [id number] - [id number] Implanted:Qty: 1 on 12/26/2019 by Wayne Diggs MD at [facility] Bone N/A: Spine Lumbar [employer] 03/12/2024 [id number] / [id number] / NA Description:AcuPac 50cc Acuity Surgical Donor # [id number] Medtronic Sofamor [place] [id number] Infuse 18mm 26mm Absorbable Sponge Sterile Water Syringe Needle - [id number] Implanted:Qty: 1 on 01/30/2018 by Wayne Diggs MD at [facility] N/A: Spine Lumbar Medtronic Sofamor [place] 10/15/2018 [id number] / / [id number] Medtronic Sofamor [place] [id number] Mastergraft Matrix Block Extension Void Filler Substitute 10ml - [id number] Implanted:Qty: 1 on 01/30/2018 by Wayne Diggs MD at [facility] N/A: Spine Lumbar Medtronic Sof[place]or [place] [id number] 10/14/2020 [id number] / / [id number] Medtronic Inc [id number] Artic-L L30 Mm X W12 Mm X H12 Mm 5 D Spacer Spinal Titanium - [id number] Implanted:Qty: 1 on 01/30/2018 by Wayne Diggs MD at [facility] N/A: Spine Lumbar Medtronic Inc 07/17/2025 [id number] / / Medtronic Sof[place]or [place] [id number] Cd Horizon Break Off Spinal Screw Set Titanium Nonsterile 5.5 Mm - [id number] Implanted:Qty: 6 on 01/30/2018 by Wayne Diggs MD at [facility] N/A: Spine Lumbar Medtronic Sof[place]or [place] [id number] / / [employer]onic Sof[employer]or [place] [id number] Solera 5.5mm 70mm Curve Sinan Spinal Titanium Nonsterile - [id number] Implanted:Qty: 2 on 01/30/2018 by Wayne Diggs MD at [facility] N/A: Spine Lumbar Medtronic Sof[employer]or [place] [id number] / / Medtronic Sof[employer]or [place] [id number] Solera Cd Horizon 7.5mm 50mm Multiaxial Spine Screw Bone Cocr - [id number] Implanted:Qty: 5 on 01/30/2018 by Wayne Diggs MD at [facility] N/A: Spine Lumbar Medtronic Sof[employer]or [place] [id number] / / Mas Implanted:Qty: 1 on 01/30/2018 by Wayne Diggs MD at [facility] N/A: Spine Lumbar Medtronic [id number] / / Medtronic Inc [id number] Artic-L L30 Mm X W12 Mm X H12 Mm 5 D Spacer Spinal Titanium - [id number] Implanted:Qty: 1 on 01/30/2018 by Wayne Diggs MD at [facility] N/A: Spine Lumbar Medtronic Inc [id number] / / Medtronic Sofamor [place] [id number] Infuse 18mm 26mm Absorbable Sponge Sterile Water Syringe Needle - [id number] Implanted:Qty: 1 on 12/26/2019 by Wayne Diggs MD at [facility] N/A: Spine Lumbar Medtronic Inc 11/15/2020 [id number] / / [id number] Medtronic Sofamor [place] [id number] Mastergraft Matrix Block Extension Void Filler Substitute 10ml - [id number] Implanted:Qty: 1 on 12/26/2019 by Wayne Diggs MD at [facility] N/A: Spine Lumbar Medtronic Inc 05/17/2022 [id number] / / [id number] Medtronic Inc [id number] Artic-L L25 Mm X W12 Mm X H13 Mm 5 D Spacer Spinal Titanium - [id number] Implanted:Qty: 1 on 12/26/2019 by Wayne Diggs MD at [facility] N/A: Spine Lumbar Medtronic Inc 01/04/2025 [id number] / / [id number] Medtronic Sofamor [place] [id number] Cd Horizon Break Off Spinal Screw Set Titanium Nonsterile 5.5 Mm - [id number] Implanted:Qty: 12 on 12/26/2019 by Wayne Diggs MD at [facility] N/A: Spine Lumbar Medtronic Inc [id number] / / Medtronic Sofamor [place] [id number] Cd Horizon 5.5mm 500mm Line Straight Sinan Spinal Titanium - [id number] Implanted:Qty: 1 on 12/26/2019 by Wayne Diggs MD at [facility] N/A: Spine Lumbar Medtronic Inc [id number] / / Medtronic Sofamor [place] [id number] Solera Cd Horizon 6.5mm 50mm Multiaxial Spine Screw Bone Cocr - [id number] Implanted:Qty: 6 on 12/26/2019 by Wayne Diggs MD at [facility] N/A: Spine Lumbar Medtronic Inc [id number] / / Medtronic Sofamor [place] [id number] Solera Cd Horizon 7.5mm 55mm Multiaxial Spine Screw Bone Cocr - [id number] Implanted:Qty: 4 on 12/26/2019 by Wayne Diggs MD at [facility] N/A: Spine Lumbar Medtronic Inc [id number] / / Medtronic Sofamor [place] [id number] Solera Cd Horizon 8.5mm 55mm Multiaxial Spine Screw Bone Cocr - [id number] Implanted:Qty: 1 on 12/26/2019 by Wayne Diggs MD at [facility] N/A: Spine Lumbar Medtronic Inc [id number] / / Medtronic Sofamor [place] [id number] 8.5mm 50mm Multiaxial Spine Screw Bone - [id number] Implanted:Qty: 1 on 12/26/2019 by Wayne Diggs MD at [facility] N/A: Spine Lumbar Medtronic Inc [id number] / / [employer] [id number] Brooke Delivery Kit Vena Cava Femoral Filter Embolization Nitinol Latex Free - [id number] Implanted:Qty: 1 on 12/26/2019 by Mario Ramos MD at [facility] N/A: Vena Cava [employer] 12/15/2022 [id number] / / [id number] Procedures Procedure Name Priority Date/Time Associated Diagnosis Comments LIPID PANEL Routine 06/16/2021 HEMOGLOBIN A1C STAT 12/04/2019 2:54 PM CDT from Last 3 Months or Most Recently Relevant to Health Maintenance Results * (ABNORMAL) Lipid panel (06/16/2021) SCRIBED Cholesterol, Total 118 100 - 199 EXTERNAL LAB SCRIBED HDL 36(A) 40 - 60 EXTERNAL LAB SCRIBED LDL 58 0 - 99 EXTERNAL LAB SCRIBED Triglycerides 163(A) 0 - 149 EXTERNAL LAB Blood specimen (specimen) Brennan Kaminski MD LAB BLOOD ORDERABLES Edit ed Result - Final EXTERNAL LAB * (ABNORMAL) Hemoglobin A1c (12/04/2019 2:54 PM CDT) Hgb A1C 7.7(H) 4.0 - 5.6 % [facility] Estimated Average Glucose 174 mg/dL [facility] Comment: The ADA recommends reporting an estimated Average Glucose (eAG) with all Hemoglobin A1c results using the equation derived from a study of 507 normal and diabetic adults. Minority populations were underrepresented and children were not included. (Diabetes Care 31:5854-3920, 2008). The eAG is not equivalent to a fasting glucose. Blood specimen (specimen) 12/04/2019 2:54 PM CDT 12/04/2019 3:10 PM CDT Narrative [facility] - 12/04/2019 3:45 PM CDT THE [facility] COLLECTION LOCATION IS [id number] Leti Bhatti MD LAB BLOOD ORDERABL ES Final Result [facility] [place] [address] from Last 3 Months or Most Recently Relevant to Health Maintenance Insurance [facility] MEDIC[facility] Address: [address] [address] [place] [address] [facility] MEDICARE [facility] Address: [address] [place] [address] [id number] Advance Directives For more information, please contact: [phone] Documents on File Type Date Recorded 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
--- OUTSIDE RECORDS SUMMARY | 2024-07-30 01:44 | XMS_ITS | Clinical Summary ---
Author Organization [facility] Address [facility] [place] [address] Care Team Providers Care Environmental Science Program Director Name Role Phone Vicente Oswald MD Primary Care Provider [phone] Allergies No known active allergies Medications acetaminophen 500 MG tablet Take 500 mg by mouth. Active vitamin D3, cholecalciferol, (D3-1000) 25 MCG (1000 UT) capsule Take 1,000 Units by mouth daily. 8 Active Ascorbic Acid (VITAMIN C) 500 MG Cap Take 1 tablet by mouth daily. Active dilTIAZem ER 240 MG 24 hr capsule Take 240 mg by mouth daily. 7 Active insulin NPH-insulin regular (HUMULIN 70/30) (70-30) 100 UNIT/ML injection Active Insulin Syringe-Needle U-100 (INSULIN SYRINGE .5CC/31GX5/16 ) 31G X 5/16 0.5 ML Misc 9 Active lisinopril 40 MG tablet Take 40 mg by mouth daily. 7 Active lovastatin 10 MG tablet Take 5 mg by mouth daily. 8 Active multivitamin tablet Take 1 tablet by mouth daily. Active traMADol 50 MG tablet Take 50 mg by mouth. 8 Active bisacodyl [address] 10 mg rectally daily as needed for Constipation. Active Skin Protectants, Misc. (EUCERIN) Cream Active vitamin B-12 100 MCG tablet Take 50 mcg by mouth daily. Active cetirizine 10 MG tablet Take 10 mg by mouth daily. Active donepezil 10 MG Tab Take 10 mg by mouth nightly at bedtime. Active LORazepam 0.5 MG tablet Take 0.5 mg by mouth every 6 (six) hours as needed for Anxiety. Active apixaban 5 MG tablet Take 5 mg by mouth 2 (two) times daily. Active potassium chloride CR 10 MEQ Tab CR tablet Take 1 tablet by mouth 2 (two) times daily. Active baclofen 10 MG tablet Take 10 mg by mouth 3 (three) times daily. Active hydrALAZINE 10 MG tablet Take 10 mg by mouth 3 (three) times daily. Active lidocaine 4 % patch Place 1 patch onto the skin daily. Remove & Discard patch within 12 hours or as directed by MD Active fentaNYL 25 mcg/hr Place 1 patch onto the skin every third day. Active diclofenac sodium 1 % gel Apply topically 4 (four) times daily. Active memantine 5 MG tabletIndication s:Dementia without behavioral disturbance, unspecified dementia type (CMS/HCC) Take 1 tablet (5 mg total) by mouth 2 (two) times daily. 180 tablet 1 Active Active Problems No known active problems Encounters Date Type Department Care Team Description 05/07/2024 11:23 AM HOOK AND EYE SEWING MACHINE OPERATOR - 05/07/2024 11:59 PM [facility] Hospital Encounter [facility] [address] [place] [address] Vicente Oswald MD Discharge Disposition: Home or Self Care (Routine Discharge) 05/07/2024 Orders Only [facility] [address] [place] [address] Vicente Oswald MD from Last 3 Months Family History Medical History Relation Comments No Known Problems Brother No Known Problems Father No Known Problems Maternal Aunt No Known Problems Maternal Grandfather No Known Problems Maternal Grandmother No Known Problems Maternal Uncle No Known Problems Mother No Known Problems Paternal Aunt No Known Problems Paternal Grandfather No Known Problems Paternal Grandmother No Known Problems Paternal Uncle No Known Problems Sister Relation Status Comments Brother Father Maternal Aunt Maternal Grandfather Maternal Grandmother Maternal Uncle Mother Paternal Aunt Paternal Grandfather Paternal Grandmother Paternal Uncle Sister Social History Tobacco Use Types Packs/Day Years Used Date Smoking Tobacco: Never Smokeless Tobacco: Never Tobacco Cessation:Counseling Given: No Comments:patient doesnt smoke PHQ-2 Answer Date Recorded PHQ-2 Score - If the patient scores above 3, please move on to questions 3-9 0 02/10/2021 Sex and Gender Information Value Date Recorded Sex Assigned at Not on file Legal Sex Male 9:09 PM CDT Gender Identity Not on file Sexual Orientation Not on file Last Filed Vital Signs Vital Sign Reading Time Taken Comments Blood Pressure 118/66 02/10/2021 2:53 PM CDT Pulse 61 02/10/2021 2:53 PM CDT Temperature - - Respiratory Rate - - Oxygen Saturation 96% 02/10/2021 2:53 PM CDT Inhaled Oxygen Concentration - - Weight 85.7 kg (189 lb) 02/10/2021 2:53 PM CDT Height 182.9 cm (6') 02/10/2021 2:53 PM CDT Body Mass Index 25.63 02/10/2021 2:53 PM CDT Plan of Treatment Health Maintenance Due Date Last Done Comments Kidney Health Evaluation 1940 Diabetes: Retinopathy Eye Exam 1957 DTaP, Tdap and Td Vaccines (1 - Tdap) 1958 Annual Medicare Wellness Visit 01/13/2004 RSV Immunization or 60+ Years (1 - 1-dose 75+ series) 2014 Pneumococcal Vaccine: 50+ Years (2 of 2 - PPSV23 or PCV20) 09/21/2015 07/27/2015 Zoster Vaccines (2 of 2) 12/12/2019 10/17/2019 COVID-19 Vaccine (3 - season) 2023 06/09/2020, 05/19/2020 Hemoglobin A1C 11/04/2024 05/07/2024, 12/16, 08/31/2023, Additional history exists Lipid Panel 05/07/2025 05/07/2024, 12/16, 08/31/2023, Additional history exists Meningococcal B Vaccine Aged Out No l onger eligible based on patient's age to complete this topic Meningococcal Vaccine Aged Out No preet haim eligible based on patient's age to complete this topic RSV Immunizations Under 20 Months Aged Out No longer eligible based on patient's age to complete this topic Procedures Procedure Name Priority Date/Time Associated Diagnosis Comments IRON Routine 05/07/2024 10:45 AM HOOK AND EYE SEWING MACHINE OPERATOR Diabetes ([facility]) Iron deficiency anemia CKD (chronic kidney disease) Hyperlipidemia CK (CPK) Routine 05/07/2024 10:45 AM HOOK AND EYE SEWING MACHINE OPERATOR Diabetes (CMS/HCC HHS/HCC) Iron deficiency anemia CKD (chronic kidney disease) Hyperlipidemia HEMOGLOBIN, GLYCOSYLATED Routine 05/07/2024 10:45 AM HOOK AND EYE SEWING MACHINE OPERATOR Diabetes (CMS/HCC HHS/HCC) Iron deficiency anemia CKD (chronic kidney disease) Hyperlipidemia FERRITIN Routine 05/07/2024 10:45 AM HOOK AND EYE SEWING MACHINE OPERATOR Diabetes (CMS/HCC HHS/HCC) Iron deficiency anemia CKD (chronic kidney disease) Hyperlipidemia LIPID PANEL Routine 05/07/2024 10:45 AM HOOK AND EYE SEWING MACHINE OPERATOR Diabetes (CMS/HCC HHS/HCC) Iron deficiency anemia CKD (chronic kidney disease) Hyperlipidemia COMPREHENSIVE METABOLIC PANEL Routine 05/07/2024 10:45 AM HOOK AND EYE SEWING MACHINE OPERATOR Diabetes (CMS/HCC HHS/HCC) Iron deficiency anemia CKD (chronic kidney disease) Hyperlipidemia CBC W/DIFF AUTOMATED Routine 05/07/2024 10:45 AM HOOK AND EYE SEWING MACHINE OPERATOR Diabetes (CMS/HCC HHS/HCC) Iron deficiency anemia CKD (chronic kidney disease) Hyperlipidemia from Last 3 Months Results * (ABNORMAL) HEMOGLOBIN, GLYCOSYLATED (05/07/2024 10:45 AM HOOK AND EYE SEWING MACHINE OPERATOR) [facility] HGB A1C 6.8(H) <5.7 % 05/08/2024 12:25 PM HOOK AND EYE SEWING MACHINE OPERATOR [facility] ESTIMATED AVG GLUCOSE 148(H) 74 - 114 MG/DL 05/08/2024 12:25 PM HOOK AND EYE SEWING MACHINE OPERATOR [facility] 05/07/2024 10:4 5 AM HOOK AND EYE SEWING MACHINE OPERATOR Vicente Oswald MD LABORATORY Final Result [facility] [address] [place] [address], [id number] * (ABNORMAL) COMPREHENSIVE METABOLIC PANEL (05/07/2024 10:45 AM HOOK AND EYE SEWING MACHINE OPERATOR) SODIUM S/P/B 141 136 - 145 MMOL/L 05/07/2024 12:27 PM [facility] POTASSIUM S/P/B 3.6 3.5 - 5.1 MMOL/L 05/07/2024 12:27 PM [facility] CHLORIDE S/P/B 103 98 - 107 MMOL/L 05/07/2024 12:27 PM [facility] CO2 31.0 21.0 - 32.0 MMOL/L 05/07/2024 12:27 PM [facility] GLUCOSE 100(H) 70 - 99 MG/DL 05/07/2024 12:27 PM [facility] Comment: FASTING GLUCOSE 100 TO 125 MG/DL IS CONSISTENT WITH IMPAIRED FASTING GLUCOSE. FASTING GLUCOSE >125 MG/DL IS CONSISTENT WITH DIABETES. RANDOM GLUCOSE >200 MG/DL WITH HYPERGLYCEMIC SYMPTOMS IS CONSISTENT WITH DIABETES. PER ADA GUIDELINES BUN 11 6 - 24 MG/DL 05/07/2024 12:27 PM [facility] CREATININE S/P/B 0.77 0.70 - 1.30 MG/DL 05/07/2024 12:27 PM [facility] CALCIUM S/P/B 8.7 8.4 - 10.5 MG/DL 05/07/2024 12:27 PM [facility] BILIRUBIN TOTAL S/P/B 0.5 0.2 - 1.0 MG/DL 05/07/2024 12:27 PM [facility] Comment: THIS ASSAY IS NOT RECOMMENDED FOR PATIENTS UNDERGOING TREATMENT WITH ELTROMBOPAG DUE TO THE POTENTIAL FOR FALSELY ELEVATED RESULTS. ALKALINE PHOSPHATASE S/P/B 91 45 - 115 U/L 05/07/2024 12:27 PM [facility] AST 11(L) 15 - 37 U/L 05/07/2024 12:27 PM [facility] ALT 14(L) 16 - 63 U/L 05/07/2024 12:27 PM [facility] TOTAL PROTEIN S/P/B 6.6 6.4 - 8.2 G/DL 05/07/2024 12:27 PM [facility] ALBUMIN S/P/B 2.7(L) 3.4 - 5.0 G/DL 05/07/2024 12:27 PM [facility] ANION GAP 7.0 5.0 - 15.0 MMOL/L 05/07/2024 12:27 PM [facility] OSMOLALITY (CALC) 291 MOSM/KG 025 12:27 PM [facility] Comment:REFERENCE RANGE NOT ESTABLISHED GFR ESTIMATE 88(L) >89 ML/MIN/1. 73 M2 05/07/2024 12:27 PM [facility] GFR NOTES GFR REFERENCE S: 05/07/2024 12:27 PM [facility] Comment: THE ESTIMATED GFR IS CALCULATED USING THE 2020 CKD-EPI EQUATION. THE FOLLOWING CATEGORIES FOR GRADING RENAL FUNCTION ARE RECOMMENDED BY THE INTERNATIONAL SOCIETY OF NEPHROLOGY (KDIGO 2012 CLINICAL PRACTICE GUIDELINE). G1,NORMAL OR HIGH: >89 ml/min/1.73 m2 G2,MILDLY DECREASED: 60-89 ml/min/1.73 m2 G3A,MILDLY TO MODERATELY DECREASED: 45-59 ml/min/1.73 m2 G3B,MODERATELY TO SEVERELY DECREASED: 30-44 ml/min/1.73 m2 G4,SEVERELY DECREASED: 15-29 ml/min/1.73 m2 G5,KIDNEY FAILURE: <15 ml/min/1.73 m2 05/07/2024 10:4 5 AM HOOK AND EYE SEWING MACHINE OPERATOR Vicente Oswald MD LABORATORY Final Result [facility] [address] [place] [address], * LIPID PANEL (05/07/2024 10:45 AM HOOK AND EYE SEWING MACHINE OPERATOR) CHOLESTEROL 116 MG/DL 05/08/2024 12:20 PM [facility] Comment:DESIRABLE: <200 TRIGLYCERIDES 85 MG/DL 05/08/2024 12:20 PM [facility] Comment:<150 NORMAL HDL 40 >39 MG/DL 05/08/2024 12:20 PM HOOK AND EYE SEWING MACHINE OPERATOR [facility] LDL-C 59 MG/DL 05/08/2024 12:20 PM HOOK AND EYE SEWING MACHINE OPERATOR [facility] Comment:<100 OPTIMAL VLDL CALCULATION 17 MG/DL 05/08/19 12:20 PM [facility] Comment:REFERENCE RANGE NOT ESTABLISHED CHOL/HDL RATIO 2.9 05/08/2024 12:20 PM [facility] Comment:REFERENCE RANGE NOT ESTABLISHED LDL/HDL 1.5 05/08/2024 12:20 PM [facility] Comment:REFERENCE RANGE NOT ESTABLISHED NON HDL CHOLESTEROL 76 MG/DL 05/08/2024 12:20 PM [facility] Comment:REFERENCE RANGE NOT ESTABLISHED 05/07/2024 10:4 5 AM HOOK AND EYE SEWING MACHINE OPERATOR Vicente Oswald MD LABORATORY Final Result Performing Organization Address City/State/[facility] Co de Phone Number [facility] [address] [place], [place] [address], [id number] * (ABNORMAL) CBC W/DIFF AUTOMATED (05/07/2024 10:45 AM HOOK AND EYE SEWING MACHINE OPERATOR) WBC 7.69 4.00 - 10.80 x10'3/uL 05/07/2024 11:34 AM [facility] RBC 4.24(L) 4.50 - 6.10 x10'6/uL 05/07/2024 11:34 AM [facility] HGB 12.3(L) 13.0 - 18.0 G/DL 05/07/2024 11:34 AM [facility] HCT 39.3 37.0 - 52.0 % 05/07/2024 11:34 AM [facility] MCV 92.7 78.0 - 100.0 FL 05/07/2024 11:34 AM [facility] MCH 29.0 27.0 - 31.0 PG 05/07/2024 11:34 AM [facility] MCHC 31.3(L) 33.0 - 36.0 G/DL 05/07/2024 11:34 AM [facility] RDW 14.1 11.5 - 14.5 % 05/07/2024 11:34 AM [facility] PLT 218 150 - 350 x10'3/uL 05/07/2024 11:34 AM [facility] MPV 10.3 7.4 - 10.4 FL 05/07/2024 11:34 AM [facility] CBC COMMENT NORMAL REFERENCE RANGE NOT ESTABLISHED FOR THE PROPORTIONAL LEUKOCYTE DIFFERENTIAL. 05/07/2024 11:34 AM [facility] NEUTROPHILS % 76.4 % 05/07/2024 11:34 AM [facility] LYMPHOCYTES % 11.3 % 05/07/2024 11:34 AM [facility] MONOCYTES % 8.5 % 05/07/2024 11:34 AM [facility] EOSINOPHILS % 3.0 % 05/07/2024 11:34 AM [facility] BASOPHILS % 0.5 % 05/07/2024 11:34 AM [facility] IMMATURE GRANS % 0.3 % 05/07/19 11:34 AM [facility] NRBC % 0.0 % 05/07/2024 11:34 AM [facility] ABS. NEUTROPHILS 5.88 1.60 - 8.30 x10'3/uL 05/07/2024 11:34 AM [facility] ABS. LYMPHOCYTES 0.87 0.80 - 4.70 x10'3/uL 05/07/2024 11:34 AM [facility] ABS. MONOCYTES 0.65 0.00 - 1.50 x10'3/uL 05/07/2024 11:34 AM [facility] ABS. EOSINOPHILS 0.23 0.00 - 0.40 x10'3/uL 05/07/2024 11:34 AM [facility] ABS. BASOPHILS 0.04 0.00 - 0.20 x10'3/uL 05/07/2024 11:34 AM HOOK AND EYE SEWING MACHINE OPERATOR [facility] ABS. IMMATURE GRANULOCYTES 0.02 0.00 - 0.03 x10'3/uL 05/07/2024 11:34 AM HOOK AND EYE SEWING MACHINE OPERATOR [facility] ABS. NUCLEATED RBC'S 0.00 0.00 - 0.01 x10'3/uL 05/07/2024 11:34 AM HOOK AND EYE SEWING MACHINE OPERATOR [facility] 05/07/2024 10:4 5 AM HOOK AND EYE SEWING MACHINE OPERATOR us Vicente Oswald MD LABORATORY Final Result Performing Organization Address City/[facility]/ZIP Co de Phone Number [facility] [address] [place] [address], * (ABNORMAL) IRON (05/07/2024 10:45 AM HOOK AND EYE SEWING MACHINE OPERATOR) IRON 37(L) 65 - 175 MCG/DL 05/07/2024 11:50 AM HOOK AND EYE SEWING MACHINE OPERATOR [facility] 05/07/2024 10:4 5 AM HOOK AND EYE SEWING MACHINE OPERATOR us Vicente Oswald MD LABORATORY Final Result Performing Organization Address [facility] Co de Phone Number [facility] [address] [place] [address], [place] [phone] * FERRITIN (05/07/2024 10:45 AM HOOK AND EYE SEWING MACHINE OPERATOR) FERRITIN 292.0 26 - 388 NG/ML 05/07/2024 12:27 PM HOOK AND EYE SEWING MACHINE OPERATOR [facility] 05/07/2024 10:4 5 AM HOOK AND EYE SEWING MACHINE OPERATOR us Vicente Oswald MD LABORATORY Final Result Performing Organization Address City/[facility]/ZIP Co de Phone Number [facility] [address] [place] [address], [place] [phone] * CK (CPK) (05/07/2024 10:45 AM HOOK AND EYE SEWING MACHINE OPERATOR) CPK 53 39 - 308 U/L 05/07/2024 12:27 PM HOOK AND EYE SEWING MACHINE OPERATOR [facility] 05/07/2024 10:4 5 AM HOOK AND EYE SEWING MACHINE OPERATOR Vicente Oswald MD LABORATORY Final Result [facility] [address] [place] [address], from Last 3 Months Insurance [employer] Care Teams Environmental Science Program Director Relationship Specialty Start Date End Date Vicente Oswald MD [address] [place] [address] PCP - General INTERNAL MEDICINE 10/08/18
--- OUTSIDE RECORDS SUMMARY | 2024-07-30 01:44 | XMS_ITS | Clinical Summary ---
Author Organization [facility] Kiran Fuentes Address [address] [place] [address] Care Team Providers Care Upper Doubler Name Role Phone Vicente Oswald MD Primary Care Provider + Allergies No known active allergies Medications acetaminophen (TYLENOL) 500 mg tablet Take 500 mg by mouth. Active ascorbic acid, vitamin C, 500 mg Capsule Take 1 Tablet by mouth daily. Active baclofen (LIORESAL) 10 mg tablet 07/20/2020 Active cetirizine (ZyrTEC) 10 mg tablet Take 10 mg by mouth daily. Active cyanocobalamin (VITAMIN B-12) 100 mcg tablet Take 50 mcg by mouth daily. Active donepeziL (ARICEPT) 5 mg tablet Take 23 mg by mouth daily at bedtime. Active hydrALAZINE (APRESOLINE) 10 mg tablet 1.5 tablet tid 07/28/2020 Active insulin glargine (Lantus Solostar U-100 Insulin) 100 unit/mL pen syringe 06/30/2020 Active lidocaine (LIDODERM) 5 % Adhesive Patch, Medicated 07/09/2020 Active LORazepam (ATIVAN) 0.5 mg tablet 05/13/2020 Active multivitamin (DAILY-GLADYS) tablet Take 1 Tablet by mouth daily. Active lovastatin (MEVACOR) 10 mg tablet Take 10 mg by mouth daily with supper. Active sennosides-docu sate sodium (Senna Plus) 8.6-50 mg Capsule Take by mouth. Active ferrous sulfate 325 mg (65 mg iron) tablet Take 325 mg by mouth daily. Active apixaban (Eliquis) 5 mg tablet Take by mouth 2 times daily. Active cephALEXin (KEFLEX) 250 mg capsule Take 250 mg by mouth 4 times daily. Active diphenhydramine HCl (BENADRYL ALLERGY ORAL) Take 25 mg by mouth daily. Active losartan (COZAAR) 100 mg tablet Take 100 mg by mouth daily. 08/16/2021 Active trolamine salicylate (ASPERCREME) 10 % Cream Apply to affected area. Active Active Problems No known active problems Encounters Date Type Department Care Team Description 07/03/2024 External Device Data [facility] ABSTRACTION Provider, Abstract 06/22/2024 External Device Data [facility] ABSTRACTION Provider, Abstract 06/21/2024 External Device Data [facility]CTION Provider, Abstract 06/04/2024 External Device Data [facility] ABSTRACTION Provider, Abstract 05/08/2024 External Device Data [facility] ABSTRACTION Provider, Abstract 05/07/2024 External Device Data [facility] ABSTRACTION Provider, Abstract from Last 3 Months Family History Medical History Relation Name Comments Cancer Brother 1 Throat Cancer Father Diabetes Mother Heart Disease Mother Prostate Cancer Son Thyroid Cancer Son Relation Name Status Comments Brother 1 Alive Brother 2 Alive Daughter Alive Father Mother Sister Son Alive Social History Tobacco Use Types Packs/Day Years Used Date Smoking Tobacco: Never Smokeless Tobacco: Never Tobacco Cessation:Counseling Given: Not Answered Alcohol Use Standard Drinks/Week Comments Never 0 (1 standard drink = 0.6 oz pur e alcohol) Sex and Gender Information Value Date Recorded Sex Assigned at Not on file Legal Sex Male 11:34 AM CDT Gender Identity Not on file Sexual Orientation Not on file Last Filed Vital Signs Vital Sign Reading Time Taken Comments Blood Pressure 103/68 10/03/2023 1:00 PM CDT Pulse 62 10/03/2023 1:00 PM CDT Temperature 36.8 C (98.2 F) 10/03/2023 1:00 PM CDT Respiratory Rate 18 10/03/2023 1:00 PM CDT Oxygen Saturation 93% 10/03/2023 1:0 0 PM CDT Inhaled Oxygen Concentration - - Weight 106.1 kg (234 lb) 10/03/2023 1:0 0 PM CDT according to Pt Height 182.9 cm (6') 03/21/2023 2:58 PM PROCESSING LEAD Body Mass Index 31.74 03/21/2023 2:58 PM PROCESSING LEAD Plan of Treatment Health Maintenance Due Date Last Done Comments DIABETES ANNUAL FOOT EXAM 1958 DIABETES ANNUAL RETINAL EXAM 1958 DIABETES MICROALBUMIN ANNUAL SCREEN 1957 LDL CHOLESTEROL ANNUAL 1957 DTAP/TDAP/TD VACCINES (1 - Tdap) 1958 PNEUMOCOCCAL VACCINE 50+ YEA RS (1 of 2 - PCV) 1958 ZOSTER VACCINE (1 of 2) 1989 RSV VACCINE (60+ or ) (1 - 1-dose 75+ series) 2014 INFLUENZA VACCINE (#1) 2023 DIABETES HBA1C Q 6 MONTHS 03/02/2024 08/31/2023, Medicare Advantage (MI) Prev entative Visit/Annual Wellness Visit 04/17/2024 Insurance [employer] PPO MCR Care Teams Upper Doubler Relationship Specialty Start Date End Date Vicente Oswald MD [address] [place] [id number] PCP - General Internal Medicine 12/27/22
--- OUTSIDE RECORDS SUMMARY | 2024-07-30 01:44 | XMS_ITS | Continuity of Care Document ---
Author Organization [facility] - Main Address [address] [facility] [address] [place] [address] Insurance Providers Payer Plan Claims Address Claims Phone Policy Number Group Number Relation Employer Guarantor Name Guarantor Guarantor Address Guarantor Phone [employer] [address], [place] [address] tel:[phone] [id number] Self Kieran Key 1940 [address] [place], [place] [id number] [employer] [address] [address], [place] [address] tel:[phone] Self Kieran Key [address] [place] [address] [employer] [address] [address], [place] [address] tel:[phone] Self Kieran Key [address] [place] [address] Problems Condition ICD9 code ICD10 code SNOMED code Start Date End Date S tatus Heart failure, unspecified I50.9 Encounter for attention to other artificial openings of urinary tract Z43.6 Hematuria, unspecified R31.9 Paraplegia, unspecified G82.20 Gross hematuria R31.0 Infection and inflammatory reaction due to indwelling urethral catheter, initial encounter T83.511A Results No Results Allergies, adverse reactions, alerts No known allergies and adverse reactions Medications No administered medications reported Vital Signs No vital signs reported Social History No smoking Hx information available
--- OUTSIDE RECORDS SUMMARY | 2024-07-30 01:44 | XMS_ITS ---
Author Organization [facility] Care Team Providers Care Pediatric Speech Language Pathologist Name Role Phone Osei Mcclure Unavailable Unavailable Vicente Oswald Unavailable Unavailable Allergies and adverse reactions Code CodeSystem Substance Reaction Severity StartDate Concern Status Opioid Analgesic Unknown 01/03/2020 acti ve Care Team Name Role Address Phone Organization Dates Vicente Oswald PCP [address] [place], [address], [place] (Office): : [facility] 01/03/2020 - 01/18/2020 Osei Mcclure Attending Physician [address] [place], [address], [facility] (Office): : : : [facility] 01/03/2020 - 01/18/2020 Immunizations Immunization Status Vaccine Details Vaccine Code CodeSystem Date Notes TB 2 Step Mantoux Skin Test completed tuberculin skin test; unspecified formulation lotNumber: [id number] expiry: 09/24/2021 Given 0.1 ml Right Forearm intradermally Step 2 of Multi-step with next step required 98 CVX created date: 01/11/2020 consent date: 01/11/2020 administer ed date: 01/11/2020 01/14/2020 negative TB 2 Step Mantoux Skin Test completed tuberculin skin test; unspecified formulation lotNumber: [id number] expiry: 09/24/2021 Given 0.1 ml Left Forearm intradermally Step 1 of Multi-step with next step required 98 CVX created date: 01/04/2020 consent date: 01/03/2020 administer ed date: 01/03/2020 Shingrix 1 cancelled zoster vaccine recombinant 187 CVX created date: 01/10/2020 consent date: 01/10/2020 Shingrix 2 cancelled zoster vaccine recombinant 187 CVX created date: 01/10/2020 consent date: 01/10/2020 Mental Status Section Date Assessment Total Score Description 01/18/2020 BIMS 14 cognitively int act CAM 0 No delirium ind icated PHQ-9 05 mild depression 01/10/2020 BIMS 12 moderate cognit dawood impairment CAM 0 No delirium ind icated PHQ-9 09 mild depression Problems Problem # Description Date of onset Resolved Date Code CodeSystem Concern Status 1 MUSCLE WASTING AND ATROPHY, NOT ELSEWHERE CLASSIFIED, UNSPECIFIED SITE 01/06/[address] active 2 NEED FOR ASSISTANCE WITH PERSONAL CARE 01/06/[id number] active 3 MUSCLE WEAKNESS (GENERALIZED) 01/04/[address] active 4 UNSPECIFIED ABNORMALITIES OF GAIT AND MOBILITY 01/04/[address] active 5 UNSTEADINESS ON FEET 01/04/[address] active 6 ACUTE EMBOLISM AND THROMBOSIS OF UNSPECIFIED DEEP VEINS OF UNSPECIFIED LOWER EXTREMITY 01/03/[address] active 7 ANEMIA, UNSPECIFIED 01/03/[address] active 8 ATHEROSCLEROTIC HEART DISEASE OF [place] CORONARY ARTERY WITHOUT ANGINA PECTORIS 01/03/[id number] active 9 ESSENTIAL (PRIMARY) HYPERTENSION 01/03/[address] active 10 HYPERLIPIDEMIA, UNSPECIFIED 01/03/[address] active 11 OTHER SPONDYLOSIS WITH MYELOPATHY, CERVICAL REGION 01/03/[address] active 12 PERIPHERAL VASCULAR DISEASE, UNSPECIFIED 01/03/[address] active 13 SPINAL STENOSIS, LUMBAR REGION WITH NEUROGENIC CLAUDICATION 01/03/[address] active 14 STABLE BURST FRACTURE OF FIRST LUMBAR VERTEBRA, SUBSEQUENT ENCOUNTER FOR FRACTURE WITH ROUTINE HEALING 01/03/[address] active 15 TYPE 2 DIABETES MELLITUS WITH OTHER DIABETIC NEUROLOGICAL COMPLICATION 01/03/[address] active 16 VITAMIN D DEFICIENCY, UNSPECIFIED 01/03/[address] active Reason for Referral No Reasons for Referral Entered Social History Social History Observation Description Start Date End Date Code Code System Current Smoking Status Tobacco smoking consumption unknown 425995734 SNOMED CT Sex Assigned At Male 1940 01433-4 [facility] Vital Signs Code Code System Vitals Name Values and Units Timing Information 9279-1 [facility] Respiratory Rate Value=18.0 Units=/m in 01/18/2020 8462-4 [facility] Blood Pressure-Diastolic Value=72 Un its=mmHg 01/18/2020 8480-6 [facility] Blood Pressure-Systolic Kazbq=001 Un its=mmHg 01/18/2020 8310-5 [facility] Body Temperature Value=97.7 Units= F 01/18/2020 8867-4 [facility] Heart rate Value=74.0 Units=/min 06/2019 80536-1 [facility] O2 % BldC Oximetry Value=97.0 Units= % 01/18/2020 2339-0 [facility] Blood Sugar Rzfzl=681.0 Units=mg/dL 01/18/2020 76091-5 [facility] Pain Level Value=2.0 01/18/2020 58101-4 [facility] Weight Jmpba=117.0 Units=Lbs 05/2019 8302-2 [facility] Height Value=72.0 Units=Inches 01/03/2020
--- OUTSIDE RECORDS SUMMARY | 2024-07-30 01:44 | XMS_ITS | Clinical Summary ---
Author Organization [facility] Address [address] [place] [address] Care Team Providers Care Residential Builder Name Role Phone Vicente Oswald MD Primary Care Provider [phone] Allergies Active Allergy Reactions Criticality Noted Date [...] mouth daily Active cyanocobalamin/ folic acid (VITAMIN Y85-AIYTD ACID) 1,000-400 mcg lozenge Take 1,000 mcg [...] (12/17/2019): Added automatically from request for surgery [id number] Closed unstable burst fracture of first lumbar v ertebra 12/17/2019 Overview (12/18/2019): Added automatically from request for surgery [id number] Spinal stenosis of lumbar re gion with neurogenic claudication 12/17/2019 Overview (12/18/2019): Added automatically from request for surgery [id number] Compression fracture of L1 lumbar vertebra 12/04 Acute pain due to trauma 12/05/2019 HLD (hyperlipidemia) 12/05/2019 PAD (peripheral artery disease) 12/05/2019 Hypertension 01/30/2018 Spondylolisthesis of lumbar region 12/15/2017 Overview (12/15/2017): Added automatically from request for surgery [id number] Spinal stenosis, lumbar andrew on, with neurogenic claudication 12/15/2017 Overview (12/15/2017): Added automatically from request for surgery [id number] HX: anticoagulation 12/15/2017 Overview (12/15/2017): Added automatically from request for surgery [id number] Type II or unspecified type diabetes mellitus with neurological manifestations, not stated as uncontrolled(250.60) 12/15/2017 Overview (12/15/2017): Added automatically from request for surgery [id number] Assessment & Plan (12/29/2019 3:35 PM CDT): -BG stable on lantus 24u QHS and LD SSI Coronary artery calcification seen on CAT scan 0 12/15/2017 Overview (12/15/2017): Added automatically from request for surgery [id number] Pain in both lower extremities 09/12/2017 Atheroscler te-moak arteries the extremities w/intermit claudication 09/07/2017 Neck pain 08/14/2017 Occipital neuralgia of right side 03/27/2017 Pain in shoulder 06/03/2016 Heterotopic ossification 02/12/2016 Surgical History Surgery Date Site/Laterality Comments CHOLECYSTECTOMY 04/17/2014 - 04/16/2015 TOTAL SHOULDER REPLACEMENT 04/17/2016 - 04/16/[address] Juan SALGADO UPPER GI AIR CONTRAST W KUB 12/26/2017 Bilateral EYE SURGERY cataracts 2016 HERNIA REPAIR 04/17/1955 - 04/16/1956 APPENDECTOMY 04/17/1955 - 04/16/1956 SPINAL FUSION Medical History Medical History Date Comments Hypertension Diabetes mellitus (HCC) Type 2 H/O spinal fusion 01/30/2018 Hyperlipidemia ED (erectile dysfunction) Alzheimer disease (HCC) CAD (coronary artery disease) Family History Medical History Relation Name Comments Cancer Brother Throat cancer Father Diabetes Mother Hypertension Mother Kidney failure Sister Relation Name Status Comments Brother Father Mother Sister Social History Tobacco Use Types Packs/Day Years Used Date Smoking Tobacco: Never Smokeless Tobacco: Never Tobacco Cessation:Counseling Given: Not Answered Alcohol Use Standard Drinks/Week Comments No 0 (1 standard drink = 0.6 oz pur e alcohol) Sex and Gender Information Value Date Recorded Sex Assigned at Not on file 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 Gender Identity Not on file Sexual Orientation Not on file Obstetrics History Last Filed Vital Signs Vital Sign Reading [...] 01/29/2024 1:46 PM CDT Plan of Treatment Health Maintenance Due Date Last Done Comments Albumin Creatinine Ratio, Urine 1940 Depression Screening 1940 eGFR 1940 Dilated Eye Exam 1940 Foot Exam 1940 Hepatitis B Screening 1957 Well Visit 65+ 01/13/2004 Pneumococcal vaccine 65+ (2 of 2 - PPSV23) 09/21/2015 07/27/2015 Zoster Vaccine (2 of 2) 12/12/2019 10/17/2019 Hemoglobin A1C 06/05/2020 12/04/2019, 01/09/2018 Fall Risk Assessment 01/02/2021 01/03/2020 Covid-19 Vaccine (4 - 2023-2 5 season) 2023 02/23/2021, 06/09/2020, 05/19/2020 Influenza Vaccine (#1) 2023 , 12/27/2018, 02/28/2018, Additional history exists Lipid Panel 01/01/2025 01/02/2024, 03/0 05/2021, 12/03/2019, Additional history exists DTaP/Tdap/Td Vaccine (2 - Td or Tdap) 07/13/2033 07/14/2023 Medical Devices Implanted Type Area Wildlife Control Operator Device Identifier Shelf Expiration Date Model / Serial / Lot [employer] Inc [id number] Tissue Bone Void Filler Acupac Plus 50cc - [id number] - [id number] Implanted:Qty: 1 on 12/26/2019 by Wayne Diggs MD at [facility] Bone N/A: Spine Lumbar [employer] 03/12/2024 [id number] / [id number] / NA Description:AcuPac 50cc Acuity Surgical Donor # [id number] Medtronic Sofamor Danek [id number] Infuse 18mm 26mm Absorbable Sponge Sterile Water Syringe Needle - [id number] Implanted:Qty: 1 on 01/30/2018 by Wayne Diggs MD at [facility] N/A: Spine Lumbar Medtronic Sofamor [place]k 10/15/2018 [id number] / / [id number] Medtronic Sofamor [place] [id number] Mastergraft Matrix Block Extension Void Filler Substitute 10ml - [id number] Implanted:Qty: 1 on 01/30/2018 by Wayne Diggs MD at [facility] N/A: Spine Lumbar Medtronic Sofamor [place] [id number] 10/14/2020 [id number] / / [id number] Medtronic Inc [id number] Artic-L L30 Mm X W12 Mm X H12 Mm 5 D Spacer Spinal Titanium - [id number] Implanted:Qty: 1 on 01/30/2018 by Wayne Diggs MD at [facility] N/A: Spine Lumbar Medtronic Inc 07/17/2025 [id number] / / Medtronic Sofamor [place] [id number] Cd Horizon Break Off Spinal Screw Set Titanium Nonsterile 5.5 Mm - [id number] Implanted:Qty: 6 on 01/30/2018 by Wayne Diggs MD at [facility] N/A: Spine Lumbar Medtronic Sofamor [place] [id number] / / Medtronic Sofamor [place] [id number] Solera 5.5mm 70mm Curve Sinan Spinal Titanium Nonsterile - [id number] Implanted:Qty: 2 on 01/30/2018 by Wayne Diggs MD at [facility] N/A: Spine Lumbar Medtronic Sofamor [place] [id number] / / Medtronic Sofamor [place] [id number] Solera Cd Horizon 7.5mm 50mm Multiaxial Spine Screw Bone Cocr - [id number] Implanted:Qty: 5 on 01/30/2018 by Wayne Diggs MD at [facility] N/A: Spine Lumbar Medtronic Sofamor [place] [id number] / / [id number] Implanted:Qty: 1 on 01/30/2018 by Wayne Diggs MD at [facility] N/A: Spine Lumbar Medtronic [id number] / / Medtronic Inc [id number] Artic-L L30 Mm X W12 Mm X H12 Mm 5 D Spacer Spinal Titanium - [id number] Implanted:Qty: 1 on 01/30/2018 by Wayne Diggs MD at [facility] N/A: Spine Lumbar Medtronic Inc [id number] / / Medtronic Sofamor [place] [id number] Infuse 18mm 26mm Absorbable Sponge Sterile Water Syringe Needle - [id number] Implanted:Qty: 1 on 12/26/2019 by Wayne Diggs MD at [facility] N/A: Spine Lumbar Medtronic Inc 11/15/2020 [id number] / / [id number] Medtronic Sofamor [place] [id number] Mastergraft Matrix Block Extension Void Filler Substitute 10ml - [id number] Implanted:Qty: 1 on 12/26/2019 by Wayne Diggs MD at [facility] N/A: Spine Lumbar Medtronic Inc 05/17/2022 [id number] / / [id number] Medtronic Inc [id number] Artic-L L25 Mm X W12 Mm X H13 Mm 5 D Spacer Spinal Titanium - [id number] Implanted:Qty: 1 on 12/26/2019 by Wayne Diggs MD at [facility] N/A: Spine Lumbar Medtronic Inc 01/04/2025 [id number] / / [id number] Medtronic Sofamor [place] [id number] Cd Horizon Break Off Spinal Screw Set Titanium Nonsterile 5.5 Mm - [id number] Implanted:Qty: 12 on 12/26/2019 by Wayne Diggs MD at [facility] N/A: Spine Lumbar Medtronic Inc [id number] / / Medtronic Sofamor [place] [id number] Cd Horizon 5.5mm 500mm Line Straight Sinan Spinal Titanium - [id number] Implanted:Qty: 1 on 12/26/2019 by Wayne Diggs MD at [facility] N/A: Spine Lumbar Medtronic Inc [id number] / / Medtronic Sofamor [place] [id number] Solera Cd Horizon 6.5mm 50mm Multiaxial Spine Screw Bone Cocr - [id number] Implanted:Qty: 6 on 12/26/2019 by Wayne Diggs MD at [facility] N/A: Spine Lumbar Medtronic Inc [id number] / / Medtronic Sofamor [place]k [id number] Solera Cd Horizon 7.5mm 55mm Multiaxial Spine Screw Bone Cocr - [id number] Implanted:Qty: 4 on 12/26/2019 by Wayne Diggs MD at [facility] N/A: Spine Lumbar Medtronic Inc [id number] / / Medtronic Sofamor [place] [id number] Solera Cd Horizon 8.5mm 55mm Multiaxial Spine Screw Bone Cocr - [id number] Implanted:Qty: 1 on 12/26/2019 by Wayne Diggs MD at [facility] N/A: Spine Lumbar Medtronic Inc [id number] / / Medtronic Sofamor [place]k [id number] 8.5mm 50mm Multiaxial Spine Screw Bone - [id number] Implanted:Qty: 1 on 12/26/2019 by Wayne Diggs MD at [facility] N/A: Spine Lumbar Medtronic Inc [id number] / / Bard Peripheral Vascular [id number] Ogle Delivery Kit Vena Cava Femoral Filter Embolization Nitinol Latex Free - [id number] Implanted:Qty: 1 on 12/26/2019 by Mario Ramos MD at [facility] N/A: Vena Cava Bard Peripheral Vascular 12/15/2022 [id number] / / [id number] Procedures Procedure Name Priority Date/Time Associated Diagnosis [...] - 149 EXTERNAL LAB Blood specimen (specimen) [facility] Provider LAB BLOOD ORDERABLES Edit ed Result - Final EXTERNAL LAB * (ABNORMAL) Hemoglobin A1c (12/04/2019 2:54 PM CDT) Pathologist [facility] Hgb A1C 7.7(H) 4.0 - 5.6 % [facility] Estimated Average Glucose 174 mg/dL [facility] Comment: The ADA recommends reporting an estimated Average Glucose (eAG) with all Hemoglobin A1c results using the equation derived from a study of 507 normal and diabetic adults. Minority populations were underrepresented and children were not included. (Diabetes Care 31:8875-7329, 2008). The eAG is not equivalent to a fasting glucose. Blood specimen (specimen) 12/04/2019 2:54 PM CDT 12/04/2019 3:10 PM CDT Narrative [facility] - 12/04/2019 3:45 PM CDT THE BJ COLLECTION LOCATION IS [facility] ED1-17 Leti Bhatti MD LAB BLOOD ORDERABL ES Final Result [facility] Department [place] [address] from Last 3 Months or Most Recently Relevant to Health Maintenance Insurance [facility] MEDICARE ADVANTAGE [facility] MEDICARE Address: [address] [address] [place] [address] [employer] MEDICARE Advance Directives For more information, please contact: [phone] Documents on File Type Date Recorded Patient 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
[2024-07-30 10:39] VITALS: BP 164/53; PULSE 57; RESP 18; TEMP 36.8; O2SAT 96
--- NOTE | 2024-07-30 10:41 | PM.IMHP ---
H&P: HPI History of Present Illness Date/Time: 07/30/24 10:41 Chief Complaint: chronic reflux, regurgitation Narrative: this is an 84-year-old man who presents for EGD. He has had a recent history of coughing and gagging a lot. He has a history of acid reflux as well. He was seen his side stitching machine operator who thought that may be acid reflux was causing some of his chronic cough. The patient is also paraplegic and is either bed ridden or in his mobility chair most of the day. Review of Systems Review of Systems: All systems reviewed & are unremarkable except as noted in HPI and below Constitutional: Constitutional: Denies chills, Denies fever(s), Denies headache(s) and Denies weight loss Eyes: Eyes: Denies change in vision ENT: Denies dizziness, Denies headache(s), Denies neck mass and Denies throat swelling Cardiovascular: Cardiovascular: Denies chest pain, Denies lightheadedness and Denies dyspnea Respiratory: Respiratory: Denies cough, Denies dyspnea and Denies wheezing Gastrointestinal: Gastrointestinal: Denies abdominal pain, Denies change in bowel habits, Denies nausea and Denies vomiting Genitourinary: Genitourinary: Denies hematuria and Denies dysuria Musculoskeletal: Musculoskeletal: Reports as per HPI Integumentary/Breasts: Skin/Breast: Reports as per HPI Neurologic: Denies dizziness and Denies headache(s) Allergic/Immunologic: Allergic/Immunologic: Denies throat swelling and Denies wheezing PMFSH Past Medical History Medical History (Updated 07/30/24 @ 10:43 by Tristan Barnett DO) Neurogenic bladder 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 They have many grandchildren and great grandchildren now. 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 Code status: Full code Healthcare power of civil attorney: Smoking status: Never smoker Second hand tobacco smoke exposure: No Alcohol intake: never Substance use: never Substance use type: does not use Do You Feel Safe in your Home?: Yes Lack of Transportation: No Lack of Food: Never True Current Housing: I Have Housing Concerned About Future Housing: No Difficulty Paying Gas/Electric Bills: No Difficulty Paying for Meds: No Currently Unemployed: No Education: High School Diploma/GED Difficulty w/ Childcare or Family Care: No Living arrangements: with family Additional living arrangements comments: with sp Meds Home Medications and Allergies Home Medications ?Medication ?Instructions ?Recorded ?Confirmed ?Type diltiazem HCl 240 mg 240 mg PO DAILY 05/15/19 07/30/24 History capsule,extended release 24 hr lovastatin 10 mg tablet 5 mg PO HS 05/15/19 07/30/24 History cholecalciferol (vitamin D3) 50 2,000 unit PO DAILY 05/16/19 07/30/24 History mcg (2,000 unit) tablet multivitamin 1 tablet PO DAILY 05/16/19 07/30/24 History apixaban 5 mg tablet (Eliquis) 5 mg PO BID 04/26/20 07/30/24 History baclofen 10 mg tablet 10 mg PO TID 04/26/20 07/30/24 History hydralazine 10 mg tablet 15 mg PO TID 04/26/20 07/30/24 History insulin lispro 100 unit/mL 10 unit subcut AC 04/26/20 07/30/24 History subcutaneous pen lorazepam 0.5 mg tablet 0.5 - 1 mg PO DAILY PRN Anxiety 04/26/20 07/30/24 History acetaminophen 500 mg tablet 650 mg PO Q4H PRN Fever Or Pain 06/15/20 07/30/24 History (Tylenol Extra Strength) cetirizine 10 mg tablet (Zyrtec) 10 mg PO DAILY PRN allergies 06/15/20 07/30/24 History losartan 100 mg tablet 100 mg PO DAILY #30 tabs 06/23/21 07/30/24 Rx cyanocobalamin (vitamin B-12) 1,000 mcg PO DAILY 09/25/21 07/30/24 History 1,000 mcg tablet (Vitamin B-12) sennosides 8.6 mg-docusate sodium 1 tab-cap PO DAILY Constipation 09/25/21 07/30/24 History 50 mg capsule (Senna Plus) ascorbic acid (vitamin C) 500 mg 1,000 mg PO DAILY 03/27/22 07/30/24 History tablet diclofenac sodium 1 % topical gel 2 g topical QID 03/27/22 07/30/24 History lidocaine 5 % topical patch 1 patch topical DAILY 03/27/22 07/30/24 History polyethylene glycol 3350 17 gram 17 g PO DAILY 03/27/22 07/30/24 History oral powder packet (Miralax) ipratropium bromide 42 mcg (0.06 1 spray intranasal DAILY 10/07/22 07/30/24 History %) nasal spray insulin glargine 100 unit/mL 32 unit (0.32 mL) subcut HS #10 mL 10/09/22 07/30/24 Rx subcutaneous solution (Lantus U-100 Insulin) donepezil 23 mg tablet 23 mg PO DAILY 11/27/22 07/30/24 History ferrous sulfate 325 mg (65 mg 65 mg PO DAILY 01/04/23 07/30/24 History iron) tablet (Tasneem-Time) cephalexin 250 mg capsule 250 mg PO QHS 06/24/23 07/30/24 History fluticasone propionate 50 1 spray intranasal BID #16 grams 07/11/23 07/30/24 Rx mcg/actuation nasal spray,suspension benzonatate 100 mg capsule 200 mg PO TID PRN prn cough 02/15/24 06/12/24 History montelukast 10 mg tablet 10 mg PO DAILY 02/15/24 07/30/24 History oxybutynin chloride 5 mg tablet 5 mg PO TID PRN bladder spasm #30 02/16/24 06/12/24 Rx tabs azelastine 137 mcg (0.1 %) nasal See Rx Instructions .Route 03/12/24 07/30/24 Rx spray .COMPLEX #30 mL Allergies Allergy/AdvReac Type Severity Reaction Status Date / Time No Known Allergies Allergy Verified 07/30/24 10:18 Exam Const: General: no acute distress and alert Orientation/consciousness: patient oriented x3 HENMT: Head: normocephalic and atraumatic Ears: hearing grossly normal bilaterally Face/Nose/Sinus: Normal nares present Mouth: Yes Normal oral and palatal mucosa present Eyes: Periorbital: periorbital findings normal Sclera: sclerae normal EOM: EOMs intact bilaterally Neck: Neck: normal visual inspection, no lymphadenopathy and trachea midline Chest: Chest palpation & inspection: normal inspection of the chest Resp: Effort & Inspection: normal respiratory effort Auscultation: clear to auscultation bilaterally Cardio: Jugular venous distension: no JVD Rate: regular rate Rhythm: regular rhythm Heart sounds: S1 normal heart sound present and S2 normal heart sound present Peripheral pulses: Peripheral pulses 2+ throughout GI: Inspection: normal to inspection GI Palp: Yes Soft to palpation, No Tenderness to palpation present (GI), No Guarding due to palpation present (GI) and No Rebound tenderness present Percussion: Yes normal to percussion Auscultation: normal bowel sounds : General: Yes no CVA tenderness Back/Spine/Pelvis: Back: no CVA tenderness Neuro: General: patient oriented x3, no focal motor deficits and CN's II-XI intact bilaterally Cognition (Neuro): normal cognition Speech: normal speech Motor exam (neuro): 5/5 motor strength present throughout Extrem: General: capillary refill normal and no clubbing, cyanosis or edema Assessment and Plan Assessment and plan (1) GERD (gastroesophageal reflux disease): Code(s): K21.9 - Gastro-esophageal reflux disease without esophagitis Status: Acute Assessment and Plan: I have recommended EGD. I have discussed the procedure, risks, benefits, and alternatives. Questions were answered. Patient is agreeable to proceed.
[2024-07-30] MEDS: LACTATED RINGERS 1,000 ML 150 ML IV CONT (10:43)
--- NOTE | 2024-07-30 10:44 | WPDANESEPPF ---
Anes - Initial Pre Proc Eval Procedure: Operation Date: 07/30/24 11:30 Proposed Procedures p Esophagogastroduodenoscopy - Tristan Barnett DO Date/Time: 07/30/24 10:44 Surgeon: Tristan Barnett DO Pre Op Diagnosis: Chronic Reflux Patient Data Age: 84 Gender: M Height: 1.83 m Weight: 100.4 kg Last Vital Signs Temp 36.8 C 07/30/24 10:39 Pulse 57 L 07/30/24 10:39 Resp 18 07/30/24 10:39 BP 164/53 H 07/30/24 10:39 Pulse Ox 96 07/30/24 10:39 O2 Del Method Room Air 07/30/24 10:39 Allergies Allergy/AdvReac Type Severity Reaction Status Date / Time No Known Allergies Allergy Verified 07/30/24 10:18 Home Medications ?Medication ?Instructions ?Recorded ?Confirmed ?Type diltiazem HCl 240 mg 240 mg PO DAILY 05/15/19 07/30/24 History capsule,extended release 24 hr lovastatin 10 mg tablet 5 mg PO HS 05/15/19 07/30/24 History cholecalciferol (vitamin D3) 50 2,000 unit PO DAILY 05/16/19 07/30/24 History mcg (2,000 unit) tablet multivitamin 1 tablet PO DAILY 05/16/19 07/30/24 History apixaban 5 mg tablet (Eliquis) 5 mg PO BID 04/26/20 07/30/24 History baclofen 10 mg tablet 10 mg PO TID 04/26/20 07/30/24 History hydralazine 10 mg tablet 15 mg PO TID 04/26/20 07/30/24 History insulin lispro 100 unit/mL 10 unit subcut AC 04/26/20 07/30/24 History subcutaneous pen lorazepam 0.5 mg tablet 0.5 - 1 mg PO DAILY PRN Anxiety 04/26/20 07/30/24 History acetaminophen 500 mg tablet 650 mg PO Q4H PRN Fever Or Pain 06/15/20 07/30/24 History (Tylenol Extra Strength) cetirizine 10 mg tablet (Zyrtec) 10 mg PO DAILY PRN allergies 06/15/20 07/30/24 History losartan 100 mg tablet 100 mg PO DAILY #30 tabs 06/23/21 07/30/24 Rx cyanocobalamin (vitamin B-12) 1,000 mcg PO DAILY 09/25/21 07/30/24 History 1,000 mcg tablet (Vitamin B-12) sennosides 8.6 mg-docusate sodium 1 tab-cap PO DAILY Constipation 09/25/21 07/30/24 History 50 mg capsule (Senna Plus) ascorbic acid (vitamin C) 500 mg 1,000 mg PO DAILY 03/27/22 07/30/24 History tablet diclofenac sodium 1 % topical gel 2 g topical QID 03/27/22 07/30/24 History lidocaine 5 % topical patch 1 patch topical DAILY 03/27/22 07/30/24 History polyethylene glycol 3350 17 gram 17 g PO DAILY 03/27/22 07/30/24 History oral powder packet (Miralax) ipratropium bromide 42 mcg (0.06 1 spray intranasal DAILY 10/07/22 07/30/24 History %) nasal spray insulin glargine 100 unit/mL 32 unit (0.32 mL) subcut HS #10 mL 10/09/22 07/30/24 Rx subcutaneous solution (Lantus U-100 Insulin) donepezil 23 mg tablet 23 mg PO DAILY 11/27/22 07/30/24 History ferrous sulfate 325 mg (65 mg 65 mg PO DAILY 01/04/23 07/30/24 History iron) tablet (Tsaneem-Time) cephalexin 250 mg capsule 250 mg PO QHS 06/24/23 07/30/24 History fluticasone propionate 50 1 spray intranasal BID #16 grams 07/11/23 07/30/24 Rx mcg/actuation nasal spray,suspension benzonatate 100 mg capsule 200 mg PO TID PRN prn cough 02/15/24 06/12/24 History montelukast 10 mg tablet 10 mg PO DAILY 02/15/24 07/30/24 History oxybutynin chloride 5 mg tablet 5 mg PO TID PRN bladder spasm #30 02/16/24 06/12/24 Rx tabs azelastine 137 mcg (0.1 %) nasal See Rx Instructions .Route 03/12/24 07/30/24 Rx spray .COMPLEX #30 mL Patient hx anesthesia problems: none Family hx anesthesia problems: none Results Review: All pre-operative results and documents have been reviewed as part of the pre-operative evaluation. 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 They have many grandchildren and great grandchildren now. 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 Code status: Full code Healthcare power of juvenile correctional officer: Smoking status: Never smoker Second hand tobacco smoke exposure: No Alcohol intake: never Substance use: never Substance use type: does not use Do You Feel Safe in your Home?: Yes Lack of Transportation: No Lack of Food: Never True Current Housing: I Have Housing Concerned About Future Housing: No Difficulty Paying Gas/Electric Bills: No Difficulty Paying for Meds: No Currently Unemployed: No Education: High School Diploma/GED Difficulty w/ Childcare or Family Care: No Living arrangements: with family Additional living arrangements comments: with ana Batista Final PreProcedure Day of Procedure 07/30/24 10:44 Patient weight: obese Heart: regular rate and rhythm Lungs: clear to auscultation Airway: Mallampati scale class III Neurological: alert and oriented Last oral intake: >/= 8 hours ASA classification: IV Emergent: no Anesthetic plan: proceed Anesthesia type and monitoring: general GIVS and standard monitoring Results Review: All pre-operative results and documents have been reviewed as part of the pre-operative evaluation. Informed Consent: The patient's anesthetic plan and its attendant risks and benefits were discussed with the patient/family/POA. Questions were solicited and answers provided to the satisfaction of the patient/family/POA.
[2024-07-30 10:51] LABS: Glucose Point of Care 104 mg/dl (65-105)
[2024-07-30 10:55] VITALS: BP 134/74; PULSE 59; RESP 22; TEMP 36.8; O2SAT 95
[2024-07-30 11:05] VITALS: BP 133/74; PULSE 56; RESP 21; TEMP 36.8; O2SAT 93
[2024-07-30 11:15] VITALS: BP 177/96; PULSE 59; RESP 20; TEMP 36.8; O2SAT 93
[2024-07-30 11:25] VITALS: BP 179/97; PULSE 54; RESP 17; TEMP 36.8; O2SAT 98
[2024-07-30 11:32] LABS: Glucose Point of Care 92 mg/dl (65-105)
== END 2024-07-30 11:48 | disposition home or self-care (01) ==
PROVIDERS: PCP Internal Medicine; Visit Provider Surgery
PROC: 0DJ08ZZ Inspection of Upper Intestinal Tract, Via Natural or Artificial Opening Endoscopic (ICD-10-PCS; CPT 43235; principal; 2024-07-30 11:30)
DX: K21.9 Gastro-esophageal reflux disease without esophagitis (principal); E11.9 Type 2 diabetes mellitus without complications; I48.91 Unspecified atrial fibrillation; E78.2 Mixed hyperlipidemia; I10 Essential (primary) hypertension; G30.9 Alzheimer's disease, unspecified; F02.80 Dementia in other diseases classified elsewhere, unspecified severity, without behavioral disturbance, psychotic disturbance, mood disturbance, and anxiety; G82.20 Paraplegia, unspecified; E66.9 Obesity, unspecified; Z68.30 Body mass index [BMI] 30.0-30.9, adult
CPT/HCPCS: 43235; 82948; J2704; J7120

== ENCOUNTER 2024-08-07 11:09 | Outpatient (NON) | payer MEDICARE, SELFPAY ==
[2024-08-07 11:29] LABS: Basophils Absolute Auto 0.03 K/mm3 (0.00-0.10); Basophils Percent Auto 0.4 % (0.0-1.0); Eosinophils Absolute Auto 0.18 K/mm3 (0.02-0.50); Eosinophils Percent Auto 2.3 % (1.0-6.0); Hematocrit 38.3 % (37.0-46.0); Hemoglobin 11.9 g/dL (12.4-15.3); Immature Granulocyte Absolute 0.04 K/mm3 (0.00-0.00); Immature Granulocyte Percent A 0.5 % (0.0-0.0); Lymphocytes Absolute Auto 0.95 K/mm3 (1.10-4.50); Lymphocytes Percent Auto 11.9 % (18.0-42.0); Mean Corpuscular HGB Conc 31.1 g/dL (32-36); Mean Corpuscular Hemoglobin 28.9 pg (27.0-31.0); Monocytes Absolute Auto 0.68 K/mm3 (0.10-0.90); Monocytes Percent Auto 8.6 % (2.0-11.0); Neutrophils Absolute Auto 6.07 K/mm3 (1.70-7.20); Neutrophils Percent Auto 76.3 % (50.0-70.0); Platelet Count Result 204 K/mm3 (150-420); Red Blood Count 4.12 M/mm3 (4.70-6.10); Red Cell Distribution Width 14.5 % (11.6-14.4)
[2024-08-07 11:32] LABS: Add Urine Microscopic? YES; Appearance Urine Clear (Clear); Bilirubin Urine Negative (Negative); Blood Urine 1+ (Negative); Color Urine Light Yellow (Yellow); Glucose Urine UA Negative (Negative); Ketones Urine Negative (Negative); Leukocyte Esterase Ur 3+ LEU/UL (Negative); Nitrate Urine Negative (Negative); Protein Urine 1+ (Negative); Specific Grav Ur <= 1.005 (1.010-1.020)
[2024-08-07 11:35] LABS: WBC Urine 31-50 /hpf (0-3)
[2024-08-07 11:36] LABS: Bacteria Urine 2+ /hpf
[2024-08-07 11:44] LABS: Hemoglobin A1C 6.7 % (<5.7)
[2024-08-07 12:26] LABS: Alanine Aminotransferase 12 U/L (16-63); Albumin Level 2.7 g/dL (3.4-5.0); Alkaline Phosphatase 93 U/L (46-116); Anion Gap 7 mmol/L (4-12); Aspartate Amino Transferase 13 U/L (15-37); Bilirubin,Total 0.5 mg/dL (0.00-1.00); Blood Urea Nitrogen 8 mg/dL (7-18); Calcium 8.4 mg/dL (8.5-10.1); Carbon Dioxide 31 mmol/L (21-32); Chloride 106 mmol/L (98-108); Cholesterol 112 mg/dL (0-200); Creatine Kinase 31 U/L (39-308); Estimated Glomerular Filt Rate > 60; Ferritin 281 ng/mL (26-388); Glucose 79 mg/dL (70-99); HDL Direct 40 mg/dL (40-60); Iron 41 ug/dL (65-175); Osmolality Calculated 295 mOsm/kg (285-295); Potassium 2.9 mmol/L (3.5-5.1); Sodium 144 mmol/L (136-145); Thyroid Stimulating Hormone 2.43 uIU/mL (0.36-3.74); Total Protein 6.4 g/dL (6.4-8.2); Triglycerides 79 mg/dL (0-150); Uric Acid 5.3 mg/dL (3.5-7.2); Vitamin B12 811 pg/mL (193-986)
[2024-08-07 12:27] LABS: Percent Iron Saturation 18 % (12-57)
--- OUTSIDE RECORDS SUMMARY | 2024-08-07 13:06 | XMS_ITS ---
Author Organization Unknown Address [address] [place] [phone] Phone Care Team Providers Care Order Picker/Assembler Name Role Phone NUVIA MORALEZ Attending Unavailab [...] if indicated - Collect Date/Time: 10/02/2023 14:20 [facility] ID: [id number] [address] [place], [place], [phone] LOINC: 60077-7 Test Value Unit Reference Range Code Code System Flag UR SOURCE MCCABE CATH 33069-5 LOINC COLOR LT YELLOW YELLOW 5778-6 LOINC CLARITY SL TURBID CLEAR 39932-6 LOINC A SPEC GRAVITY 1.020 1.000-1.030 5811-5 LOINC PH 6.0 5.0 - 6.5 5803-2 LOINC LEUK EST 2+ NEGATIVE 5799-2 LOINC A NITRATE NEGATIVE NEGATIVE PROTEIN NEGATIVE NEGATIVE 5804-0 LOINC GLUCOSE NEGATIVE NEGATIVE 88094-9 LOINC KETONES NEGATIVE NEGATIVE 34850-3 LOINC UROBILINOGEN 0.2 NEGATIVE 5818-0 LOINC BILIRUBIN NEGATIVE NEGATIVE 60470-3 LOINC BLOOD NEGATIVE NEGATIVE 35962-6 LOINC WBC >50 0 - 2 65025-5 LOINC A RBC 0-2 0 - 2 17996-4 LOINC EPITHELIAL OCCASIONA RARE-FEW 00741-9 LOINC BACTERIA 1+ NONE SEEN 45907-6 LOINC MUCUS NONE SEEN NONE SEEN 8247-9 LOINC YEAST NOT PRESENT NOT PRESENT 15350-8 LOINC CASTS SEE BELOW 06387-7 LOINC CRYSTALS NONE SEEN 37785-8 LOINC CULTURE? YES 8251-1 LOINC DIAGNOSIS ABN LAB RESU Social History Type Status Start Date End Date Code Code Syst em Smoking History Unknown if ever smoked [address] Sex Male Hospital Discharge Instructions [...] Sys tem Urinary tract infectious disease 10/02/2023 97823750 SNOMED-CT Personal Care Team Section Performer Name Performer Role Active Date Inactive IRA Wright PCP - Primary care physician 2023-10-02
--- OUTSIDE RECORDS SUMMARY | 2024-08-07 13:06 | XMS_ITS | Clinical Summary ---
Author Organization [facility] Address [address] [place] [address] Care Team Providers Care Women'S Garment Fitter Name Role Phone Vicente Oswald MD Primary Care Provider Allergies No known active allergies Medications acetaminophen [...] within 12 hours or as directed by Active fentaNYL 25 mcg/hr Place 1 patch onto the skin every third day. Active diclofenac sodium 1 % gel Apply topically 4 (four) times daily. Active memantine 5 MG tabletIndication s:Dementia without behavioral disturbance, unspecified dementia type (CMS/HCC) Take 1 tablet (5 mg total) by mouth 2 (two) times daily. 180 tablet 1 Active Active Problems No known active problems Family History Medical History Relation Comments No [...] Vaccine: 50+ Years (2 of 2 - PPSV23) 09/21/2015 07/27/2015 Zoster Vaccines (2 of 2) [...] Date/Time Associated Diagnosis Comments LIPID PANEL Routine 05/07/2024 10:45 AM CENTRAL OFFICE OPERATOR SUPERVISOR Diabetes ([facility]) Iron deficiency anemia CKD (chronic kidney disease) Hyperlipidemia HEMOGLOBIN, GLYCOSYLATED Routine 05/07/2024 10:45 AM CENTRAL OFFICE OPERATOR SUPERVISOR Diabetes ([facility]) Iron deficiency anemia CKD (chronic kidney disease) Hyperlipidemia from Last 3 Months or Most Recently Relevant to Health Maintenance Results * (ABNORMAL) HEMOGLOBIN, GLYCOSYLATED (05/07/2024 10:45 AM CENTRAL OFFICE OPERATOR SUPERVISOR) HGB A1C 6.8(H) <5.7 % 05/08/2024 12:25 PM CENTRAL OFFICE OPERATOR SUPERVISOR [facility] ESTIMATED AVG GLUCOSE 148(H) 74 - 114 MG/DL 05/08/2024 12:25 PM CENTRAL OFFICE OPERATOR SUPERVISOR [facility] 05/07/2024 10:4 5 AM CENTRAL OFFICE OPERATOR SUPERVISOR us Vicente Oswald MD LABORATORY Final Result Performing Organization Address [facility] de Phone Number [facility] [address] [place] [address], [phone] * LIPID PANEL (05/07/2024 10:45 AM CENTRAL OFFICE OPERATOR SUPERVISOR) Pathologist [facility] CHOLESTEROL 116 MG/DL 05/08/2024 12:20 PM CENTRAL OFFICE OPERATOR SUPERVISOR [facility] Comment:DESIRABLE: <200 TRIGLYCERIDES 85 MG/DL 05/08/2024 12:20 PM CENTRAL OFFICE OPERATOR SUPERVISOR [facility] Comment:<150 NORMAL HDL 40 >39 MG/DL 05/08/2024 12:20 PM CENTRAL OFFICE OPERATOR SUPERVISOR [facility] LDL-C 59 MG/DL 05/08/2024 12:20 PM CENTRAL OFFICE OPERATOR SUPERVISOR [facility] Comment:<100 OPTIMAL VLDL CALCULATION 17 MG/DL 05/08/19 12:20 PM CENTRAL OFFICE OPERATOR SUPERVISOR [facility] Comment:REFERENCE RANGE NOT ESTABLISHED CHOL/HDL RATIO 2.9 05/08/2024 12:20 PM CENTRAL OFFICE OPERATOR SUPERVISOR [facility] Comment:REFERENCE RANGE NOT ESTABLISHED LDL/HDL 1.5 05/08/2024 12:20 PM CENTRAL OFFICE OPERATOR SUPERVISOR [facility] Comment:REFERENCE RANGE NOT ESTABLISHED NON HDL CHOLESTEROL 76 MG/DL 05/08/2024 12:20 PM CENTRAL OFFICE OPERATOR SUPERVISOR [facility] Comment:REFERENCE RANGE NOT ESTABLISHED 05/07/2024 10:4 5 AM CENTRAL OFFICE OPERATOR SUPERVISOR us Vicente Oswald MD LABORATORY Final Result Performing Organization Address [facility] Co de Phone Number [facility] [address] [place] [address], [phone] from Last 3 Months or Most Recently Relevant to Health Maintenance Insurance [employer] Care Teams Women'S Garment Fitter Relationship Specialty Start Date End Date Vicente Oswald MD [address] [place] [phone] PCP - General INTERNAL MEDICINE 10/08/18
--- OUTSIDE RECORDS SUMMARY | 2024-08-07 13:06 | XMS_ITS | Clinical Summary ---
Author Organization [facility] Kiran Fuentes Address [address] [place] [address] Care Team Providers Care Skin Care Specialist Name Role Phone Vicente Oswald MD Primary [...] Height 182.9 cm (6') 03/21/2023 2:58 PM ITEM REPAIR MANAGER Body Mass Index 31.74 03/21/2023 2:58 PM ITEM REPAIR MANAGER Plan of Treatment Health Maintenance Due Date [...] DIABETES HBA1C Q 6 MONTHS 03/02/2024 08/31/2023, Insurance [employer] PPO MCR Care Teams Skin Care Specialist Relationship Specialty Start Date End Date Vicente Oswald MD [address] [place] [address] PCP - General Internal Medicine 12/27/22
--- OUTSIDE RECORDS SUMMARY | 2024-08-07 13:07 | XMS_ITS | Clinical Summary ---
Author Organization [facility] Address [address] [place] [address] Care Team Providers Care Ditcher Operator Name Role Phone Vicente Oswald MD Primary Care Provider [phone] Allergies Active Allergy Reactions Criticality Noted Date [...] mouth daily Active cyanocobalamin/ folic acid (VITAMIN A99-FRAYH ACID) 1,000-400 mcg lozenge Take 1,000 mcg [...] (12/17/2019): Added automatically from request for surgery [id number] Closed unstable burst fracture of first lumbar v ertebra 12/17/2019 Overview (12/18/2019): Added automatically from request for surgery [id number] Spinal stenosis of lumbar re gion with neurogenic claudication 12/17/2019 Overview (12/18/2019): Added automatically from request for surgery [id number] Compression fracture of L1 lumbar vertebra 12/04 Acute pain due to trauma 12/05/2019 HLD (hyperlipidemia) 12/05/2019 PAD (peripheral artery disease) 12/05/2019 Hypertension 01/30/2018 Spondylolisthesis of lumbar region 12/15/2017 Overview (12/15/2017): Added automatically from request for surgery [id number] Spinal stenosis, lumbar andrew on, with neurogenic claudication 12/15/2017 Overview (12/15/2017): Added automatically from request for surgery [id number] HX: anticoagulation 12/15/2017 Overview (12/15/2017): Added automatically from request for surgery [id number] Type II or unspecified type diabetes mellitus with neurological manifestations, not stated as uncontrolled(250.60) 12/15/2017 Overview (12/15/2017): Added automatically from request for surgery [id number] Assessment & Plan (12/29/2019 3:35 PM CDT): -BG stable on lantus 24u QHS and LD SSI Coronary artery calcification seen on CAT scan 0 12/15/2017 Overview (12/15/2017): Added automatically from request for surgery [id number] Pain in both lower extremities 09/12/2017 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 09/07/2017 Neck [...] on file 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 Gender Identity Not on file Sexual Orientation [...] 07/13/2033 07/14/2023 Medical Devices Implanted Type Area Materials Tech Device Identifier Shelf Expiration Date Model / Serial / Lot [employer] [id number] Tissue Bone Void Filler Acupac Plus 50cc - [id number] - [id number] Implanted:Qty: 1 on 12/26/2019 by Wayne Diggs MD at [facility] Bone N/A: Spine Lumbar [employer] 03/12/2024 [id number] / [id number] / NA Description:AcuPac 50cc Acuity Surgical Donor # [id number] Medtronic Sofamor Danek [id number] Infuse 18mm 26mm Absorbable Sponge Sterile Water Syringe Needle - [id number] Implanted:Qty: 1 on 01/30/2018 by Wayne Diggs MD at [facility] N/A: Spine Lumbar Medtronic Sofamor Danek 10/15/2018 [id number] / / [id number] Medtronic Sofamor Danek [id number] Mastergraft Matrix Block Extension Void Filler Substitute 10ml - [id number] Implanted:Qty: 1 on 01/30/2018 by Wayne Diggs MD at [facility] N/A: Spine Lumbar Medtronic Sofamor Danek [id number] 10/14/2020 [id number] / / [id number] Medtronic Inc [id number] Artic-L L30 Mm X W12 Mm X H12 Mm 5 D Spacer Spinal Titanium - [id number] Implanted:Qty: 1 on 01/30/2018 by Wayne Diggs MD at [facility] N/A: Spine Lumbar Medtronic Inc 07/17/2025 [id number] / / Medtronic Sofamor Danek [id number] Cd Horizon Break Off Spinal Screw Set Titanium Nonsterile 5.5 Mm - [id number] Implanted:Qty: 6 on 01/30/2018 by Wayne Diggs MD at [facility] N/A: Spine Lumbar Medtronic Sofamor Danek [id number] / / Medtronic Sofamor Danek [id number] Solera 5.5mm 70mm Curve Sinan Spinal Titanium Nonsterile - [id number] Implanted:Qty: 2 on 01/30/2018 by Wayne Diggs MD at [facility] N/A: Spine Lumbar Medtronic Sofamor Danek [id number] / / Medtronic Sofamor Danek [id number] Solera Cd Horizon 7.5mm 50mm Multiaxial Spine Screw Bone Cocr - [id number] Implanted:Qty: 5 on 01/30/2018 by Wayne Diggs MD at [facility] N/A: Spine Lumbar Medtronic Sofamor Danek [id number] / / [id number] Implanted:Qty: 1 on 01/30/2018 by Wayne Diggs MD at [facility] N/A: Spine Lumbar Medtronic [id number] / / Medtronic Inc [id number] Artic-L L30 Mm X W12 Mm X H12 Mm 5 D Spacer Spinal Titanium - [id number] Implanted:Qty: 1 on 01/30/2018 by Wayne Diggs MD at [facility] N/A: Spine Lumbar Medtronic Inc [id number] / / Medtronic Sofamor Danek [id number] Infuse 18mm 26mm Absorbable Sponge Sterile Water Syringe Needle - [id number] Implanted:Qty: 1 on 12/26/2019 by Wayne Diggs MD at [facility] N/A: Spine Lumbar Medtronic Inc 11/15/2020 [id number] / / [id number] Medtronic Sofamor Danek [id number] Mastergraft Matrix Block Extension Void Filler Substitute 10ml - [id number] Implanted:Qty: 1 on 12/26/2019 by Wayne Diggs MD at [facility] N/A: Spine Lumbar Medtronic Inc 05/17/2022 [id number] / / [id number] Medtronic Inc [id number] Artic-L L25 Mm X W12 Mm X H13 Mm 5 D Spacer Spinal Titanium - [id number] Implanted:Qty: 1 on 12/26/2019 by Wayne Diggs MD at [facility] N/A: Spine Lumbar Medtronic Inc 01/04/2025 [id number] / / [id number] Medtronic Sofamor Danek [id number] Cd Horizon Break Off Spinal Screw Set Titanium Nonsterile 5.5 Mm - [id number] Implanted:Qty: 12 on 12/26/2019 by Wayne Diggs MD at [facility] N/A: Spine Lumbar Medtronic Inc [id number] / / Medtronic Sofamor Danek [id number] Cd Horizon 5.5mm 500mm Line Straight Sinan Spinal Titanium - [id number] Implanted:Qty: 1 on 12/26/2019 by Wayne Diggs MD at [facility] N/A: Spine Lumbar Medtronic Inc [id number] / / Medtronic Sofamor Danek [id number] Solera Cd Horizon 6.5mm 50mm Multiaxial Spine Screw Bone Cocr - [id number] Implanted:Qty: 6 on 12/26/2019 by Wayne Diggs MD at [facility] N/A: Spine Lumbar Medtronic Inc [id number] / / Medtronic Sofamor Danek [id number] Solera Cd Horizon 7.5mm 55mm Multiaxial Spine Screw Bone Cocr - [id number] Implanted:Qty: 4 on 12/26/2019 by Wayne Diggs MD at [facility] N/A: Spine Lumbar Medtronic Inc [id number] / / Medtronic Sofamor Danek [id number] Solera Cd Horizon 8.5mm 55mm Multiaxial Spine Screw Bone Cocr - [id number] Implanted:Qty: 1 on 12/26/2019 by Wayne Diggs MD at [facility] N/A: Spine Lumbar Medtronic Inc [id number] / / Medtronic Sofamor Danek [id number] 8.5mm 50mm Multiaxial Spine Screw Bone - [id number] Implanted:Qty: 1 on 12/26/2019 by Wayne Diggs MD at [facility] N/A: Spine Lumbar Medtronic Inc [id number] / / [id number] Peripheral Vascular [id number] Dixon Delivery Kit Vena Cava Femoral Filter Embolization Nitinol Latex Free - [id number] Implanted:Qty: 1 on 12/26/2019 by Mario Ramos MD at [facility] N/A: Vena Cava Bard Peripheral Vascular 12/15/2022 [id number] / / [id number] Procedures Procedure Name Priority Date/Time Associated Diagnosis [...] - 149 EXTERNAL LAB Blood specimen (specimen) [facility] Provider LAB BLOOD ORDERABLES Edit ed Result - Final EXTERNAL LAB * (ABNORMAL) Hemoglobin A1c (12/04/2019 2:54 PM CDT) Pathologist [facility] Hgb A1C 7.7(H) 4.0 - 5.6 % [facility] Estimated Average Glucose 174 mg/dL [facility] Comment: The ADA recommends reporting an estimated Average Glucose (eAG) with all Hemoglobin A1c results using the equation derived from a study of 507 normal and diabetic adults. Minority populations were underrepresented and children were not included. (Diabetes Care 31:8934-2947, 2008). The eAG is not equivalent to a fasting glucose. Blood specimen (specimen) 12/04/2019 2:54 PM CDT 12/04/2019 3:10 PM CDT Narrative [facility] - 12/04/2019 3:45 PM CDT THE [facility] COLLECTION LOCATION IS [facility] ED1-17 Leti Bhatti MD LAB BLOOD ORDERABL ES Final Result [facility] [place] [address] from Last 3 Months or Most Recently Relevant to Health Maintenance Insurance [facility] MEDICARE ADVANTAGE AET[employer] MEDICARE Advance Directives For more information, please contact: [phone] Documents on File Type Date Recorded Patient Epidemiology Internship Expl anation ADVANCE DIRECTIVE 02/05/2018 11:54 AM POW ER OF CIRCULATOR * Full Code (Latest Code Status on File) Date Activated Date Inactivated Comments 12/25/2019 1:19 PM 01/03/2020 4:00 PM * Full Code Date Activated Date Inactivated Comments 12/04/2019 4:20 PM 12/06/2019 5:43 PM * Full Code Date Activated Date Inactivated Comments 01/30/2018 6:39 PM 02/05/2018 2:48 PM Care Teams Ditcher Operator Relationship Specialty Start Date End Date Vicente Oswald MD [address] [place] [address] PCP - General 06/08/16
--- OUTSIDE RECORDS SUMMARY | 2024-08-07 13:07 | XMS_ITS | Referral Summary ---
Author Organization [facility] al Address [address] [place] [address] Care Team Providers Care Plate Preparer Name Role Phone Vicente Oswald MD Primary Care Provider [phone] Allergies Active Allergy Reactions Criticality Noted Date [...] mouth daily Active cyanocobalamin/ folic acid (VITAMIN D47-PVQVE ACID) 1,000-400 mcg lozenge Take 1,000 mcg [...] (12/17/2019): Added automatically from request for surgery [id number] Closed unstable burst fracture of first lumbar v ertebra 12/17/2019 Overview (12/18/2019): Added automatically from request for surgery [id number] Spinal stenosis of lumbar re gion with neurogenic claudication 12/17/2019 Overview (12/18/2019): Added automatically from request for surgery [id number] Compression fracture of L1 lumbar vertebra 12/04 Acute pain due to trauma 12/05/2019 HLD (hyperlipidemia) 12/05/2019 PAD (peripheral artery disease) 12/05/2019 Hypertension 01/30/2018 Spondylolisthesis of lumbar region 12/15/2017 Overview (12/15/2017): Added automatically from request for surgery [id number] Spinal stenosis, lumbar andrew on, with neurogenic claudication 12/15/2017 Overview (12/15/2017): Added automatically from request for surgery [id number] HX: anticoagulation 12/15/2017 Overview (12/15/2017): Added automatically from request for surgery [id number] Type II or unspecified type diabetes mellitus with neurological manifestations, not stated as uncontrolled(250.60) 12/15/2017 Overview (12/15/2017): Added automatically from request for surgery [id number] Assessment & Plan (12/29/2019 3:35 PM CDT): -BG stable on lantus 24u QHS and LD SSI Coronary artery calcification seen on CAT scan 0 12/15/2017 Overview (12/15/2017): Added automatically from request for surgery [id number] Pain in both lower extremities 09/12/2017 Atheroscler [place] arteries the extremities w/intermit claudication 09/07/2017 Neck [...] on file 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 Gender Identity Not on file Sexual Orientation [...] on file Medical Devices Implanted Type Area Crop Duster Helper Device Identifier Shelf Expiration Date Model / Serial / Lot Acuity Surgical Inc [id number] Tissue Bone Void Filler Acupac Plus 50cc - [id number] - [id number] Implanted:Qty: 1 on 12/26/2019 by Wayne Diggs MD at [facility] Bone N/A: Spine Lumbar Acuity Surgical Inc 03/12/2024 [id number] / NA Description:AcuPac 50cc Acuity Surgical Donor # [id number] Medtronic Sofamor Danek [id number] Infuse 18mm 26mm Absorbable Sponge Sterile Water Syringe Needle - [id number] Implanted:Qty: 1 on 01/30/2018 by Wayne Diggs MD at [facility] N/A: Spine Lumbar Medtronic Sofamor Danek 10/15/2018 [id number] / / [id number] Medtronic Sofamor Danek [id number] Mastergraft Matrix Block Extension Void Filler Substitute 10ml - [id number] Implanted:Qty: 1 on 01/30/2018 by Wayne Diggs MD at [facility] N/A: Spine Lumbar Medtronic Sofamor Danek [id number] 10/14/2020 [id number] / / [id number] Medtronic Inc [id number] Artic-L L30 Mm X W12 Mm X H12 Mm 5 D Spacer Spinal Titanium - [id number] Implanted:Qty: 1 on 01/30/2018 by Wayne Diggs MD at [facility] N/A: Spine Lumbar Medtronic Inc 07/17/2025 [id number] / / Medtronic Sofamor Danek [id number] Cd Horizon Break Off Spinal Screw Set Titanium Nonsterile 5.5 Mm - [id number] Implanted:Qty: 6 on 01/30/2018 by Wayne Diggs MD at [facility] N/A: Spine Lumbar Medtronic Sofamor Danek [id number] / / Medtronic Sofamor Danek [id number] Solera 5.5mm 70mm Curve Sinan Spinal Titanium Nonsterile - [id number] Implanted:Qty: 2 on 01/30/2018 by Wayne Diggs MD at [facility] N/A: Spine Lumbar Medtronic Sofamor Danek [id number] / / Medtronic Sofamor Danek [id number] Solera Cd Horizon 7.5mm 50mm Multiaxial Spine Screw Bone Cocr - [id number] Implanted:Qty: 5 on 01/30/2018 by Wayne Diggs MD at [facility] N/A: Spine Lumbar Medtronic Sofamor Danek [id number] / / Mas Implanted:Qty: 1 on 01/30/2018 by Wayne Diggs MD at [facility] N/A: Spine Lumbar Medtronic [id number] / / Medtronic Inc [id number] Artic-L L30 Mm X W12 Mm X H12 Mm 5 D Spacer Spinal Titanium - [id number] Implanted:Qty: 1 on 01/30/2018 by Wayne Diggs MD at [facility] N/A: Spine Lumbar Medtronic Inc [id number] / / Medtronic Sofamor Danek [id number] Infuse 18mm 26mm Absorbable Sponge Sterile Water Syringe Needle - [id number] Implanted:Qty: 1 on 12/26/2019 by Wayne Diggs MD at [facility] N/A: Spine Lumbar Medtronic Inc 11/15/2020 [id number] / / [id number] Medtronic Sofamor Danek [id number] Mastergraft Matrix Block Extension Void Filler Substitute 10ml - [id number] Implanted:Qty: 1 on 12/26/2019 by Wayne Diggs MD at [facility] N/A: Spine Lumbar Medtronic Inc 05/17/2022 [id number] / / [id number] Medtronic Inc [id number] Artic-L L25 Mm X W12 Mm X H13 Mm 5 D Spacer Spinal Titanium - [id number] Implanted:Qty: 1 on 12/26/2019 by Wayne Diggs MD at [facility] N/A: Spine Lumbar Medtronic Inc 01/04/2025 [id number] / / [id number] Medtronic Sofamor Danek [id number] Cd Horizon Break Off Spinal Screw Set Titanium Nonsterile 5.5 Mm - [id number] Implanted:Qty: 12 on 12/26/2019 by Wayne Diggs MD at [facility] N/A: Spine Lumbar Medtronic Inc [id number] / / Medtronic Sofamor Danek [id number] Cd Horizon 5.5mm 500mm Line Straight Sinan Spinal Titanium - [id number] Implanted:Qty: 1 on 12/26/2019 by Wayne Diggs MD at [facility] N/A: Spine Lumbar Medtronic Inc [id number] / / Medtronic Sofamor Danek [id number] Solera Cd Horizon 6.5mm 50mm Multiaxial Spine Screw Bone Cocr - [id number] Implanted:Qty: 6 on 12/26/2019 by Wayne Diggs MD at [facility] N/A: Spine Lumbar Medtronic Inc [id number] / / Medtronic Sofamor Danek [id number] Solera Cd Horizon 7.5mm 55mm Multiaxial Spine Screw Bone Cocr - [id number] Implanted:Qty: 4 on 12/26/2019 by Wayne Diggs MD at [facility] N/A: Spine Lumbar Medtronic Inc [id number] / / Medtronic Sofamor Danek [id number] Solera Cd Horizon 8.5mm 55mm Multiaxial Spine Screw Bone Cocr - [id number] Implanted:Qty: 1 on 12/26/2019 by Wayne Diggs MD at [facility] N/A: Spine Lumbar Medtronic Inc [id number] / / Medtronic Sofamor Danek [id number] 8.5mm 50mm Multiaxial Spine Screw Bone - [id number] Implanted:Qty: 1 on 12/26/2019 by Wayne Diggs MD at [facility] N/A: Spine Lumbar Medtronic Inc [id number] / / Bard Peripheral Vascular [id number] Brooke Delivery Kit Vena Cava Femoral Filter Embolization Nitinol Latex Free - [id number] Implanted:Qty: 1 on 12/26/2019 by Mario Rmaos MD at [facility] N/A: Vena Cava Bard Peripheral Vascular 12/15/2022 [id number] / / [id number] Procedures Procedure Name Priority Date/Time Associated Diagnosis [...] A1C 7.7(H) 4.0 - 5.6 % [facility] Estimated Average Glucose 174 mg/dL [facility] Comment: The ADA recommends reporting an estimated Average Glucose (eAG) with all Hemoglobin A1c results using the equation derived from a study of 507 normal and diabetic adults. Minority populations were underrepresented and children were not included. (Diabetes Care 31:9012-2411, 2008). The eAG is not equivalent to a fasting glucose. Blood specimen (specimen) 12/04/2019 2:54 PM CDT 12/04/2019 3:10 PM CD[address] [facility] - 12/04/2019 3:45 PM CDT THE BJ COLLECTION LOCATION IS [facility] ED1-17 Leti Bhatti MD LAB BLOOD ORDERABL ES Final Result [facility] Department [place] [address] from Last 3 Months or Most Recently Relevant to Health Maintenance Insurance [facility] MEDICARE [facility] MEDIC[facility] Address: [address] [place] [address] [address] Advance Directives For more information, please contact: [phone] Documents on File Type Date Recorded Patient Cooler Servicer Expl anation ADVANCE DIRECTIVE 02/05/2018 11:54 AM POW ER OF ELECTROTHERAPIST * Full Code (Latest Code Status on File) Date Activated Date Inactivated Comments 12/25/2019 1:19 PM 01/03/2020 4:00 PM * Full Code Date Activated Date Inactivated Comments 12/04/2019 4:20 PM 12/06/2019 5:43 PM * Full Code Date Activated Date Inactivated Comments 01/30/2018 6:39 PM 02/05/2018 2:48 PM Care Teams Plate Preparer Relationship Specialty Start Date End Date Vicente Oswald MD [address] [place] [address] PCP - General 06/08/16
[2024-08-08 07:57] LABS: Total Triiodothyronine (T3) 87 ng/dL (76-181)
== END 2024-08-07 11:10 | disposition home or self-care (01) ==
LOC: CHSLAB 11:12
PROVIDERS: PCP Internal Medicine; Visit Provider Internal Medicine
DX: E11.65 Type 2 diabetes mellitus with hyperglycemia (principal); E79.0 Hyperuricemia without signs of inflammatory arthritis and tophaceous disease; I25.10 Atherosclerotic heart disease of native coronary artery without angina pectoris; I10 Essential (primary) hypertension; E78.2 Mixed hyperlipidemia; D64.9 Anemia, unspecified; R82.90 Unspecified abnormal findings in urine
CPT/HCPCS: 36415; 80053; 81001; 82465; 82550; 82607; 82728; 83036; 83540; 83550; 83718; 84439; 84443; 84478; 84480; 84550; 85025; 87086

== ENCOUNTER 2024-08-27 09:51 | Outpatient (CLI) | payer MEDICARE, SELFPAY ==
--- OUTSIDE RECORDS SUMMARY | 2024-08-27 10:04 | XMS_ITS | Clinical Summary ---
Author Organization [facility] Address [address] [place] [address] Care Team Providers Care Meter Reading Clerk Name Role Phone Vicente Oswald MD Primary Care Provider [phone] Allergies No known active allergies Medications acetaminophen [...] Comments LIPID PANEL Routine 05/07/2024 10:45 AM YARN SPINNER Diabetes ([facility]) Iron deficiency anemia CKD (chronic kidney disease) Hyperlipidemia HEMOGLOBIN, GLYCOSYLATED Routine 05/07/2024 10:45 AM YARN SPINNER Diabetes ([facility]) Iron deficiency anemia CKD (chronic kidney disease) Hyperlipidemia from Last 3 Months or Most Recently Relevant to Health Maintenance Results * (ABNORMAL) HEMOGLOBIN, GLYCOSYLATED (05/07/2024 10:45 AM YARN SPINNER) HGB A1C 6.8(H) <5.7 % 05/08/2024 12:25 PM YARN SPINNER [facility] ESTIMATED AVG GLUCOSE 148(H) 74 - 114 MG/DL 05/08/2024 12:25 PM YARN SPINNER [facility] 05/07/2024 10:4 5 AM YARN SPINNER us Vicente Oswald MD LABORATORY Final Result Performing Organization Address [facility] de Phone Number [facility] [address] [place] [address], [phone] * LIPID PANEL (05/07/2024 10:45 AM YARN SPINNER) Pathologist [facility] CHOLESTEROL 116 MG/DL 05/08/2024 12:20 PM YARN SPINNER [facility] Comment:DESIRABLE: <200 TRIGLYCERIDES 85 MG/DL 05/08/2024 12:20 PM YARN SPINNER [facility] Comment:<150 NORMAL HDL 40 >39 MG/DL 05/08/2024 12:20 PM YARN SPINNER [facility] LDL-C 59 MG/DL 05/08/2024 12:20 PM YARN SPINNER [facility] Comment:<100 OPTIMAL VLDL CALCULATION 17 MG/DL 05/08/19 12:20 PM YARN SPINNER [facility] Comment:REFERENCE RANGE NOT ESTABLISHED CHOL/HDL RATIO 2.9 05/08/2024 12:20 PM YARN SPINNER [facility] Comment:REFERENCE RANGE NOT ESTABLISHED LDL/HDL 1.5 05/08/2024 12:20 PM YARN SPINNER [facility] Comment:REFERENCE RANGE NOT ESTABLISHED NON HDL CHOLESTEROL 76 MG/DL 05/08/2024 12:20 PM YARN SPINNER [facility] Comment:REFERENCE RANGE NOT ESTABLISHED 05/07/2024 10:4 5 AM YARN SPINNER us Vicente Oswald MD LABORATORY Final Result Performing Organization Address [facility] Co de Phone Number [facility] [address] [place] [address], [phone] from Last 3 Months or Most Recently Relevant to Health Maintenance Insurance [employer] Care Teams Meter Reading Clerk Relationship Specialty Start Date End Date Vicente Oswald MD [address] [place] [id number] PCP - General INTERNAL MEDICINE 10/08/18
--- OUTSIDE RECORDS SUMMARY | 2024-08-27 10:04 | XMS_ITS | Referral Summary ---
Author Organization [facility] al Address [address] [place] [address] Care Team Providers Care Manager Dialysis Name Role Phone Vicente Oswald MD Primary Care Provider [phone] Allergies Active Allergy Reactions Criticality Noted Date [...] mouth daily Active cyanocobalamin/ folic acid (VITAMIN M97-QKZNT ACID) 1,000-400 mcg lozenge Take 1,000 mcg [...] (12/17/2019): Added automatically from request for surgery [id number] Closed unstable burst fracture of first lumbar v ertebra 12/17/2019 Overview (12/18/2019): Added automatically from request for surgery [id number] Spinal stenosis of lumbar re gion with neurogenic claudication 12/17/2019 Overview (12/18/2019): Added automatically from request for surgery [id number] Compression fracture of L1 lumbar vertebra 12/04 Acute pain due to trauma 12/05/2019 HLD (hyperlipidemia) 12/05/2019 PAD (peripheral artery disease) 12/05/2019 Hypertension 01/30/2018 Spondylolisthesis of lumbar region 12/15/2017 Overview (12/15/2017): Added automatically from request for surgery [id number] Spinal stenosis, lumbar andrew on, with neurogenic claudication 12/15/2017 Overview (12/15/2017): Added automatically from request for surgery [id number] HX: anticoagulation 12/15/2017 Overview (12/15/2017): Added automatically from request for surgery [id number] Type II or unspecified type diabetes mellitus with neurological manifestations, not stated as uncontrolled(250.60) 12/15/2017 Overview (12/15/2017): Added automatically from request for surgery [id number] Assessment & Plan (12/29/2019 3:35 PM CDT): -BG stable on lantus 24u QHS and LD SSI Coronary artery calcification seen on CAT scan 0 12/15/2017 Overview (12/15/2017): Added automatically from request for surgery [id number] Pain in both lower extremities 09/12/2017 Atheroscler [place] arteries the extremities w/intermit claudication 09/07/2017 Neck [...] on file 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 Gender Identity Not on file Sexual Orientation [...] on file Medical Devices Implanted Type Area Jewelry Jobber Device Identifier Shelf Expiration Date Model / Serial / Lot Acuity [employer] Inc [id number] Tissue Bone Void Filler Acupac Plus 50cc - [id number] - [id number] Implanted:Qty: 1 on 12/26/2019 by Wayne Diggs MD at [facility] Bone N/A: Spine Lumbar Acuity [employer] Inc 03/12/2024 [id number] / [id number] / NA Description:AcuPac 50cc Acuity Surgical Donor # [id number] Medtronic Sofamor Danek [id number] Infuse 18mm 26mm Absorbable Sponge Sterile Water Syringe Needle - [id number] Implanted:Qty: 1 on 01/30/2018 by Wayne Diggs MD at [facility] N/A: Spine Lumbar Medtronic Sofamor Danek 10/15/2018 [id number] / / [id number] Medtronic Sofamor Danek [id number] Mastergraft Matrix Block Extension Void Filler Substitute 10ml - [id number] Implanted:Qty: 1 on 01/30/2018 by Wayne Diggs MD at [facility] N/A: Spine Lumbar Medtronic Sofamor Danek [id number] 10/14/2020 [id number] / / [id number] Medtronic Inc [id number] Artic-L L30 Mm X W12 Mm X H12 Mm 5 D Spacer Spinal Titanium - [id number] Implanted:Qty: 1 on 01/30/2018 by Wayne Diggs MD at [facility] N/A: Spine Lumbar Medtronic Inc 07/17/2025 [id number] / / Medtronic Sofamor Danek [id number] Cd Horizon Break Off Spinal Screw Set Titanium Nonsterile 5.5 Mm - [id number] Implanted:Qty: 6 on 01/30/2018 by Wayne Diggs MD at [facility] N/A: Spine Lumbar Medtronic Sofamor Danek [id number] / / Medtronic Sofamor Danek [id number] Solera 5.5mm 70mm Curve Sinan Spinal Titanium Nonsterile - [id number] Implanted:Qty: 2 on 01/30/2018 by Wayne Diggs MD at [facility] N/A: Spine Lumbar Medtronic Sofamor Danek [id number] / / Medtronic Sofamor Danek [id number] Solera Cd Horizon 7.5mm 50mm Multiaxial Spine Screw Bone Cocr - [id number] Implanted:Qty: 5 on 01/30/2018 by Wayne Diggs MD at [facility] N/A: Spine Lumbar Medtronic Sofamor Danek [id number] / / Mas Implanted:Qty: 1 on 01/30/2018 by Wayne Diggs MD at [facility] N/A: Spine Lumbar Medtronic [id number] / / Medtronic Inc [id number] Artic-L L30 Mm X W12 Mm X H12 Mm 5 D Spacer Spinal Titanium - [id number] Implanted:Qty: 1 on 01/30/2018 by Wayne Diggs MD at [facility] N/A: Spine Lumbar Medtronic Inc [id number] / / Medtronic Sofamor Danek [id number] Infuse 18mm 26mm Absorbable Sponge Sterile Water Syringe Needle - [id number] Implanted:Qty: 1 on 12/26/2019 by Wayne Diggs MD at [facility] N/A: Spine Lumbar Medtronic Inc 11/15/2020 [id number] / / [id number] Medtronic Sofamor Danek [id number] Mastergraft Matrix Block Extension Void Filler Substitute 10ml - [id number] Implanted:Qty: 1 on 12/26/2019 by Wayne Diggs MD at [facility] N/A: Spine Lumbar Medtronic Inc 05/17/2022 [id number] / / [id number] Medtronic Inc [id number] Artic-L L25 Mm X W12 Mm X H13 Mm 5 D Spacer Spinal Titanium - [id number] Implanted:Qty: 1 on 12/26/2019 by Wayne Diggs MD at [facility] N/A: Spine Lumbar Medtronic Inc 01/04/2025 [id number] / / [id number] Medtronic Sofamor Danek [id number] Cd Horizon Break Off Spinal Screw Set Titanium Nonsterile 5.5 Mm - [id number] Implanted:Qty: 12 on 12/26/2019 by Wayne Diggs MD at [facility] N/A: Spine Lumbar Medtronic Inc [id number] / / Medtronic Sofamor Danek [id number] Cd Horizon 5.5mm 500mm Line Straight Sinan Spinal Titanium - [id number] Implanted:Qty: 1 on 12/26/2019 by Wayne Diggs MD at [facility] N/A: Spine Lumbar Medtronic Inc [id number] / / Medtronic Sofamor Danek [id number] Solera Cd Horizon 6.5mm 50mm Multiaxial Spine Screw Bone Cocr - [id number] Implanted:Qty: 6 on 12/26/2019 by Wayne Diggs MD at [facility] N/A: Spine Lumbar Medtronic Inc [id number] / / Medtronic Sofamor Danek [id number] Solera Cd Horizon 7.5mm 55mm Multiaxial Spine Screw Bone Cocr - [id number] Implanted:Qty: 4 on 12/26/2019 by Wayne Diggs MD at [facility] N/A: Spine Lumbar Medtronic Inc [id number] / / Medtronic Sofamor Danek [id number] Solera Cd Horizon 8.5mm 55mm Multiaxial Spine Screw Bone Cocr - [id number] Implanted:Qty: 1 on 12/26/2019 by Wayne Diggs MD at [facility] N/A: Spine Lumbar Medtronic Inc [id number] / / Medtronic Sofamor Danek [id number] 8.5mm 50mm Multiaxial Spine Screw Bone - [id number] Implanted:Qty: 1 on 12/26/2019 by Wayne Diggs MD at [facility] N/A: Spine Lumbar Medtronic Inc [id number] / / Bard Peripheral Vascular [id number] Brooke Delivery Kit Vena Cava Femoral Filter Embolization Nitinol Latex Free - [id number] Implanted:Qty: 1 on 12/26/2019 by Mario Ramos MD at [facility] N/A: Vena Cava Bard Peripheral Vascular 12/15/2022 [id number] / / [id number] Procedures Procedure Name Priority Date/Time Associated Diagnosis [...] A1C 7.7(H) 4.0 - 5.6 % [facility] Estimated Average Glucose 174 mg/dL [facility] Comment: The ADA recommends reporting an estimated Average Glucose (eAG) with all Hemoglobin A1c results using the equation derived from a study of 507 normal and diabetic adults. Minority populations were underrepresented and children were not included. (Diabetes Care 31:8589-1132, 2008). The eAG is not equivalent to a fasting glucose. Blood specimen (specimen) 12/04/2019 2:54 PM CDT 12/04/2019 3:10 PM CDT Narrative [facility] - 12/04/2019 3:45 PM CDT THE BJ COLLECTION LOCATION IS [facility] ED1-17 Leti Bhatti MD LAB BLOOD ORDERABL ES Final Result [facility] Department [place] [address] from Last 3 Months or Most Recently Relevant to Health Maintenance Insurance [facility] MEDICARE [facility] MEDICARE Address: [address] [place] [address] [address] Advance Directives For more information, please contact: [phone] Documents on File Type Date Recorded 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
--- OUTSIDE RECORDS SUMMARY | 2024-08-27 10:04 | XMS_ITS | Data Portability ---
Author Organization [facility], Main Office Address [address] [place] [address] Care Team Providers Care Testboard Operator Name Role Phone IRA RUELAS Referring Provider CHRISTINA WADE Point Of Care Specialist Assessment No assessment recorded. Plan of Treatment [...] ast No observ ation record ed. [email or web address] [facility] [address], [place], [address], 12/11/2023 08:48:27 12/19/19 24 12/19/2023 CT, sinus es, w/o contr ast No observ ation record ed. [facility] [address], [place], [address], 12/19/2023 11:47:30 Result Notes None recorded. Problems Name Problem SNOMED Code Status Onset Date Resolution Date Notes Provider Name and Address Organization Details Recorded Time Chronic sinusitis 22139143 Active 024 Radha Kim RN null, [facility] 16:38:38 Chronic cough 13906408 Active 024 Radha Kim RN null, [facility] [employer] 4 11:14:34 Problem Notes None recorded. Procedures Surgical History None recorded. Imaging Results Imaging Date Name Status LastModified by Organiz ation Details LastModified Time 12/06/2023 XR, chest, 2 view completed [email or web address] Information not available 12/06/2023 11:24:08 12/07/2023 CT, sinuses, w/o contrast completed [address], [place], [address], 12/11/2023 08:48:27 12/19/2023 CT, sinuses, w/o contrast completed [facility] [address], [place], [address], 12/19/2023 11:47:30 Procedure Notes None recorded. Medical Equipment None Reported. Allergies Allergen ID Allergen Name Allergen Category Reaction Reaction Severity Criticality Documentation Date Start Date Code Code System Note Provider Name and Address Organization Details Recorded Time 39111 mold extract environme nt Not available Not available Not available 10/30/2023 04606 8 RxNorm CHIDI Farely null, [facility] [employer] 4 11:58:55 No known drug allergies Medications [...] azelastine 137 mcg (0.1 %) nasal spray Hollis 1 spray twice a day by intranasa l route. active Not Available Not Available No t Available ipratropium bromide 42 mcg (0.06 %) nasal spray Hollis 2 sprays 3 times a day by intranasa l route. active Not Available Not Available No t Available losartan 100 mg tablet Take 1 tablet every day by oral route. active Not Available Not Available No t Available fluticasone propionate 50 mcg/actuati on nasal spray,suspe nsion Hollis 1 spray twice a day by intranasa [...] Address Organization Details Last Updated DateTime 11/30/2023 989199.28 g 30.5 kg/m2 182.88 cm 97.6 [degF] CHIDI Farley [place] - [facility] [employer] [facility] 11/30/2023 16:26:01 Social History None recorded. Functional Status Question Answer Note LastModified by Organization D etails LastModified Time What is your level of alcohol consumption? None [email or web address] Information not available 10/30/2023 Mental Status None recorded. Family History Relationship Description Onset Age of this Age Resolved Age Notes LastModified by Organization Details LastModified Time Unspecified Relation Asthma grands on, childh ood asthma ftrotter Not available 10/30/2023 11:33:31 Notes:NO ENT Medical History Condition Response BLOOD DISEASES Y DIABETES, TYPE Y HEART DISEASE/HEART PROBLEMS Y ENT Y SEASONAL ALLERGIES Y LUNG DISEASE/DISORDER Y HYPERTENSION Y HIGH CHOLESTEROL / HYPERLIPIDEMIA Y Past Encounters Encounter ID Performer Location Encounter Start Date Encounter Closed Date Diagnosis/Indication Diagnosis SNOMED-CT Code Diagnosis ICD10 Code Diagnosis Note [id number] Alfredo Montilla MD [facility] [address] [place] [address] 11/30/2023 15:43:30 11/30/2023 17:03:23 Chronic sinusitis 10247509 J32.9 Health Concerns Section Related Observation LastModified by Organization Detai ls LastModified Time None Recorded Concern Status LastModified by Organization Details LastModified Time None Recorded Advance Directives Directive None Recorded Payers Encounter Date Sequence Insurance Name Policy Number Policy Trinidad Covered Member ID Trinidad Member ID Guarantor Name 11/30/2023 1 [employer] (MEDICARE REPLACEMENT PPO) [id number] Kieran Key [id number] Kieran Key Notes Date Note Type Note [...] studies or lung CT Alfredo Montilla MD [address] [place] [address], [place] [address], [place], [address], [facility] [employer] 11/30/2023 16:41:18
--- OUTSIDE RECORDS SUMMARY | 2024-08-27 10:04 | XMS_ITS ---
Author Organization Unknown Address [address] [place] [phone] Phone Care Team Providers Care Account Retention Representative Name Role Phone NUVIA MORALEZ Attending Unavailab [...] if indicated - Collect Date/Time: 10/02/2023 14:20 [facility] ID: [id number] [address] [place], [place], [id number] LOINC: 56421-8 Test Value Unit Reference Range Code Code System Flag UR SOURCE MCCABE CATH 05093-9 LOINC COLOR LT YELLOW YELLOW 5778-6 LOINC CLARITY SL TURBID CLEAR 86687-6 LOINC A SPEC GRAVITY 1.020 1.000-1.030 5811-5 LOINC PH 6.0 5.0 - 6.5 5803-2 LOINC LEUK EST 2+ NEGATIVE 5799-2 LOINC A NITRATE NEGATIVE NEGATIVE PROTEIN NEGATIVE NEGATIVE 5804-0 LOINC GLUCOSE NEGATIVE NEGATIVE 32178-0 LOINC KETONES NEGATIVE NEGATIVE 14132-3 LOINC UROBILINOGEN 0.2 NEGATIVE 5818-0 LOINC BILIRUBIN NEGATIVE NEGATIVE 23182-7 LOINC BLOOD NEGATIVE NEGATIVE 38077-1 LOINC WBC >50 0 - 2 88222-8 LOINC A RBC 0-2 0 - 2 83897-9 LOINC EPITHELIAL OCCASIONA RARE-FEW 15016-3 LOINC BACTERIA 1+ NONE SEEN 44969-9 LOINC MUCUS NONE SEEN NONE SEEN 8247-9 LOINC YEAST NOT PRESENT NOT PRESENT 99527-5 LOINC CASTS SEE BELOW 37431-4 LOINC CRYSTALS NONE SEEN 21523-3 LOINC CULTURE? YES 8251-1 LOINC DIAGNOSIS ABN LAB RESU Social History Type Status Start Date End Date Code Code Syst em Smoking History Unknown if ever smoked [address] Sex Male Hospital Discharge Instructions [...] Sys tem Urinary tract infectious disease 10/02/2023 29661029 SNOMED-CT Personal Care Team Section Performer Name Performer Role Active Date Inactive IRA Wright PCP - Primary care physician 2023-10-02
--- OUTSIDE RECORDS SUMMARY | 2024-08-27 10:04 | XMS_ITS | Clinical Summary ---
Author Organization [facility] Address [address] [place] [address] Care Team Providers Care Rubber Mixer Name Role Phone Vicente Oswald MD Primary Care Provider [phone] Allergies Active Allergy Reactions Criticality Noted Date [...] mouth daily Active cyanocobalamin/ folic acid (VITAMIN D94-AVVAW ACID) 1,000-400 mcg lozenge Take 1,000 mcg [...] (12/17/2019): Added automatically from request for surgery [id number] Closed unstable burst fracture of first lumbar v ertebra 12/17/2019 Overview (12/18/2019): Added automatically from request for surgery [id number] Spinal stenosis of lumbar re gion with neurogenic claudication 12/17/2019 Overview (12/18/2019): Added automatically from request for surgery [id number] Compression fracture of L1 lumbar vertebra 12/04 Acute pain due to trauma 12/05/2019 HLD (hyperlipidemia) 12/05/2019 PAD (peripheral artery disease) 12/05/2019 Hypertension 01/30/2018 Spondylolisthesis of lumbar region 12/15/2017 Overview (12/15/2017): Added automatically from request for surgery [id number] Spinal stenosis, lumbar andrew on, with neurogenic claudication 12/15/2017 Overview (12/15/2017): Added automatically from request for surgery [id number] HX: anticoagulation 12/15/2017 Overview (12/15/2017): Added automatically from request for surgery [id number] Type II or unspecified type diabetes mellitus with neurological manifestations, not stated as uncontrolled(250.60) 12/15/2017 Overview (12/15/2017): Added automatically from request for surgery [id number] Assessment & Plan (12/29/2019 3:35 PM CDT): -BG stable on lantus 24u QHS and LD SSI Coronary artery calcification seen on CAT scan 0 12/15/2017 Overview (12/15/2017): Added automatically from request for surgery [id number] Pain in both lower extremities 09/12/2017 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 09/07/2017 Neck [...] on file 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 Gender Identity Not on file Sexual Orientation [...] 07/13/2033 07/14/2023 Medical Devices Implanted Type Area Federal Appellate Clerk Device Identifier Shelf Expiration Date Model / Serial / Lot [employer] [id number] Tissue Bone Void Filler Acupac Plus 50cc - [id number] - [id number] Implanted:Qty: 1 on 12/26/2019 by Wayne Diggs MD at [facility] Bone N/A: Spine Lumbar [employer] 03/12/2024 [id number] / NA Description:AcuPac 50cc Acuity Surgical Donor # [id number] Medtronic Sofamor [place]ane[place] [id number] Infuse 18mm 26mm Absorbable Sponge Sterile Water Syringe Needle - [id number] Implanted:Qty: 1 on 01/30/2018 by Wayne Dgigs MD at [facility] N/A: Spine Lumbar Medtronic Sofamor [place]k 10/15/2018 [id number] / / [id number] Medtronic Sofamor [employer]k [id number] Mastergraft Matrix Block Extension Void Filler Substitute 10ml - [id number] Implanted:Qty: 1 on 01/30/2018 by Wayne Diggs MD at [facility] N/A: Spine Lumbar Medtronic Sofamor [place] [id number] 10/14/2020 [id number] / / [id number] Medtronic Inc [id number] Artic-L L30 Mm X W12 Mm X H12 Mm 5 D Spacer Spinal Titanium - [id number] Implanted:Qty: 1 on 01/30/2018 by Wayne Diggs MD at [facility] N/A: Spine Lumbar Medtronic Inc 07/17/2025 [id number] / / Medtronic Sofamor [place]k [id number] Cd Horizon Break Off Spinal Screw Set Titanium Nonsterile 5.5 Mm - [id number] Implanted:Qty: 6 on 01/30/2018 by Wayne Diggs MD at [facility] N/A: Spine Lumbar Medtronic Sofamor [place] [id number] / / Medtronic Sofamor [place] [id number] Solera 5.5mm 70mm Curve Sinan Spinal Titanium Nonsterile - [id number] Implanted:Qty: 2 on 01/30/2018 by Wayne Diggs MD at [facility] N/A: Spine Lumbar Medtronic Sofamor [place] [id number] / / Medtronic Sofamor [place]k [id number] Solera Cd Horizon 7.5mm 50mm Multiaxial Spine Screw Bone Cocr - [id number] Implanted:Qty: 5 on 01/30/2018 by Wayne Diggs MD at [facility] N/A: Spine Lumbar Medtronic Sofamor [place]k [id number] / / Mas Implanted:Qty: 1 on 01/30/2018 by Wayne Diggs MD at [facility] N/A: Spine Lumbar Medtronic [id number] / / Medtronic Inc [id number] Artic-L L30 Mm X W12 Mm X H12 Mm 5 D Spacer Spinal Titanium - [id number] Implanted:Qty: 1 on 01/30/2018 by Wayne Diggs MD at [facility] N/A: Spine Lumbar Medtronic Inc [id number] / / Medtronic Sofamor Danek [id number] Infuse 18mm 26mm Absorbable Sponge Sterile Water Syringe Needle - [id number] Implanted:Qty: 1 on 12/26/2019 by Wayne Diggs MD at [facility] N/A: Spine Lumbar Medtronic Inc 11/15/2020 [id number] / / [id number] Medtronic Sofamor Danek [id number] Mastergraft Matrix Block Extension Void Filler Substitute 10ml - [id number] Implanted:Qty: 1 on 12/26/2019 by Wayne Diggs MD at [facility] N/A: Spine Lumbar Medtronic Inc 05/17/2022 [id number] / / [id number] Medtronic Inc [id number] Artic-L L25 Mm X W12 Mm X H13 Mm 5 D Spacer Spinal Titanium - [id number] Implanted:Qty: 1 on 12/26/2019 by Wayne Diggs MD at [facility] N/A: Spine Lumbar Medtronic Inc 01/04/2025 [id number] / / [id number] Medtronic Sofamor Danek [id number] Cd Horizon Break Off Spinal Screw Set Titanium Nonsterile 5.5 Mm - [id number] Implanted:Qty: 12 on 12/26/2019 by Wayne Diggs MD at [facility] N/A: Spine Lumbar Medtronic Inc [id number] / / Medtronic Sofamor Danek [id number] Cd Horizon 5.5mm 500mm Line Straight Sinan Spinal Titanium - [id number] Implanted:Qty: 1 on 12/26/2019 by Wayne Diggs MD at [facility] N/A: Spine Lumbar Medtronic Inc [id number] / / Medtronic Sofamor Danek [id number] Solera Cd Horizon 6.5mm 50mm Multiaxial Spine Screw Bone Cocr - [id number] Implanted:Qty: 6 on 12/26/2019 by Wayne Diggs MD at [facility] N/A: Spine Lumbar Medtronic Inc [id number] / / Medtronic Sofamor Danek [id number] Solera Cd Horizon 7.5mm 55mm Multiaxial Spine Screw Bone Cocr - [id number] Implanted:Qty: 4 on 12/26/2019 by Wayne Diggs MD at [facility] N/A: Spine Lumbar Medtronic Inc [id number] / / Medtronic Sofamor Danek [id number] Solera Cd Horizon 8.5mm 55mm Multiaxial Spine Screw Bone Cocr - [id number] Implanted:Qty: 1 on 12/26/2019 by Wayne Diggs MD at [facility] N/A: Spine Lumbar Medtronic Inc [id number] / / Medtronic Sofamor Danek [id number] 8.5mm 50mm Multiaxial Spine Screw Bone - [id number] Implanted:Qty: 1 on 12/26/2019 by Wayne Diggs MD at [facility] N/A: Spine Lumbar Medtronic Inc [id number] / / Bard [employer] [id number] [place] Delivery Kit Vena Cava Femoral Filter Embolization Nitinol Latex Free - [id number] Implanted:Qty: 1 on 12/26/2019 by Mario Ramos MD at [facility] N/A: Vena Cava [employer] 12/15/2022 [id number] / / [id number] Procedures Procedure Name Priority Date/Time Associated Diagnosis [...] - 149 EXTERNAL LAB Blood specimen (specimen) [facility] Provider LAB BLOOD ORDERABLES Edit ed Result - Final EXTERNAL LAB * (ABNORMAL) Hemoglobin A1c (12/04/2019 2:54 PM CDT) Pathologist [facility] Hgb A1C 7.7(H) 4.0 - 5.6 % [facility] Estimated Average Glucose 174 mg/dL [facility] Comment: The ADA recommends reporting an estimated Average Glucose (eAG) with all Hemoglobin A1c results using the equation derived from a study of 507 normal and diabetic adults. Minority populations were underrepresented and children were not included. (Diabetes Care 31:1658-6650, 2008). The eAG is not equivalent to a fasting glucose. Blood specimen (specimen) 12/04/2019 2:54 PM CDT 12/04/2019 3:10 PM CDT Narrative [facility] - 12/04/2019 3:45 PM CDT THE BJ COLLECTION LOCATION IS [facility] ED1-17 Leti Bhatti MD LAB BLOOD ORDERABL ES Final Result [facility] Department [place] [address] from Last 3 Months or Most Recently Relevant to Health Maintenance Insurance [facility] MEDICARE ADVANTAGE [facility] Address: [address] [address] [place] [address] [employer] MEDICARE Advance Directives For more information, please contact: [phone] Documents on File Type Date Recorded Patient Fruit Stuffer Expl anation ADVANCE DIRECTIVE 02/05/2018 11:54 AM POW ER OF FLAT OPTICAL ELEMENT MAKER * Full Code (Latest Code Status on File) Date Activated Date Inactivated Comments 12/25/2019 1:19 PM 01/03/2020 4:00 PM * Full Code Date Activated Date Inactivated Comments 12/04/2019 4:20 PM 12/06/2019 5:43 PM * Full Code Date Activated Date Inactivated Comments 01/30/2018 6:39 PM 02/05/2018 2:48 PM Care Teams Rubber Mixer Relationship Specialty Start Date End Date Vicente Oswald MD [address] [place] [address] PCP - General 06/08/16
--- OUTSIDE RECORDS SUMMARY | 2024-08-27 10:04 | XMS_ITS | Clinical Summary ---
Author Organization [facility] Kiran Fuentes Address [address] [place] [address] Care Team Providers Care Reliability Technicians Name Role Phone Vicente Oswald MD Primary [...] Height 182.9 cm (6') 03/21/2023 2:58 PM TUG BOAT ENGINEER Body Mass Index 31.74 03/21/2023 2:58 PM TUG BOAT ENGINEER Plan of Treatment Health Maintenance Due Date [...] 08/31/2023, Insurance [employer] PPO MCR Care Teams Reliability Technicians Relationship Specialty Start Date End Date Vicente Oswald MD [address] [place] [address] PCP - General Internal Medicine 12/27/22
[2024-08-27 10:45] VITALS: BMI 30.5
[2024-08-27 10:50] VITALS: BP 140/58; PULSE 59; RESP 20; TEMP 36.2; O2SAT 96
[2024-08-27] MEDS: IRON SUCROSE COMPLEX 300 MG in SODIUM CHLORIDE 0.9% IV 250 ML 125 MG IVPB (11:30)
[2024-08-27 12:24] LABS: Alanine Aminotransferase 11 U/L (6-50); Albumin Level 3.2 g/dL (3.5-5.1); Alkaline Phosphatase 65 U/L (38-126); Anion Gap 7 mmol/L (4-12); Aspartate Amino Transferase 28 U/L (17-59); Bilirubin,Total 0.7 mg/dL (0.2-1.3); Blood Urea Nitrogen 9 mg/dL (9-20); Calcium 8.1 mg/dL (8.4-10.2); Carbon Dioxide 24 mmol/L (22-30); Chloride 108 mmol/L (98-107); Estimated Glomerular Filt Rate > 60; Glucose 113 mg/dL (65-110); Osmolality Calculated 287 mOsm/kg (285-295); Potassium 3.8 mmol/L (3.4-5.0); Sodium 139 mmol/L (137-145); Total Protein 5.9 g/dL (6.3-8.2)
--- NOTE | 2024-08-27 12:36 | PC.NURSE ---
1130 infusion started. no s/s infiltration. 1200 warm blankets applied for comfort. watching tv. 1215 lunch tray provided. pt able to feed self. 1230 infusion continues without difficulty. warm blankets reapplied.
[2024-08-27 12:40] LABS: Estimated CRCL calculation 113 ml/min
[2024-08-27 13:30] VITALS: BP 110/58; PULSE 59; RESP 20; TEMP 36.9; O2SAT 95
== END 2024-08-27 13:45 | disposition home or self-care (01) ==
PROVIDERS: PCP Internal Medicine; Visit Provider Internal Medicine
DX: D50.9 Iron deficiency anemia, unspecified (principal); Z88.8 Allergy status to other drugs, medicaments and biological substances; E87.6 Hypokalemia
CPT/HCPCS: 36415; 80053; 96365; 96366; J1756; J7050

== ENCOUNTER 2024-11-26 17:59 | Outpatient (CLI) | payer MEDICARE, SELFPAY ==
--- OUTSIDE RECORDS SUMMARY | 2024-11-26 18:05 | XMS_ITS | Clinical Summary ---
Author Organization [facility] Address [address] [place] [address] Care Team Providers Care Gas Meter Installer Name Role Phone Vicente Oswald MD Primary Care Provider [phone] Allergies No known active allergies Medications acetaminophen [...] injection Active Insulin Syringe-Needle U-100 (INSULIN SYRINGE .5CC/31GX5/16) 31G X 5/16 0.5 ML Misc 9 [...] Encounters Date Type Department Care Team Description 11/06/2024 12:07 PM CDT - 11/06/2024 11:59 PM CDT Hospital Encounter [facility] [address] Vicente Oswald MD Discharge Disposition: Home or Self Care (Routine Discharge) 11/06/2024 Orders [place] [facility] [address] Vicente Oswald MD 09/10/2024 11:55 AM CDT - 09/10/2024 11:59 PM CDT Hospital Encounter [place] [address] Vicente Oswald MD Discharge Disposition: Home or Self Care (Routine Discharge) 09/10/2024 Orders [place] [address] Vicente Oswald MD from Last 3 Months [...] Health Maintenance Due Date Last Done Comments Diabetes: Retinopathy Eye Exam 1958 DTaP, Tdap and Td Vaccines (1 - Tdap) 1959 Annual Medicare Wellness Visit 01/13/2004 RSV Immunization or 60+ Years (1 - 1-dose 75+ series) 2014 Pneumococcal Vaccine: 50+ Years (2 of 2 - PPSV23) 09/21/2015 07/27/2015 Zoster Vaccines (2 of 2) 12/12/2019 10/17/2019 COVID-19 Vaccine (3 - season) 2023 06/09/2020, 05/19/2020 Hemoglobin A1C 05/09/2025 11/06/2024, 04/18, 01/02/2024, Additional history exists Kidney Health Evaluation 11/06/2025 11/06/2024 Lipid Panel 11/06/2025 11/06/2024, 04/18, 01/02/2024, Additional history exists Meningococcal B Vaccine Aged Out No l onger eligible based on patient's age to complete this topic Meningococcal Vaccine Aged Out No preet haim eligible based on patient's age to complete this topic RSV Immunizations Under 20 Months Aged Out No longer eligible based on patient's age to complete this topic Procedures Procedure Name Priority Date/Time Associated Diagnosis Comments URINE BACTERIA CULTURE Routine 11:15 AM CDT CKD (chronic kidney disease) Anemia Diabetes (CMS/HCC HHS/HCC) Urinary retention LIPID PANEL Routine 11/06/2024 11:15 AM CDT CKD (chronic kidney disease) Anemia Diabetes (CMS/HCC HHS/HCC) Urinary retention ALBUMIN URINE RANDOM W/CREATININE Routine 11/06/2024 11:15 AM CDT CKD (chronic kidney disease) Anemia Diabetes (CMS/HCC HHS/HCC) Urinary retention CK (CPK) Routine 11/06/2024 11:15 AM CDT CKD (chronic kidney disease) Anemia Diabetes (CMS/HCC HHS/HCC) Urinary retention IRON Routine 11/06/2024 11:15 AM CDT CKD (chronic kidney disease) Anemia Diabetes (CMS/HCC HHS/HCC) Urinary retention HC URINALYSIS AUTO W/MICRO Routine 11/06/2024 11:15 AM CDT CKD (chronic kidney disease) Anemia Diabetes (CMS/HCC HHS/HCC) Urinary retention HEMOGLOBIN, GLYCOSYLATED Routine 11/06/2024 11:15 AM CDT CKD (chronic kidney disease) Anemia Diabetes (CMS/HCC HHS/HCC) Urinary retention VITAMIN B-12 Routine 11/06/2024 11:15 AM CDT CKD (chronic kidney disease) Anemia Diabetes (CMS/HCC HHS/HCC) Urinary retention FERRITIN Routine 11/06/2024 11:15 AM CDT CKD (chronic kidney disease) Anemia Diabetes (CMS/HCC HHS/HCC) Urinary retention COMPREHENSIVE METABOLIC PANEL Routine 11/06/2024 11:15 AM CDT CKD (chronic kidney disease) Anemia Diabetes (CMS/HCC HHS/HCC) Urinary retention CBC W/DIFF AUTOMATED Routine 11/06/2024 11:15 AM CDT CKD (chronic kidney disease) Anemia Diabetes (CMS/HCC HHS/HCC) Urinary retention CBC W/DIFF AUTOMATED Routine 09/10/2024 11:20 AM CDT Iron deficiency anemia Anemia FERRITIN Routine 09/10/2024 11:20 AM CDT Iron deficiency anemia Anemia IRON Routine 09/10/2024 11:20 AM CDT Iron deficiency anemia Anemia from Last 3 Months Results * (ABNORMAL) HEMOGLOBIN, GLYCOSYLATED (11/06/2024 11:15 AM CDT) HGB A1C 6.8(H) <5.7 % 11/06/2024 9:21 PM CDT [facility] ESTIMATED AVG GLUCOSE 148(H) 74 - 114 MG/DL 11/06/2024 9:21 PM CDT [facility] 11/06/2024 11:1 5 AM CDT us Vicente Oswald MD LABORATORY Final Result [facility] [address] [place] [address], [id number] * (ABNORMAL) URINALYSIS (11/06/2024 11:15 AM CDT) COLOR (U) YELLOW 11/06/2024 12:43 PM CDT [facility] TRANSPARENCY CLEAR 11/06/2024 12:43 PM CDT [facility] SPECIFIC GRAVITY (U) 1.015 1.000 - 1.025 11/06/2024 12:43 PM CDT [facility] U PH 7.0 5.0 - 8.0 11/06/2024 12:43 PM CDT [facility] LEUKOCYTES (U) 3+(A) NEGATIVE 11/06/2024 12:43 PM CDT [facility] NITRITES NEGATIVE NEGATIVE 11/06/2024 12:43 PM CDT [facility] PROTEIN RANDOM (U) 1+(A) NEGATIVE 11/06/2024 12:43 PM CDT [facility] GLUCOSE (U) NEGATIVE NEGATIVE 11/06/2024 12:43 PM CDT [facility] KETONES MG/DL (U) NEGATIVE NEGATIVE 11/06/2024 12:43 PM CDT [facility] UROBILINOGEN 0.2 <1.0 EU/DL 11/06/2024 12:43 PM CDT [facility] BILIRUBIN (U) NEGATIVE NEGATIVE 11/06/2024 12:43 PM CDT [facility] BLOOD (U) TRACE(A) NEGATIVE 11/06/2024 12:43 PM CDT [facility] WBC/HPF FILLED FIELD(A) 0 - 5 /HPF 11/06/2024 12:43 PM CDT [facility] RBC/HPF 0-5 0 - 5 /HPF 11/06/2024 12:43 PM CDT [facility] EPI/LPF RARE /LPF 11/06/2024 12:43 PM CDT [facility] BACTERIA (U) 4+ /HPF 11/06/2024 12:43 PM CDT [facility] MUCUS PRESENT 11/06/2024 12:43 PM CDT [facility] URINE SPECIMEN OBTAINED VIA INDWELLING URINARY CATHETER / Unknown 11/06/2024 11:15 AM CDT us Vicente Oswald MD URINE ORDERABLES Final Result [facility] [address] [place] [address], * VITAMIN B-12 (11/06/2024 11:15 AM CDT) VITAMIN B12 S/P/B 845 193 - 986 PG/ML 11/06/2024 9:39 PM CDT [facility] 11/06/2024 11:1 5 AM CDT us Vicente Oswald MD LABORATORY Final Result Performing Organization Address City/[facility]/ZIP Co de Phone Number [facility] [address] [place] [address], [id number] * URINE BACTERIA CULTURE (11/06/2024 11:15 AM CDT) SPEC DESCRIPTION URINE MCCABE CATH 11/06/2024 12:12 PM CDT [facility] SPECIAL REQUESTS NO SPECIAL REQUEST 11/06/2024 12:12 PM CDT [facility] CULTURE RESULT GROSS CONTAMINATIO N. SUBMIT NEW SPECIMEN UPON DOCTOR'S REQUEST. 11/08/2024 11:03 AM CDT [facility] CULTURE RESULT EQUAL OR >100,000 CFU/mL GRAM NEGATIVE RODS 1 11/08/2024 11:03 AM CDT [facility] CULTURE RESULT EQUAL OR >100,000 CFU/mL GRAM NEGATIVE RODS 2 11/08/2024 11:03 AM CDT [facility] CULTURE RESULT EQUAL OR >100,000 CFU/mL GRAM NEGATIVE RODS 3 11/08/2024 11:03 AM CDT [facility] URINE SPECIMEN OBTAINED VIA INDWELLING URINARY CATHETER / Unknown 11/06/2024 11:15 AM CDT 11/06/2024 8:13 PM CDT us Vicente Oswald MD MICROBIOLOGY - GENERAL ORDERA BLES Final Result Performing Organization Address City/[facility]/ZIP Co de Phone Number [facility] [address] [place] [address], [id number] [facility] [place] [address], [place] [phone] * (ABNORMAL) ALBUMIN CREATININE URINE RANDOM (11/06/2024 11:15 AM CDT) ALBUMIN (U) 10.0 MG/DL 11/06/2024 12:47 PM CDT [facility] Comment:REFERENCE RANGE NOT ESTABLISHED CREATININE RANDOM (U) 88.3 MG/DL 11/06/2024 12:47 PM CDT [facility] Comment:REFERENCE RANGE NOT ESTABLISHED ALBUMIN/CREAT RATIO 113.2(H) <30 MG/G 11/06/2024 12:47 PM CDT [facility] Comment: NORMAL TO MILDLY INCREASED ALBUMINURIA: <30 MG/G MODERATELY INCREASED ALBUMINURIA: 30 TO 300 MG/G SEVERELY INCREASED ALBUMINURIA: >300 MG/G PER KDIGO URINE SPECIMEN / Unknown 11/06/2024 11:15 AM CDT Vicente Oswald MD URINE ORDERABLES Final Result [facility] [address] [place] [address], * (ABNORMAL) COMPREHENSIVE METABOLIC PANEL (11/06/2024 11:15 AM CDT) SODIUM S/P/B 143 136 - 145 MMOL/L 11/06/2024 1:13 PM CDT [facility] POTASSIUM S/P/B 3.9 3.5 - 5.1 MMOL/L 11/06/2024 1:13 PM CDT [facility] CHLORIDE S/P/B 105 98 - 107 MMOL/L 11/06/2024 1:13 PM CDT [facility] CO2 28.7 21.0 - 32.0 MMOL/L 11/06/2024 1:13 PM CDT [facility] GLUCOSE 89 70 - 99 MG/DL 11/06/2024 1:13 PM CDT [facility] Comment: FASTING GLUCOSE 100 TO 125 MG/DL IS CONSISTENT WITH IMPAIRED FASTING GLUCOSE. FASTING GLUCOSE >125 MG/DL IS CONSISTENT WITH DIABETES. RANDOM GLUCOSE >200 MG/DL WITH HYPERGLYCEMIC SYMPTOMS IS CONSISTENT WITH DIABETES. PER ADA GUIDELINES BUN 11 6 - 24 MG/DL 11/06/2024 1:13 PM T [facility] CREATININE S/P/B 0.66(L) 0.70 - 1.30 MG/DL 11/06/2024 1:13 PM [facility] CALCIUM S/P/B 9.0 8.4 - 10.5 MG/DL 11/06/2024 1:13 PM [facility] BILIRUBIN TOTAL S/P/B 0.5 0.2 - 1.0 MG/DL 11/06/2024 1:13 PM [facility] Comment: THIS ASSAY IS NOT RECOMMENDED FOR PATIENTS UNDERGOING TREATMENT WITH ELTROMBOPAG DUE TO THE POTENTIAL FOR FALSELY ELEVATED RESULTS. ALKALINE PHOSPHATASE S/P/B 100 45 - 115 U/L 11/06/2024 1:13 PM [facility] AST 15 15 - 37 U/L 11/06/2024 1:13 PM [facility] ALT 15(L) 16 - 63 U/L 11/06/2024 1:13 PM [facility] TOTAL PROTEIN S/P/B 6.3(L) 6.4 - 8.2 G/DL 11/06/2024 1:13 PM [facility] ALBUMIN S/P/B 3.0(L) 3.4 - 5.0 G/DL 11/06/2024 1:13 PM [facility] ANION GAP 9.3 5.0 - 15.0 MMOL/L 11/06/2024 1:13 PM [facility] OSMOLALITY (CALC) 295 MOSM/KG 025 1:13 PM [facility] Comment:REFERENCE RANGE NOT ESTABLISHED GFR ESTIMATE >90 >89 ML/MIN/1. 73 M2 11/06/2024 1:13 PM [facility] GFR NOTES GFR REFERENCE S: 11/06/2024 1:13 PM [facility] Comment: THE ESTIMATED GFR IS CALCULATED [...] ml/min/1.73 m2 G5,KIDNEY FAILURE: <15 ml/min/1.73 m2 11/06/2024 11:1 5 AM CDT us Vicente Oswald MD LABORATORY Final Result [facility] [address] [place] [address], * (ABNORMAL) LIPID PANEL (11/06/2024 11:15 AM CDT) Pathologist [facility] CHOLESTEROL 103 MG/DL 11/07/2024 6:36 AM CDT [facility] Comment:DESIRABLE: <200 TRIGLYCERIDES 129 MG/DL 11/07/2024 6:36 AM CDT [facility] Comment:<150 NORMAL HDL 34(L) >39 MG/DL 11/07/2024 6:36 AM CDT [facility] LDL-C 43 MG/DL 11/07/2024 6:36 AM CDT [facility] Comment:<100 OPTIMAL VLDL CALCULATION 26 MG/DL 11/08/19 25 6:36 AM CDT [facility] Comment:REFERENCE RANGE NOT ESTABLISHED CHOL/HDL RATIO 3.0 11/07/2024 6:36 AM CDT [facility] Comment:REFERENCE RANGE NOT ESTABLISHED LDL/HDL 1.3 11/07/2024 6:36 AM CDT [facility] Comment:REFERENCE RANGE NOT ESTABLISHED NON HDL CHOLESTEROL 69 MG/DL 11/07/2024 6:36 AM CDT [facility] Comment:REFERENCE RANGE NOT ESTABLISHED 11/06/2024 11:1 5 AM CDT Vicente Oswald MD LABORATORY Final Result [facility] [address] [place] [address], [id number] * (ABNORMAL) CBC W/DIFF AUTOMATED (11/06/2024 11:15 AM CDT) Only the most recent of2 resultswithin the time period is included. WBC 6.69 4.00 - 10.80 x10'3/uL 11/06/2024 12:33 PM CDT [facility] RBC 4.27(L) 4.50 - 6.10 x10'6/uL 11/06/2024 12:33 PM CDT [facility] HGB 12.9(L) 13.0 - 18.0 G/DL 11/06/2024 12:33 PM CDT [facility] HCT 39.5 37.0 - 52.0 % 11/06/2024 12:33 PM CDT [facility] MCV 92.5 78.0 - 100.0 FL 11/06/2024 12:33 PM CDT [facility] MCH 30.2 27.0 - 31.0 PG 11/06/2024 12:33 PM CDT [facility] MCHC 32.7(L) 33.0 - 36.0 G/DL 11/06/2024 12:33 PM CDT [facility] RDW 14.0 11.5 - 14.5 % 11/06/2024 12:33 PM CDT [facility] PLT 221 150 - 350 x10'3/uL 11/06/2024 12:33 PM CDT [facility] MPV 10.5(H) 7.4 - 10.4 FL 11/06/2024 12:33 PM CDT [facility] CBC COMMENT NORMAL REFERENCE RANGE NOT ESTABLISHED FOR THE PROPORTIONAL LEUKOCYTE DIFFERENTIAL. 11/06/2024 12:33 PM CDT [facility] NEUTROPHILS % 72.9 % 11/06/2024 12:33 PM CDT [facility] LYMPHOCYTES % 15.1 % 11/06/2024 12:33 PM CDT [facility] MONOCYTES % 8.7 % 11/06/2024 12:33 PM CDT [facility] EOSINOPHILS % 2.4 % 11/06/2024 12:33 PM CDT [facility] BASOPHILS % 0.6 % 11/06/2024 12:33 PM CDT [facility] IMMATURE GRANS % 0.3 % 11/07/19 12:33 PM CDT [facility] NRBC % 0.0 % 11/06/2024 12:33 PM CDT [facility] ABS. NEUTROPHILS 4.88 1.60 - 8.30 x10'3/uL 11/06/2024 12:33 PM CDT [facility] ABS. LYMPHOCYTES 1.01 0.80 - 4.70 x10'3/uL 11/06/2024 12:33 PM CDT [facility] ABS. MONOCYTES 0.58 0.00 - 1.50 x10'3/uL 11/06/2024 12:33 PM CDT [facility] ABS. EOSINOPHILS 0.16 0.00 - 0.40 x10'3/uL 11/06/2024 12:33 PM CDT [facility] ABS. BASOPHILS 0.04 0.00 - 0.20 x10'3/uL 11/06/2024 12:33 PM CDT [facility] ABS. IMMATURE GRANULOCYTES 0.02 0.00 - 0.03 x10'3/uL 11/06/2024 12:33 PM CDT [facility] ABS. NUCLEATED RBC'S 0.00 0.00 - 0.01 x10'3/uL 11/06/2024 12:33 PM CDT [facility] 11/06/2024 11:1 5 AM CDT us Vicente Oswald MD LABORATORY Final Result Performing Organization Address City/[facility]/ZIP Co de Phone Number [facility] [address] [place] [address], [place] [phone] * (ABNORMAL) IRON (11/06/2024 11:15 AM CDT) Only the most recent of2 resultswithin the time period is included. IRON 61(L) 65 - 175 MCG/DL 11/06/2024 12:49 PM CDT [facility] 11/06/2024 11:1 5 AM CDT us Vicente Oswald MD LABORATORY Final Result Performing Organization Address [facility] Co de Phone Number [facility] [address] [place] [address], * (ABNORMAL) FERRITIN (11/06/2024 11:15 AM CDT) Only the most recent of2 resultswithin the time period is included. FERRITIN 452.8(H) 26 - 388 NG/ML 11/06/2024 1:13 PM CDT [facility] 11/06/2024 11:1 5 AM CDT us Vicente Oswald MD LABORATORY Final Result Performing Organization Address City/[facility]/ZIP Co de Phone Number [facility] [address] [place] [address], [place] [phone] * CK (CPK) (11/06/2024 11:15 AM CDT) CPK 46 39 - 308 U/L 11/06/2024 1:13 PM CDT [facility] 11/06/2024 11:1 5 AM CDT us Vicente Oswald MD LABORATORY Final Result [facility] [address] [place] [address], from Last 3 Months Insurance [employer] Care Teams Gas Meter Installer Relationship Specialty Start Date End Date Vicente Oswald MD [address] [place] [phone] PCP - General INTERNAL MEDICINE 10/08/18
--- OUTSIDE RECORDS SUMMARY | 2024-11-26 18:05 | XMS_ITS | Clinical Summary ---
Author Organization [facility] Kiran Fuentes Address [address] [place] [address] Care Team Providers Care Transmission Builder Name Role Phone Vicente Oswald MD [...] (ATIVAN) 0.5 mg tablet 05/13/2020 Active multivitamin (DAILY-GLAYDS) tablet Take 1 Tablet by mouth daily. [...] Encounters Date Type Department Care Team Description 10/01/2024 External Device Data [facility] Provider, Abstract 09/10/2024 External Device Data [facility] Provider, Abstract 09/05/2024 External Device Data [facility] Provider, Abstract 09/03/2024 External Device Data [facility] Provider, Abstract [...] Height 182.9 cm (6') 03/21/2023 2:58 PM CHARGER OPERATOR Body Mass Index 31.74 03/21/2023 2:58 PM CHARGER OPERATOR Plan of Treatment Health Maintenance Due Date Last Done Comments DIABETES ANNUAL FOOT EXAM 1958 DIABETES ANNUAL RETINAL EXAM 1958 DIABETES MICROALBUMIN ANNUAL SCREEN 1958 LDL CHOLESTEROL ANNUAL 1958 DTAP/TDAP/TD VACCINES (1 - Tdap) 1958 PNEUMOCOCCAL VACCINE 50+ YEA RS (1 of 2 - PCV) 1958 ZOSTER VACCINE (1 of 2) 1989 RSV VACCINE (60+ or ) (1 - 1-dose 75+ series) 2014 DIABETES HBA1C Q 6 MONTHS 03/02/2024 08/31/2023, INFLUENZA VACCINE (#1) 2024 Insurance [employer] PPO MCR Care Teams Transmission Builder Relationship Specialty Start Date End Date Vicente Oswald MD [address] [place] [phone] PCP - General Internal Medicine 12/27/22
--- OUTSIDE RECORDS SUMMARY | 2024-11-26 18:05 | XMS_ITS | Clinical Summary ---
Author Organization [facility] Address [address] [place] [address] Care Team Providers Care Breakfast Host Name Role Phone Vicente Oswald MD Primary Care Provider [phone] Allergies Active Allergy Reactions Criticality Noted Date [...] mouth daily Active cyanocobalamin/ folic acid (VITAMIN F61-YYLBA ACID) 1,000-400 mcg lozenge Take 1,000 mcg [...] (12/17/2019): Added automatically from request for surgery [id number] Closed unstable burst fracture of first lumbar v ertebra 12/17/2019 Overview (12/18/2019): Added automatically from request for surgery [id number] Spinal stenosis of lumbar re gion with neurogenic claudication 12/17/2019 Overview (12/18/2019): Added automatically from request for surgery [id number] Compression fracture of L1 lumbar vertebra 12/04 Acute pain due to trauma 12/05/2019 HLD (hyperlipidemia) 12/05/2019 PAD (peripheral artery disease) 12/05/2019 Hypertension 01/30/2018 Spondylolisthesis of lumbar region 12/15/2017 Overview (12/15/2017): Added automatically from request for surgery [id number] Spinal stenosis, lumbar andrew on, with neurogenic claudication 12/15/2017 Overview (12/15/2017): Added automatically from request for surgery [id number] HX: anticoagulation 12/15/2017 Overview (12/15/2017): Added automatically from request for surgery [id number] Type II or unspecified type diabetes mellitus with neurological manifestations, not stated as uncontrolled(250.60) 12/15/2017 Overview (12/15/2017): Added automatically from request for surgery [id number] Assessment & Plan (12/29/2019 3:35 PM CDT): -BG stable on lantus 24u QHS and LD SSI Coronary artery calcification seen on CAT scan 0 12/15/2017 Overview (12/15/2017): Added automatically from request for surgery [id number] Pain in both lower extremities 09/12/2017 Atheroscler [place] arteries the extremities w/[place]mit claudication 09/07/2017 Neck [...] 01/30/2018 Hyperlipidemia ED (erectile dysfunction) Alzheimer disease CAD (coronary artery disease) Family History Medical [...] on file Legal Sex Male 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 Gender Identity Not on file Sexual Orientation [...] Pneumococcal vaccine 65+ (2 of 2 - PPSV23, PCV20, or PCV21) 09/21/2015 07/27/2015 Zoster Vaccine (2 of 2) 12/12/2019 10/17/2019 Hemoglobin A1C 06/05/2020 12/04/2019, 01/09/2018 Fall Risk Assessment 01/02/2021 01/03/2020 Covid-19 Vaccine (4 - 2023-2 5 season) 2023 02/23/2021, 06/09/2020, 05/19/2020 Influenza Vaccine (#1) 2024 , 12/27/2018, 02/28/2018, Additional history exists Lipid Panel 01/01/2025 01/02/2024, 03/0 05/2021, 12/03/2019, Additional history exists DTaP/Tdap/Td Vaccine (2 - Td or Tdap) 07/13/2033 07/14/2023 Medical Devices Implanted Type Area Steel Unloader Device Identifier Shelf Expiration Date Model / Serial / Lot [employer] Inc [id number] Tissue Bone Void Filler Acupac Plus 50cc - [id number] - [id number] Implanted:Qty: 1 on 12/26/2019 by Wayne Diggs MD at [facility] Bone N/A: Spine Lumbar [employer] Inc 03/12/2024 [id number] / NA Description:AcuPac 50cc Acuity Surgical Donor # [id number] Medtronic Sofamor Danek [id number] Infuse 18mm 26mm Absorbable Sponge Sterile Water Syringe Needle - [id number] Implanted:Qty: 1 on 01/30/2018 by Wayne Diggs MD at [facility] N/A: Spine Lumbar Medtronic Sofamor Danek 10/15/2018 [id number] / / [id number] Medtronic Sofamor Danek [id number] Mastergraft Matrix Block Extension Void Filler Substitute 10ml - [id number] Implanted:Qty: 1 on 01/30/2018 by Wayne Diggs MD at [facility] N/A: Spine Lumbar Medtronic Sofamor Danek [id number] 10/14/2020 [id number] / / [id number] Medtronic Inc [id number] Artic-L L30 Mm X W12 Mm X H12 Mm 5 D Spacer Spinal Titanium - [id number] Implanted:Qty: 1 on 01/30/2018 by Wayne Diggs MD at [facility] N/A: Spine Lumbar Medtronic Inc 07/17/2025 [id number] / / Medtronic Sofamor Danek [id number] Cd Horizon Break Off Spinal Screw Set Titanium Nonsterile 5.5 Mm - [id number] Implanted:Qty: 6 on 01/30/2018 by Wayne Diggs MD at [facility] N/A: Spine Lumbar Medtronic Sofamor Danek [id number] / / Medtronic Sofamor Danek [id number] Solera 5.5mm 70mm Curve Sinan Spinal Titanium Nonsterile - [id number] Implanted:Qty: 2 on 01/30/2018 by Wayne Diggs MD at [facility] N/A: Spine Lumbar Medtronic Sofamor Danek [id number] / / Medtronic Sofamor Danek [id number] Solera Cd Horizon 7.5mm 50mm Multiaxial Spine Screw Bone Cocr - [id number] Implanted:Qty: 5 on 01/30/2018 by Wayne Diggs MD at [facility] N/A: Spine Lumbar Medtronic Sofamor Danek [id number] / / Mas Implanted:Qty: 1 on 01/30/2018 by Wayne Diggs MD at [facility] N/A: Spine Lumbar Medtronic [id number] / / Medtronic Inc [id number] Artic-L L30 Mm X W12 Mm X H12 Mm 5 D Spacer Spinal Titanium - [id number] Implanted:Qty: 1 on 01/30/2018 by Wayne Diggs MD at [facility] N/A: Spine Lumbar Medtronic Inc [id number] / / Medtronic Sofamor Danek [id number] Infuse 18mm 26mm Absorbable Sponge Sterile Water Syringe Needle - [id number] Implanted:Qty: 1 on 12/26/2019 by Wayne Diggs MD at [facility] N/A: Spine Lumbar Medtronic Inc 11/15/2020 [id number] / / [id number] Medtronic Sofamor Danek [id number] Mastergraft Matrix Block Extension Void Filler Substitute 10ml - [id number] Implanted:Qty: 1 on 12/26/2019 by Wayne Diggs MD at [facility] N/A: Spine Lumbar Medtronic Inc 05/17/2022 [id number] / / [id number] Medtronic Inc [id number] Artic-L L25 Mm X W12 Mm X H13 Mm 5 D Spacer Spinal Titanium - [id number] Implanted:Qty: 1 on 12/26/2019 by Wayne Diggs MD at [facility] N/A: Spine Lumbar Medtronic Inc 01/04/2025 [id number] / / [id number] Medtronic Sofamor Danek [id number] Cd Horizon Break Off Spinal Screw Set Titanium Nonsterile 5.5 Mm - [id number] Implanted:Qty: 12 on 12/26/2019 by Wayne Diggs MD at [facility] N/A: Spine Lumbar Medtronic Inc [id number] / / Medtronic Sofamor Danek [id number] Cd Horizon 5.5mm 500mm Line Straight Sinan Spinal Titanium - [id number] Implanted:Qty: 1 on 12/26/2019 by Wayne Diggs MD at [facility] N/A: Spine Lumbar Medtronic Inc [id number] / / Medtronic Sofamor Danek [id number] Solera Cd Horizon 6.5mm 50mm Multiaxial Spine Screw Bone Cocr - [id number] Implanted:Qty: 6 on 12/26/2019 by Wayne Diggs MD at [facility] N/A: Spine Lumbar Medtronic Inc [id number] / / Medtronic Sofamor Danek [id number] Solera Cd Horizon 7.5mm 55mm Multiaxial Spine Screw Bone Cocr - [id number] Implanted:Qty: 4 on 12/26/2019 by Wayne Diggs MD at [facility] N/A: Spine Lumbar Medtronic Inc [id number] / / Medtronic Sofamor Danek [id number] Solera Cd Horizon 8.5mm 55mm Multiaxial Spine Screw Bone Cocr - [id number] Implanted:Qty: 1 on 12/26/2019 by Wayne Diggs MD at [facility] N/A: Spine Lumbar Medtronic Inc [id number] / / Medtronic Sofamor Danek [id number] 8.5mm 50mm Multiaxial Spine Screw Bone - [id number] Implanted:Qty: 1 on 12/26/2019 by Wayne Diggs MD at [facility] N/A: Spine Lumbar Medtronic Inc [id number] / / Bard Peripheral Vascular [id number] Brooke Delivery Kit Vena Cava Femoral Filter Embolization Nitinol Latex Free - [id number] Implanted:Qty: 1 on 12/26/2019 by Mario Ramos MD at [facility] N/A: Vena Cava Bard Peripheral Vascular 12/15/2022 [id number] / / [id number] Procedures Procedure Name Priority Date/Time Associated Diagnosis [...] - 149 EXTERNAL LAB Blood specimen (specimen) [facility] Provider LAB BLOOD ORDERABLES Edit ed Result - Final EXTERNAL LAB * (ABNORMAL) Hemoglobin A1c (12/04/2019 2:54 PM CDT) Hgb A1C 7.7(H) 4.0 - 5.6 % [facility] Estimated Average Glucose 174 mg/dL [facility] Comment: The ADA recommends reporting an estimated Average Glucose (eAG) with all Hemoglobin A1c results using the equation derived from a study of 507 normal and diabetic adults. Minority populations were underrepresented and children were not included. (Diabetes Care 31:0999-0895, 2008). The eAG is not equivalent to a fasting glucose. Blood specimen (specimen) 12/04/2019 2:54 PM CDT 12/04/2019 3:10 PM CDT Narrative [facility] - 12/04/2019 3:45 PM CDT THE [facility] COLLECTION LOCATION IS [facility] [id number] Leti Bhatti MD LAB BLOOD ORDERABL ES Final Result [facility] Department [place] [address] from Last 3 Months or Most Recently Relevant to Health Maintenance Insurance [facility] MEDICARE ADVANTAGE AETNA MEDICARE Advance Directives For more information, please contact: [phone] Documents on File Type Date Recorded Patient Vineyardist Expl anation ADVANCE DIRECTIVE 02/05/2018 11:54 AM 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
--- OUTSIDE RECORDS SUMMARY | 2024-11-26 18:05 | XMS_ITS | Patient Health Record ---
Author Organization [facility] Address [address] [place], [place] [address] Care Team Providers Care Sexual Health Physician Name Role Phone CACHORRO Miranda Unavailable [phone] Vicente Oswald Unavailable Unavailable Reason For Referral No Information Medications Medication SIG (Take, Route, Frequency, Duration) Notes Start Date End Date Status apixaban 5 MG Oral Tablet [Eliquis] ORAL apixaban 5 MG Oral Tablet [Eliquis]Original Medicationapixaban 5 MG Oral Tablet [Eliquis] *Reorder from [employer] for eRx and Interaction Alerts* 09/23/2021 Active Plan Of Treatment No Information Insurance Providers Payer Name Payer Address Payer Phone Subscriber Number Group Number Insured Name Patient Relationship to Insured Coverage Start Date Coverage End Date [facility] [address] [address] [place] [id number] BRYSON MAURER Self - patient is the insured
--- OUTSIDE RECORDS SUMMARY | 2024-11-26 18:05 | XMS_ITS ---
Author Organization [facility] Care Team Providers Care Retinal Surgeon Name Role Phone Osei Mcclure Unavailable Unavailable Vicente Oswald Unavailable Unavailable Allergies and adverse reactions Code CodeSystem Substance Reaction Severity StartDate Concern Status Opioid Analgesic Unknown 01/03/2020 acti ve Care Team Name Role Address Phone Organization Dates Vicente Oswald PCP [address] [place], [address], [place] (Office): : [facility] 01/03/2020 - 01/18/2020 Osei Mcclure [address] [place], [address], [facility] (Office): : : : [facility] 01/03/2020 - 01/18/2020 Immunizations Immunization Status Vaccine Details Vaccine Code CodeSystem Date Notes TB 2 Step Mantoux Skin Test completed tuberculin skin test; unspecified formulation lotNumber: [id number] expiry: 09/24/2021 Given 0.1 ml Right Forearm intradermally Step 2 of Multi-step with next step required 98 CVX created date: 01/11/2020 consent date: 01/11/2020 administer ed date: 01/11/2020 01/14/2020 negative TB 2 Step [place]oux Skin Test completed tuberculin skin test; unspecified formulation lotNumber: [id number] expiry: 09/24/2021 Given 0.1 ml Left Forearm [...] ATROPHY, NOT ELSEWHERE CLASSIFIED, UNSPECIFIED SITE 01/06/[address] active 2 NEED FOR ASSISTANCE WITH PERSONAL CARE 01/06/[address] active 3 MUSCLE WEAKNESS (GENERALIZED) 01/04/[address] active 4 UNSPECIFIED ABNORMALITIES OF GAIT AND MOBILITY 01/04/[address] active 5 UNSTEADINESS ON FEET 01/04/[address] active 6 ACUTE EMBOLISM AND THROMBOSIS OF UNSPECIFIED DEEP VEINS OF UNSPECIFIED LOWER EXTREMITY 01/03/[address] active 7 ANEMIA, UNSPECIFIED 01/03/[address] active 8 ATHEROSCLEROTIC HEART DISEASE OF [place] CORONARY ARTERY WITHOUT ANGINA PECTORIS 01/03/[address] active 9 ESSENTIAL (PRIMARY) HYPERTENSION 01/03/[address] active 10 HYPERLIPIDEMIA, UNSPECIFIED 01/03/[address] active 11 OTHER SPONDYLOSIS WITH MYELOPATHY, CERVICAL REGION 01/03/[address] active 12 PERIPHERAL VASCULAR DISEASE, UNSPECIFIED 01/03/[address] active 13 SPINAL STENOSIS, LUMBAR REGION WITH NEUROGENIC CLAUDICATION 01/03/[address] active 14 STABLE BURST FRACTURE OF FIRST LUMBAR VERTEBRA, SUBSEQUENT ENCOUNTER FOR FRACTURE WITH ROUTINE HEALING 01/03/[address] active 15 TYPE 2 DIABETES MELLITUS WITH OTHER DIABETIC NEUROLOGICAL COMPLICATION 01/03/[address] active 16 VITAMIN D DEFICIENCY, UNSPECIFIED 01/03/[address] active Reason for Referral No Reasons for Referral Entered Social History Social History Observation Description Start Date End Date Code Code System Current Smoking Status Tobacco smoking consumption unknown 312627783 SNOMED CT Sex Assigned At Male 1940 84336-8 [facility] Gender Identity Vital Signs Code Code System Vitals Name Values and Units Timing Information 9279-1 [facility] Respiratory Rate Value=18.0 Units=/m in 01/18/2020 8462-4 [facility] Blood Pressure-Diastolic Value=72 Un its=mmHg 01/18/2020 8480-6 [facility] Blood Pressure-Systolic Rxcqh=080 Un its=mmHg 01/18/2020 8310-5 [facility] Body Temperature Value=97.7 Units= F 01/18/2020 8867-4 [facility] Heart rate Value=74.0 Units=/min 06/2019 99838-2 [facility] O2 % BldC Oximetry Value=97.0 Units= % 01/18/2020 2339-0 [facility] Blood Sugar Jxulo=441.0 Units=mg/dL 01/18/2020 59692-8 [facility] Pain Level Value=2.0 01/18/2020 46550-9 [facility] Weight Nfmcc=917.0 Units=Lbs 05/2019 8302-2 [facility] Height Value=72.0 Units=Inches 01/03/2020
--- OUTSIDE RECORDS SUMMARY | 2024-11-26 18:05 | XMS_ITS | Continuity of Care Document ---
[facility] Address [address] [address] Insurance Providers Payer Plan Claims Address Claims Phone Policy Number Group Number Relation Employer Guarantor Name Guarantor Guarantor Address Guarantor Phone LEWTKELLIE MARIA [address], [place] [address] tel:[phone] [facility] [employer] [address] [address] [employer] [employer] ARE [address] [address], [place] [address] tel:[phone] [facility] [employer] [address] [address] [employer] [employer] [address] [address], [place] [address] tel:[phone] Problems Condition ICD9 code ICD10 code SNOMED [...]
[2024-11-26 18:32] LABS: Hematocrit 41.3 % (37.0-46.0); Hemoglobin 13.1 g/dL (12.4-15.3); Mean Corpuscular HGB Conc 31.7 g/dL (32-36); Mean Corpuscular Hemoglobin 29.3 pg (27.0-31.0); Mean Corpuscular Volume 92.4 fL (78.0-102.0); Platelet Count Result 205 K/mm3 (150-420); Red Blood Count 4.47 M/mm3 (4.70-6.10); White Blood Count 6.6 K/mm3 (4.8-10.8)
[2024-11-26 18:50] LABS: Alanine Aminotransferase 11 U/L (6-50); Albumin Level 3.6 g/dL (3.5-5.1); Alkaline Phosphatase 96 U/L (38-126); Anion Gap 6 mmol/L (4-12); Aspartate Amino Transferase 18 U/L (17-59); Bilirubin,Total 0.6 mg/dL (0.2-1.3); Blood Urea Nitrogen 16 mg/dL (9-20); Calcium 9.2 mg/dL (8.4-10.2); Carbon Dioxide 23 mmol/L (22-30); Chloride 109 mmol/L (98-107); Estimated Glomerular Filt Rate > 60; Glucose 145 mg/dL (65-110); Osmolality Calculated 290 mOsm/kg (285-295); Potassium 4.3 mmol/L (3.4-5.0); Sodium 138 mmol/L (137-145); Total Protein 6.2 g/dL (6.3-8.2)
[2024-11-26 22:36] LABS: Toxigenic C. Diff NEGATIVE (NEGATIVE)
== END 2024-11-26 18:00 | disposition home or self-care (01) ==
LOC: CHSLAB 18:04
PROVIDERS: PCP Internal Medicine; Visit Provider Internal Medicine
DX: R19.7 Diarrhea, unspecified (principal)
CPT/HCPCS: 36415; 80053; 85027; 87493

== ENCOUNTER 2025-02-11 09:43 | Outpatient (NON) | payer MEDICARE, SELFPAY ==
[2025-02-11 10:16] LABS: Hematocrit 38.4 % (37.0-46.0); Hemoglobin 12.4 g/dL (12.4-15.3); Immature Granulocyte Percent A 0.4 % (0.0-0.0); Lymphocytes Absolute Auto 0.94 K/mm3 (1.10-4.50); Mean Corpuscular HGB Conc 32.3 g/dL (32-36); Mean Corpuscular Hemoglobin 30.3 pg (27.0-31.0); Mean Corpuscular Volume 93.9 fL (78.0-102.0); Nucleated Red Blood Cells Absolute Auto 0.00 K/mm3 (0.00-0.00); Nucleated Red Blood Cells Perc 0.0 % (0-0.0); Platelet Count Result 164 K/mm3 (150-420); Red Blood Count 4.09 M/mm3 (4.70-6.10); White Blood Count 7.0 K/mm3 (4.8-10.8)
[2025-02-11 10:19] LABS: Add Urine Microscopic? YES; Appearance Urine Cloudy (Clear); Glucose Urine UA Negative (Negative); Leukocyte Esterase Ur 3+ (Negative); Nitrate Urine Positive (Negative); Specific Grav Ur 1.020 (1.010-1.020)
[2025-02-11 10:23] LABS: Alanine Aminotransferase 11 U/L (6-50); Albumin Level 3.3 g/dL (3.5-5.1); Alkaline Phosphatase 76 U/L (38-126); Anion Gap 7 mmol/L (4-12); Aspartate Amino Transferase 19 U/L (17-59); Bilirubin,Total 0.5 mg/dL (0.2-1.3); Blood Urea Nitrogen 14 mg/dL (9-20); Calcium 9.0 mg/dL (8.4-10.2); Carbon Dioxide 27 mmol/L (22-30); Chloride 107 mmol/L (98-107); Cholesterol 111 mg/dL (0-200); Creatine Kinase 22 U/L (55-170); Estimated Glomerular Filt Rate > 60; Glucose 100 mg/dL (65-110); HDL Direct 31 mg/dL; Iron 66 ug/dL (49-181); Osmolality Calculated 292 mOsm/kg (285-295); Potassium 4.0 mmol/L (3.4-5.0); Sodium 141 mmol/L (137-145); Total Protein 5.6 g/dL (6.3-8.2); Triglycerides 117 mg/dL (<150)
[2025-02-11 10:32] LABS: MALB Creatinine Ratio 78.5 mg/g (0-30); NT Pro B Type Natriuretic Pept 130 pg/mL (19.9-100)
[2025-02-11 10:41] LABS: Free T4 Free Thyroxine 0.81 ng/dL (0.78-2.19)
[2025-02-11 10:54] LABS: Thyroid Stimulating Hormone 2.430 uIU/mL (0.465-4.680)
--- OUTSIDE RECORDS SUMMARY | 2025-02-11 10:54 | XMS_ITS | Patient Health Record ---
Author Organization [facility] Address [address] [place], [place] [id number] Care Team Providers Care Terminal System Operator Name Role Phone CACHORRO Miranda Unavailable [phone] Vicente Oswald Unavailable Unavailable Reason For Referral No Information Medications Medication SIG (Take, Route, Frequency, Duration) Notes Start Date End Date Status apixaban 5 MG Oral Tablet [Eliquis] ORAL apixaban 5 MG Oral Tablet [Eliquis]Original Medicationapixaban 5 MG Oral Tablet [Eliquis] *Reorder from [employer] for eRx and Interaction Alerts* 09/23/2021 Active Social History Social History Additional Details Category Social Info Options Details Migrated Social History Migrated Social History History of tobacco use : , Smoking Status : Never smoked Plan Of Treatment No Information Insurance Providers Payer Name Payer Address Payer Phone Subscriber Number Group Number Insured Name Patient Relationship to Insured Coverage Start Date Coverage End Date [facility] [address] [address] [place] [id number] BRYSON MAURER Self - patient is the insured
--- OUTSIDE RECORDS SUMMARY | 2025-02-11 10:54 | XMS_ITS | Clinical Summary ---
Author Organization [facility] Kiran Fuentes Address [address] [place] [address] Care Team Providers Care Chief Engineer Research Name Role Phone Vicente Oswald MD Primary [...] active problems Family History Medical History Relation Name Comments [...] Height 182.9 cm (6') 03/21/2023 2:58 PM DIRECTOR SOFTWARE QUALITY ASSURANCE Body Mass Index 31.74 03/21/2023 2:58 PM DIRECTOR SOFTWARE QUALITY ASSURANCE Plan of Treatment Health Maintenance Due Date [...] 2024 Insurance AETNA PPO MCR Care Teams Chief Engineer Research Relationship Specialty Start Date End Date Vicente Oswald MD [address] [place] [address] PCP - General Internal Medicine 12/27/22
--- OUTSIDE RECORDS SUMMARY | 2025-02-11 10:54 | XMS_ITS | Clinical Summary ---
Author Organization [facility] Address [address] [place] [address] Care Team Providers Care Dictating Machine Transcriber Name Role Phone Vicente Oswald MD Primary [...] Vaccine: 50+ Years (2 of 2 - PPSV23, PCV20, or PCV21) 09/21/2015 07/27/2015 Zoster Vaccines (2 of 2) 12/12/2019 10/17/2019 COVID-19 Vaccine (3 - season) 2024 06/09/2020, 05/19/2020 Influenza Adult (#1) 2025 Hemoglobin A1C 05/09/2025 11/06/2024, 04/18, 01/02/2024, Additional history exists Lipid Panel 11/06/2025 11/06/2024, 04/18, 01/02/2024, Additional history exists Hepatitis A Vaccines Aged Out No long er eligible based on patient's age to complete this topic Meningococcal B Vaccine Aged Out No l onger eligible based on patient's age to complete this topic Meningococcal Vaccine Aged Out No preet haim eligible based on patient's age to complete this topic RSV Immunizations Under 20 Months Aged Out No longer eligible based on patient's age to complete this topic Procedures Procedure Name Priority Date/Time Associated Diagnosis Comments LIPID PANEL Routine 11/06/2024 11:15 AM CDT CKD (chronic kidney disease) Anemia Diabetes ([facility]) Urinary retention HEMOGLOBIN, GLYCOSYLATED Routine 11/06/2024 11:15 AM CDT CKD (chronic kidney disease) Anemia Diabetes ([facility]) Urinary retention from Last 3 Months or Most Recently Relevant to Health Maintenance Results * (ABNORMAL) HEMOGLOBIN, GLYCOSYLATED (11/06/2024 11:15 AM CDT) HGB A1C 6.8(H) <5.7 % 11/06/2024 9:21 PM CDT [facility] ESTIMATED AVG GLUCOSE 148(H) 74 - 114 MG/DL 11/06/2024 9:21 PM CDT [facility] 11/06/2024 11:1 5 AM CDT us Vicente Oswald MD LABORATORY Final Result Performing Organization Address City/State/[facility] Co de Phone Number [facility] [address] [place] [address], [place] [phone] [id number] * (ABNORMAL) LIPID PANEL (11/06/2024 11:15 AM CDT) CHOLESTEROL 103 MG/DL 11/07/2024 6:36 AM CDT [facility] Comment:DESIRABLE: <200 TRIGLYCERIDES 129 MG/DL 11/07/2024 6:36 AM CDT [facility] Comment:<150 NORMAL HDL 34(L) >39 MG/DL 11/07/2024 6:36 AM CDT [facility] LDL-C 43 MG/DL 11/07/2024 6:36 AM CDT [facility] Comment:<100 OPTIMAL VLDL CALCULATION 26 MG/DL 11/08/19 6:36 AM CDT [facility] Comment:REFERENCE RANGE NOT ESTABLISHED CHOL/HDL RATIO 3.0 11/07/2024 6:36 AM CDT [facility] Comment:REFERENCE RANGE NOT ESTABLISHED LDL/HDL 1.3 11/07/2024 6:36 AM CDT [facility] Comment:REFERENCE RANGE NOT ESTABLISHED NON HDL CHOLESTEROL 69 MG/DL 11/07/2024 6:36 AM CDT [facility] Comment:REFERENCE RANGE NOT ESTABLISHED 11/06/2024 11:1 5 AM CDT us Vicente Oswald MD LABORATORY Final Result [facility] [address] [place] [address], [id number] from Last 3 Months or Most Recently Relevant to Health Maintenance Insurance A[employer] MEDICARE Care Teams Dictating Machine Transcriber Relationship Specialty Start Date End Date Vicente Oswald MD [address] [place] [id number] PCP - General INTERNAL MEDICINE 10/08/18
--- OUTSIDE RECORDS SUMMARY | 2025-02-11 10:54 | XMS_ITS | Clinical Summary ---
Author Organization [facility] Address [address] [place] [address] Care Team Providers [employer] Specialist Name Role Phone Vicente Oswald MD Primary Care Provider [phone] Allergies Active Allergy Reactions Criticality Noted Date [...] mouth daily Active cyanocobalamin/ folic acid (VITAMIN D67-OXDPT ACID) 1,000-400 mcg lozenge Take 1,000 mcg [...] (12/17/2019): Added automatically from request for surgery [id number] Closed unstable burst fracture of first lumbar v ertebra 12/17/2019 Overview (12/18/2019): Added automatically from request for surgery [id number] Spinal stenosis of lumbar re gion with neurogenic claudication 12/17/2019 Overview (12/18/2019): Added automatically from request for surgery [id number] Compression fracture of L1 lumbar vertebra 12/04 Acute pain due to trauma 12/05/2019 HLD (hyperlipidemia) 12/05/2019 PAD (peripheral artery disease) 12/05/2019 Hypertension 01/30/2018 Spondylolisthesis of lumbar region 12/15/2017 Overview (12/15/2017): Added automatically from request for surgery [id number] Spinal stenosis, lumbar andrew on, with neurogenic claudication 12/15/2017 Overview (12/15/2017): Added automatically from request for surgery [id number] HX: anticoagulation 12/15/2017 Overview (12/15/2017): Added automatically from request for surgery [id number] Type II or unspecified type diabetes mellitus with neurological manifestations, not stated as uncontrolled(250.60) 12/15/2017 Overview (12/15/2017): Added automatically from request for surgery [id number] Assessment & Plan (12/29/2019 3:35 PM CDT): -BG stable on lantus 24u QHS and LD SSI Coronary artery calcification seen on CAT scan 0 12/15/2017 Overview (12/15/2017): Added automatically from request for surgery [id number] Pain in both lower extremities 09/12/2017 Atheroscler [place] arteries the extremities w/intermit claudication 09/07/2017 Neck [...] Medical History Date Comments Hypertension Diabetes mellitus Type 2 H/O spinal fusion 01/30/2018 Hyperlipidemia [...] on file Legal Sex Male 8:25 AM [employer] PER[employer] Gender Identity Not on file Sexual Orientation [...] Assessment 01/02/2021 01/03/2020 Covid-19 Vaccine (4 - 2024-2 6 season) 2024 02/23/2021, 06/09/2020, 05/19/2020 Influenza Vaccine (#1) 2024 , 12/27/2018, 02/28/2018, Additional history exists Lipid Panel 01/01/2025 01/02/2024, 03/0 05/2021, 12/03/2019, Additional history exists DTaP/Tdap/Td Vaccine (2 - Td or Tdap) 07/13/2033 07/14/2023 Medical Devices Implanted Type Area 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 Device 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 Shelf Expiration Date Model / Serial / Lot [employer] [id number] Tissue Bone Void Filler Acupac Plus 50cc - [id number] - [id number] Implanted:Qty: 1 on 12/26/2019 by Wayne Diggs MD at [facility] Bone N/A: Spine Lumbar [employer] 03/12/2024 [id number] / [id number] / NA Description:AcuPac 50cc Acuity Surgical Donor # [id number] Medtronic Sofamor Danek [id number] Infuse 18mm 26mm Absorbable Sponge Sterile Water Syringe Needle - [id number] Implanted:Qty: 1 on 01/30/2018 by Wayne Diggs MD at [facility] N/A: Spine Lumbar Medtronic Sofamor Danek 10/15/2018 [id number] / / [id number] Medtronic Sofamor [employer] [id number] Mastergraft Matrix Block Extension Void Filler Substitute 10ml - [id number] Implanted:Qty: 1 on 01/30/2018 by Wayne Diggs MD at [facility] N/A: Spine Lumbar Medtronic Sofamor [employer]anek [id number] 10/14/2020 [id number] / / [id number] Medtronic Inc [id number] Artic-L L30 Mm X W12 Mm X H12 Mm 5 D Spacer Spinal Titanium - [id number] Implanted:Qty: 1 on 01/30/2018 by Wayne Diggs MD at [facility] N/A: Spine Lumbar Medtronic Inc 07/17/2025 [id number] / / Medtronic Sofamor [place] [id number] Cd Horizon Break Off Spinal Screw Set Titanium Nonsterile 5.5 Mm - [id number] Implanted:Qty: 6 on 01/30/2018 by Wayne Diggs MD at [facility] N/A: Spine Lumbar Medtronic Sofamor [employer] [id number] / / Medtronic Sofamor [employer] [id number] Solera 5.5mm 70mm Curve Sinan Spinal Titanium Nonsterile - [id number] Implanted:Qty: 2 on 01/30/2018 by Wayne Diggs MD at [facility] N/A: Spine Lumbar Medtronic Sofamor [employer] [id number] / / Medtronic Sofamor [employer] [id number] Solera Cd Horizon 7.5mm 50mm Multiaxial Spine Screw Bone Cocr - [id number] Implanted:Qty: 5 on 01/30/2018 by Wayne Diggs MD at [facility] N/A: Spine Lumbar Medtronic Sofamor [employer]k [id number] / / Mas Implanted:Qty: 1 on 01/30/2018 by Wayne Diggs MD at [facility] N/A: Spine Lumbar Medtronic [id number] / / Medtronic Inc [id number] Artic-L L30 Mm X W12 Mm X H12 Mm 5 D Spacer Spinal Titanium - [id number] Implanted:Qty: 1 on 01/30/2018 by Wayne Diggs MD at [facility] N/A: Spine Lumbar Medtronic Inc [id number] / / Medtronic Sofamor Danek [id number] Infuse 18mm 26mm Absorbable Sponge Sterile Water Syringe Needle - [id number] Implanted:Qty: 1 on 12/26/2019 by Wayne Diggs MD at [facility] N/A: Spine Lumbar Medtronic Inc 11/15/2020 [id number] / / [id number] Medtronic Sofamor [employer]anek [id number] Mastergraft Matrix Block Extension Void Filler Substitute 10ml - [id number] Implanted:Qty: 1 on 12/26/2019 by Wayen Diggs MD at [facility] N/A: Spine Lumbar Medtronic Inc 05/17/2022 [id number] / / [id number] Medtronic Inc [id number] Artic-L L25 Mm X W12 Mm X H13 Mm 5 D Spacer Spinal Titanium - [id number] Implanted:Qty: 1 on 12/26/2019 by Wayne Diggs MD at [facility] N/A: Spine Lumbar Medtronic Inc 01/04/2025 [id number] / / [id number] Medtronic Sofamor [employer]anek [id number] Cd Horizon Break Off Spinal Screw Set Titanium Nonsterile 5.5 Mm - [id number] Implanted:Qty: 12 on 12/26/2019 by Wayne Diggs MD at [facility] N/A: Spine Lumbar Medtronic Inc [id number] / / Medtronic Sofamor [place]k [id number] Cd Horizon 5.5mm 500mm Line Straight Sinan Spinal Titanium - [id number] Implanted:Qty: 1 on 12/26/2019 by Wayne Diggs MD at [facility] N/A: Spine Lumbar Medtronic Inc [id number] / / Medtronic Sofamor [employer]ane[place] [id number] Solera Cd Horizon 6.5mm 50mm Multiaxial Spine Screw Bone Cocr - [id number] Implanted:Qty: 6 on 12/26/2019 by Wayne Diggs MD at [facility] N/A: Spine Lumbar Medtronic Inc [id number] / / Medtronic Sofamor [place] [id number] Solera Cd Horizon 7.5mm 55mm Multiaxial Spine Screw Bone Cocr - [id number] Implanted:Qty: 4 on 12/26/2019 by Wayne Diggs MD at [facility] N/A: Spine Lumbar Medtronic Inc [id number] / / Medtronic Sofamor [employer]anek [id number] Solera Cd Horizon 8.5mm 55mm Multiaxial Spine Screw Bone Cocr - [id number] Implanted:Qty: 1 on 12/26/2019 by Wayne Diggs MD at [facility] N/A: Spine Lumbar Medtronic Inc [id number] / / Medtronic Sofamor [place] [id number] 8.5mm 50mm Multiaxial Spine Screw Bone - [id number] Implanted:Qty: 1 on 12/26/2019 by Wayne Diggs MD at [facility] N/A: Spine Lumbar Medtronic Inc [id number] / / [employer] [id number] [place] Delivery Kit Vena Cava Femoral Filter Embolization Nitinol Latex Free - [id number] Implanted:Qty: 1 on 12/26/2019 by Mario Ramos MD at [facility] N/A: Vena Cava [employer] 12/15/2022 [id number] / / [id number] Procedures Procedure Name Priority Date/Time Associated Diagnosis [...] - 149 EXTERNAL LAB Blood specimen (specimen) [facility] Provider LAB BLOOD ORDERABLES Edit ed Result - Final EXTERNAL LAB * (ABNORMAL) Hemoglobin A1c (12/04/2019 2:54 PM CDT) Hgb A1C 7.7(H) 4.0 - 5.6 % [facility] Estimated Average Glucose 174 mg/dL [facility] Comment: The ADA recommends reporting an estimated Average Glucose (eAG) with all Hemoglobin A1c results using the equation derived from a study of 507 normal and diabetic adults. Minority populations were underrepresented and children were not included. (Diabetes Care 31:3168-0577, 2008). The eAG is not equivalent to a fasting glucose. Blood specimen (specimen) 12/04/2019 2:54 PM CDT 12/04/2019 3:10 PM CDT Narrative [facility] - 12/04/2019 3:45 PM CDT THE [facility]J COLLECTION LOCATION IS [facility] [id number] Leti Bhatti MD LAB BLOOD ORDERABL ES Final Result 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
[2025-02-11 10:58] LABS: Ferritin 271.00 ng/mL (11.1-264)
[2025-02-11 12:42] LABS: Hemoglobin A1C 6.6 % (<5.7)
[2025-02-12 08:59] LABS: Total Triiodothyronine (T3) 1.02 NG/ML (0.97-1.69)
== END 2025-02-11 09:44 | disposition home or self-care (01) ==
LOC: CHSLAB 09:48
PROVIDERS: PCP Internal Medicine; Visit Provider Internal Medicine
DX: D30.9 Benign neoplasm of urinary organ, unspecified (principal); E78.2 Mixed hyperlipidemia; N39.0 Urinary tract infection, site not specified; R33.9 Retention of urine, unspecified; E11.22 Type 2 diabetes mellitus with diabetic chronic kidney disease; N18.9 Chronic kidney disease, unspecified; I50.9 Heart failure, unspecified
CPT/HCPCS: 36415; 80053; 80061; 81001; 82043; 82550; 82728; 83036; 83540; 83880; 84439; 84443; 84480; 85025; 87086; 87186